=== PATIENT | female | born 1995 | race Caucasian/White ===

== ENCOUNTER 2023-01-05 09:20 | Inpatient (IN) | payer OTHER, SELFPAY ==
--- NOTE | 2023-01-01 12:44 | HP.PCM_ITS ---
History and Physical Date of Admission: 01/05/23 HPI: The patient is a 27 year old female presenting for pre-operative visit. She is scheduled for , for breech on 01/05/23. Procedure discussed along with risks, benefits and complications. Other alternatives discussed for management. Consent form signed? Yes. ? ? PAST MEDICAL HISTORY PAST MEDICAL HISTORY Diagnosis Date ? Allergic rhinitis, cause unspecified ? ? History of hypertension ? ? PMH - PAST MEDICAL HISTORY OF ? ? normal color vision ? Unspecified asthma(493.90) ? ? ? PAST SURGICAL HISTORY PAST SURGICAL HISTORY Procedure Laterality Date ? PAST SURGICAL HISTORY OF ? ? ? wisdom teeth ? TYMPANOSTOMY LOCAL/TOPICAL ANESTHESIA ? CURRENT MEDICATIONS Current Outpatient Medications Medication Sig Dispense Refill ? acyclovir (ZOVIRAX) 400 mg tablet Take 1 tablet by mouth three times daily. 90 tablet 4 ? prental multivitamin 27 mg iron- 800 mcg tablet Take 1 tablet by mouth once daily. ? ? ? diphenhydramine HCl (BENADRYL ORAL) Take by mouth. ? ? ? ascorbic acid (CARLOS MANUEL-C ORAL) Take by mouth. ? ? ? cholecalciferol, vitamin D3, (VITAMIN D3 ORAL) Take by mouth. ? ? ? zinc sulfate (ZINC-15 ORAL) Take by mouth. ? ? ? budesonide-formoterol (SYMBICORT) 160-4.5 mcg/actuation inhaler Inhale 2 Puffs as instructed twice daily. 1 Inhaler 1 ? acyclovir (ZOVIRAX) 400 mg tablet Take 1 tablet by mouth once daily. 90 tablet 4 ? cetirizine HCl (ZYRTEC ORAL) Take by mouth. ? ? ? EPINEPHrine (EPIPEN) 0.3 mg/0.3 mL (1:1,000) PnIj Inject 0.3 mL intramuscularly as needed (for allergic reaction.Seek emergent medical care immediately after use.Disp:one 2-packw/psychologist chief). Dispense generic if available. 1 Each 1 ? mometasone (NASONEX) 50 mcg/actuation nasal spray Use 2 Sprays in each nostril once daily. 1 Bottle 11 ? albuterol HFA (PROVENTIL HFA) 90 mcg/actuation inhaler Inhale 2 Puffs as instructed every 4 hours as needed (May also use 15 minutes pre-exercise. Use with spacer. Proventil JOEL). 1 Inhaler 2 ? albuterol 2.5 mg /3 mL (0.083 %) INHALATION nebulizer solution Use via nebulizer. one nebulized every 4 hours as needed for cough, wheezing, chest tigh tness or shortness of breath. 50 mL 5 ? No current facility-administered medications for this visit. ? ? ALLERGIES: Environment Allergy [Other] ? PERSONAL HISTORY: SOCIAL HISTORY Social History ? Tobacco Use ? Smoking status: Never ? Smokeless tobacco: Never Vaping Use ? Vaping Use: Never used Substance Use Topics ? Alcohol use: Not Currently ? ? Comment: socially ? Drug use: Never ? FAMILY HISTORY: FAMILY HISTORY FAMILY HISTORY Problem Relation Age of Onset ? Hypertension Mother ? ? Hypertension Father ? ? No Known Problems Brother ? ? No Known Problems Brother ? ? No Known Problems Brother ? ? Asthma Brother ? ? Diabetes Maternal Grandmother ? ? Hypertension Maternal Grandmother ? ? Uterine Cancer Maternal Grandmother ? ? Heart Maternal Grandfather ? ? of massive heart attack at age 43 ? Hypertension Paternal Grandmother ? ? Diabetes Paternal Grandmother ? ? Hypertension Paternal Grandfather ? ? ? REVIEW OF SYMPTOMS: GENERAL: denies fevers or chills ENDOCRINOLOGY: has not been on steroids Cardiology : denies palpitations or chest pain Respiratory: denies SOB or cough Hematology: denies history of prolonged bleeding or easy bruising or VTE Allergy: Denies history of personal or family history of allergy to anesthesia ? PHYSICAL EXAMINATION: ? VITALS: Blood pressure 124/87, pulse 84, height 5' 5 (1.651 m), weight 215 lb 9.6 oz (97.8 kg), last menstrual period 04/05/2022, SpO2 98 %. ? GENERAL: The patient is well nourished, well hydrated in no acute distress. , The patient is oriented to time, place, and person. NECK: Supple. No lynphadenopathy, normal thyroid, no thyromegaly. LUNGS: Clear to auscultation bilaterally. no wheezes, rhonchi or rales HEART: Regular rate and rhythm, Normal heart sounds, and No murmurs or gallops Abd- soft, nontender, gravid ? IMPRESSION: Estimated Date of Delivery: 01/10/23 Breech ? PLAN: The risks/benefits/alternatives and personal involved for the planned c- section were reviewed with the patient. Her questions were answered to her satisfaction and she desires to proceed. Consent was signed. I reviewed with her postop instructions and expectations. ? ? I have reviewed and updated past medical and surgical history, medications and allergies
[2023-01-05] VITALS (33 sets, daily range): BP systolic 104–143; BP diastolic 53–89; PULSE 68–104; RESP 15–146; TEMP 36.2–36.8; O2SAT 96–100; BMI 36.1
[2023-01-05] MEDS: Lactated Ringers 1,000 ML 999 ML IV (10:00)
[2023-01-05 10:33] LABS: Absolute Lymphocyte Count 2.31 X10^3/uL (0.83-4.51); Absolute Neutrophil Count 8.5 X10^3/uL (2.0-7.7); Basophil# 0.05 X10^3/uL; Basophil% 0.4 % (0-1); Eosinophil# 0.12 X10^3/uL; Hematocrit 40.7 % (37-47); Hemoglobin 13.5 g/dL (12.0-15.0); Lymphocyte # 2.31 X10^3/ul (0.83-4.51); Lymphocyte % 19.9 % (19-41); Mean Corp Hgb Conc 33.2 g/dL (32-36); Mean Corpuscular Hgb 29.2 pg (27.0-32.0); Mean Corpuscular Volume 88.1 fL (81-99); Mean Platelet Vol. 9.7 fl (6.2-12.0); Monocyte# 0.56 X10^3/uL; Monocyte% 4.8 % (0-10); NRBC Flagged by Analyzer 0 % (0-5); Neutrophil # 8.46 X10^3/uL (2.7-7.7); Platelet Count 192 K/mm3 (150-450); RBC Distribution Width SD 41.8 fl (35.1-43.9); Red Blood Count 4.62 M/mm3 (4.2-5.4); White Blood Count 11.6 K/mm3 (4.4-11.0)
[2023-01-05 11:20] LABS: Syphilis Antibodies Non-reactive
[2023-01-05] MEDS: Acetaminophen 500 MG Tablet 1000 MG PO ×3 (11:20→23:41)
[2023-01-05] MEDS: Lactated Ringers 1,000 ML 150 ML IV (11:20)
[2023-01-05] MEDS: Sodium Citrate/Citric Acid 30 ML UDC PO (11:49)
[2023-01-05] MEDS: Cefazolin 2 GM in 0.9% Normal Saline 100 ML IV (11:56)
--- NOTE | 2023-01-05 12:48 | EX.PCM.OBRPT ---
Assessment & Plan (1) delivery delivered: (2) Single live : (3) Reinier breech: (4) 39 weeks gestation of : Maternal Data Information Final DALY: 12/10/22 Gestational age: 39 5/7 Details Operative Information Date of Procedure: 01/05/23 Pre-Operative Diagnosis: breech Post-Operative Diagnosis: same Classification: Scheduled Procedure Type: low transverse presales senior specialist #1: Emili Curry Type of Anesthesia: Spinal Anesthesiologist: Jac Carpenter Special Medications: duramorph Antibiotic Given: Ancef 2 grams IV x1 Drain: Jay to straight drain Estimated Blood Loss: 600 Fluids Replaced: 550 Procedure Start Time: 12:22 Procedure Stop Time: 12:44 Time of Delivery: 12:24 Findings Description of Procedure: The patient was taken to the operating room. She was prepped and draped in the dorsal supine position with a leftward tilt. A Pfannenstiel skin incision was made approximately 2 cm above the symphysis pubis and carried through to underlying layer fascia with the scalpel. The fascia was incised incised in the midline and extended laterally with the Guerrero scissors. The rectus muscles were in the midline and the peritoneum was entered bluntly. The peritoneal incision was stretched and the bladder blade was placed. The uterine incision was made in a low transverse fashion with the scalpel and extended superiorly and inferiorly with blunt dissection. The amniotic membranes were ruptured bluntly and clear amniotic fluid returned. The 's buttocks were brought out through the incision. The legs were swept out individually and then the arms. The head delivered flexed with minimal traction and gentle downward traction on the maxilla. The mouth and nares were bulb suctioned. The cord was clamped and cut as the was stimulated. Cord clamping was delayed. The infant was handed off to the waiting nursing staff. The placenta was delivered with fundal massage and gentle traction in the standard fashion. The uterus was exteriorized and cleared of all clots and debris. The cervix was dilated with a ring forcep. The uterine incision was closed with #1 Vicryl in a running locked fashion. Single [id number] suture was needed in the left corner of the incision to control bleeding. The incision was examined and was found to be hemostatic. The uterus was placed back into the peritoneal cavity and hemostasis was again confirmed. The rectus muscles were examined and any bleeding was Bovie cauterized. The parietal peritoneum and rectus muscles were closed en bloc with an 0 Vicryl running suture. The rectus fascia was examined and any bleeding was Bovie cauterized and the rectus fascia was closed with 0 PDS suture in a running standard fashion. The subcutaneous tissue was examining and any bleeding was Bovie cauterized. The subcutaneous tissue was reapproximated with 3-0 Vicryl suture. The skin was closed in a subcuticular fashion with 3-0 Monocryl suture. I performed the entire procedure with assistance. All sponge, lap, and needle counts were correct. The patient was taken to her room for recovery in a stable condition. Presentation: Positive for Vertex Amniotic Membrane Rupture Type: Artificial Amniotic Fluid Description: Clear Placental Delivery Description: Expressed Placenta Disposition: [facility] Cord Vessel Description: 3 Vessels Cord Entanglement: None Infant A Gender: Female (Angeline) (1 minute): 8 (5 minute): 9 Delayed Cord Clamping: Yes Complications Complications: none
[2023-01-05] MEDS: Oxytocin 15 Units/NS 250ml 15 UNITS/250 ML IV.SOLN 83 UNITS IV (13:00)
[2023-01-05] MEDS: Ketorolac 30 MG/ML Syringe IV ×2 (13:30→20:11)
[2023-01-05] MEDS: Ondansetron 4 MG/2 ML Vial IV (15:24)
[2023-01-05] MEDS: Lactated Ringers 1,000 ML 100 ML IV (15:24)
--- NOTE | 2023-01-05 20:05 | NURSING ---
pt stood at side of bed and walked to bathroom. tolerated well.
[2023-01-06] MEDS: Ketorolac 30 MG/ML Syringe IV ×2 (01:30→08:02)
[2023-01-06] MEDS: 0.9% Saline Lock 10 ML Syringe IV ×2 (01:31→08:02)
[2023-01-06] MEDS: Enoxaparin 40 MG/0.4 ML Syringe SC (01:31)
[2023-01-06 03:54] VITALS: BP 121/49; PULSE 74; RESP 15; TEMP 36.3; O2SAT 97
[2023-01-06] MEDS: Acetaminophen 500 MG Tablet 1000 MG PO ×4 (05:37→23:43)
[2023-01-06 05:47] LABS: Hematocrit 37.9 % (37-47); Hemoglobin 12.7 g/dL (12.0-15.0); Mean Corp Hgb Conc 33.5 g/dL (32-36); Mean Corpuscular Hgb 30.2 pg (27.0-32.0); Mean Corpuscular Volume 90.2 fL (81-99); Mean Platelet Vol. 9.4 fl (6.2-12.0); Platelet Count 138 K/mm3 (150-450); RBC Distribution Width SD 42.5 fl (35.1-43.9); White Blood Count 12.3 K/mm3 (4.4-11.0)
[2023-01-06 08:00] VITALS: BP 122/70; PULSE 64; RESP 17; TEMP 36.6
--- NOTE | 2023-01-06 08:50 | PCM.PN.OB ---
Subjective Subjective Pain well controlled. Average lochia. Ambulating and urinating without difficulty. Tolerating regular diet. Objective Data Objective Data Vital Signs: Vital Signs Temp Pulse Resp BP Pulse Ox O2 Del Method 97.8 F 64 17 122/70 H 97 Room Air 01/06/23 08:00 01/06/23 08:00 01/06/23 08:00 01/06/23 08:00 01/06/23 03:54 01/06/23 08:00 Oxygen Delivery Method Room Air Weight: 98.656 kg Body Mass Index (BMI) 36.1 Intake & Output: Intake and Output for Last 24 Hours 01/04/23 01/05/23 01/06/23 23:59 23:59 23:59 Intake Total 4015 / 4015 Output Total 3300 / 3300 1400 / 1400 Balance 715 / 715 -1400 / -1400 Lab / Micro Data Result Diagrams: 01/06/23 05:37 Labs: Laboratory Results - last 24 hr 01/05/23 10:10: WBC 11.6 H, RBC 4.62, Hgb 13.5, Hct 40.7, MCV 88.1, MCH 29.2, MCHC 33.2, RDW Std Deviation 41.8, RDW Coeff of Nadir 13.0, Plt Count 192, MPV 9.7, Immature Gran % (Auto) 0.900, Neut % (Auto) 73.0 H, Lymph % (Auto) 19.9, [place] % (Auto) 4.8, Eos % (Auto) 1.0, Baso % (Auto) 0.4, Absolute Neuts (auto) 8.5 H, Absolute Lymphs (auto) 2.31, Nucleated RBC % 0 01/05/23 10:10: Blood Type O POSITIVE, Antibody Screen NEGATIVE 01/05/23 10:10: Syphilis Total Ab Non-reactive 01/06/23 05:37: WBC 12.3 H, RBC 4.20, Hgb 12.7, Hct 37.9, MCV 90.2, MCH 30.2, MCHC 33.5, RDW Std Deviation 42.5, RDW Coeff of Nadir 13.0, Plt Count 138 L, MPV 9.4 Physical Exam Const alert General Appearance: cooperative GI GI Narrative: soft, moderate distention, fundus firm, appropriately tender. Abdominal bandage clean dry and intact Assessment & Plan (1) delivery delivered: PLAN: Postoperative day #1 status post primary section for breech. Patient and are doing well. CBC is stable. Vitals are stable. is breast-feeding and doing well. Routine care. Likely discharge tomorrow.
[2023-01-06] MEDS: Senna/Docusate Sodium 1 Tablet PO (08:54)
[2023-01-06] MEDS: DiphenhydrAMINE 25 MG Capsule PO (08:54)
[2023-01-06 11:31] VITALS: BP 110/60; PULSE 66; RESP 18; TEMP 36.4
[2023-01-06] MEDS: Ibuprofen 600 MG Tablet PO ×2 (14:38→20:43)
[2023-01-06 17:29] VITALS: BP 118/58; PULSE 68; RESP 18; TEMP 36.5
[2023-01-06 19:32] VITALS: BP 120/70; PULSE 78; RESP 15; TEMP 36.8; O2SAT 97
[2023-01-07] MEDS: Ibuprofen 600 MG Tablet PO ×2 (02:15→08:16)
[2023-01-07 02:17] VITALS: BP 120/65; RESP 18; TEMP 36.6
[2023-01-07] MEDS: Acetaminophen 500 MG Tablet 1000 MG PO ×2 (05:28→11:32)
[2023-01-07 08:09] VITALS: BP 123/70; PULSE 77; RESP 18; TEMP 36.7; O2SAT 98
--- NOTE | 2023-01-07 08:17 | PCM.PN.OB ---
Subjective Subjective Patient is doing well. Pain is well controlled. she is ambulating and voiding without difficulty. Tolerating regular diet without nausea or vomiting. Lochia is normal. She denies lightheadedness or dizziness. She denies leg pain. She desires to go home today. Objective Data Objective Data Vital Signs: Vital Signs Temp Pulse Resp BP Pulse Ox O2 Del Method 98.1 F 77 18 123/70 H 98 Room Air 01/07/23 08:09 01/07/23 08:09 01/07/23 08:09 01/07/23 08:09 01/07/23 08:09 01/07/23 08:09 Oxygen Delivery Method Room Air Weight: 217 lb 8 oz Body Mass Index (BMI) 36.1 Intake & Output: Intake and Output for Last 24 Hours 01/05/23 01/06/23 01/07/23 23:59 23:59 23:59 Intake Total 4015 / 4015 Output Total 3300 / 3300 1400 / 1400 Balance 715 / 715 -1400 / -1400 Lab / Micro Data Result Diagrams: 01/06/23 05:37 Physical Exam Const alert and no apparent distress General Appearance: comfortable HEENT normocephalic GI soft to palpation and non-distended GI Narrative: ATTP, dressing intact Extremity Extremity Narrative: Trace LE edema bilaterally Assessment & Plan (1) delivery delivered: PLAN: Patient is s/p section delivery. She is doing well and meeting milestones for discharge. She requests to go home today. Discharge instructions reviewed and follow-up.
--- NOTE | 2023-01-07 08:21 | DCINST_ITS ---
Discharge Instructions Diet Discharge Diet: No restrictions Activity Discharge Activity: May Not Drive and May Shower May resume sexual activity in: 6 weeks Weight Bearing Status: Weight bearing as tolerated Lifting Restrictions: Nothing heavier than baby Dressing / Incision Call your doctor if your incision/area has: Continuous Slow Oozing, Sudden Incre ased Bleeding, Increased Pain/ Swelling, Increased Redness, Foul Smelling Discharge and Swelling at the incision site Call your doctor if you observe: Fever of 101 or Higher, Coldness, Increased Pain, Numbness or Tingling, Change in Color, Inability to urinate, Inability to have a bowel movement, Using more than 1 pad per hour, Shortness of breath, Dizziness, Fainting spells, Swelling in the ankles, Chest pain, Increased palpitations (irregular heartbeat), Calf discomfort and Uncontrolled pain Suture Line Care: Avoid Pulling/Pushing and Avoid Pinching/Bending Remove Dressing in: 3 days Cleanse incision/area with: Soap & Water Follow Up Care When: 1-2 weeks incision check Test Results: Test results from this visit will be discussed in further detail at your follow- up appointment, if applicable. Discharge Plan Admission Admit Date/Time: 01/05/23 09:20 Primary Reason for Your Visit: delivery Attending Provider: Nargis Aguirre Primary Care Provider: Kriss Celestin Instructions Patient Instructions: Section Dc Discharge Orders/Prescriptions Prescriptions: New oxycodone-acetaminophen [Percocet] 5-325 mg tablet 1 tab PO Q6H PRN (Reason: pain) 7 Days Qty: 10 0RF ibuprofen 600 mg tablet 600 mg PO Q6H PRN (Reason: pain) Qty: 30 0RF docusate sodium [Colace] 100 mg capsule 100 mg PO BID Qty: 30 0RF Continued [id number] 1 mg Tablet 1 tab PO DAILY Referrals / Follow Up: Kriss Celestin DO [Primary Care Provider] - Disposition Disposition (needs filled in before D/C Order can be placed): Home, Self Care
[2023-01-07] MEDS: Senna/Docusate Sodium 1 Tablet PO (10:16)
== END 2023-01-07 11:45 | disposition home or self-care (01) | DRG 788 ==
PROVIDERS: Admitting Provider Obstetrics & Gynecology; PCP Family Medicine; Referring Provider Obstetrics & Gynecology; Visit Provider Obstetrics & Gynecology
PROC: 10D00Z1 Extraction of Products of Conception, Low, Open Approach (ICD-10-PCS; CPT 59514; principal; 2023-01-05 11:45)
DX: O32.1XX0 Maternal care for breech presentation, not applicable or unspecified (principal); Z37.0 Single live birth; Z3A.39 39 weeks gestation of pregnancy
CPT/HCPCS: 59025; 59050; 85025; 85027; 86780; 86850; 86900; 86901; 99221; J7120; A4216; G0378; J2405

== ENCOUNTER 2024-08-01 21:56 | Emergency (ER) | payer OTHER, SELFPAY ==
[2024-08-01 21:58] VITALS: BP 146/72; PULSE 119; RESP 15; TEMP 35.6; O2SAT 100; BMI 35.1
--- NOTE | 2024-08-01 22:15 | US_ITS ---
EXAM: US , LIMITED CLINICAL INDICATION: abd pain w/ -- no bleeding TECHNIQUE: Real-time limited ultrasound of the maternal uterus with image documentation. COMPARISON: No relevant prior studies available. FINDINGS: FETUS: Single live intrauterine . GESTATIONAL AGE: No measurements were performed, the size of the fetus roughly correlates with the gestational age by LMP of 15 weeks 0 days. POSITION: Breech position. HEART RATE: heart rate: 162 bpm. PLACENTA: Placenta is posterior with no abnormality identified. AMNIOTIC FLUID: The amount of amniotic fluid is within normal limits for the gestational age. CERVIX: Cervix is closed and measures 2.9 cm in length. ADNEXA: Right ovary: 3 x 1.6 x 2.4 cm. Left ovary: 3.4 x 2.3 x 3.1 cm. US/OB Limited (No Biometrics) IMPRESSION: 1. Single live intrauterine with no acute abnormalities identified. 2. No measurements were performed, the size of the fetus roughly correlates with the gestational age by LMP 15 weeks 0 days. Electronically Signed: Curtis Hong MD at 0:09 EST ,
--- NOTE | 2024-08-01 22:30 | EX.ED.DYSGE1 ---
HPI History of Present Illness Chief Complaint: Back Informant: patient and spouse/S.O. Narrative Narrative: Patient is a 29-year-old female who is a G2, P1 approximately 15 weeks . She states that she had an ultrasound by her PODIATRY DOCTOR at 7 weeks and 12 weeks showing a single IUP. She states ultrasound roughly 3 weeks ago showed ovarian cyst as well. She states that she went to bed normally Wednesday night but awoke in the middle of the night with lower abdominal pain and cramping. She states that the symptoms have been persistent and now she feels it radiates towards her low back. She denies any vaginal bleeding or discharge or dysuria. She states she contacted her OB who recommended rest and hydration but she is concerned as she did not have the symptoms with her previous and therefore comes in for evaluation [facility] Medical History delivery delivered Gestational HTN Home Medications ?Medication ?Instructions ?Recorded ?Last Taken ?Type ibuprofen 600 mg tablet 600 mg PO Q6H PRN pain #30 tabs 01/07/23 Unknown Rx aspirin 81 mg tablet,delayed 162 mg PO DAILY 08/01/24 Unknown History release cetirizine 10 mg tablet 10 mg PO DAILY 08/01/24 Unknown History fluticasone 113 mcg-salmeterol 14 1 inh inhalation BID 08/01/24 Unknown History mcg/actuation breath activated powdr valacyclovir 1 gram tablet 1,000 mg PO DAILY 08/01/24 Unknown History Allergy/AdvReac Type Severity Reaction Status Date / Time No Known Allergies Allergy Verified 08/01/24 21:58 Social History Smoking Status: Never smoker [facility] ED Constitutional Constitutional ED: Denies chills or fever(s) ENT ENT ED: Denies sore throat Cardiovascular Cardiovascular: Denies chest pain Respiratory/Chest Respiratory/Chest: Denies cough or dyspnea Gastrointestinal Gastrointestinal: Reports abdominal pain and nausea; Denies diarrhea, melena or vomiting Genitourinary Genitourinary ED: Denies dysuria or hematuria Musculoskeletal Musculoskeletal: Reports back pain Integumentary Denies rash Neurologic Neurologic: Denies headache(s) Hematologic/Lymphatic Hematologic/Lymphatic: Denies easy bleeding or easy bruising EXAM Physical Exam Const Vital Signs: 08/01/24 21:58 08/01/24 23:57 Temperature 96.1 F L Temperature Source Temporal Pulse Rate 119 H 104 H Respiratory Rate 15 16 Blood Pressure 146/72 H 117/65 Blood Pressure Mean 96 82 Pulse Ox 100 100 Oxygen Delivery Method Room Air Room Air Positive well nourished and well developed General Appearance ED: well developed; Negative for pallor HEENT Reports moist mucous membranes HEENT Narrative: No tongue or lip swelling no oral lesions no airway edema or compromise No secondary findings in the posterior pharynx to suggest infection Eyes PERRL and EOMs intact bilaterally General Eye ED: Negative for scleral icterus Neck supple Resp normal respiratory effort and clear to auscultation bilaterally Resp Narrative: No nasal flaring retractions tachypnea or accessory muscle use Cardio regular rate and regular rhythm Rate: other Other Details: Heart is regular rate and rhythm without murmurs rubs or gallops Radial and carotid pulses are equal and symmetric GI non-distended GI Narrative: Patient's abdomen is gravid with fundus consistent with reported gestational age. There is pain on palpation in the right and left lower quadrant but greatest in the left without voluntary guarding or rigidity No pulsatile mass or fluid wave Negative Hodges sign Auscultation: normoactive bowel sounds Palpation: soft Back/Spine no CVA tenderness Extremity Extremity Narrative: Trace pitting edema consistent with but negative Homans' sign bilaterally Neuro oriented x3, CN's II-XII intact bilaterally and no sensory deficits noted Sensorium / Orientation: alert Psych mental status grossly normal Skin no rashes or lesions noted and no wounds General Skin Exam: Negative for jaundice or pallor MDM MDM MDM Narrative Medical decision making narrative: Patient arrived to the ER with stable vitals and a soft nonsurgical abdomen. She reported lower cramping but there was no associated bleeding or discharge. Demential diagnosis is for abdominal pain in versus ovarian cyst versus threatened miscarriage versus appendicitis versus UTI versus pyelonephritis versus diverticulitis. Basic labs were obtained and show no elevation to the white count going against acute infectious process. Lab work showed normal lipase and liver enzymes going against a biliary cause or pancreatitis. Urine sample showed no overt signs of infection going as UTI/pyelonephritis. An ultrasound was obtained which showed a single IUP with normal heartbeat which correlates with a normal going against spontaneous miscarriage and without bleeding I do not feel there is concern for threatened miscarriage. Ultrasound also showed no signs of ovarian pathology either. Therefore at this time with negative workup and stable vitals I do not feel there is need for further testing and patient is otherwise safe for discharge with outpatient PODIATRY DOCTOR follow-up History & Record Review Discussion w/independent historian: Patient Lab Data Attestation: I reviewed the patient's lab results. Labs: Laboratory Results - last 24 hr 08/01/24 22:28 WBC 7.4 RBC 4.21 Hgb 12.5 Hct 37.1 MCV 88.1 MCH 29.7 MCHC 33.7 RDW Std Deviation 42.2 RDW Coeff of Nadir 13.2 Plt Count 148 L MPV 9.4 Immature Gran % (Auto) 0.800 Neut % (Auto) 80.3 H Lymph % (Auto) 12.9 L [place] % (Auto) 5.2 Eos % (Auto) 0.4 Baso % (Auto) 0.4 Absolute Neuts (auto) 5.9 Absolute Lymphs (auto) 0.95 Nucleated RBC % 0 Sodium 136 Potassium 3.4 L Chloride 108 H Carbon Dioxide 24.0 Anion Gap 5 BUN 11 Creatinine 0.58 Estim Creat Clear Calc 162.29 Est GFR (MDRD) Af Amer 157 Est GFR (MDRD) Non-Af 130 BUN/Creatinine Ratio 19.0 Glucose 115 H Calcium 8.7 Total Bilirubin 0.20 Direct Bilirubin < 0.05 AST 16 ALT 27 Alkaline Phosphatase 73 Total Protein 6.6 Albumin 3.0 L Globulin 3.6 Lipase 37 HCG, Quant H Urine Color Yellow Urine Clarity Clear Urine pH 6.0 Ur Specific [place] 1.025 Urine Protein Negative Urine Glucose (UA) 250 H Urine Ketones Negative Urine Occult Blood Negative Urine Nitrite Negative Urine Bilirubin Negative Urine Urobilinogen Normal Ur Leukocyte Esterase Negative Urine RBC 0-5 SEEN Urine WBC 0-5 SEEN Ur Squamous Epith Cells 0-5 SEEN Urine Bacteria 1+ Urine Mucus 1+ Radiography Diagnostic Testing: Clinical Impression(s) from Imaging Studies Obstetrics Ultrasound 08/01/24 22:15 IMPRESSION: 1. Single live intrauterine with no acute abnormalities identified. 2. No measurements were performed, the size of the fetus roughly correlates with the gestational age by LMP 15 weeks 0 days. Electronically Signed: Curtis Hong MD at 0:09 EST , Discharge Plan Triage Chief Complaint: Back ED Provider: Kieran Brennan Dx/Rx/DC Orders Clinical Impression: Abdominal pain during Instructions: Abdominal Pain, Back Pain During Prescriptions: No Action ibuprofen 600 mg tablet 600 mg PO Q6H PRN (Reason: pain) Qty: 30 0RF cetirizine 10 mg tablet 10 mg PO DAILY valacyclovir 1 gram tablet 1,000 mg PO DAILY aspirin 81 mg tablet,delayed release (DR/EC) 162 mg PO DAILY fluticasone propion-salmeterol 113-14 mcg/actuation aerosol powdr breath activated 1 inh INHALATION BID Primary Care Provider: Ct Bartlett Referrals: Linsey Shah CNM [Med Staff - Adv Practice Prof] - Ct Bartlett PA-C [Primary Care Provider] - Activity Restrictions/Additional Instructions: Please follow-up with your PODIATRY DOCTOR for repeat evaluation and return to the ER should you have any further concerns Print Language: Ukrainian Disposition Disposition: Home, Self Care
[2024-08-01] MEDS: 0.9% Normal Saline (1000mL) 1,000 ML 999 ML IV (22:31)
[2024-08-01 22:40] LABS: Color, Urine Yellow (Yellow); Glucose, Dipstick 250 mg/dl (Normal); Ketone-Dipstick Negative (Negative); Leukocyte Esterase-Dipstick Negative /ul (Negative); Nitrite-Dipstick Negative (Negative); Occult Blood-Urine Negative /ul (Negative); Protein-Dipstick Negative (Negative); Specific Gravity, Urine 1.025 (1.002-1.030); Urine Bilirubin Dipstick Negative (Negative); Urine Clarity Clear (Clear); Urine Urobilinogen Normal (Normal)
[2024-08-01 22:44] LABS: Absolute Lymphocyte Count 0.95 X10^3/uL (0.83-4.51); Absolute Neutrophil Count 5.9 X10^3/uL (2.0-7.7); Basophil# 0.03 X10^3/uL; Basophil% 0.4 % (0-1); Eosinophil# 0.03 X10^3/uL; Eosinophils% 0.4 % (0-5); Hematocrit 37.1 % (37-47); Hemoglobin 12.5 g/dL (12.0-15.0); Lymphocyte # 0.95 X10^3/ul (0.83-4.51); Lymphocyte % 12.9 % (19-41); Mean Corp Hgb Conc 33.7 g/dL (32-36); Mean Corpuscular Hgb 29.7 pg (27.0-32.0); Mean Corpuscular Volume 88.1 fL (81-99); Mean Platelet Vol. 9.4 fl (6.2-12.0); Monocyte# 0.38 X10^3/uL; Monocyte% 5.2 % (0-10); NRBC Flagged by Analyzer 0 % (0-5); Neutrophil # 5.92 X10^3/uL (2.7-7.7); Neutrophil % 80.3 % (47-70); Platelet Count 148 K/mm3 (150-450); RBC Distribution Width CV 13.2 % (11.6-14.6); RBC Distribution Width SD 42.2 fl (35.1-43.9); Red Blood Count 4.21 M/mm3 (4.2-5.4); White Blood Count 7.4 K/mm3 (4.4-11.0)
[2024-08-01 22:52] LABS: Bacteria 1+ /hpf (None Seen); Mucous, Urine 1+ /hpf (<or=2+); Red Blood Cells-Urine 0-5 SEEN /hpf (0-5); Squamous Epithelial Cells - UA 0-5 SEEN /hpf (5-10); White Blood Cells 0-5 SEEN /hpf (0-5)
[2024-08-01 22:55] LABS: AST(SGOT) 16 U/L (15-37); Alanine Aminotransfer ALT/SGPT 27 U/L (13-56); Alkaline Phosphatase 73 U/L (45-117); Anion Gap 5 (5-15); BUN 11 mg/dL (7-18); Bilirubin, Direct < 0.05 mg/dL (0.00-0.30); Calcium,Total 8.7 mg/dL (8.5-10.1); Chloride 108 mmol/L (98-107); Creatinine, Serum 0.58 mg/dL (0.55-1.02); EST Glomerular Filtration Rate 130 mL/min (>60); Est Glom Filt Rate - Afr Amer 157 mL/min (>60); Estimated Creatinine Clearance 162.29 ml/min; Globulin 3.6 g/dL (2.2-4.2); Glucose 115 mg/dL (74-106); Lipase 37 U/L (13-75); Potassium 3.4 mmol/L (3.5-5.1); Protein, Total 6.6 g/dL (6.4-8.2); Sodium Level 136 mmol/L (136-145)
[2024-08-01 23:10] LABS: hCG Titer Quant., Serum 20553 mIU/mL (1-3)
[2024-08-01 23:57] VITALS: BP 117/65; PULSE 104; RESP 16; O2SAT 100
[2024-08-02 00:29] VITALS: BP 117/85; PULSE 85; RESP 18; TEMP 37.5; O2SAT 100
== END 2024-08-02 00:34 | disposition home or self-care (01) ==
PROVIDERS: Emergency Provider Emergency Medicine; PCP Family Medicine; Referring Provider Emergency Medicine; Visit Provider Emergency Medicine
DX: O26.892 Other specified pregnancy related conditions, second trimester (principal); R10.31 Right lower quadrant pain; R10.32 Left lower quadrant pain; O34.219 Maternal care for unspecified type scar from previous cesarean delivery; Z3A.15 15 weeks gestation of pregnancy
CPT/HCPCS: 76815; 80048; 80076; 81001; 83690; 84702; 85025; 96360; 99283; A4216

== ENCOUNTER 2025-01-16 12:39 | Inpatient (IN) | payer OTHER, SELFPAY ==
[2025-01-16] VITALS (17 sets, daily range): BP systolic 98–126; BP diastolic 50–87; PULSE 69–104; RESP 15–18; TEMP 35.5–36.8; O2SAT 96–100; BMI 38.2
[2025-01-16] MEDS: Lactated Ringers 1,000 ML 999 ML IV (13:05)
[2025-01-16 13:22] LABS: Absolute Lymphocyte Count 1.99 X10^3/uL (0.83-4.51); Absolute Neutrophil Count 7.8 X10^3/uL (2.0-7.7); Basophil# 0.04 X10^3/uL; Basophil% 0.4 % (0-1); Eosinophil# 0.06 X10^3/uL; Eosinophils% 0.6 % (0-5); Hematocrit 39.4 % (37-47); Hemoglobin 13.3 g/dL (12.0-15.0); Lymphocyte # 1.99 X10^3/ul (0.83-4.51); Mean Corp Hgb Conc 33.8 g/dL (32-36); Mean Corpuscular Hgb 29.6 pg (27.0-32.0); Mean Corpuscular Volume 87.8 fL (81-99); Mean Platelet Vol. 9.5 fl (6.2-12.0); Monocyte# 0.54 X10^3/uL; Monocyte% 5.1 % (0-10); NRBC Flagged by Analyzer 0 % (0-5); Neutrophil # 7.78 X10^3/uL (2.7-7.7); Neutrophil % 74.1 % (47-70); Platelet Count 177 K/mm3 (150-450); RBC Distribution Width CV 13.8 % (11.6-14.6); RBC Distribution Width SD 43.9 fl (35.1-43.9); Red Blood Count 4.49 M/mm3 (4.2-5.4); White Blood Count 10.5 K/mm3 (4.4-11.0)
[2025-01-16] MEDS: Acetaminophen 500 MG Tablet 1000 MG PO ×2 (13:39→20:06)
[2025-01-16 13:54] LABS: Syphilis Antibodies Nonreactive (Nonreactive)
--- NOTE | 2025-01-16 13:56 | PCM.HP.OB ---
HPI - General General Date of Admission: 01/16/25 HPI Narrative IGNACIA SWANN, is a 29 F who presents for repeat . NST in office showed a late deceleration. Maternal Data Information DALY Calculator Estimated Delivery Date Method Current WG Current Estimate 01/23/25 Manual 39w 0d PFSH [facility] Medical History (Updated 01/16/25 @ 13:[address] Jarocho Hughes MD) HPV (human papilloma virus) infection Asthma depression Chronic hypertension delivery delivered Gestational HTN Home Medications ?Medication ?Instructions ?Recorded ?Last Taken ?Type ibuprofen 600 mg tablet 600 mg PO Q6H PRN pain #30 tabs 01/07/23 Unknown Rx aspirin 81 mg tablet,delayed 162 mg PO DAILY chtn 08/01/24 01/16/25 09:30 History release cetirizine 10 mg tablet 10 mg PO DAILY allergies 08/01/24 01/16/25 09:30 History fluticasone 113 mcg-salmeterol 14 2 inh inhalation DAILY asthma 08/01/24 01/15/25 21:30 History mcg/actuation breath activated powdr valacyclovir 1 gram tablet 1,000 mg PO TID hsv 08/01/24 01/16/25 09:30 History 1,000 mg Allergy/AdvReac Type Severity Reaction Status Date / Time No Known Allergies Allergy Verified 01/16/25 12:44 Social History Smoking Status: Never smoker History Elective abortions Hx Para 1 Spontaneous abortions Hx # Term Pregnancies Ectopic pregnancies Hx # Pregnancies Multiple births # of living children Vital Signs Vital Signs Vital Signs: Weight Weight: 223 lb Body Mass Index (BMI) 38.2 Labs Labs Labs: Blood Type O POSITIVE Antibody Screen NEGATIVE Hct 39.4 % (37-47) Hgb 13.3 g/dL (12.0-15.0) Obstetrics Ultrasound Syphilis Total Ab Nonreactive (Nonreactive) Assessment & Plan (1) Previous delivery affecting : COMMENT: @ 39 weeks (2) 39 weeks gestation of : PLAN: Plan Admit to L&D Proceed with repeat . Informed consent signed after R/B/A discussed.
[2025-01-16] MEDS: Lactated Ringers 1,000 ML 150 ML IV (14:03)
[2025-01-16] MEDS: Sodium Citrate/Citric Acid 30 ML UDC PO (15:13)
--- NOTE | 2025-01-16 15:17 | EX.PCM.OBRPT ---
Maternal Data Information DALY Calculator Estimated Delivery Date Method Current WG Current Estimate 01/23/25 Manual 39w 0d Operative Report (OB) Details Procedure Type: low transverse Date of Procedure: 01/16/25 Procedure Start Time: 16:03 Procedure Stop Time: 16:41 Pre-Operative Diagnosis: Repeat Elective and Nonreassuring Status (Late deceleration on NST in office) Post-Operative Diagnosis: Same as Pre-operative diagnosis Classification: MERON Type of Anesthesia: Spinal Antibiotic Given: Ancef 2 grams IV x1 Drain: Jay to straight drain Estimated Blood Loss: 800ml Fluids Replaced: 900ml Findings Description of surgery: The patient was taken to the operating room where spinal anesthesia was placed & found to be adequate. She was prepped and draped in the dorsal supine position with a leftward tilt. A Pfannenstiel skin incision was made approximately 2 cm above the symphysis pubis and carried through to the underlying fascia with the scalpel. The fascia was incised incised in the midline and extended laterally with the Guerrero scissors. The rectus muscles were in the midline and the peritoneum was entered carefully and bluntly. The peritoneal incision was stretched and the bladder blade was inserted. Vesicouterine peritoneum was tented up, incised & then bladder flap created gently. The uterine incision was made in a low transverse fashion with the scalpel and extended superiorly and inferiorly with blunt dissection. The infant's head was brought to the incision in the flexed position and delivered without difficulty. The head was gently guided to allow delivery of the anterior and posterior shoulders. The body then delivered with fundal pressure in the standard fashion. The 3VC cord was clamped and cut in delayed fashion. The was handed off to the waiting pediatric genetic counselor. The placenta was delivered with fundal massage and gentle traction in the standard fashion. The uterus was exteriorized and cleared of clots and debris. The uterine incision was closed with #1 Vicryl suture in a running locked fashion. Monocryl suture was used in an imbricating fashion. The incision was examined and was found to be hemostatic. The uterus was returned to the abdominal cavity. After irrigating Aditi was placed over the uterine incision as some areas were denuded (but hemostatic). The rectus muscle was examined and any bleeding was Bovie cauterized. The fascia was closed with PDS suture in a running standard fashion. The subcutaneous tissue was examining and any bleeding was Bovie cauterized. The subcutaneous tissue was reapproximated with interrupted sutures. The skin was closed in a subcuticular fashion by the C S S REPRESENTATIVE while I was present in the OR. The remainder of the procedure was performed by me with assistance. Surgical findings: normal maternal uterus and adnexa Presentation: Vertex Amniotic Membrane Rupture Type: Artificial Amniotic Fluid Description: Clear Placental Delivery Description: Expressed Placenta Disposition: [facility] Specimen collected: No Cord Vessel Description: 3 Vessels Cord Entanglement: None A gender: Male (1 minute): 8 (5 minute): 9 Delayed Cord Clamping: Yes Safety Sitter family sociologist: Yes Cylinder Tester: Zach Escobar Tasks completed by security assistant: Opening & closing and Retracting Additional occupational therapy assistant?: No Complications Complications: No
[2025-01-16] MEDS: Cefazolin 2 GM in 0.9% Normal Saline (100mL Bag) 100 ML IV (15:53)
[2025-01-16] MEDS: Oxytocin 15 Units/NS 250ml 15 UNITS/250 ML IV.SOLN 83 UNITS IV (17:00)
[2025-01-16] MEDS: Ketorolac 30 MG/ML Syringe IV ×2 (17:32→23:34)
[2025-01-16] MEDS: Acyclovir 200 MG Capsule 400 MG PO (22:22)
--- OUTSIDE RECORDS SUMMARY | 2025-01-16 23:23 | XMS RPT_ITS | CCD ---
Author Organization [facility] Care Team Providers Care Folding Machine Operator Name Role Phone Unavailable Primary Care Provider Unavailabl e KRISS YADAV DO Admitting Unavailable KRISS YADAV DO Attending Unavailable KRISS YADAV DO Primary Care Unavailable KRISS YADAV DO Consulting Unavailable PROVIDER, UNKNOWN Consulting Unavailable PROVIDER, UNKNOWN Consulting Unavailable KRISS YADAV DO Admitting Unavailable KRISS YADAV DO Attending Unavailable KRISS YADAV DO Primary Care Unavailable KRISS YADAV DO Admitting Unavailable KRISS YADAV DO Attending Unavailable KRISS YADAV DO Primary Care Unavailable KRISS YADAV DO Admitting Unavailable KRISS YADAV DO Attending Unavailable KRISS YADAV DO Primary Care Unavailable KRISS YADAV DO Admitting Unavailable KRISS YADAV DO Attending Unavailable KRISS YADAV DO Consulting Unavailable KRISS YADAV DO Primary Care Unavailable PROVIDER, UNKNOWN Consulting Unavailable PROVIDER, UNKNOWN Consulting Unavailable KRISS YADAV DO Primary Care Unavailable KRISS YADAV DO Attending Unavailable KRISS YADAV DO Admitting Unavailable KRISS YADAV DO Consulting Unavailable PROVIDER, UNKNOWN Consulting Unavailable PROVIDER, UNKNOWN Consulting Unavailable KRISS YADAV DO Primary Care Unavailable KRISS YADAV DO Attending Unavailable KRISS YADAV DO Admitting Unavailable KRISS YADAV DO Consulting Unavailable PROVIDER, UNKNOWN Consulting Unavailable PROVIDER, UNKNOWN Consulting Unavailable KRISS YADAV DO Primary Care Unavailable KRISS YADAV DO Admitting Unavailable KRISS YADAV DO Attending Unavailable KRISS YADAV DO Consulting Unavailable PROVIDER, UNKNOWN Consulting Unavailable PROVIDER, UNKNOWN Consulting Unavailable Unavailable Primary Care Provider Unavailabl e Kieran Brennan Referring Unavailable Kieran Brennan Attending Unavailable Ct Dixon Primary Care Unavailable CHEYENNE BULLOCK Attending Unavailable SHAH, LINSEY Referring Unavailable SHAH, LINSEY Referring Unavailable SHAH, LINSEY Attending Unavailable SHAH, LINSEY Referring Unavailable SHAH, LINSEY Attending Unavailable SHAH, LINSEY Attending Unavailable SHAH, LINSEY Referring Unavailable SHAH, LINSEY Attending Unavailable SHAH, LINSEY Referring Unavailable SHAH, LINSEY Attending Unavailable SHAH, LINSEY Referring Unavailable SHAH, LINSEY Referring Unavailable SHAH, LINSEY Referring Unavailable SHAH, LINSEY Attending Unavailable SHAH, LINSEY Referring Unavailable SHAH, LINSEY Referring Unavailable SHAH, LINSEY Attending Unavailable SHAH, LINSEY Referring Unavailable SHAH, LINSEY Referring Unavailable SHAH, LINSEY Attending Unavailable SELF Referring Unavailable EMMA MCCARTNEY Attending Unavail able SHAH, LINSEY Referring Unavailable SHAH, LINSEY Referring Unavailable SHAH, LINSEY Referring Unavailable SHAH, LINSEY Attending Unavailable SHAH, LINSEY Attending Unavailable SHAH, LINSEY Referring Unavailable SHAH, LINSEY Referring Unavailable SHAH, LINSEY Attending Unavailable SHAH, LINSEY Referring Unavailable SHAH, LINSEY Referring Unavailable SHAH, LINSEY Referring Unavailable SHAH, LINSEY Referring Unavailable Allergies Allergy Classification Reported Allergen(s) Allergy Type Date of Onset Reaction(s) Facility (11 sources) environment allergy [Other] Propensity to adverse reactions 7 [facility] (1 source) OTHER; Translations: [OTHER] Propensity to adverse reactions (disorder) 7 [facility] Rep[facility] Medications Current Medications Medication Drug Class(es) Dates Sig (Normalized) Sig (Original) acetaminophen 325 mg / oxyCODONE hydrochloride 5 mg oral tablet (1 source) Opioid Agonist Start: 01-07-2023 take 1 tablet by mouth every six hours Oxycodone-Acetami nophen (Percocet) 5-325 mg tablet Active 1 TABLET PO EVERY 6 HOURS 05 15January 07, 2023 Start: 01-07-2023 take 1 tablet by elzbieta th every six hours Oxycodone-Acetaminophen (Percocet) 5-325 mg tablet Active 1 TABLET PO EVERY 6 HOURS 05 15January 07, 2023 [id number] 200 actuat albuterol 0.09 mg/actuat metered dose inhaler (20 sources) beta2-Adrenergic Agonist Start: 12-21-2012 take 2 puff(s) by inhalation every four hours as needed albuterol HFA (PROVENTIL HFA) 90 mcg/actuation inhaler Inhale 2 Puffs as instructed every 4 hours as needed (May also use 15 minutes pre-exercise. Use with spacer. Farshad MALDONADO). 1 Inhaler 2 12/21/2012 Active Start: 12-16-2010 End: 06-21-2024 albuterol 2.5 mg /3 mL (0.08 3 %) INHALATION nebulizer solution Indications: Extrinsic asthma, unspecified Use via nebulizer. one nebulized every 4 hours as needed for cough, wheezing, chest tightness or shortness of breath. 50 mL 5 12/16/2010 06/21/2024 Discontinued (Course of therapy completed) Comment on above: Use via nebulizer. o ne nebulized every 4 hours as needed for cough, wheezing, chest tightness or shortness of breath. Inhale 2 Puffs as in structed every 4 hours as needed (May also use 15 minutes pre-exercise. Use with spacer. Farshad MALDONADO). amoxicillin 875 mg / clavulanate 125 mg oral tablet (2 sources) Penicillin-class Antibacterial Start: 5 End: 5 take 1 tablet by mouth twice daily amoxicillin-clavul anate potassium (AUGMENTIN) 875-125 mg per tablet Take 1 tablet by mouth two times a day for 7 days. 14 tablet 11/04/2024 11/11/2024 Active Ascorbic Acid (20 sources) Vitamin C ascorbic acid (CARLOS MANUEL-C ORAL) Take by mouth. Active ascorbic acid (V SANJANA-C ORAL) Take by mouth. 0 Active Comment on above: Take by mouth. aspirin 81 mg delayed release oral tablet (20 sources) Platelet Aggregation Inhibitor, Nonsteroidal Anti-inflammatory Drug Start: 4 take 2 tablets by mouth once daily aspirin, enteric coated (ECOTRIN LOW STRENGTH) 81 mg EC tablet Indications: with uncertain dates in first trimester (HCC) Take 2 tablets by mouth once daily. 90 tablet 3 06/21/2024 Active Budesonide / formoterol (20 sources) Corticosteroid, beta2-Adrenergic Agonist Start: 2 take 2 puff(s) by inhalation twice daily budesonide-formote rol (SYMBICORT) 160-4.5 mcg/actuation inhaler Inhale 2 Puffs as instructed twice daily. 1 Inhaler 1 12/09/2021 Active Comment on above: Inhale 2 Puffs as in structed twice daily. Cetirizine (20 sources) Histamine-1 Receptor Antagonist cetirizine HCl (ZYRTEC ORAL) Take by mouth. Active cetirizine HCl ( ZYRTEC ORAL) Take by mouth. 0 Active Comment on above: Take by mouth. cholecalciferol, vitamin D3, (VITAMIN D3 ORAL) (20 sources) cholecalciferol, vitamin D3, (VITAMIN D3 ORAL) Take by mouth. Active cholecalciferol, vitamin D3, (VITAMIN D3 ORAL) Take by mouth. 0 Active Comment on above: Take by mouth. diphenhydrAMINE (20 sources) Histamine-1 Receptor Antagonist diphenhydramine HCl (BENADRYL ORAL) Take by mouth. Active diphenhydramine HCl (BENADRYL ORAL) Take by mouth. 0 Active Comment on above: Take by mouth. docusate sodium 100 mg oral capsule (1 source) Start: 023 take 1 capsule by mouth twice daily Docusate Sodium (Colace) 100 mg capsule Active 100 MG PO TWICE A DAY January 07, 2023 12:00am [id number] 0.3 ml EPINEPHrine 1 mg/ml auto-injector (20 sources) alpha-Adrenergic Agonist, beta-Adrenergic Agonist, Catecholamine Start: 013 EPINEPHrine (EPIPEN) 0.3 mg/0.3 mL (1:1,000) PnIj Inject 0.3 mL intramuscularly as needed (for allergic reaction.Seek emergent medical care immediately after use.Disp:one 2-packw/sports athletic trainer). Dispense generic if available. 1 Each 1 02/16/2013 Active Comment on above: Inject 0.3 mL intram uscularly as needed (for allergic reaction.Seek emergent medical care immediately after use.Disp:one 2-packw/sports athletic trainer). Dispense generic if available. ibuprofen 600 mg oral tablet (2 sources) Nonsteroidal Anti-inflammatory Drug Start: 023 take 600 mg by mouth every six hours Ibuprofen Active 600 MG PO EVERY 6 HOURS January 07, 2023 12:00am Start: 09-19-2021 take 1 tablet by elzbieta th every six hours as needed ibuprofen (MOTRIN) 600 mg tablet Take 1 tablet by mouth every 6 hours as needed for pain. 30 tablet 0 09/19/2021 Active Comment on above: Take 1 tablet by elzbieta th every 6 hours as needed for pain. mometasone furoate 0.05 mg/actuat metered dose nasal spray (20 sources) Corticosteroid Start: 12-22-19 13 take 2 spray(s) nasal route once daily mometasone (NASONEX) 50 mcg/actuation nasal spray Use 2 Sprays in each nostril once daily. 1 Bottle 11 12/21/2012 Active Comment on above: Use 2 Sprays in each nostril once daily. Xdeamrua-Lfg-Sr-Fa (1 source) Start: 01-06-20 23 take 1 tablet by mouth once daily Ohsgnxba-Tjt-So-Fa Active 1 TABLET PO DAILY January 05, 2023 12:00am prental multivitamin 27 mg iron- 800 mcg tablet (20 sources) take 1 tablet by mouth once daily prental multivitamin 27 mg iron- 800 mcg tablet Take 1 tablet by mouth once daily. Active take 1 tablet by mouth once claudine y prental multivitamin 27 mg iron- 800 mcg tablet Take 1 tablet by mouth once daily. 0 Active Comment on above: Take 1 tablet by elzbieta th once daily. valACYclovir 1000 mg oral tablet (20 sources) Herpesvirus Nucleoside Analog DNA Polymerase Inhibitor, Herpes Simplex Virus Nucleoside Analog DNA Polymerase Inhibitor, Herpes Zoster Virus Nucleoside Analog DNA Polymerase Inhibitor Start: 3 End: 5 take 1 tablet by mouth once daily valACYclovir (VALTREX) 1 gram tablet Take 1 tablet by mouth once daily. 90 tablet 3 05/22/2024 05/22/2025 Active Comment on above: Take 1 tablet by elzbieta th once daily. Zinc Sulfate (20 sources) zinc sulfate (ZINC-15 ORAL) Take by mouth. Active zinc sulfate (ZI NC-15 ORAL) Take by mouth. 0 Active Comment on above: Take by mouth. Completed/Discontinued Medications Medication Drug Class(es) Dates Sig (Normalized) Sig (Original) acyclovir 400 mg oral tablet (20 sources) Herpesvirus Nucleoside Analog DNA Polymerase Inhibitor, Herpes Simplex Virus Nucleoside Analog DNA Polymerase Inhibitor, Herpes Zoster Virus Nucleoside Analog DNA Polymerase Inhibitor Start: 12-03-2022 End: 05-30-2023 take 1 tablet by mouth three times daily acyclovir (ZOVIRAX) 400 mg tablet Take 1 tablet by mouth three times daily. 90 tablet 4 12/03/2022 05/30/2023 Discontinued Start: 06-13-2021 End: 05-30-2023 take 1 tablet by mouth once daily acyclovir (ZOVIRAX) 400 mg tablet Take 1 tablet by mouth once daily. 90 tablet 4 06/13/2021 05/30/2023 Discontinued Comment on above: Take 1 tablet by elzbieta th once daily. Take 1 tablet by elzbieta th three times daily. amoxicillin 875 mg oral tablet (2 sources) Penicillin-class Antibacterial Start: End: take 1 tablet by mouth every twelve hours amoxicillin (AMOXIL) 875 mg tablet Take 1 tablet by mouth every 12 hours. 11/01/2024 11/04/2024 Discontinued (Course of therapy completed) cyclobenzaprine hydrochloride 10 mg oral tablet (1 source) Muscle Relaxant Start: take 1 tablet by mouth every eight hours as needed cyclobenzaprine (FLEXERIL) 10 mg tablet Take 1 tablet by mouth three times daily as needed for muscle spasm. 21 tablet 0 09/19/2021 Active Comment on above: Take 1 tablet by elzbieta th three times daily as needed for muscle spasm. drospirenone / Ethinyl Estradiol (1 source) Progestin, Estrogen Start: 021 take 1 tablet by mouth once daily Drospirenone-Ethinyl Estradiol (PHILIPPE, 28,) 3-0.02 mg per tablet Take 1 tablet by mouth once daily. 84 tablet 4 06/13/2021 Active Comment on above: Take 1 tablet by elzbieta th once daily. NIFEdipine 30 mg osmotic 24 hr extended release oral tablet (5 sources) Dihydropyridine Calcium Channel Jin Start: 023 take 1 tablet by mouth once daily NIFEdipine ER (PROCARDIA XL) 30 mg 24 hr tablet Take 1 tablet by mouth once daily. 30 tablet 1 02/01/2023 Active Start: 01-11-2023 End: 02-01-2023 take 1 tablet by mouth once daily NIFEdipine ER (PROCARDIA XL) 60 mg 24 hr tablet Indications: Elevated blood pressure reading without diagnosis of hypertension , state Take 1 tablet by mouth once daily. 30 tablet 0 01/11/2023 02/01/2023 Discontinued Start: 01-10-2023 take 1 tablet by elzbieta th once daily NIFEdipine ER (PROCARDIA XL) 30 mg 24 hr tablet Take 1 tablet by mouth once daily. 30 tablet 2 01/10/2023 Active Comment on above: Take 1 tablet by elzbieta th once daily. Problems Active Problems Problem Classification Problem Date Documented Date Episodic/Chronic Asthma (20 sources) Severe persistent asthma; Translations: [Severe persistent asthma, uncomplicated] Onset: 07-13-2007 Resolved: 09-29-2007 05-09-2012 Chronic Diabetes or abnormal glucose tolerance complicating ; childbirth; or the puerperium (15 sources) Impaired glucose tolerance in ; Translations: [Abnormal glucose complicating ] Onset: 11-03-2024 11-03-2024 Episodic E Codes: Natural/environment (1 source) Injury caused by animal; Translations: [Exposure to other animate mechanical forces, initial encounter] 09-20-2021 Episodic Esophageal disorders (20 sources) Gastroesophageal reflux disease; Translations: [Gastro-esophageal reflux disease without esophagitis] Onset: 10-22-2009 10-22-2009 Chronic Essential hypertension (1 source) Hypertensive disorder; Translations: [Essential (primary) hypertension] Chronic Hemorrhage during ; abruptio placenta; placenta previa (4 sources) Threatened ; Translations: [Antepartum hemorrhage] Onset: 04-16-2022 Episodic Other aftercare (1 source) Surgical follow-up; Translations: [Encounter for follow-up examination after completed treatment for conditions other than malignant neoplasm] Episodic Other complications of ; puerperium affecting management of mother (1 source) Deliveries by ; Translations: [Encounter for delivery without indication] 01-05-2023 Episodic Other complications of ; puerperium affecting management of mother (1 source) Encounter for delivery without indication; Translations: [ delivery, without mention of indication, delivered, with or without mention of antepartum condition] 01-07-2023 Episodic Other complications of (20 sources) Obesity; Translations: [Obesity complicating , unspecified trimester] Onset: 06-21-2024 06-21-2024 Chronic Other complications of (7 sources) Maternal obesity complicating , childbirth and the puerperium, antepartum; Translations: [Obesity complicating , second trimester] 09-06-2024 Chronic Other complications of (1 source) Obesity complicating , third trimester; Translations: [Obesity affecting in third trimester, unspecified obesity type (HCC)] Onset: 01-09-2025 Chronic Other complications of (1 source) Obesity complicating , unspecified trimester; Translations: [Obesity in (HCC)] Onset: 11-29-2024 Chronic Other complications of (1 source) Obesity complicating , second trimester; Translations: [Obesity affecting in second trimester, unspecified obesity type] Onset: 09-06-2024 Chronic Other complications of (1 source) Gestational proteinuria; Translations: [Gestational proteinuria, unspecified trimester] Episodic Other complications of (20 sources) High risk ; Translations: [Supervision of other high risk pregnancies, first trimester] Onset: 06-21-2024 06-21-2024 Episodic Other complications of (1 source) Other specified related conditions, second trimester; Translations: [Other specified related conditions, second trimester] Onset: 08-29-2024 Episodic Other complications of (1 source) Supervision of high risk , unspecified, third trimester; Translations: [Supervision of high risk in third trimester (HCC)] Onset: 12-13-2024 Episodic Other complications of (2 sources) Supervision of high risk , unspecified, second trimester; Translations: [Supervision of high risk in second trimester (HCC)] Onset: 07-14-2024 Episodic Other complications of (1 source) heart deceleration; Translations: [Maternal care for abnormalities of the heart rate or rhythm, unspecified trimester, not applicable or unspecified] 01-16-2025 Episodic Other connective tissue disease (1 source) Pain of left upper arm; Translations: [Pain in left upper arm] 09-20-2021 Episodic Other female genital disorders (3 sources) Other specified noninflammatory disorders of vagina; Translations: [Other specified noninflammatory disorders of vagina] Onset: 08-05-2022 Episodic Other lower respiratory disease (1 source) Rib pain; Translations: [Pleurodynia] 09-20-2021 Episodic Other nervous system disorders (1 source) Postoperative pain ; Translations: [Other acute postprocedural pain] 01-07-2023 Episodic Other screening for suspected conditions (not mental disorders or infectious disease) (7 sources) Patient encounter status; Translations: [Encounter for other specified screening] Onset: 09-06-2024 Episodic Other upper respiratory infections (1 source) Bacterial sinusitis; Translations: [Chronic sinusitis, unspecified] 11-04-2024 Chronic Residual codes; unclassified (1 source) Gestation period, 35 weeks; Translations: [35 weeks gestation of ] Episodic Residual codes; unclassified (2 sources) Gestation period, 36 weeks; Translations: [36 weeks gestation of ] Episodic Residual codes; unclassified (2 sources) Gestation period, 39 weeks; Translations: [39 weeks gestation of ] 01-06-2023 Episodic Residual codes; unclassified (1 source) 39 weeks gestation of ; Translations: [ state, incidental] 01-07-2023 Episodic Residual codes; unclassified (2 sources) H/O: miscarriage; Translations: [Personal history of other complications of , childbirth and the puerperium] 05-26-2024 Episodic Residual codes; unclassified (2 sources) Gestation period, 12 weeks; Translations: [12 weeks gestation of ] 07-14-2024 Episodic Residual codes; unclassified (1 source) Gestation period, 20 weeks; Translations: [20 weeks gestation of ] 09-06-2024 Episodic Residual codes; unclassified (1 source) Gestation period, 24 weeks; Translations: [24 weeks gestation of ] 10-05-2024 Episodic Residual codes; unclassified (1 source) Gestation period, 28 weeks; Translations: [28 weeks gestation of ] 11-03-2024 Episodic Residual codes; unclassified (1 source) Gestation period, 30 weeks; Translations: [30 weeks gestation of ] 11-14-2024 Episodic Residual codes; unclassified (1 source) Gestation period, 32 weeks; Translations: [32 weeks gestation of ] 11-29-2024 Episodic Residual codes; unclassified (1 source) Gestation period, 34 weeks; Translations: [34 weeks gestation of ] 12-13-2024 Episodic Residual codes; unclassified (1 source) Gestation period, 37 weeks; Translations: [37 weeks gestation of ] 01-03-2025 Episodic Residual codes; unclassified (1 source) 38 weeks gestation of ; Translations: [38 weeks gestation of (HCC)] Onset: 01-09-2025 Episodic Residual codes; unclassified (1 source) 37 weeks gestation of ; Translations: [37 weeks gestation of (HCC)] Onset: 01-03-2025 Episodic Residual codes; unclassified (1 source) 36 weeks gestation of ; Translations: [36 weeks gestation of (HCC)] Onset: 12-27-2024 Episodic Residual codes; unclassified (1 source) 34 weeks gestation of ; Translations: [34 weeks gestation of (HCC)] Onset: 12-13-2024 Episodic Residual codes; unclassified (1 source) 24 weeks gestation of ; Translations: [24 weeks gestation of (HCC)] Onset: 11-03-2024 Episodic Unclassified (20 sources) [facility] Education - COMMON Onset: 06-21-2024 06-21-2024 Unclassified (20 sources) Education - [place] Onset: 06-21-2024 06-21-2024 Past or Other Problems Problem Classification Problem Date Documented Da te Episodic/Chronic Bacterial infection; unspecified site (20 sources) Bacteria present; Translations: [Streptococcus, group B, as the cause of diseases classified elsewhere] Onset: 12-21-2022 Resolved: 02-17-2023 12-21-2022 Episodic Malposition; malpresentation (20 sources) Breech presentation with problem; Translations: [Maternal care for breech presentation, not applicable or unspecified] Onset: 12-25-2022 Resolved: 02-17-2023 Episodic Other circulatory disease (20 sources) H/O: hypertension; Translations: [Personal history of other diseases of the circulatory system] Onset: 11-30-2022 Episodic Other circulatory disease (1 source) Personal history of other diseases of the circulatory system; Translations: [History of hypertension] Onset: 06-21-2024 Episodic Other complications of (3 sources) Uterine size-date discrepancy, first trimester; Translations: [Uterine size-date discrepancy, first trimester] Onset: 05-26-2022 Episodic Other infections; including parasitic (20 sources) History of sexually transmitted disease; Translations: [Personal history of other infectious and parasitic diseases] Onset: 11-30-2022 Resolved: 02-17-2023 11-30-2022 Episodic Other and delivery including normal (20 sources) Encounter for supervision of other normal , second trimester; Translations: [Encounter for supervision of other normal , first trimester] Onset: 04-12-2022 Resolved: 02-17-2023 Episodic Other upper respiratory disease (20 sources) Allergic rhinitis; Translations: [Allergic rhinitis, unspecified] Onset: 09-29-2007 Resolved: 02-17-2023 09-29-2007 Chronic Previous (20 sources) Maternal request for obstetric intervention; Translations: [Maternal care for unspecified type scar from previous delivery] Onset: 06-21-2024 06-21-2024 Episodic Residual codes; unclassified (1 source) Less than 8 weeks gestation of ; Translations: [Less than 8 weeks gestation of ] Onset: 05-26-2022 Episodic Residual codes; unclassified (1 source) History of uterine scar from previous surgery; Translations: [History of section] Onset: 06-21-2024 Episodic Residual codes; unclassified (1 source) 20 weeks gestation of ; Translations: [20 weeks gestation of ] Onset: 09-06-2024 Episodic Residual codes; unclassified (1 source) Personal history of other complications of , childbirth and the puerperium; Translations: [History of spontaneous ] Onset: 05-31-2024 Episodic Results Test Name Value Interpretation Reference Range Facil ity URINE OB DIP B/Oon 5 Glucose Ql (U) Negative Neg mg/dL [facility] Interpretation and review of laboratory results Normal [facility] Protein.monoclonal (U) [Mass/Vol] Negative Neg mg/dL [facility] URINE OB DIP B/Oon 5 Glucose Ql (U) Negative Neg mg/dL [facility] Interpretation and review of laboratory results Normal [facility] Protein.monoclonal (U) [Mass/Vol] Negative Neg mg/dL [facility] ROUTINE, GROUP B ST REPTOCOCCUS BY PCRon 12-27-2024 ROUTINE, GROUP B STREPTOCOCCUS BY PCR Detected Abnormal [facility] Comment on above: Performed By: #### G BPCR ####[facility] LABCLIA [id number] [address] [address] [place] [facility] Denisse 12-22-2024 [place] Telephone (OBGYWM) VAISHALI SORTO ([id number]) 1995 F Date Time Provider Department 12/22/24 MEGHANA AWAD During your visit today, we recorded the following information about you: Meghana Wan RN 12/22/2024 3:55 PM Signed 35w3d Patient called to report that she found a tick on her. Was able to remove the head using a piece of hot metal. Spoke with JULIETA. Advised patient to contact office or DOC over the weekend if she develops flu like symptoms or [place] rash. Advised that the prophylactic antibiotic used is harmful in . Meghana Wan RN Allergies As of Date: 12/22/2024 (No Known Allergies) Date Reviewed: 12/13/2024 Reviewed by: Cheyenne Bullock MD - Fully Assessed Prescriptions as of 12/22/2024 - aspirin, enteric coated (ECOTRIN LOW STRENGTH) 81 mg EC tablet Take 2 tablets by mouth once daily. - valACYclovir (VALTREX) 1 gram tablet Take 1 tablet by mouth once daily. - prental multivitamin 27 mg iron- 800 mcg tablet Take 1 tablet by mouth once daily. - diphenhydramine HCl (BENADRYL ORAL) Take by mouth. - ascorbic acid (CARLOS MANUEL-C ORAL) Take by mouth. - cholecalciferol, vitamin D3, (VITAMIN D3 ORAL) Take by mouth. - zinc sulfate (ZINC-15 ORAL) Take by mouth. - budesonide-formotero l (SYMBICORT) 160-4.5 mcg/actuation inhaler Inhale 2 Puffs as instructed twice daily. - cetirizine HCl (ZYRTEC ORAL) Take by mouth. - EPINEPHrine (EPIPEN) 0.3 mg/0.3 mL (1:1,000) PnIj Inject 0.3 mL intramuscularly as needed (for allergic reaction.Seek emergent medical care immediately after use.Disp:one 2-packw/sports athletic trainer). Dispense generic if available. - mometasone (NASONEX) 50 mcg/actuation nasal spray Use 2 Sprays in each nostril once daily. - albuterol HFA (PROVENTIL HFA) 90 mcg/actuation inhaler Inhale 2 Puffs as instructed every 4 hours as needed (May also use 15 minutes pre-exercise. Use with spacer. Proventil JOEL). Problem List As Of Date 12/22/2024 Noted Resolved ASTHMA UNSPECIFIED [J45.909] 07/13/2007 09/29/2007 Severe persistent asthma [J45.50] 09/29/2007 Allergic rhinitis, cause unspecified [J30.9] 09/29/2007 02/17/2023 GERD (Gastroesophageal Reflux Disease) [K21.9] 10/22/2009 with care elsewhere in [facility]*11/30/2022 02/17/2023 History of herpes genitalis [Z86.19] 11/30/2022 History of hypertension [Z86.79] 11/30/2022 Positive GBS test [B95.1] 12/21/2022 02/17/2023 Breech presentation with problem [O32*12/25/2022 02/17/2023 History of section [Z98.891] 06/21/2024 Supervision of other high risk pregnancies, sec*06/21/2024 Obesity in (HCC) [O99.210] 06/21/2024 Desires (vaginal after ) tri*06/21/2024 Abnormal glucose in , antepartum (HCC)*11/03/2024 Encounter Status:Closed by MEGHANA WAN on 12/22/24 Normal [facility] Examination level ultrasound on 11-29-2024 [facility] Radiology Study observation (narrative) [facility] GLUCOSE GESTATIONAL, 1 HOURo n 11-13-2024 Glucose 1 Hr post Unsp challenge [Mass/Vol] 148 mg/dL Normal 74-179 [facility] Comment on above: Order Comment: Speci men Type: BLOOD SPECIMEN Ordering Facility: [facility] Address: [address] [place] [address] Result Comment: [facility] Congress of Obstetricians and Gynecologists (Gypsy/Molly) guidelines state gestational diabetes mellitus is present when 2 or more of the plasma glucose concentrations meet or exceed the following levels: fastin mg/dl, 1 hr: 180 mg/dl, 2 hr: 155 mg/dl, and 3 hr: 140 mg/dl. Performed By: #### G TGST1 #### [facility] CLIA [id number] [place] [address] [place] GLUCOSE GESTATIONAL, 2 HOURo n 11-13-2024 Glucose 2 Hr post Unsp challenge [Mass/Vol] 116 mg/dL Normal 74-154 [facility] Comment on above: Order Comment: Jalil alcnatar Type: BLOOD SPECIMENOrdering Facility: [facility] Address: [address] [place] [address] Result Comment: [facility] Congress of Obstetricians and Gynecologists (Gypsy/Molly) guidelines state gestational diabetes mellitus is present when 2 or more of the plasma glucose concentrations meet or exceed the following levels: fastin mg/dl, 1 hr: 180 mg/dl, 2 hr: 155 mg/dl, and 3 hr: 140 mg/dl. Performed By: #### G TGST2 ####[facility] [id number] [place] [address] [place] GLUCOSE GESTATIONAL, 3 HOURo n 11-13-2024 Glucose 3 Hr post Unsp challenge [Mass/Vol] 119 mg/dL Normal 74-139 [facility] Comment on above: Order Comment: Jalil [facility] Type: BLOOD SPECIMEN Ordering Facility: [facility] Address: [address] [place] [address] Result Comment: [facility] Congress of Obstetricians and Gynecologists (Gypsy/Molly) guidelines state gestational diabetes mellitus is present when 2 or more of the plasma glucose concentrations meet or exceed the following levels: fastin mg/dl, 1 hr: 180 mg/dl, 2 hr: 155 mg/dl, and 3 hr: 140 mg/dl. Performed By: #### G TGST3 #### [facility] CLIA [id number] [address] [place] GLUCOSE GESTATIONAL, FASTING on 11-13-2024 Glucose post fast [Mass/Vol] 88 mg/dL Normal 74-94 [facility] Comment on above: Order Comment: Speci men Type: BLOOD SPECIMENOrdering Facility: [facility] Address: [address] [place] [address] Result Comment: [facility] Congress of Obstetricians and Gynecologists (Gypsy/Molly) guidelines state gestational diabetes mellitus is present when 2 or more of the plasma glucose concentrations meet or exceed the following levels: fastin mg/dl, 1 hr: 180 mg/dl, 2 hr: 155 mg/dl, and 3 hr: 140 mg/dl. Performed By: #### G TGSTF ####[facility] [id number] [address] OF [facility] CNPNon 11-06-2024 [facility] Telephone (OBGYWM) VAISHALI SORTO ([id number]) 1995 F Date Time Provider Department 11/06/24 CHEYENNE BULLOCK OBGYWM During your visit today, we recorded the following information about you: Lorie Michelle, RN 11/06/2024 2:26 PM Signed Cheyenne Bullock MD to [facility] Ob-Bandsaw Operator Pool 11/06/24 1:14 PM Result Note I see 3 hr is ordered. Needs next appt. w/ a physician to review TOLAC consent. Cheyenne Bullock MD GESTATIONAL GLUCOSE SCREEN, 1-HOUR, 50 GRAM, NON-FASTING; COMPLETE BLOOD COUNT AND DIFFERENTIAL; EXTRA TUBE RONN; SYPHILIS TREPONEMAL W/REFLEX Lorie Michelle RN 11/06/2024 2:26 PM Signed Attempted to call patient. Unable to leave message. Jooobz!t message sent. She is already aware of her glucose result. VINOD Malave Jennifer, RN 11/06/2024 2:39 PM Signed Patient notified. Scheduled her next visit with DM. Meghana Wan RN Allergies As of Date: 11/06/2024 (No Known Allergies) Date Reviewed: 11/04/2024 Reviewed by: Jonathon Hummel, SANDY.POLITICAL RESEARCHER - Fully Assessed Reason for Visit: Appointment [186] Prescriptions as of 11/06/2024 - amoxicillin-clavulan ate potassium (AUGMENTIN) 875-125 mg per tablet Take 1 tablet by mouth two times a day for 7 days. - aspirin, enteric coated (ECOTRIN LOW STRENGTH) 81 mg EC tablet Take 2 tablets by mouth once daily. - valACYclovir (VALTREX) 1 gram tablet Take 1 tablet by mouth once daily. - prental multivitamin 27 mg iron- 800 mcg tablet Take 1 tablet by mouth once daily. - diphenhydramine HCl (BENADRYL ORAL) Take by mouth. - ascorbic acid (CARLOS MANUEL-C ORAL) Take by mouth. - cholecalciferol, vitamin D3, (VITAMIN D3 ORAL) Take by mouth. - zinc sulfate (ZINC-15 ORAL) Take by mouth. - budesonide-formotero l (SYMBICORT) 160-4.5 mcg/actuation inhaler Inhale 2 Puffs as instructed twice daily. - cetirizine HCl (ZYRTEC ORAL) Take by mouth. - EPINEPHrine (EPIPEN) 0.3 mg/0.3 mL (1:1,000) PnIj Inject 0.3 mL intramuscularly as needed (for allergic reaction.Seek emergent medical care immediately after use.Disp:one 2-packw/sports athletic trainer). Dispense generic if available. - mometasone (NASONEX) 50 mcg/actuation nasal spray Use 2 Sprays in each nostril once daily. - albuterol HFA (PROVENTIL HFA) 90 mcg/actuation inhaler Inhale 2 Puffs as instructed every 4 hours as needed (May also use 15 minutes pre-exercise. Use with spacer. Proventil JOEL). Problem List As Of Date 11/06/2024 Noted Resolved ASTHMA UNSPECIFIED [J45.909] 07/13/2007 09/29/2007 Severe persistent asthma [J45.50] 09/29/2007 Allergic rhinitis, cause unspecified [J30.9] 09/29/2007 02/17/2023 GERD (Gastroesophageal Reflux Disease) [K21.9] 10/22/2009 with care elsewhere in [facility]*11/30/2022 02/17/2023 History of herpes genitalis [Z86.19] 11/30/2022 History of hypertension [Z86.79] 11/30/2022 Positive GBS test [B95.1] 12/21/2022 02/17/2023 Breech presentation with problem [O32*12/25/2022 02/17/2023 History of section [Z98.891] 06/21/2024 Supervision of other high risk pregnancies, sec*06/21/2024 Obesity in [O99.210] 06/21/2024 Desires (vaginal after ) tri*06/21/2024 Abnormal glucose in , antepartum [O99.*11/03/2024 Encounter Status:Closed by MEGHANA WAN on 11/06/24 [facility] 11-04-2024 CNOV Office Visit (UCWSTR) VAISHALI SORTO ([id number]) 1995 F Date Time Provider Department 11/04/24 11:45 AM JONATHON HUMMEL GAL During your visit today, we recorded the following information about you: Temperature Pulse Respiration Blood pressure 98.2 degrees 98/minute 16/minute 122/70 Weight 97.4 kg Jonathon Hummel APRN.POLITICAL RESEARCHER 11/04/2024 12:09 PM Signed Subjective HPI Nontoxic-appearing 28-week 29-year-old female presents urgent care chief complaint sinus pressure. Duration of symptoms 2-1/2 weeks. Associated symptoms worsening sinus pressure. Describes it as unilateral. was seen by a PCP on Wednesday. Placed on amoxicillin. Has been on amoxicillin for approximately 72 hours. Symptoms are worsening. OTC medications nasal irrigation. Denies any fevers nausea vomiting or abdominal pain. No chest pain or shortness of breath. Past medical history prescription medications allergies reviewed. .Patient presents with: Sinus Problem: sinus pressure, drainage on amoxicillin x 2 days PAST MEDICAL HISTORY Diagnosis Date Allergic rhinitis, cause unspecified History of herpes genitalis 11/30/2022 11/30/2022 Patient has a history of genital herpes. She is currently on acyclovir.TKRN History of hypertension PMH - PAST MEDICAL HISTORY OF normal color vision Unspecified asthma(493.90) PAST SURGICAL HISTORY Procedure Laterality Date PAST SURGICAL HISTORY OF wisdom teeth TYMPANOSTOMY LOCAL/TOPICAL ANESTHESIA ALLERGIES Patient has no known allergies. MEDICATIONS amoxicillin (AMOXIL) 875 mg tablet Take 1 tablet by mouth every 12 hours. aspirin, enteric coated (ECOTRIN LOW STRENGTH) 81 mg EC tablet Take 2 tablets by mouth once daily. valACYclovir (VALTREX) 1 gram tablet Take 1 tablet by mouth once daily. prental multivitamin 27 mg iron- 800 mcg tablet Take 1 tablet by mouth once daily. diphenhydramine HCl (BENADRYL ORAL) Take by mouth. ascorbic acid (CARLOS MANUEL-C ORAL) Take by mouth. cholecalciferol, vitamin D3, (VITAMIN D3 ORAL) Take by mouth. zinc sulfate (ZINC-15 ORAL) Take by mouth. budesonide-formotero l (SYMBICORT) 160-4.5 mcg/actuation inhaler Inhale 2 Puffs as instructed twice daily. cetirizine HCl (ZYRTEC ORAL) Take by mouth. 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 Dispense generic if available. mometasone (NASONEX) 50 mcg/actuation nasal spray Use 2 Sprays in each nostril once daily. albuterol HFA (PROVENTIL HFA) 90 mcg/actuation inhaler Inhale 2 Puffs as instructed every 4 hours as needed (May also use 15 minutes pre-exercise. Use with spacer. Proventil JOEL). FAMILY HISTORY Problem Relation Age of Onset Hypertension Mother Hypertension Father No Known Problems Brother No Known Problems Brother No Known Problems Brother Asthma Brother Diabetes Maternal Grandmother Hypertension Maternal Grandmother Uterine Cancer Maternal Grandmother Heart Maternal Grandfather of massive heart attack at age 43 Hypertension Paternal Grandmother Diabetes Paternal Grandmother Hypertension Paternal Grandfather Social History Tobacco Use Smoking status: Never Smokeless tobacco: Never Vaping Use Vaping status: Never Used Substance Use Topics Alcohol use: Not Currently Comment: socially Drug use: Never BP 122/70 Pulse 98 Temp 36.8 ?C (98.2 ?F) Resp 16 Wt 97.4 kg (214 lb 11.7 oz) LMP 04/18/2024 (Exact Date) SpO2 98% BMI 36.86 kg/m? Review of Systems Constitutional: Negative for chills, fever and malaise/fatigue. HENT: Positive for congestion and sinus pain. Negative for ear discharge, ear pain and sore throat. Eyes: Negative for blurred vision, pain, discharge and redness. Respiratory: Negative for cough, hemoptysis, sputum production, shortness of breath, wheezing and stridor. Cardiovascular: Negative for chest pain. Gastrointestinal: Negative for abdominal pain, diarrhea, nausea and vomiting. Musculoskeletal: Negative for myalgias. Skin: Negative for itching and rash. Neurological: Positive for headaches. Negative for dizziness. Objective Physical Exam Constitutional: General: She is not in acute distress. Appearance: She is not diaphoretic. HENT: Head: Normocephalic. Jaw: No trismus, tenderness, swelling or pain on movement. Right Ear: Tympanic membrane, ear canal and external ear normal. Left Ear: Tympanic membrane, ear canal and external ear normal. Nose: Congestion present. Right Sinus: Maxillary sinus tenderness and frontal sinus tenderness present. Mouth/Throat: Mouth: Mucous membranes are moist. Pharynx: Oropharynx is clear. Uvula midline. No pharyngeal swelling, oropharyngeal exudate, posterior oropharyngeal erythema or uvula swelling. Eyes: (more content not included)... Normal [facility] CBC W Auto Differential pane l (Bld)on 11-03-2024 Basophils (Bld) [#/Vol] 10*3/uL Normal <0.11 [facility] Comment on above: Order Comment: Speci men Type: BLOOD SPECIMENOrdering Facility: [facility] Address: [address] [place] [address] Performed By: #### 5 7021-8 ####[facility]PITALWMILIA [id number] [place] [address] [place] Basophils/100 WBC (Bld) 0.2 % Normal [facility] Comment on above: Order Comment: Speci men Type: BLOOD SPECIMENOrdering Facility: [facility] Address: [address] [place] [address] Performed By: #### 5 7021-8 ####[facility] [id number] [place] [address] [place] Differential cell count method Nom (Bld) Auto Normal [facility] Comment on above: Order Comment: Speci men Type: BLOOD SPECIMENOrdering Facility: [facility] Address: [address] [place] [address] Performed By: #### 5 7021-8 ####[facility] [id number] [place] [address] [place] Eosinophils (Bld) [#/Vol] 0.11 10*3/uL Normal <0.46 [facility] Comment on above: Order Comment: Speci men Type: BLOOD SPECIMENOrdering Facility: [facility] Address: [address] [place] [address] Performed By: #### 5 7021-8 ####[facility] [id number] [place] [address] [place] Eosinophils/100 WBC (Bld) 1.0 % Normal [facility] Comment on above: Order Comment: Speci men Type: BLOOD SPECIMENOrdering Facility: [facility] Address: [address] [place] [address] Performed By: #### 5 7021-8 ####[facility] PABLO [id number] [place] [address] [place] Erythrocyte distribution width (RBC) [Ratio] 12.6 % Normal 11.5-15.0 [facility] Comment on above: Order Comment: Speci men Type: BLOOD SPECIMENOrdering Facility: [facility] Address: [address] [place] [address] Performed By: #### 5 7021-8 ####[facility]ITAL[facility]ERASTO [id number] [place] [address] [place] Hematocrit (Bld) [Volume fraction] 35.9 % Low 36.0-46.0 [facility] Comment on above: Order Comment: Speci men Type: BLOOD SPECIMENOrdering Facility: [facility] Address: [address] [place] [address] Performed By: #### 5 7021-8 ####[facility]ITALINÉSA [id number] [place] [address] [place] Hemoglobin (Bld) [Mass/Vol] 12.2 g/dL Normal 11.5-15.5 [facility] Comment on above: Order Comment: Speci men Type: BLOOD SPECIMENOrdering Facility: [facility] Address: [address] [place] [address] Performed By: #### 5 7021-8 ####[facility]ITALNCLIA [id number] [place] [address] [place] Immature granulocytes (Bld) [#/Vol] 0.06 10*3/uL Normal <0.10 [facility] Comment on above: Order Comment: Speci men Type: BLOOD SPECIMENOrdering Facility: [facility] Address: [address] [place] [address] Performed By: #### 5 7021-8 ####[facility] [id number] [place] [address] [place] Immature granulocytes/100 WBC (Bld) 0.5 % Normal [facility] Comment on above: Order Comment: Speci men Type: BLOOD SPECIMENOrdering Facility: [facility] Address: [address] [place] [address] Performed By: #### 5 7021-8 ####[facility] [id number] [place] [address] [place] Lymphocytes (Bld) [#/Vol] 1.94 10*3/uL Normal 1.00-4.00 [facility] Comment on above: Order Comment: Speci men Type: BLOOD SPECIMENOrdering Facility: [facility] Address: [address] [place] [address] Performed By: #### 5 7021-8 ####[facility] [id number] [place] [address] [place] Lymphocytes/100 WBC (Bld) 17.4 % Normal [facility] Comment on above: Order Comment: Speci men Type: BLOOD SPECIMENOrdering Facility: [facility] Address: [address] [place] [address] Performed By: #### 5 7021-8 ####[facility] [id number] [place] [address] [place] MCH (RBC) [Entitic mass] 30.0 pg Normal 26.0-34.0 [facility] Comment on above: Order Comment: Speci men Type: BLOOD SPECIMENOrdering Facility: [facility] Address: [address] [place] [address] Performed By: #### 5 7021-8 ####[facility]ITALNCLI [id number] [place] [address] [place] MCHC (RBC) [Mass/Vol] 34.0 g/dL Normal 30.5-36.0 [facility] Comment on above: Order Comment: Speci men Type: BLOOD SPECIMENOrdering Facility: [facility] Address: [address] [place] [address] Performed By: #### 5 7021-8 ####[facility] [id number] [place] [address] [place] MCV (RBC) [Entitic vol] 88.2 fL Normal 80.0-100.0 [facility] Comment on above: Order Comment: Speci men Type: BLOOD SPECIMENOrdering Facility: [facility] Address: [address] [place] [address] Performed By: #### 5 7021-8 ####[facility] [id number] [place] [address] [place] Monocytes (Bld) [#/Vol] 0.42 10*3/uL Normal <0.87 [facility] Comment on above: Order Comment: Speci men Type: BLOOD SPECIMENOrdering Facility: [facility] Address: [address] [place] [address] Performed By: #### 5 7021-8 ####[facility] [id number] [place] [address] [place] Monocytes/100 WBC (Bld) 3.8 % Normal [facility] Comment on above: Order Comment: Speci men Type: BLOOD SPECIMENOrdering Facility: [facility] Address: [address] [place] [address] Performed By: #### 5 7021-8 ####[facility] [id number] [place] [address] [place] Neutrophils (Bld) [#/Vol] 8.58 10*3/uL High 1.45-7.50 [facility] Comment on above: Order Comment: Speci men Type: BLOOD SPECIMENOrdering Facility: [facility] Address: [address] [place] [address] Performed By: #### 5 7021-8 ####[facility] MICHEALALICIA [id number] [place] [address] [place] Neutrophils/100 WBC (Bld) 77.1 % Normal [facility] Comment on above: Order Comment: Speci men Type: BLOOD SPECIMENOrdering Facility: [facility] Address: [address] [place] [address] Performed By: #### 5 7021-8 ####[facility]ITALSCOTT [id number] [place] [address] [place] Nucleated RBC (Bld) [#/Vol] 10*3/uL Normal <0.01 [facility] Comment on above: Order Comment: Speci men Type: BLOOD SPECIMENOrdering Facility: [facility] Address: [address] [place] [address] Performed By: #### 5 7021-8 ####[facility]SA [id number] [place] [address] [place] Nucleated RBC/100 WBC (Bld) [Ratio] 0.0 /100 WBC Normal [facility] Comment on above: Order Comment: Speci men Type: BLOOD SPECIMENOrdering Facility: [facility] Address: [address] [place] [address] Performed By: #### 5 7021-8 ####[facility] MICHEALPISGAHKGLIA [id number] [place] [address] [place] Platelet mean volume (Bld) [Entitic vol] 9.5 fL Normal 9.0-12.7 [facility] Comment on above: Order Comment: Speci men Type: BLOOD SPECIMENOrdering Facility: [facility] Address: [address] [place] [address] Performed By: #### 5 7021-8 ####[facility]OSPITALNCA [id number] [place] [address] [place] Platelets (Bld) [#/Vol] 185 10*3/uL Normal 150-400 [facility] Comment on above: Order Comment: Speci men Type: BLOOD SPECIMENOrdering Facility: [facility] Address: [address] [place] [address] Performed By: #### 5 7021-8 ####[facility]OSPITALNCSHRINERS H[facility]ITALS FOR CHILDREN [id number] [place] [address] [place] RBC (Bld) [#/Vol] 4.07 10*6/uL Normal 3.90-5.20 [facility] Comment on above: Order Comment: Speci men Type: BLOOD SPECIMENOrdering Facility: [facility] Address: [address] [place] [address] Performed By: #### 5 7021-8 ####[facility] [id number] [place] [address] [place] WBC (Bld) [#/Vol] 11.13 10*3/uL High 3.70-11.00 [facility] Comment on above: Order Comment: Speci men Type: BLOOD SPECIMENOrdering Facility: [facility] Address: [address] [place] [address] Performed By: #### 5 7021-8 ####[facility] [id number] [place] [address] [place] GESTATIONAL GLUCOSE SCREEN, 1-HOUR, 50 GRAM, NON-FASTINGon 11-03-2024 Glucose [Mass/Vol] 164 mg/dL High 74-134 [facility] Comment on above: Order Comment: Speci men Type: BLOOD SPECIMENOrdering Facility: [facility] Address: [address] [place] [address] Result Comment: [facility] Congress of Obstetricians and Gynecologists (Gypsy/Molly) guidelines state a gestational diabetes mellitus positive screen is made, in women not previously diagnosed with overt diabetes, when the 1 hr plasma glucose level is equal to or above 140 mg/dL. [facility] Secretary Administrative Assistant and [facility] [place] recommends a 135 mg/dL cutoff. Performed By: #### G LTGST ####[facility]ITALNCLIA [id number] [place] [address] [place] Reagin and Treponema pallidu m IgG and IgM [Interp]on 11-03-2024 T. pallidum IgG+IgM IA Ql (S) Non-Reactive Normal Nonreactive [facility] Comment on above: Order Comment: Speci men Type: BLOOD SPECIMEN Ordering Facility: [facility] Address: [address] [place] [address] Performed By: #### G TGST1 #### [facility] CLIA [id number] [address] [place] [address] [place] Reagin+T pallidum IgG+IgM Se rPl-Impon 11-03-2024 Reagin and Treponema pallidum IgG and IgM [Interp] Cannot exclude recent Treponemal infection if specimen collected within 7-10 days after appearance of suspect lesions or 2-3 weeks after an exposure. Clinical correlation is required. Normal [facility] Comment on above: Order Comment: Speci men Type: BLOOD SPECIMEN [facility]: [facility] Address: [address] [place] [address] Performed By: #### G TGST1 #### [facility] CLIA [id number] [address] [place] [address] [place] Examination level ultrasound on 09-06-2024 Indication Detailed anatomic survey Maternal obesity, BMI >35 Impression REMOTE READ The patient is referred for a detailed anatomic survey. - Single, live, intrauterine . - biometry is consistent with the established gestational age. - No malformations were visualized on a complete detailed anatomic survey. - The amniotic fluid volume is normal amount. - The placenta is posterior, fundal. - The Transabdominal cervical length measures 39.2 mm with no evidence of funneling or other dynamic changes. - Not all structural malformations can be detected by ultrasound examination. Recommendations Additional follow-up as clinically indicated. Maternal Assessment Height 163 cm Height (ft) 5 ft Height (in) 4 in Physical Exam Initial weight (lb) 208 lb Initial BMI 35.70 kg/m Maternal assessment other: 3 Para 1 Method Transabdominal ultrasound examination. View: Adequate visualization [place] . Number of fetuses: 1 Dating LMP on: 04/18/2024 GA by LMP 20 w + 1 d DALY by LMP: 01/23/2025 GA by prior assessment 20 w + 1 d DALY by prior assessment: 01/23/2025 Ultrasound examination on: 09/06/2024 GA by U/S based upon: AC, BPD, Femur, HC GA by U/S 19 w + 4 d DALY by U/S: 01/27/2025 Assigned: based on stated DALY, selected on 09/06/2024 Assigned GA 20 w + 1 d Assigned DALY: 01/23/2025 General Evaluation Cardiac activity present. FHR 149 bpm. movements: present. Presentation: breech Placenta: Placental site: posterior, fundal Umbilical cord: Cord vessels: 3 vessel cord Amniotic fluid: Amount of AF: normal amount. MVP 4.2 cm Growth Overview Exam date GA BPD (mm) HC (mm) AC (mm) FL (mm) HL (mm) EFW (g) 09/06/2024 20w 1d 43.1 11% 170.6 34% 149.1 45% 30.6 39% 30.1 45% 314 28% Biometry Standard BPD 43.1 mm 19w 0d 11% Hadlock OFD 62.9 mm 20w 1d 74% Nicolaides HC 170.6 mm 19w 4d 34% Gayle Cerebellum tr 19.1 mm 18w 4d 21% Hill Nuchal fold 4.0 mm AC 149.1 mm 20w 1d 45% Hadlock Femur 30.6 mm 19w 4d 39% Gayle Humerus 30.1 mm 19w 6d 45% Gayle EFW 314 g 19w 5d 28% Hadlock EFW (lb) 0 lb EFW (oz) 11 oz EFW by: Hadlock (HC-AC-FL) Extended [employer] Lead 5.6 mm CM 5.3 mm 60% Nicolaides Extremities / Bony Struc FL / HC 0.18 24% Hadlock Other Structures FHR 149 bpm Anatomy Cranium: normal Lateral ventricles: normal Choroid plexus: normal Midline falx: normal Cavum septi pellucidi: normal Cerebellum: normal Cisterna magna: normal Head / Neck Vermis: normal Neck: normal Nuchal fold: normal Lips: normal Profile: normal Nose: normal Face Maxilla: normal Mandible: normal Orbits: normal Lens: normal 4-chamber view: normal RVOT view: normal LVOT view: normal 3-vessel view: normal 0-nciwil-osyvatw view: normal Heart / Thorax Situs: situs solitus (normal) Aortic arch view: normal SVC: normal IVC: normal Cardiac axis: normal Rt lung: normal Lt lung: normal Diaphragm: normal Cord insertion: normal Stomach: normal Kidneys: normal Bladder: normal Genitals: normal Abdomen Abdom. wall: normal Cervical spine: normal Thoracic spine: normal Lumbar spine: normal Sacral spine: normal Arms: normal Legs: normal Rt upper arm: normal Rt forearm: normal Rt hand: normal Rt fingers: normal Lt upper arm: normal Lt forearm: normal Lt hand: normal Lt fingers: normal Rt upper leg: normal Rt lower leg: normal Rt foot: normal Lt upper leg: normal Lt lower leg: normal Lt foot: normal sex: female Wants to know sex: yes Maternal Structures Uterus / Cervix Uterus: Visualized Cervix: Visualized Approach: Transabdominal Cervical length 39.2 mm Other: Patient declined transvaginal ultrasound for cervical length. Ovaries / Tubes / Adnexa Rt ovary: Visualized Lt ovary: Visualized Performed By: Namita Downing RDMS, RVT Read By: Nasra Cody M.D. MATERNAL MEDICINE [facility] Radiology Study observation (narrative) [facility] Basic Metabolic Profile (BMP )on 08-01-2024 BUN/CRE 19.0 RATIO Normal 10-20 [facility] Comment on above: Performed By: #### L 100.0100, L500.2500, L500.3400, L501.2450 #### [facility] [address] [place], [address] CA,Total 8.7 mg/dL Normal 8.5-10.1 [facility] Comment on above: Performed By: #### L 100.0100, L500.2500, L500.3400, L501.2450 #### [facility] [address] [place], [address] Chloride [Moles/Vol] 108 mmol/L High 98-107 [facility] Comment on above: Performed By: #### L 100.0100, L500.2500, L500.3400, L501.2450 #### [facility] [address] [place], [address] CO2 [Moles/Vol] 24.0 mmol/L Normal 21.0-32.0 [facility] Comment on above: Performed By: #### L 100.0100, L500.2500, L500.3400, L501.2450 #### [facility] [address] [place], [address] Creatinine [Mass/Vol] 0.58 mg/dL Normal 0.55-1.02 [facility] Comment on above: Result Comment: The validity of the calculated GFR GFRAA in patients over 70 years has not been determined. Clinical correlation is essential. Performed By: #### L 100.0100, L500.2500, L500.3400, L501.2450 #### [facility] [address] [place], [address] ECRCL 162.29 ml/min Normal [facility] Comment on above: Performed By: #### L 100.0100, L500.2500, L500.3400, L501.2450 #### [facility] [address] [place], [address] EST GFR - AA 157 mL/min Normal >60 [facility] Comment on above: Result Comment: Afri can Martiniquais GFR Calc Performed By: #### L 100.0100, L500.2500, L500.3400, L501.2450 #### [facility] [address] [place], [address] GAP 5 Normal 5-15 [facility] Comment on above: Performed By: #### L 100.0100, L500.2500, L500.3400, L501.2450 #### [facility] [address] [place], [address] GFR/1.73 sq M.predicted among non-blacks MDRD (S/P/Bld) [Vol rate/Area] 130 mL/min/{1.73_m2} Normal >60 [facility] Comment on above: Result Comment: Non- GFR Calc Performed By: #### L 100.0100, L500.2500, L500.3400, L501.2450 #### [facility] [address] [place], [address] Glucose [Mass/Vol] 115 mg/dL High 74-106 [facility] Comment on above: Result Comment: Fast ing Glucose result from 100 to 125 mg/dL suggests IMPAIRED HOMEOSTASIS per A.D.A. criteria. Performed By: #### L 100.0100, L500.2500, L500.3400, L501.2450 #### [facility] [address] [place], [address] Potassium [Moles/Vol] 3.4 mmol/L Low 3.5-5.1 [facility] Comment on above: Performed By: #### L 100.0100, L500.2500, L500.3400, L501.2450 #### [facility] [address] [place], [address] Sodium [Moles/Vol] 136 mmol/L Normal 136-145 [facility] Comment on above: Performed By: #### L 100.0100, L500.2500, L500.3400, L501.2450 #### [facility] [address] [place], [address] Urea nitrogen [Mass/Vol] 11 mg/dL Normal 7-18 [facility] Comment on above: Performed By: #### L 100.0100, L500.2500, L500.3400, L501.2450 #### [facility] [address] [place], [address] CBC W/Diff, Automatedon 12-2 Absolute Lymph 0.95 X10 3/uL Normal 0.83-4.51 [facility] Comment on above: Performed By: #### L 100.0100, L500.2500, L500.3400, L501.2450 #### [facility] [address] [place], [address] Absolute Neut 5.9 X10 3/uL Normal 2.0-7.7 [facility] Comment on above: Performed By: #### L 100.0100, L500.2500, L500.3400, L501.2450 #### [facility] [address] [place], [address] Basophils/100 WBC (Bld) 0.4 % Normal 0-1 [facility] Comment on above: Performed By: #### L 100.0100, L500.2500, L500.3400, L501.2450 #### [facility] [address] [place], [address] Eosinophils/100 WBC (Bld) 0.4 % Normal 0-5 [facility] Comment on above: Performed By: #### L 100.0100, L500.2500, L500.3400, L501.2450 #### [facility] [address] [place], [address] Erythrocyte distribution width (RBC) [Ratio] 13.2 % Normal 11.6-14.6 [facility] Comment on above: Performed By: #### L 100.0100, L500.2500, L500.3400, L501.2450 #### [facility] [address] [place], [address] Hematocrit (Bld) [Volume fraction] 37.1 % Normal 37-47 [facility] Comment on above: Performed By: #### L 100.0100, L500.2500, L500.3400, L501.2450 #### [facility] [address] [place], [address] Hemoglobin (Bld) [Mass/Vol] 12.5 g/dL Normal 12.0-15.0 [facility] Comment on above: Performed By: #### L 100.0100, L500.2500, L500.3400, L501.2450 #### [facility] [address] [place], [address] IG% 0.800 Normal 0.0-0.9 [facility] Comment on above: Result Comment: IG% - Immature Granulocytes (promyelocytes, myelocytes and metamyelocytes) > 1% indicates that a LEFT SHIFT is Present. Performed By: #### L 100.0100, L500.2500, L500.3400, L501.2450 #### [facility] [address] [place], [address] Lymphocytes/100 WBC (Bld) 12.9 % Low 19-41 [facility] Comment on above: Performed By: #### L 100.0100, L500.2500, L500.3400, L501.2450 #### [facility] [address] [place], [address] MCH (RBC) [Entitic mass] 29.7 pg Normal 27.0-32.0 [facility] Comment on above: Performed By: #### L 100.0100, L500.2500, L500.3400, L501.2450 #### [facility] [address] [place], [address] MCHC (RBC) [Mass/Vol] 33.7 g/dL Normal 32-36 [facility] Comment on above: Performed By: #### L 100.0100, L500.2500, L500.3400, L501.2450 #### [facility] [address] [place], [address] MCV (RBC) [Entitic vol] 88.1 fL Normal 81-99 [facility] Comment on above: Performed By: #### L 100.0100, L500.2500, L500.3400, L501.2450 #### [facility] [address] [place], [address] Monocytes/100 WBC (Bld) 5.2 % Normal 0-10 [facility] Comment on above: Performed By: #### L 100.0100, L500.2500, L500.3400, L501.2450 #### [facility] [address] [place], [address] Neutrophils/100 WBC (Bld) 80.3 % High 47-70 [facility] Comment on above: Performed By: #### L 100.0100, L500.2500, L500.3400, L501.2450 #### [facility] [address] [place], [address] Nucleated RBC (Bld) [#/Vol] 0 10*3/uL Normal 0-5 [facility] Comment on above: Performed By: #### L 100.0100, L500.2500, L500.3400, L501.2450 #### [facility] [address] [place], [address] Platelet mean volume (Bld) [Entitic vol] 9.4 fL Normal 6.2-12.0 [facility] Comment on above: Performed By: #### L 100.0100, L500.2500, L500.3400, L501.2450 #### [facility] [address] [place], [address] Platelets (Bld) [#/Vol] 148 10*3/uL Low 150-450 [facility] Comment on above: Performed By: #### L 100.0100, L500.2500, L500.3400, L501.2450 #### [facility] [address] [place], [address] RBC (Bld) [#/Vol] 4.21 10*6/uL Normal 4.2-5.4 [facility] Comment on above: Performed By: #### L 100.0100, L500.2500, L500.3400, L501.2450 #### [facility] [address] [place], [address] RDW SD 42.2 fl Normal 35.1-43.9 [facility] Comment on above: Performed By: #### L 100.0100, L500.2500, L500.3400, L501.2450 #### [facility] [address] [place], [address] WBC (Bld) [#/Vol] 7.4 10*3/uL Normal 4.4-11.0 [facility] Comment on above: Performed By: #### L 100.0100, L500.2500, L500.3400, L501.2450 #### [facility] [address] [place], [address] Emergency Department Summary on 08-01-2024 Emergency Department Summary [facility] Medical Records Department [address] [place] [address] Emergency Department Summary 08/01/24 MR#: [id number] Acct: [id number] Name: VAISHALI SORTO Scotty Rep #: [id number] : 1995 29 From: Kieran Brennan DO PCP: Ct Bartlett PA-C Status:REG ER Location: ED HPI History of Present Illness Chief Complaint: Back Informant: patient and spouse/S.O. Narrative Narrative: Patient is a 29-year-old female who is a G2, P1 approximately 15 weeks . She states that she had an ultrasound by her WAREHOUSE ADMINISTRATOR at 7 weeks and 12 weeks showing a single IUP. She states ultrasound roughly 3 weeks ago showed ovarian cyst as well. She states that she went to bed normally Wednesday night but awoke in the middle of the night with lower abdominal pain and cramping. She states that the symptoms have been persistent and now she feels it radiates towards her low back. She denies any vaginal bleeding or discharge or dysuria. She states she contacted her OB who recommended rest and hydration but she is concerned as she did not have the symptoms with her previous and therefore comes in for evaluation [facility] Medical History delivery delivered Gestational HTN Home Medications ???Medication ???Instructions ???Recorded ???Last Taken ???Type ibuprofen 600 mg tablet 600 mg PO Q6H PRN pain #30 tabs 01/07/23 Unknown Rx aspirin 81 mg tablet,delayed 162 mg PO DAILY 08/01/24 Unknown History release cetirizine 10 mg tablet 10 mg PO DAILY 08/01/24 Unknown History fluticasone 113 mcg-salmeterol 14 1 inh inhalation BID 08/01/24 Unknown History mcg/actuation breath activated powdr valacyclovir 1 gram tablet 1,000 mg PO DAILY 08/01/24 Unknown History Allergy/AdvReac Type Severity Reaction Status Date / Time No Known Allergies Allergy Verified 08/01/24 21:58 Social History Smoking Status: Never smoker [facility] ED Constitutional Constitutional ED: Denies chills or fever(s) ENT ENT ED: Denies sore throat Cardiovascular Cardiovascular: Denies chest pain Respiratory/Chest Respiratory/Chest: Denies cough or dyspnea Gastrointestinal Gastrointestinal: Reports abdominal pain and nausea; Denies diarrhea, melena or vomiting Genitourinary Genitourinary ED: Denies dysuria or hematuria Musculoskeletal Musculoskeletal: Reports back pain Integumentary Denies rash Neurologic Neurologic: Denies headache(s) Hematologic/Lymphati c Hematologic/Lymphati c: Denies easy bleeding or easy bruising EXAM Physical Exam Const Vital Signs: 08/01/24 21:58 08/01/24 23:57 Temperature 96.1 F L Temperature Source Temporal Pulse Rate 119 H 104 H Respiratory Rate 15 16 Blood Pressure 146/72 H 117/65 Blood Pressure Mean 96 82 Pulse Ox 100 100 Oxygen Delivery Method Room Air Room Air Positive well nourished and well developed General Appearance ED: well developed; Negative for pallor HEENT Reports moist mucous membranes HEENT Narrative: No tongue or lip swelling no oral lesions no airway edema or compromise No secondary findings in the posterior pharynx to suggest infection Eyes PERRL and EOMs intact bilaterally General Eye ED: Negative for scleral icterus Neck supple Resp normal respiratory effort and clear to auscultation bilaterally Resp Narrative: No nasal flaring retractions tachypnea or accessory muscle use Cardio regular rate and regular rhythm Rate: other Other Details: Heart is regular rate and rhythm without murmurs rubs or gallops Radial and carotid pulses are equal and symmetric GI non-distended GI Narrative: Patient's abdomen is gravid with fundus consistent with reported gestational age. There is pain on palpation in the right and left lower quadrant but greatest in the left without voluntary guarding or rigidity No pulsatile mass or fluid wave Negative Hodges sign Auscultation: normoactive bowel sounds Palpation: soft Back/Spine no CVA tenderness Extremity Extremity Narrative: Trace pitting edema consistent with but negative Homans' sign bilaterally Neuro oriented x3, CN's II-XII intact bilaterally and no sensory deficits noted Sensorium / Orientation: alert Psych mental status grossly normal Skin no rashes or lesions noted and no wounds General Skin Exam: Negative for jaundice or pallor MDM MDM MDM Narrative Medical decision making narrative: Patient arrived to the ER with stable vitals and a soft nonsurgical abdomen. She reported lower cramping but there was no associated bleeding or discharge. Demential diagnosis is for abdominal p ain in versus ovarian cyst versus threatened miscarriage versus appendicitis versus UTI versus pyelonephritis versus diverticulitis. (more content not included)... Normal [facility] Lipaseon 08-01-2024 Lipase [Catalytic activity/Vol] 37 U/L Normal 13-75 [facility] Comment on above: Result Comment: Ezequiel haro note: LIPASE revised reference range effective 22. New Lipase methodology. Expected to produce lower values than the previous assay method. NEW Reference Range: 13 - 75 U/L Performed By: #### L 100.0100, L500.2500, L500.3400, L501.2450 #### [facility] [address] [place], [address] Liver Profileon 08-01-2024 Albumin [Mass/Vol] 3.0 g/dL Low 3.2-5.0 [facility] Comment on above: Performed By: #### L 100.0100, L500.2500, L500.3400, L501.2450 #### [facility] [address] [place], [address] ALK P 73 U/L Normal 45-117 [facility] Comment on above: Performed By: #### L 100.0100, L500.2500, L500.3400, L501.2450 #### [facility] [address] [place], [address] ALT [Catalytic activity/Vol] 27 U/L Normal 13-56 [facility] Comment on above: Performed By: #### L 100.0100, L500.2500, L500.3400, L501.2450 #### [facility] [address] [place], [address] AST [Catalytic activity/Vol] 16 U/L Normal 15-37 [facility] Comment on above: Performed By: #### L 100.0100, L500.2500, L500.3400, L501.2450 #### [facility] [address] [place], [address] Bilirubin [Mass/Vol] 0.20 mg/dL Normal 0.20-1.00 [facility] Comment on above: Result Comment: For patients on eltrombopag therapy, use of Dimension [place] TBIL is not recommended. Performed By: #### L 100.0100, L500.2500, L500.3400, L501.2450 #### [facility] [address] [place], [address] D BILI < 0.05 Normal 0.00-0.30 [facility] Comment on above: Performed By: #### L 100.0100, L500.2500, L500.3400, L501.2450 #### [facility] [address] [place], [address] Globulin (S) [Mass/Vol] 3.6 g/dL Normal 2.2-4.2 [facility] Comment on above: Performed By: #### L 100.0100, L500.2500, L500.3400, L501.2450 #### [facility] [address] [place], [address] T PROT 6.6 g/dL Normal 6.4-8.2 [facility] Comment on above: Performed By: #### L 100.0100, L500.2500, L500.3400, L501.2450 #### [facility] [address] [place], [address] OB Limited (No Biometrics)on 08-01-2024 OB Limited (No Biometrics) [facility] Imaging Services [address] [place] [address] OB Limited (No Biometrics) MR#: [id number] Acct: [id number] Name: VAISHALI SORTO Rep #: [id number] : 1995 F 29 From: Curtis Hong MD PCP: Ct Bartlett PA-C Status: REG ER Study: OB Limited (No Biometrics) Date of Exam: 08/01 Exam# [id number] Ordering Dr: Kieran Brennan DO [id number] EXAM: US , LIMITED CLINICAL INDICATION: abd pain w/ -- no bleeding TECHNIQUE: Real-time limited ultrasound of the maternal uterus with image documentation. COMPARISON: No relevant prior studies available. FINDINGS: FETUS: Single live intrauterine . GESTATIONAL AGE: No measurements were performed, the size of the fetus roughly correlates with the gestational age by LMP of 15 weeks 0 days. POSITION: Breech position. HEART RATE: heart rate: 162 bpm. PLACENTA: Placenta is posterior with no abnormality identified. AMNIOTIC FLUID: The amount of amniotic fluid is within normal limits for the gestational age. CERVIX: Cervix is closed and measures 2.9 cm in length. ADNEXA: Right ovary: 3 x 1.6 x 2.4 cm. Left ovary: 3.4 x 2.3 x 3.1 cm. US/OB Limited (No Biometrics) IMPRESSION: 1. Single live intrauterine with no acute abnormalities identified. 2. No measurements were performed, the size of the fetus roughly correlates with the gestational age by LMP 15 weeks 0 days. Electronically Signed: Curtis Hong MD at 0:09 EST , CC: JIGAR Bartlett; Kieran Brennan DO Turbine Technician: Signed Normal [facility] Urinalysis, Completeon 08-01 BACTERIA 1+ /hpf Normal None Seen [facility] Comment on above: Order Comment: CLEAN CATCH Performed By: #### L 400.0001 #### [facility] [address] [place], [place], [id number] EPI,SQUAMOUS 0-5 SEEN Normal 5-10 [facility] Comment on above: Order Comment: CLEAN CATCH Performed By: #### L 400.0001 #### [facility] [address] [place], [place], [id number] Mucus Ql (Urine sed) 1+ /hpf Normal [facility] Comment on above: Order Comment: CLEAN CATCH Performed By: #### L 400.0001 #### [facility] [address] [place], [place], [id number] RBC 0-5 SEEN Normal 0-5 [facility] Comment on above: Order Comment: CLEAN CATCH Performed By: #### L 400.0001 #### [facility] [address] [place], [place], [address] WBC 0-5 SEEN Normal 0-5 [facility] Comment on above: Order Comment: CLEAN CATCH Performed By: #### L 400.0001 #### [facility] [address] [place], [place], [address] hCG Titer Quant., Serumon HCG QUANT. 07995 mIU/mL High 1-3 [facility] Comment on above: Result Comment: hCG levels with Gestational Age Gestational Age hCG mIU/mL (IU/L) 0.2 - 1 week 5 - 50 1-2 weeks 50 - 500 2-3 weeks 100 - 5000 3-4 weeks 500 - 07171 4-5 weeks 1000 - 77063 5-6 weeks 21784 - 100,000 6-8 weeks 10689 - 200,000 2-3 months 30895 - 100,000 Performed By: #### L 700.8000 #### [facility] [address] [place], [place], [id number] CBC W Auto Differential pane l (Bld)on 07-14-2024 Basophils (Bld) [#/Vol] 0.04 10*3/uL Normal <0.11 [facility] Comment on above: Order Comment: Speci men Type: BLOOD SPECIMENOrdering Facility: [facility] Address: [address] [place], [place] [id number] Performed By: #### 5 7021-8 ####[facility] [id number] [place] [address] [place] Basophils/100 WBC (Bld) 0.5 % Normal [facility] Comment on above: Order Comment: Speci men Type: BLOOD SPECIMENOrdering Facility: [facility] Address: [address] [place] [address] Performed By: #### 5 7021-8 ####[facility] [id number] [place] [address] [place] Differential cell count method Nom (Bld) Auto Normal [facility] Comment on above: Order Comment: Speci men Type: BLOOD SPECIMENOrdering Facility: [facility] Address: [address] [place] [address] Performed By: #### 5 7021-8 ####[facility] MICHEALALICIA [id number] [place] [address] [place] Eosinophils (Bld) [#/Vol] 0.15 10*3/uL Normal <0.46 [facility] Comment on above: Order Comment: Speci men Type: BLOOD SPECIMENOrdering Facility: [facility] Address: [address] [place] [address] Performed By: #### 5 7021-8 ####[facility] [id number] [place] [address] [place] Eosinophils/100 WBC (Bld) 1.7 % Normal [facility] Comment on above: Order Comment: Speci men Type: BLOOD SPECIMENOrdering Facility: [facility] Address: [address] [place] [address] Performed By: #### 5 7021-8 ####[facility]ASTO [id number] [place] [address] [place] Erythrocyte distribution width (RBC) [Ratio] 13.2 % Normal 11.5-15.0 [facility] Comment on above: Order Comment: Speci men Type: BLOOD SPECIMENOrdering Facility: [facility] [facility] Address: [address] [place] [address] Performed By: #### 5 7021-8 ####[facility]ITALNCLIA [id number] [place] [address] [place] Hematocrit (Bld) [Volume fraction] 38.3 % Normal 36.0-46.0 [facility] Comment on above: Order Comment: Speci men Type: BLOOD SPECIMENOrdering Facility: [facility] Address: [address] [place] [address] Performed By: #### 5 7021-8 ####[facility] MICHEALPISGAHNCLIA [id number] [place] [address] [place] Hemoglobin (Bld) [Mass/Vol] 13.1 g/dL Normal 11.5-15.5 [facility] Comment on above: Order Comment: Speci men Type: BLOOD SPECIMENOrdering Facility: [facility] Address: [address] [place] [address] Performed By: #### 5 7021-8 ####[facility] HOSPITALLIA [id number] [place] [address] [place] Immature granulocytes (Bld) [#/Vol] 0.03 10*3/uL Normal <0.10 [facility] Comment on above: Order Comment: Speci men Type: BLOOD SPECIMENOrdering Facility: [facility] Address: [address] [place] [address] Performed By: #### 5 7021-8 ####[facility]OSPITALA [id number] [place] [address] [place] Immature granulocytes/100 WBC (Bld) 0.3 % Normal [facility] Comment on above: Order Comment: Speci men Type: BLOOD SPECIMENOrdering Facility: [facility] Address: [address] [place] [address] Performed By: #### 5 7021-8 ####[facility] HOSPITALLIA [id number] [place] [address] [place] Lymphocytes (Bld) [#/Vol] 2.54 10*3/uL Normal 1.00-4.00 [facility] Comment on above: Order Comment: Speci men Type: BLOOD SPECIMENOrdering Facility: [facility] Address: [address] [place] [address] Performed By: #### 5 7021-8 ####[facility]OSPITALNCSHRINERS HOSPITALS FOR CHILDREN [id number] [place] [address] [place] Lymphocytes/100 WBC (Bld) 28.8 % Normal [facility] Comment on above: Order Comment: Speci men Type: BLOOD SPECIMENOrdering Facility: [facility] Address: [address] [place] [address] Performed By: #### 5 7021-8 ####[facility]OSPITALNCSHRINERS HOSPITALS FOR CHILDREN [id number] [place] [address] [place] MCH (RBC) [Entitic mass] 29.8 pg Normal 26.0-34.0 [facility] Comment on above: Order Comment: Speci men Type: BLOOD SPECIMENOrdering Facility: [facility] Address: [address] [place] [address] Performed By: #### 5 7021-8 ####[facility]OSPITALNCSHRINERS HOSPITALS FOR CHILDREN [id number] [place] [address] [place] MCHC (RBC) [Mass/Vol] 34.2 g/dL Normal 30.5-36.0 [facility] Comment on above: Order Comment: Speci men Type: BLOOD SPECIMENOrdering Facility: [facility] Address: [address] [place] [address] Performed By: #### 5 7021-8 ####[facility]ITALNCLIA [id number] [place] [address] [place] MCV (RBC) [Entitic vol] 87.2 fL Normal 80.0-100.0 [facility] Comment on above: Order Comment: Speci men Type: BLOOD SPECIMENOrdering Facility: [facility] Address: [address] [place] [address] Performed By: #### 5 7021-8 ####[facility] HOSPITALNCLI [id number] [place] [address] [place] Monocytes (Bld) [#/Vol] 0.44 10*3/uL Normal <0.87 [facility] Comment on above: Order Comment: Speci men Type: BLOOD SPECIMENOrdering Facility: [facility] Address: [address] [place] [address] Performed By: #### 5 7021-8 ####[facility] MICHEALTONYAA [id number] [place] [address] [place] Monocytes/100 WBC (Bld) 5.0 % Normal [facility] Comment on above: Order Comment: Speci men Type: BLOOD SPECIMENOrdering Facility: [facility] Address: [address] [place] [address] Performed By: #### 5 7021-8 ####[facility]ITALNCSHRINERS HOSPITALS FOR CHILDREN [id number] [place] [address] [place] Neutrophils (Bld) [#/Vol] 5.61 10*3/uL Normal 1.45-7.50 [facility] Comment on above: Order Comment: Speci men Type: BLOOD SPECIMENOrdering Facility: [facility] Address: [address] [place] [address] Performed By: #### 5 7021-8 ####[facility]ITALA [id number] [place] [address] [place] Neutrophils/100 WBC (Bld) 63.7 % Normal [facility] Comment on above: Order Comment: Speci men Type: BLOOD SPECIMENOrdering Facility: [facility] Address: [address] [place] [address] Performed By: #### 5 7021-8 ####[facility]ITALNCLIA [id number] [place] [address] [place] Nucleated RBC (Bld) [#/Vol] 10*3/uL Normal <0.01 [facility] Comment on above: Order Comment: Speci men Type: BLOOD SPECIMENOrdering Facility: [facility] Address: [address] [place] [address] Performed By: #### 5 7021-8 ####[facility] MICHEALYULIETLIA [id number] [place] [address] [place] Nucleated RBC/100 WBC (Bld) [Ratio] 0.0 /100 WBC Normal [facility] Comment on above: Order Comment: Speci men Type: BLOOD SPECIMENOrdering Facility: [facility] Address: [address] [place] [address] Performed By: #### 5 7021-8 ####[facility] HOSPITALLAYOA [id number] [place] [address] [place] Platelet mean volume (Bld) [Entitic vol] 9.3 fL Normal 9.0-12.7 [facility] Comment on above: Order Comment: Speci men Type: BLOOD SPECIMENOrdering Facility: [facility] Address: [address] [place] [address] Performed By: #### 5 7021-8 ####[facility]PITALA [id number] [place] [address] [place] Platelets (Bld) [#/Vol] 196 10*3/uL Normal 150-400 [facility] Comment on above: Order Comment: Speci men Type: BLOOD SPECIMENOrdering Facility: [facility] Address: [address] [place] [address] Performed By: #### 5 7021-8 ####[facility] HOSPITALINÉSA [id number] [place] [address] [place] RBC (Bld) [#/Vol] 4.39 10*6/uL Normal 3.90-5.20 [facility] Comment on above: Order Comment: Speci men Type: BLOOD SPECIMENOrdering Facility: [facility] Address: [address] [place] [address] Performed By: #### 5 7021-8 ####[facility] [id number] [place] [address] [place] WBC (Bld) [#/Vol] 8.81 10*3/uL Normal 3.70-11.00 [facility] Comment on above: Order Comment: Speci men Type: BLOOD SPECIMENOrdering Facility: [facility] Address: [address] [place] [address] Performed By: #### 5 7021-8 ####[facility]ITALA [id number] [place] [address] [place] Comprehensive metabolic 2000 panelon 07-14-2024 Albumin [Mass/Vol] 4.2 g/dL Normal 3.9-4.9 [facility] Comment on above: Order Comment: Speci men Type: BLOOD SPECIMEN [facility] Address: [address] [place] [address] Performed By: #### G TGST1 #### [facility] CLIA [id number] [address] [place] [address] [place] ALP [Catalytic activity/Vol] 76 U/L Normal 34-123 [facility] Comment on above: Order Comment: Speci men Type: BLOOD SPECIMEN [facility] Address: [address] [place] [address] Performed By: #### G TGST1 #### [facility] CLIA [id number] [address] [place] [address] [place] ALT [Catalytic activity/Vol] 12 U/L Normal 7-38 [facility] Comment on above: Order Comment: Speci men Type: BLOOD SPECIMEN [facility] Address: [address] [place] [address] Performed By: #### G TGST1 #### [facility] CLIA [id number] [address] [place] [address] [place] Anion gap [Moles/Vol] 12 mmol/L Normal 8-15 [facility] Comment on above: Order Comment: Speci men Type: BLOOD SPECIMEN [facility] Address: [address] [place] [address] Performed By: #### G TGST1 #### [facility] CLIA [id number] [address] [place] [address] [place] AST [Catalytic activity/Vol] 14 U/L Normal 13-35 [facility] Comment on above: Order Comment: Speci men Type: BLOOD SPECIMEN [facility] Address: [address] [place] [address] Performed By: #### G TGST1 #### [facility] CLIA [id number] [address] [place] [address] [place] Bilirubin [Mass/Vol] 0.2 mg/dL Normal 0.2-1.3 [facility] Comment on above: Order Comment: Speci men Type: BLOOD SPECIMEN [facility] Address: [address] [place] [address] Performed By: #### G TGST1 #### [facility] CLIA [id number] [address] [place] [address] [place] Calcium [Mass/Vol] 9.8 mg/dL Normal 8.5-10.2 [facility] Comment on above: Order Comment: Speci men Type: BLOOD SPECIMEN [facility] Address: [address] [place] [address] Performed By: #### G TGST1 #### [facility] CLIA [id number] [address] [place] [address] [place] Chloride [Moles/Vol] 103 mmol/L Normal 98-107 [facility] Comment on above: Order Comment: Speci men Type: BLOOD SPECIMEN [facility] Address: [address] [place] [address] Performed By: #### G TGST1 #### [facility] CLIA [id number] [address] [place] [address] [place] CO2 [Moles/Vol] 22 mmol/L Normal 22-30 [facility] Comment on above: Order Comment: Speci men Type: BLOOD SPECIMEN [facility] Address: [address] [place] [address] Performed By: #### G TGST1 #### [facility]ITALIA [id number] [address] [place] [address] [place] Creatinine [Mass/Vol] 0.60 mg/dL Normal 0.58-0.96 [facility] Comment on above: Order Comment: Speci men Type: BLOOD SPECIMEN [facility] Address: [address] [place] [address] Performed By: #### G TGST1 #### [facility] [id number] [address] [place] [address] [place] Creatinine and Glomerular filtration rate.predicted panel (S/P/Bld) 124 mL/min/1.73m??? Normal >=60 [facility] Comment on above: Order Comment: Speci men Type: BLOOD SPECIMEN [facility] Address: [address] [place] [address] Result Comment: Leticia mated Glomerular Filtration Rate (eGFR) is calculated using the 2020 CKD-EPI creatinine equation. This equation utilizes serum creatinine, sex, and age as parameters. The creatinine assay has traceable calibration to isotope dilution-mass spectrometry. Refer to KDIGO guidelines for clinical interpretation. In patients with unstable renal function, e.g. those with acute kidney injury, the eGFR may not accurately reflect actual GFR. Performed By: #### G TGST1 #### [facility]ITALIA [id number] [address] [place] [address] [place] Glucose [Mass/Vol] 86 mg/dL Normal 74-99 [facility] Comment on above: Order Comment: Speci men Type: BLOOD SPECIMEN [facility] Address: [address] [place] [address] Result Comment: The [place] Diabetes Association (ADA) provides guidance for cutoff values for fasting glucose and random glucose. The ADA defines fasting as no caloric intake for at least 8 hours. Fasting plasma glucose results between 100 to 125 mg/dL indicate increased risk for diabetes (prediabetes). Fasting plasma glucose results greater than or equal to 126 mg/dL meet the criteria for diagnosis of diabetes. In the absence of unequivocal hyperglycemia, results should be confirmed by repeat testing. In a patient with classic symptoms of hyperglycemia or hyperglycemic crisis, random plasma glucose results greater than or equal to 200 mg/dL meet the criteria for diagnosis of diabetes. Reference: Standards of Medical Care in Diabetes 2016, [place] Diabetes Association. Diabetes Care. 2016.39(Suppl 1). Performed By: #### G TGST1 #### [facility]IA [id number] [address] [place] [address] [place] Potassium [Moles/Vol] 3.7 mmol/L Normal 3.7-5.1 [facility] Comment on above: Order Comment: Speci men Type: BLOOD SPECIMEN [facility] Address: [address] [place] [address] Performed By: #### G TGST1 #### [facility] [id number] [address] [place] [address] [place] Protein [Mass/Vol] 6.8 g/dL Normal 6.3-8.0 [facility] Comment on above: Order Comment: Speci men Type: BLOOD SPECIMEN [facility] Address: [address] [place] [address] Performed By: #### G TGST1 #### [facility] [id number] [address] [place] [address] [place] Sodium [Moles/Vol] 137 mmol/L Normal 136-144 [facility] Comment on above: Order Comment: Speci men Type: BLOOD SPECIMEN [facility] Address: [address] [place] [address] Performed By: #### G TGST1 #### [facility] CLIA [id number] [address] [place] [address] [place] Urea nitrogen [Mass/Vol] 12 mg/dL Normal 7-21 [facility] Comment on above: Order Comment: Speci men Type: BLOOD SPECIMEN [facility] Address: [address] [place], [place] [address] [address] Performed By: #### G TGST1 #### [facility] CLIA [id number] [address] [place] [address] [place] nuchal translucency me asured by USon 07-14-2024 Indication First trimester anatomic survey Maternal obesity, BMI >35 Impression REMOTE READ The patient is referred for a first trimester anatomy scan including nuchal translucency measurement as clinically indicated. - Single, live, intrauterine . - Orinda rump length measurement is consistent with the established gestational age. - A qualitative screen of the nuchal translucency and other anatomic structures was unremarkable on a complete first trimester anatomic assessment. - Not all structural malformations can be detected by ultrasound examination. Maternal Structures: Right Ovary: Size 28 mm x 20 mm x 16 mm Left Ovary: Size 28 mm x 26 mm x 21 mm Recommendations - A standard anatomic survey at 16 weeks can be offered and a detailed exam at 20 weeks is recommended for increased risk. Maternal Assessment Height 163 cm Height (ft) 5 ft Height (in) 4 in Physical Exam Initial weight (lb) 208 lb Initial BMI 35.70 kg/m Maternal assessment other: 3 Para 1 Method Transabdominal ultrasound examination [place] . Number of fetuses: 1 Dating LMP on: 04/18/2024 GA by LMP 12 w + 3 d DALY by LMP: 01/23/2025 GA by prior assessment 12 w + 3 d DALY by prior assessment: 01/23/2025 Ultrasound examination on: 07/14/2024 GA by U/S based upon: CRL GA by U/S 11 w + 6 d DALY by U/S: 01/27/2025 Assigned: based on stated DALY, selected on 07/14/2024 Assigned GA 12 w + 3 d Assigned DALY: 01/23/2025 General Evaluation Cardiac activity present Placenta: posterior Cord vessels: 3 vessel cord Amniotic fluid: normal amount Biometry Standard FHR 163 bpm CRL 52.2 mm 11w 6d 7% [facility] First Trimester Anatomy Calvarium: normal Falx cerebri: normal Choroid plexus: normal Profile: normal Nasal bone: normal Retronasal triangle: normal Maxilla: normal Mandible: normal Nuchal translucency: Unremarkable Situs: normal Cardiac position: normal Cardiac axis: normal 4-chamber view: visualized 4-chamber view with color: visualized 4-kemawr-eepfivm view: normal Abdominal cord insertion: normal Stomach: normal Kidneys: normal Bladder: normal Color doppler of perivesical umbilical arteries: normal Vertebral alignment: normal Arms: normal Hands: normal Legs: normal Feet: normal Maternal Structures Uterus / Cervix Uterus: Visualized Uterus length 179 mm Uterus width 99 mm Uterus height 65 mm Uterus Vol 596.9 cm Ovaries / Tubes / Adnexa Rt ovary: Visualized Rt ovary D1 28 mm Rt ovary D2 20 mm Rt ovary D3 16 mm Rt ovary Vol 4.6 cm Lt ovary: Visualized Lt ovary D1 28 mm Lt ovary D2 26 mm Lt ovary D3 21 mm Lt ovary Vol 7.9 cm Performed By: Namita Downing RDMS, RVT Read By: Nasra Cody M.D. MATERNAL MEDICINE [facility] Radiology Study observation (narrative) [facility] HBV surface Ag Ser Qlon HBV surface Ag Ql (S) Negative Normal Negative [facility] Comment on above: Order Comment: Speci men Type: BLOOD SPECIMEN [facility] Address: [address] [place] [address] Performed By: #### G TGST1 #### [facility] CLIA [id number] [address] [place] [address] [place] HCV Ab Ser Qlon 07-14-2024 HCV Ab Ql (S) Negative Normal Negative [facility] Comment on above: Order Comment: Speci men Type: BLOOD SPECIMENOrdering Facility: [facility] Address: [address] [place] [address] Result Comment: The result suggests no evidence of active infection with Hepatitis C virus. Should recent infection be suspected, repeat testing may be considered 4-6 weeks after this draw. Performed By: #### 1 6128-1 ####[facility] LABCLIA [id number] [facility] [id number] [place] [address] [place] HIV 1+2 Ab IA Qlon 4 HIV 1 and 2 Ab IA.rapid Nom (S/P/Bld) Normal [facility] Comment on above: Order Comment: Speci men Type: BLOOD SPECIMEN [facility] Address: [address] [place] [address] Result Comment: Test not indicated. Performed By: #### G TGST1 #### [facility] [id number] [address] [place] [address] [place] HIV 1+2 Ab+HIV1 p24 Ag IA Ql Non-Reactive Normal Nonreactive [facility] Comment on above: Order Comment: Speci men Type: BLOOD SPECIMEN [facility] Address: [address] [place] [address] Performed By: #### G TGST1 #### [facility] [id number] [address] [place] [address] [place] HIV immunoassay testing algorithm interpretation (S/P/Bld) [Interp] Normal [facility] Comment on above: Order Comment: Speci men Type: BLOOD SPECIMEN [facility] Address: [address] [place] [address] Result Comment: No e vidence of HIV-1 or HIV-2 infection. Should recent infection be suspected, repeat testing may be considered 2-3 weeks after this draw. Rich Rev. Code 3701.243(E): This information has been disclosed to you from confidential records protected from disclosure by state law. ???You shall make no further disclosure of this information without the specific, written, and informed release of the individual to whom it pertains or as otherwise permitted by state law. A general authorization for the release of medical or other information is not sufficient for the purpose of the release of HIV test results or diagnoses. Performed By: #### G TGST1 #### [facility] [id number] [address] [place] [address] [place] HbA1c (Bld)on 07-14-2024 Average glucose Estimated from glycated hemoglobin (Bld) [Mass/Vol] 97 mg/dL Normal [facility] Comment on above: Order Comment: Jalil alcantar Type: BLOOD SPECIMEN [facility] Address: [address] [place] [address] Result Comment: eAG: (Estimated average glucose) is a calculated value from HgbA1c and is customer engagement representative of the average blood glucose level in the last 2-3 month period. Performed By: #### G TGST1 #### [facility] CLIA [id number] [address] [place] [address] [place] HbA1c (Bld) [Mass fraction] 5.0 % Normal 4.3-5.6 [facility] Comment on above: Order Comment: Jalil alcantar Type: BLOOD SPECIMEN [facility]ing Facility: [facility] Address: [address] [place] [address] Result Comment: [place] Diabetes Association guidelines indicate that patients with HgbA1c in the range 5.7-6.4% are at increased risk for development of diabetes, and intervention by lifestyle modification may be beneficial. HgbA1c greater or equal to 6.5% is considered diagnostic of diabetes. Performed By: #### G TGST1 #### [facility] [id number] [address] [place] [address] [place] [id number] PLUSon 07-14-2024 Cell-free DNA./Cell-free DNA.total Dosage of chromosome-specific cfDNA (cfDNA) [Molar fraction] 15% Normal [facility] Comment on above: Order Comment: Miladyi men Type: BLOOD SPECIMEN [facility] Address: [address] [place] [address] Performed By: #### G TGST1 #### [facility] [id number] [address] [place] [address] [place] Chr 13+18+21+X+Y aneuploidy Dosage of chromosome-specific cfDNA Ql (cfDNA) Negative Normal [facility] Comment on above: Order Comment: Speci men Type: BLOOD SPECIMEN [facility] Address: [address] [place] [address] Performed By: #### G TGST1 #### [facility] CLIA [id number] [address] [place] [address] Chr 21 trisomy Dosage of chromosome-specific cfDNA Ql (cfDNA) Negative Normal [facility] Comment on above: Order Comment: Speci men Type: BLOOD SPECIMEN [facility]ing Facility: [facility] Address: [address] [place] [address] Performed By: #### G TGST1 #### [facility] CLIA [id number] [address] [place] [address] [place] Chr X and Y aneuploidy risk Sequencing Ql (cfDNA) [Interp] Not detected Normal [facility] Comment on above: Order Comment: Speci men Type: BLOOD SPECIMEN [facility]ing [facility] Address: [address] [place] [address] Result Comment: Not Detected Not Detected Performed By: #### G TGST1 #### [facility] [id number] [address] [place] [address] OF [place] Citation Dhaval (Reference lab test) Comment Normal [facility] Comment on above: Order Comment: Speci men Type: BLOOD SPECIMEN Ordering Facility: [facility] Address: [address] [place] [address] Result Comment: 1. P germain RODAS, et al. Esla Med. 2012;14(3):296-305. 2. Rob COHN, et al. Prenat Diag. 2013;33(6):591-597. 3. Sergio Xiong, et al. Clin Chem. 2015 Apr;61(4):608-616. 4. Lacy RODAS et al. Elsa Med. 2011;13(11):913-920. 5. ACOG/SMFM Practice Bulletin No. 226, May 2020. Performed By: #### G TGST1 #### [facility] CLIA [id number] [address] [place] [address] [place] Gestational age Estimated from conception date [place] Normal [facility] Comment on above: Order Comment: Speci men Type: BLOOD SPECIMEN Ordering Facility: [facility] Address: [address] [place] [address] Performed By: #### G TGST1 #### [facility] CLIA [id number] [address] [place] [address] [place] GESTATIONALAGE AGE > OR = 9W Yes Normal [facility] Comment on above: Order Comment: Speci men Type: BLOOD SPECIMEN Ordering Facility: [facility] Address: [address] [place] [address] Performed By: #### G TGST1 #### [facility] CLIA [id number] [address] [place] [address] [place] Laboratory comment Dhaval (Report) Comment Normal [facility] Comment on above: Order Comment: Speci men Type: BLOOD SPECIMEN Ordering Facility: [facility] Address: [address] [place] [address] Result Comment: The MaterniT(R) 21 PLUS laboratory-developed test (LDT) analyzes circulating cell-free DNA from a maternal blood sample. This test is used for screening purposes and not diagnostic. Clinical correlation is recommended. Validation data on twin pregnancies is limited and the ability of this test to detect aneuploidy in higher multiple gestations has not yet been validated. Performed By: #### G TGST1 #### [facility] CLIA [id number] [address] [place] [address] executive director sheltered workshop name Nom (Provider) Comment Normal [facility] Comment on above: Order Comment: Speci men Type: BLOOD SPECIMEN Ordering Facility: [facility] Address: [address] [place] [address] Result Comment: This specimen showed an expected representation of chromosome 21, 18 and 13 material. Clinical correlation is suggested. Comment Santino Bragg MD, PhD, Director, [place] Performed By: #### G TGST1 #### [facility] CLIA [id number] [address] [place] [address] [place] LIMITATIONS OF THE TEST Comment Normal [facility] Comment on above: Order Comment: Speci men Type: BLOOD SPECIMEN Ordering Facility: [facility] Address: [facility] [place] [address] Result Comment: Meg camarillo the results of these tests are highly reliable, discordant results, including inaccurate sex prediction, may occur due to placental, maternal, or mosaicism or neoplasm; vanishing twin; prior maternal organ transplant; or other causes. These tests are screening tests and not diagnostic; they do not replace the accuracy and precision of diagnosis with CVS or amniocentesis. A patient with a positive test result should be referred for genetic counseling and offered invasive diagnosis for confirmation of test results.[5] The results of this testing, including the benefits and limitations, should be discussed with a qualified healthcare provider. management decisions, including termination of the , should not be based on the results of these tests alone. The healthcare provider is responsible for the use of this information in the management of their patient. Sex chromosomal aneuploidies are not reportable for known multiple gestations. A negative result does not ensure an unaffected nor does it exclude the possibility of other chromosomal abnormalities or defects which are not a part of these tests. An uninformative result may be reported, the causes of which may include, but are not limited to, insufficient sequencing coverage, noise or artifacts in the region, amplification or sequencing bias, or insufficient fraction. These tests are not intended to identify pregnancies at risk for neural tube defects or ventral wall defects. Testing for whole chromosome abnormalities (including sex chromosomes) and for subchromosomal abnormalities could lead to the potential discovery of both and maternal genomic abnormalities that could have major, minor, or no, clinical significance. Evaluating the significance of a positive or a non-reportable result may involve both invasive testing and additional studies on the mother. Such investigations may lead to a diagnosis of maternal chromosomal or subchromosomal abnormalities, which on occasion may be associated with benign or malignant maternal neoplasms. These tests may not accurately identify triploidy, balanced rearrangements, or the precise location of subchromosomal duplications or deletions; these may be detected by diagnosis with CVS or amniocentesis. The ability to report results may be impacted by maternal BMI, maternal weight, maternal systemic lupus erythematosus (SLE) and/or by certain pharmaceutical agents such as low molecular weight heparin (for example: Lovenox(R), Xaparin(R), Clexane(R) and Fragmin(R)). Performed By: #### G TGST1 #### [facility] CLIA [id number] [address] [place] [address] Monosomy X risk Dosage of chromosome-specific cfDNA Ql (Plasma cell-free+WBC DNA) [Interp] Not detected Normal [facility] Comment on above: Order Comment: Jalil alcantar Type: BLOOD SPECIMEN Ordering Facility: [facility] Address: [address] [place] [address] Performed By: #### G TGST1 #### [facility] [id number] [address] [place] [address] NEGATIVE PREDICTIVE VALUE Note Normal [facility] Comment on above: Order Comment: Jalil alcantar Type: BLOOD SPECIMEN Ordering Facility: [facility] Address: [address] [place] [address] Result Comment: The Negative Predictive Value (NPV) for trisomy 21, 18, and 13 is greater than 99%. The NPV for SCA and ESS cannot be calculated as SCA and ESS are only reported when an abnormality is detected. Performed By: #### G TGST1 #### [id number] [address] [place] [address] NOTE Comment Normal [facility] Comment on above: Order Comment: Jalil alcantar Type: BLOOD SPECIMEN Ordering Facility: [facility] Address: [address] [place] [address] Result Comment: See Notes [employer]. is a subsidiary of [employer], using the brand [employer]. This test was developed and its performance characteristics determined by [employer]. It has not been cleared or approved by the Food and Drug Administration. This laboratory is certified under the Clinical Laboratory Improvement Amendments (CLIA) as qualified to perform high complexity clinical laboratory testing and accredited by the [employer] (CAP). If there is future clinical need for adding MaterniT GENOME testing, this specimen will be available until term. [facility] samples will not be retained beyond 60 days. [facility] patients will have to send a new sample for re-sequencing ([facility] Test Code: [id number]). Performed By: #### G TGST1 #### [facility] CLIA [id number] OF [place] PERFORMANCE CHARACTERISTICS Note Normal [facility] Comment on above: Order Comment: Jalil alcantar Type: BLOOD SPECIMEN Ordering Facility: [facility] Address: [address] [place] [address] Result Comment: ! Sex ! Accuracy: 99.4% ! ! ! ! Region (associated syndrome) ! Est. Sens# ! Est. Spec ! ! ! ! Trisomy 21 (Down Syndrome) ! 99.1% ! 99.9% ! ! ! ! Trisomy 18 (Cat Syndrome) ! >99.9% ! 99.6% ! ! ! ! Trisomy 13 (Patau Syndrome) ! 91.7% ! 99.7% ! ! ! ! Sex Chromosome Aneuploidies## ! 96.2% ! 99.7% ! ! ! * As reported in [facility] database nstd37 [https://www.ncbi.nlm.nih.gov/dbvar/studies/nstd37/ ] # Estimated Sensitivity. Sensitivity estimated across the observed size distribution of each syndrome [per [facility] database nstd37] and across the range of fractions observed in routine clinical NIPT. Actual sensitivity can also be influenced by other factors such as the size of the event, total sequence counts, amplification bias, or sequence bias. ## [place] gestation only. Performed By: #### G TGST1 #### [facility] [id number] [address] [place] [address] [place] POSITIVE PREDICTIVE VALUE N/A Normal [facility] Comment on above: Order Comment: Speci men Type: BLOOD SPECIMEN Ordering Facility: [facility] Address: [address] [place] [address] Performed By: #### G TGST1 #### [facility] [id number] [address] [place] [address] [place] Reference Lab Test Method Comment Normal [facility] Comment on above: Order Comment: Speci men Type: BLOOD SPECIMEN Ordering Facility: [facility] Address: [address] [place] [address] Result Comment: See Notes Circulating cell-free DNA was purified from the plasma component of maternal blood. The extracted DNA was then converted into a genomic DNA library for aneuploidy analysis of chromosomes 21, 18, and 13 via next generation sequencing.[1] Optional findings based on the test order include sex chromosome aneuploidy (SCA)[2], and enhanced sequencing series (ESS)[3], which will only be reported on as an additional finding when an abnormality is detected. SCA testing includes information on X and Y representation, while ESS testing includes deletions in selected regions (22q, 15q, 11q, 8q, 5p, 4p, 1p) and trisomy of chromosomes 16 and 22. Performed By: #### G TGST1 #### [facility] [id number] [address] [place] [address] [place] Sex Dosage of chromosome-specific cfDNA Nom (cfDNA) Comment Normal [facility] Comment on above: Order Comment: Speci men Type: BLOOD SPECIMEN Ordering Facility: [facility] Address: [address] [place] [address] Result Comment: Cons istent with Female Performed By: #### G TGST1 #### [facility] [id number] [address] [place] [address] [place] Test performance information Dhaval (Unsp spec) Comment Normal [facility] Comment on above: Order Comment: Speci men Type: BLOOD SPECIMEN Ordering Facility: [facility] Address: [address] [place] [address] Result Comment: The performance characteristics of the MaterniT(R) 21 PLUS laboratory-developed test (LDT) have been determined in a clinical validation study with women at increased risk for chromosomal aneuploidy.[1-4] Performed By: #### G TGST1 #### [facility] [id number] [address] [place] [address] [place] Trisomy 13 risk Dosage of chromosome-specific cfDNA Ql (cfDNA) [Interp] Negative Normal [facility] Comment on above: Order Comment: Speci men Type: BLOOD SPECIMEN Ordering Facility: [facility] Address: [address] [place] [address] Performed By: #### G TGST1 #### [facility] [id number] [address] [place] [address] Trisomy 18 risk Dosage of chromosome-specific cfDNA Ql (Plasma cell-free+WBC DNA) [Interp] Negative Normal [facility] Comment on above: Order Comment: Speci men Type: BLOOD SPECIMEN Ordering Facility: [facility] Address: [address] [place] [address] Performed By: #### G TGST1 #### [facility] [id number] [address] [place] [address] [place] Prot/Creat Uron 07-14-2024 Protein/Creatinine (U) [Mass ratio] mg/g Normal <0.15 [facility] Comment on above: Order Comment: Speci men Type: URINE SPECIMENOrdering Facility: [facility] Address: [address] [place] [address] Result Comment: Adul t Proteinuria Categories: <0.15 mg/mg is considered normal to mildly increased 0.15 - 0.50 mg/mg is considered moderately increased >0.50 mg/mg is considered severely increased KDIGO. (2013). KDIGO 2012 Clinical Practice Guideline for the Evaluation and Management of Chronic Kidney Disease. Official Journal of the International Society of Nephrology, 3(1), 1-150. Performed By: #### 2 890-2 ####[facility] LABCLIA [id number] [place] [id number] [place] Protein/Creatinine (U) [Mass ratio]on 07-14-2024 Creatinine (U) [Mass/Vol] 64.9 mg/dL Normal 20.0-300.0 [facility] Comment on above: Order Comment: Speci men Type: URINE SPECIMENOrdering Facility: [facility] Address: [address] [place] [address] Performed By: #### 2 890-2 ####[facility] LABCLIA [id number] [place] [address] [place] Protein (U) [Mass/Vol] mg/dL Normal 0-20 [facility] Comment on above: Order Comment: Speci men Type: URINE SPECIMENOrdering Facility: [facility] Address: [address] [place] [address] Performed By: #### 2 890-2 ####[facility] [id number] [place] [address] [place] RUBELLA IGG ANTIBODYon 07-14 RUBELLA IGG AB, QUAL Positive Normal Positive [facility] Comment on above: Order Comment: Speci men Type: BLOOD SPECIMENOrdering Facility: [facility] Address: [address] [place] [address] Result Comment: The result suggests recent or past exposure to Rubella virus or history of Rubella vaccination. Positive result may also be seen due to presence of passively-transferred antibodies. Please correlate with patient's history. Performed By: #### R UBIGG ####[facility] [id number] [place] [address] [place] Reagin and Treponema pallidu m IgG and IgM [Interp]on 07-14-2024 T. pallidum IgG+IgM IA Ql (S) Non-Reactive Normal Nonreactive [facility] Comment on above: Order Comment: Speci men Type: BLOOD SPECIMEN Ordering Facility: [facility] Address: [address] [place] [address] Performed By: #### G TGST1 #### [facility] CLIA [id number] [address] [place] [address] [place] Reagin+T pallidum IgG+IgM Se rPl-Impon 07-14-2024 Reagin and Treponema pallidum IgG and IgM [Interp] Cannot exclude recent Treponemal infection if specimen collected within 7-10 days after appearance of suspect lesions or 2-3 weeks after an exposure. Clinical correlation is required. Normal [facility] Comment on above: Order Comment: Speci men Type: BLOOD SPECIMEN Ordering Facility: [facility] Address: [address] [place], [place] [address] Performed By: #### G TGST1 #### [facility] CLIA [id number] [address] [place] [address] [place] TYPE + SCREEN PRENATALon ABO O Normal [facility] Comment on above: Order Comment: Speci men Type: BLOOD SPECIMENOrdering Facility: [facility] Address: [address] [place] [address] Performed By: #### T SPN ####[facility] [id number] [place] [address] [place] Rh Nom (Bld) Positive Normal [facility] Comment on above: Order Comment: Speci men Type: BLOOD SPECIMENOrdering Facility: [facility] Address: [address] [place] [address] Performed By: #### T SPN ####[facility] [id number] [place] [address] [place] TYPE AND SCREEN EXPIRATION 07/17/2024 23:59 Normal [facility] Comment on above: Order Comment: Speci men Type: BLOOD SPECIMENOrdering Facility: [facility] Address: [address] [place] [address] Performed By: #### T SPN ####[facility] [id number] [place] [id number] [place] Urate SerPl-mCncon 4 Urate [Mass/Vol] 2.8 mg/dL Normal 2.5-6.6 [facility] Comment on above: Order Comment: Speci men Type: BLOOD SPECIMEN Ordering Facility: [facility] Address: [address] [place] [address] Performed By: #### G TGST1 #### [facility] CLIA [id number] [address] [place] [id number] [place] Bacteria Ur Culton Bacteria identified Cx Nom (U) CULTURE, URINE: No growth (<1,000 CFU/ml) Normal [facility] Comment on above: Performed By: #### 6 30-4 ####[facility] LABCLIA [id number] [place] [address] [place] C. trachomatis+N. gonorrhoea e DNA KENAN+probe Ql (Unsp spec)on 06-21-2024 C. trachomatis rRNA KENAN+probe Ql (Unsp spec) Negative Normal Negative for Chlamydia trachomatis by amplificaton [facility] Comment on above: Order Comment: Speci men Type: SWABOrdering Facility: [facility] Address: [address] [place] [address] Performed By: #### 3 6902-5 ####[facility] LABCLIA [id number] [address] [place] N. gonorrhoeae rRNA KENAN+probe Ql (Unsp spec) Negative Normal Negative for Neisseria gonorrhoeae by amplification [facility] Comment on above: Order Comment: Speci men Type: SWABOrdering Facility: [facility] Address: [address] [place] [address] Performed By: #### 3 6902-5 ####[facility] LABCLIA [id number] [place] [address] [place] POC CARPENTER SHIP ULTRASOUNDon 06-21-20 Indication Viability. Confirmation of intrauterine Impression Single intrauterine gestational sac, CRL is appropriate for clinical dates, corresponding to DALY 01/23/2025. cardiac activity is visualized, FHR 179 bpm Recommendations Follow up for NT scan if desired Method Transabdominal and transvaginal ultrasound examination [place] . Number of embryos: 1 Dating LMP on: 04/18/2024 GA by LMP 9 w + 1 d DALY by LMP: 01/23/2025 Ultrasound examination on: 06/21/2024 GA by U/S based upon: CRL GA by U/S 8 w + 3 d DALY by U/S: 01/28/2025 Assigned: based on the LMP, selected on 06/21/2024 Assigned GA 9 w + 1 d Assigned DALY: 01/23/2025 Biometry Standard FHR 179 bpm CRL 19.3 mm 8w 3d 3% Hadlock Assessment Gestational sac: visualized Location: intrauterine Yolk sac: visualized Embryo: visualized CRL 19.3 mm 8w 3d 3% Hadlock Cardiac activity: present FHR 179 bpm General Evaluation Cardiac activity present. FHR 179 bpm Performed By: Linsey Shah CNM Read By: Linsey Shah CNM MATERNAL MEDICINE [facility] Radiology Study observation (narrative) [facility] CNPKlarissa 06-02-2024 CNPN Telephone (OBGYWM) VAISHALI SORTO ([id number]) 1995 F Date Time Provider Department 06/02/24 ZAHRA MURILLO During your visit today, we recorded the following information about you: Namita Hui RN 06/02/2024 4:39 PM Addendum Early OB patient calling with concerns of spotting that started today along with some mild abdominal cramping. Patient is approximately 6w3d, LMP 04/18/24. She has upcoming New OB appointment on 06/21/24. Patient had recent quants done on 05/29 and 05/31. Do you want another level drawn? Bleeding precautions reviewed with patient. hCG Quantitative, Blood (mIU/mL) Date Value 05/31/2024 7,018.0 05/29/2024 4,122.0 VINOD Munoz Courtney, APRN.CNM 06/02/2024 4:59 PM Signed Levels are increasing appropriately. Does not need any further levels at this time. PATO Casey Lindsey, RN 06/02/2024 5:01 PM Signed Patient notified and voiced understanding. Namita Hui RN Allergies As of Date: 06/02/2024 (No Active Allergies) Date Reviewed: 02/17/2023 Reviewed by: Cheyenne Bullock MD - Fully Assessed Reason for Visit: Early OB-spotting [Other] Primary Visit Diagnosis:History of spontaneous [Z87.59] Other Visit Diagnosis:Bleeding in early [O20.9] Prescriptions as of 06/02/2024 - valACYclovir (VALTREX) 1 gram tablet Take 1 tablet by mouth once daily. - prental multivitamin 27 mg iron- 800 mcg tablet Take 1 tablet by mouth once daily. - diphenhydramine HCl (BENADRYL ORAL) Take by mouth. - ascorbic acid (CARLOS MANUEL-C ORAL) Take by mouth. - cholecalciferol, vitamin D3, (VITAMIN D3 ORAL) Take by mouth. - zinc sulfate (ZINC-15 ORAL) Take by mouth. - budesonide-formotero l (SYMBICORT) 160-4.5 mcg/actuation inhaler Inhale 2 Puffs as instructed twice daily. - cetirizine HCl (ZYRTEC ORAL) Take by mouth. - EPINEPHrine (EPIPEN) 0.3 mg/0.3 mL (1:1,000) PnIj Inject 0.3 mL intramuscularly as needed (for allergic reaction.Seek emergent medical care immediately after use.Disp:one 2-packw/sports athletic trainer). Dispense generic if available. - mometasone (NASONEX) 50 mcg/actuation nasal spray Use 2 Sprays in each nostril once daily. - albuterol HFA (PROVENTIL HFA) 90 mcg/actuation inhaler Inhale 2 Puffs as instructed every 4 hours as needed (May also use 15 minutes pre-exercise. Use with spacer. Proventil JOEL). - albuterol 2.5 mg /3 mL (0.083 %) INHALATION nebulizer solution Use via nebulizer. one nebulized every 4 hours as needed for cough, wheezing, chest tightness or shortness of breath. Problem List As Of Date 06/02/2024 Noted Resolved ASTHMA UNSPECIFIED [J45.909] 07/13/2007 09/29/2007 Severe persistent asthma [J45.50] 09/29/2007 Allergic rhinitis, cause unspecified [J30.9] 09/29/2007 02/17/2023 GERD (Gastroesophageal Reflux Disease) [K21.9] 10/22/2009 with care elsewhere in third*11/30/2022 02/17/2023 History of herpes genitalis [Z86.19] 11/30/2022 02/17/2023 History of hypertension [Z86.79] 11/30/2022 Positive GBS test [B95.1] 12/21/2022 02/17/2023 Breech presentation with problem [O32*12/25/2022 02/17/2023 Encounter Status:Closed by ZAHRA MURILLO on 06/02/24 Normal [facility] B-HCG SerPl-aCncon 4 HCG.beta subunit Qn 7018.0 m[IU]/mL High <5.0 [facility] Comment on above: Order Comment: Speci men Type: BLOOD SPECIMENOrdering Facility: [facility] Address: [address] [place] [address] Result Comment: MELIZA TITATIVE HCG NORMAL RANGES Weeks of Gestation (Weeks Since LMP) 3 Weeks (5.8-71.2 mIU/mL) 4 Weeks (9.5-750 mIU/mL) 5 Weeks (217-7138 mIU/mL) 6 Weeks (158-00324 mIU/mL) 7 Weeks (3697-979480 mIU/mL) 8 Weeks (44347-419645 mIU/mL) 9 Weeks (57916-247046 mIU/mL) 10 Weeks (33373-946549 mIU/mL) 12 Weeks (63865-939950 mIU/mL) Referenced to 4th IS of [facility] Performed By: #### 2 1198-7 ####[facility] LABCLIA [id number] [place] [address] [place] HCG QUANTITATIVEon 4 HCG.beta subunit Qn 7018.0 m[IU]/mL High [facility] Comment on above: QUANTITATIVE HCG NOR MAL RANGES Weeks of Gestation (Weeks Since LMP) 3 Weeks (5.8-71.2 mIU/mL) 4 Weeks (9.5-750 mIU/mL) 5 Weeks (217-7138 mIU/mL) 6 Weeks (158-91508 mIU/mL) 7 Weeks (3697-161887 mIU/mL) 8 Weeks (26270-562718 mIU/mL) 9 Weeks (06262-288239 mIU/mL) 10 Weeks (37084-683406 mIU/mL) 12 Weeks (79701-641712 mIU/mL) Referenced to 4th IS of [facility] HCG.beta subunit Qnon 2023 Interpretation and review of laboratory results Abnormal [facility] HCG QUANTITATIVEon 4 HCG.beta subunit Qn 4122.0 m[IU]/mL High [facility] Comment on above: QUANTITATIVE HCG NOR MAL RANGES Weeks of Gestation (Weeks Since LMP) 3 Weeks (5.8-71.2 mIU/mL) 4 Weeks (9.5-750 mIU/mL) 5 Weeks (217-7138 mIU/mL) 6 Weeks (158-28164 mIU/mL) 7 Weeks (3697-422865 mIU/mL) 8 Weeks (57088-839218 mIU/mL) 9 Weeks (73893-347045 mIU/mL) 10 Weeks (72981-676968 mIU/mL) 12 Weeks (50443-726309 mIU/mL) Referenced to 4th [facility] HCG.beta subunit Qnon 2023 Interpretation and review of laboratory results Abnormal [facility] B-HCG SerPl-aCncon 4 HCG.beta subunit Qn 4122.0 m[IU]/mL High <5.0 [facility] Comment on above: Order Comment: Speci men Type: BLOOD SPECIMENOrdering Facility: [facility] Address: [address] [place], [place] [address] Result Comment: MELIZA TITATIVE HCG NORMAL RANGES Weeks of Gestation (Weeks Since LMP) 3 Weeks (5.8-71.2 mIU/mL) 4 Weeks (9.5-750 mIU/mL) 5 Weeks (217-7138 mIU/mL) 6 Weeks (158-68205 mIU/mL) 7 Weeks (3697-595830 mIU/mL) 8 Weeks (98896-888991 mIU/mL) 9 Weeks (56062-656660 mIU/mL) 10 Weeks (80078-059556 mIU/mL) 12 Weeks (49034-299075 mIU/mL) Referenced to 4th [facility] Performed By: #### 2 [id number] ####[facility] LABCLIA [id number] [place] [id number] [facility] CNPKlarissa 05-25-2024 CNPN Telephone (OBGYWM) VAISHALI SORTO ([id number]) 1995 F Date Time Provider Department 05/25/24 LINSEY SHAH During your visit today, we recorded the following information about you: HornYanelis 05/25/2024 1:28 PM Signed Patient called to scheduled first OB visits with linsey Shah CNP. Positive test: 05/24/24 LMP: 04/18/24 1st OB DOS: 06/21/24 (unable to schedule sooner due to work) Patient states that during previous visit with Pablo, that she was to have lab work performed between 7-8 weeks. Please contact patient to advise. Linsey Shah APRN.CNM 05/26/2024 1:27 PM Signed Order signed for serial quant x2. PATO Morrison Trisha, RN 05/30/2024 1:56 PM Signed Patient had first hcg quant done yesterday. Leave open for 05/31/24 hcg quant result. VINOD Malave Trisha, RN 06/01/2024 10:10 AM Signed Please review hcg quant results. hCG Quantitative, Blood (mIU/mL) Date Value 05/31/2024 7,018.0 05/29/2024 4,122.0 Zahra Murillo APRN.CNM 06/01/2024 1:06 PM Signed HCG level increasing appropriately.. Keep scheduled appointment. PATO Casey Trisha, RN 06/01/2024 1:53 PM Signed Patient notified. Lorie Michelle RN Allergies As of Date: 05/25/2024 (No Active Allergies) Date Reviewed: 02/17/2023 Reviewed by: Cheyenne Bullock MD - Fully Assessed Reason for Visit: Patient Update [1234] Cmt: New Patient Question [0907] Cmt: Lab Work 7-8 weeks Primary Visit Diagnosis:History of spontaneous [Z87.59] Order(s):HCG QUANTITATIVE [SQHCGQT] Order #: [id number] STANDING Prescriptions as of 06/01/2024 - valACYclovir (VALTREX) 1 gram tablet Take 1 tablet by mouth once daily. - prental multivitamin 27 mg iron- 800 mcg tablet Take 1 tablet by mouth once daily. - diphenhydramine HCl (BENADRYL ORAL) Take by mouth. - ascorbic acid (CARLOS MANUEL-C ORAL) Take by mouth. - cholecalciferol, vitamin D3, (VITAMIN D3 ORAL) Take by mouth. - zinc sulfate (ZINC-15 ORAL) Take by mouth. - budesonide-formotero l (SYMBICORT) 160-4.5 mcg/actuation inhaler Inhale 2 Puffs as instructed twice daily. - cetirizine HCl (ZYRTEC ORAL) Take by mouth. - EPINEPHrine (EPIPEN) 0.3 mg/0.3 mL (1:1,000) PnIj Inject 0.3 mL intramuscularly as needed (for allergic reaction.Seek emergent medical care immediately after use.Disp:one 2-packw/sports athletic trainer). Dispense generic if available. - mometasone (NASONEX) 50 mcg/actuation nasal spray Use 2 Sprays in each nostril once daily. - albuterol HFA (PROVENTIL HFA) 90 mcg/actuation inhaler Inhale 2 Puffs as instructed every 4 hours as needed (May also use 15 minutes pre-exercise. Use with spacer. Proventil JOEL). - albuterol 2.5 mg /3 mL (0.083 %) INHALATION nebulizer solution Use via nebulizer. one nebulized every 4 hours as needed for cough, wheezing, chest tightness or shortness of breath. Problem List As Of Date 05/25/2024 Noted Resolved ASTHMA UNSPECIFIED [J45.909] 07/13/2007 09/29/2007 Severe persistent asthma [J45.50] 09/29/2007 Allergic rhinitis, cause unspecified [J30.9] 09/29/2007 02/17/2023 GERD (Gastroesophageal Reflux Disease) [K21.9] 10/22/2009 with care elsewhere in third*11/30/2022 02/17/2023 History of herpes genitalis [Z86.19] 11/30/2022 02/17/2023 History of hypertension [Z86.79] 11/30/2022 Positive GBS test [B95.1] 12/21/2022 02/17/2023 Breech presentation with problem [O32*12/25/2022 02/17/2023 Encounter Status:Closed by ZAHRA MURILLO on 06/01/24 [facility] CNOVon 02-04-2024 CNOV Office Visit (OBGYWM) SORTO,VAISHALI Scotty ([id number]) 1995 F Date Time Provider Department 02/04/24 11:30 AM LINSEY SHAH OBGYWM During your visit today, we recorded the following information about you: Blood pressure Weight Height Last Period 120/74 90.6 kg 1.62 m 01/14/24 Linsey Shah APRN.CNM 02/07/2024 7:52 AM Signed Noc Analyst offered: Patient declines. Tom is a 28 year old who presents for an annual gynecologic exam without complaints. Menses: cycles every 30 days Contraception: none, would like to conceive. Daughter is 13 months. Taking Ritual PNV. 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 She is currently on acyclovir.TKRN History of hypertension PMH - PAST MEDICAL HISTORY OF normal color vision Unspecified asthma(493.90) PAST SURGICAL HISTORY Procedure Laterality Date PAST SURGICAL HISTORY OF wisdom teeth TYMPANOSTOMY LOCAL/TOPICAL ANESTHESIA FAMILY HISTORY Problem Relation Age of Onset Hypertension Mother Hypertension Father No Known Problems Brother No Known Problems Brother No Known Problems Brother Asthma Brother Diabetes Maternal Grandmother Hypertension Maternal Grandmother Uterine Cancer Maternal Grandmother Heart Maternal Grandfather of massive heart attack at age 43 Hypertension Paternal Grandmother Diabetes Paternal Grandmother Hypertension Paternal Grandfather SOCIAL HISTORY Social History Tobacco Use Smoking status: Never Smokeless tobacco: Never Vaping Use Vaping Use: Never used Substance Use Topics Alcohol use: Not Currently Comment: socially Drug use: Never REVIEW OF SYSTEMS Abdomen: No abdominal pain, nausea, vomiting, diarrhea, or constipation. No bloating, early satiety, indigestion, or increased flatulence. Bladder: No dysuria, gross hematuria, urinary frequency, urinary urgency, or incontinence. Breast: No breast lumps, nipple d/c, overlying skin changes, redness or skin retraction. Allergies and current medication updated:Yes EXAM: BP 120/74 Ht 5' 3.78 (1.62m) Wt 199 lb 12.8 oz (90.6kg) LMP 01/14/2024 BMI 34.53 kg/(m2). GENERAL: pleasant, female in no apparent distress HEENT: Normocephalic, atraumatic, mucus membranes moist, and no lesions NECK: Supple, full range of motion, no adenopathy, and thyroid normal DERMATOLOGY: Normal, without lesions, non-icteric, and non-hirsute BREAST: soft, non-tender, symmetric, no dominant mass, normal nipple-areolar complex, no lymphadenopathy, and no nipple discharge CHEST: Clear to auscultation, Normal inspiratory effort, Regular rate and rhythm, and No murmurs, clicks, rubs or gallops ABDOMEN: soft, non-tender, and no masses, C/S scar present PELVIC: external genitalia normal, normal Bartholin's glands, urethra, [place]'s glands, no vulvar lesions, no cervical lesions, good vaginal support, physiologic discharge present, normal appearing perineal body and perianal region BIMANUAL: uterus normal size, shape and consistency, no adnexal masses, and non-tender RECTOVAGINAL: deferred. NEURO: alert and oriented x3,exam grossly non-focal EXTREMITIES: normal ASSESSMENT/PLAN: 1. Encounter for gynecological examination (general) (routine) without abnormal findings - ICD9: V72.31, ICD10: Z01.419 (primary diagnosis) - Completed pelvic and breast exam - Encouraged monthly BSE - Follow up for annual exam in one year. - PAP TEST 2. Screening for cervical cancer - ICD9: V76.2, ICD10: Z12.4 - Completed pelvic and breast exam - Encouraged monthly BSE - Follow up for annual exam in one year. - PAP TEST 3. Encounter for screening for human papillomavirus (HPV) - ICD9: V73.81, ICD10: Z11.51 - PAP TEST 4. Class 1 obesity without serious comorbidity with body mass index (BMI) of 34.0 to 34.9 in adult, unspecified obesity type - ICD9: 278.00, V85.34, ICD10: E66.9, Z68.34 -Recommend 10% weight loss 5. Encounter for preconception consultation - ICD9: V26.49, ICD10: Z31.69 -Reviewed previous C/S, she would like to TOLAC, C/S due to breech. Recommend 18-24 month child spacing. -Continue to monitor BP, if increasing to make sure proper management, stable and not elevated at this time. - vitamin daily 1) Health maintenance: Pap done (more content not included)... Normal [facility] PAP TESTon 02-04-2024 ADEQUACY Satisfactory for interpretation. Normal [facility] Comment on above: Order Comment: Speci men Type: FLUID SPECIMENOrdering Facility: [facility] Address: [address] [place] [address] Performed By: #### L [id number] ####[facility] LABCLIA [id number] [place] [address] [place] CASE REPORT Normal [facility] Comment on above: Order Comment: Speci men Type: FLUID SPECIMENOrdering Facility: [facility] Address: [address] [place] [address] Result Comment: Gyne cologic Cytology Report Case: [id number] Authorizing Provider: Linsey Shah APRN.CNM Collected: 02/04/2024 11:58 AM Ordering Location: OB/Gynecology Received: 02/04/2024 04:01 PM First Screen: Zhorova, Ariane, CT, ASCP Specimen: Pap Test, ThinPrep, Cervix Performed By: #### L [id number] ####[facility] LABCLIA [id number] [place] [address] [place] CLINICAL HISTORY, CYTOLOGY, MACHINING SUPERVISOR Routine Exam Normal [facility] Comment on above: Order Comment: Speci men Type: FLUID SPECIMENOrdering Facility: [facility] Address: [address] [place] [address] Performed By: #### L [id number] ####[facility] LABCLIA [id number] [place] [id number] [place] FINAL PERFORMING LAB Normal [facility] Comment on above: Order Comment: Speci men Type: FLUID SPECIMENOrdering Facility: [facility] Address: [address] [place] [address] Result Comment: Tech nical component, comb fixer screening performed at [facility], [address] [place] [address] CLIA# [id number] Diagnostic interpretation performed at [facility], [address] [place] [address] CLIA# [id number] Police Patrol Officer: Loi Blake M.D. Performed By: #### L [id number] ####[facility] LABCLIA [id number] [place] [address] [place] HPV REFLEX HPV if Atypical Normal [facility] Comment on above: Order Comment: Speci men Type: FLUID SPECIMENOrdering Facility: [facility] Address: [address] [place] [address] Performed By: #### L [id number] ####[facility] LABCLIA [id number] [place] [address] [place] INTERPRETATION, CYTOLOGY, MACHINING SUPERVISOR Normal [facility] Comment on above: Order Comment: Speci men Type: FLUID SPECIMENOrdering Facility: [facility] Address: [address] [place] [address] Result Comment: Nega tive for intraepithelial lesion or malignancy. Performed By: #### L [id number] ####[facility] LABCLIA [id number] [place] [address] [place] LMP 01/14/2024 Normal [facility] Comment on above: Order Comment: Speci men Type: FLUID SPECIMENOrdering Facility: [facility] Address: [address] [place] [address] Performed By: #### L [id number] ####[facility] LABCLIA [id number] [address] [address] [place] PAP DISCLAIMER COMMENT The Pap Smear is a screening test for cervical cancer. False negative results occur with all screening tests, emphasizing the need for rescreening at recommended intervals, and clinical correlation. Normal [facility] Comment on above: Order Comment: Speci men Type: FLUID SPECIMENOrdering Facility: [facility] Address: [address] [place] [address] Performed By: #### L [id number] ####[facility] LABCLIA [id number] [place] [address] [place] PAP COLLECTOR OF AQUARIUM SPECIMENS COMMENT This specimen has been analyzed by the ThinPrep Imaging System, an automated imaging and review system, which assists the laboratory in evaluating cells on ThinPrep Pap tests. Following automated imaging, selected tello from every slide are reviewed by a comb fixer. Normal [facility] Comment on above: Order Comment: Speci men Type: FLUID SPECIMENOrdering Facility: [facility] Address: [address] [place] [address] Performed By: #### L [id number] ####[facility] LABCLIA [id number] [place] [address] [place] Basophil percentageOrdered B y: Dr. Bullock on 01-06-2023 WBC (Bld) [#/Vol] 12.3 10*3/uL 4.4-11.0 [facility] Blood erythrocytes count (nu mber/volume)Ordered By: Dr. Bullock on 01-06-2023 RBC (Bld) [#/Vol] 4.20 10*6/uL 4.2-5.4 [facility] Blood hemoglobin measurement (mass/volume)Ordered By: Dr. Bullock on 01-06-2023 Hemoglobin (Bld) [Mass/Vol] 12.7 g/dL 12.0-15.0 [facility] Blood platelet mean volumeOr dered By: Dr. Bullock on 01-06-2023 Platelet mean volume (Bld) [Entitic vol] 9.4 fL 6.2-12.0 [facility] Determination of erythrocyte mean corpuscular volume (MCV)Ordered By: Dr. Bullock on 01-06-2023 MCV (RBC) [Entitic vol] 90.2 fL 81-99 [facility] Hematocrit Auto (Bld) [Volum e fraction]Ordered By: Dr. Bullock on 01-06-2023 Hematocrit (Bld) [Volume fraction] 37.9 % 37-47 [facility] Laboratory - Hematology and Cell countsOrdered By: Dr. Bullock on 01-06-2023 Erythrocyte distribution width (RBC) [Entitic vol] 42.5 fL 35.1-43.9 [facility] Erythrocyte distribution width (RBC) [Ratio] 13.0 % 11.6-14.6 [facility] MCH (RBC) [Entitic mass] 30.2 pg 27.0-32.0 [facility] MCHC Auto (RBC) [Mass/Vol]Or dered By: Dr. Bullock on 01-06-2023 MCHC (RBC) [Mass/Vol] 33.5 g/dL 32-36 [facility] Platelets bldOrdered By: Dr. Bullock on 01-06-2023 Platelets (Bld) [#/Vol] 138 10*3/uL 150-450 [facility] Absolute lymphocyte countOrd ered By: Dr. Bullock on 01-05-2023 Lymphocytes Auto (Unsp spec) [#/Vol] 2.31 10*3/uL 0.83-4.51 [facility] Basophil percentageOrdered B y: Dr. Bullock on 01-05-2023 Basophils/100 WBC (Bld) 0.4 % 0-1 [facility] Eosinophils/100 WBC (Bld) 1.0 % 0-5 [facility] Neutrophils (Bld) [#/Vol] 8.5 10*3/uL 2.0-7.7 [facility] Neutrophils/100 WBC (Bld) 73.0 % 47-70 [facility] Blood lymphocytes/100 leukoc ytesOrdered By: Dr. Bullock on 01-05-2023 Lymphocytes/100 WBC (Bld) 19.9 % 19-41 [facility] Blood monocytes/100 leukocyt esOrdered By: Dr. Bullock on 01-05-2023 Monocytes/100 WBC (Bld) 4.8 % 0-10 [facility] Laboratory - Hematology and Cell countsOrdered By: Dr. Bullock on 01-05-2023 Immature granulocytes/100 WBC (Bld) 0.900 % 0.0-0.9 [facility] Comment on above: IG% - Immature Granu locytes (promyelocytes, myelocytes and metamyelocytes) > 1% indicates that a LEFT SHIFT is Present. Nucleated RBC/100 WBC (Bld) [Ratio] 0 % 0-5 [facility] Serum Treponema species anti body detectionOrdered By: Dr. Bullock on 01-05-2023 Treponema sp Ab Ql (S) Non-Reactive [facility] OBSTETRIC ULTRASOUND WHIon 0 12-17-2022 [facility] URINE OB DIP B/Oon 3 Glucose Ql (U) Negative Neg mg/dL [facility] Protein.monoclonal (U) [Mass/Vol] 30 mg/dL Neg mg/dL [facility] URINE OB DIP B/Oon 3 Glucose Ql (U) Negative Neg mg/dL [facility] Protein.monoclonal (U) [Mass/Vol] Negative Neg mg/dL [facility] CBC + DIFFon 10-23-2022 Baso # 0.10 x10EE3/UL Normal 0.00 - 0.[address] [facility] Comment on above: Performed By: #### 2 [id number] #### [facility],[address] [place], [place] [id number] Basophils/100 WBC (Bld) 0.5 % Normal 0.0 - 2.[address] [facility] Comment on above: Performed By: #### 2 [id number] #### [facility],[address] [place] [address] CBC + DIFF Normal [facility] Comment on above: Result Comment: CBC- COMPLETE BLOOD COUNT Performed By: #### 2 [id number] #### [facility],[address] [place] [address] EO # 0.20 x10EE3/UL Normal 0.00 - 0.[address] [facility] Comment on above: Performed By: #### 2 22451 #### [facility],[address] [place] [address] Eosinophils/100 WBC (Bld) 2.2 % Normal 0.0 - 7.[address] [facility] Comment on above: Performed By: #### 2 74238 #### [facility],[address] [place], [place] [address] Erythrocyte distribution width (RBC) [Ratio] 13.1 % Normal 12.0 - 15.[address] [facility] Comment on above: Performed By: #### 2 26672 #### [facility],[address] [place] [address] Hematocrit (Bld) [Volume fraction] 37.7 % Normal 34.0 - 46.[address] [facility] Comment on above: Performed By: #### 2 32768 #### [facility],[address] [place], [place] [address] Hemoglobin (Bld) [Mass/Vol] 12.5 g/dL Normal 12.0 - 16.[address] [facility] Comment on above: Performed By: #### 2 94224 #### [facility],[address] [place] [address] Lymph # 2.10 x10EE3/UL Normal 0.80 - 2.[address] [facility] Comment on above: Performed By: #### 2 33761 #### [facility],[address] [place], [place] [address] Lymphocytes/100 WBC (Bld) 19.7 % Low 20.0 - 45.[address] [facility] Comment on above: Performed By: #### 2 54292 #### [facility],[address] [place], [place] [address] MANUAL DIFF N/A Normal [facility] Comment on above: Performed By: #### 2 99102 #### [facility],[address] [place], [place] [address] MCH (RBC) [Entitic mass] 30 pg Normal 27 - [address] [facility] Comment on above: Performed By: #### 2 46585 #### [facility],[address] [place] [address] MCHC 33 X10 3 Normal 32 - [address] [facility] Comment on above: Performed By: #### 2 29919 #### [facility],[address] [place] [address]25 MCV (RBC) [Entitic vol] 91 fL Normal 80 - [address] [facility] Comment on above: Performed By: #### 2 43448 #### [facility],[address] [place] [address] Louisa # 0.60 x10EE3/UL Normal 0.20 - 1.[address] [facility] Comment on above: Performed By: #### 2 80667 #### [facility],[address] [place] [address]182 MONOS % 5.9 % Normal 0.0 - 10.[address] [facility] Comment on above: Performed By: #### 2 01358 #### [facility],[address] [place] [address] Morphology Dhaval (Bld) [Interp] N/A Normal [facility] Comment on above: Performed By: #### 2 57723 #### [facility],[address] [place] [address]36 Neut # 7.70 x10EE3/UL High 1.50 - 7.[address] [facility] Comment on above: Performed By: #### 2 57597 #### [facility],[address] [place] [address] 15335 Neutrophils/100 WBC (Bld) 71.7 % Normal 46.0 - 76.[address] [facility] Comment on above: Performed By: #### 2 69346 #### [facility],[address] [place] [address] 52995 PLATELET 205 x10EE3/UL Normal 150 - [address] [facility] Comment on above: Performed By: #### 2 93772 #### [facility],[address] [place] [address]57 Platelet mean volume (Bld) [Entitic vol] 7.4 fL Normal 6.6 - 10.[address] [facility] Comment on above: Result Comment: AUTO MATED DIFFERENTIAL Performed By: #### 2 61062 #### [facility],[address] [place] [address] 38311 RBC 4.17 x 10EE6/UL Normal 4.10 - 5.[address] [facility] Comment on above: Performed By: #### 2 87840 #### [facility],[address] [place] [address] 14849 WBC 10.8 x 10EE3/UL Normal 4.5 - 10.[address] [facility] Comment on above: Performed By: #### 2 31759 #### [facility],[address] [place] [address]2529 GLUCOSE CHALLENGE 50GM 1 JENNIFER Fuad 10-23-2022 Glucose [Mass/Vol] 104 mg/dL Normal 70 - [address] [facility] Comment on above: Performed By: #### 2 41903 #### [facility],[address] [place] [address] 71130 GLUCOSE CHALLENGE 50GM 1 HOUR Normal [facility] Comment on above: Result Comment: GLUC OSE CHALLENGE 50 GMS 1 HOUR Performed By: #### 2 68187 #### [facility],[address] [place] [address]011 US OB REPEATon 08-21-2022 OB REPEAT [place] [address] Patient: VAISHALI SORTO Phone#: : [phone] Age: 27 Gender: F Pt. Type: Out Account: [id number] Location: 2 Ordering: DR. KRISS YADAV Exam Date: 08/21/2022/13:06 Family Phys: Charge Code: [id number] Physician: [place] Order #: [id number] Dose#: PROCEDURE: OB REPEAT ULTRASOUND, TRANSABDOMINAL COMPARISON: None. INDICATIONS: Anatomy TECHNIQUE: Complete sonographic examination for obstetrical and evaluation were completed by transabdominal ultrasound. FINDINGS: NUMBER: Single. POSITION: Vertex. AMNIOTIC FLUID VOLUME: Normal for age with RYLEE of 12.9 cm. PLACENTA LOCATION: Anterior. BIPARIETAL DIAMETER: 19 weeks 2 days HEAD CIRCUMFERENCE: 19 weeks 1 day ABD CIRCUMFERENCE: 19 weeks 0 days FEMUR LENGTH: 19 weeks 3 days ESTIMATED WEIGHT: 276 grams/10 ounces CERVICAL LENGTH: 5.2 cm HEART RATE: 153 bpm ANATOMY: The following structures are normal for age unless specified below: Nose/lips, ventricles, posterior fossa, C/T/L spine, four extremities, four chamber heart, thorax, abdomen, 3-vessel cord, cord insertion, stomach, kidneys, and bladder. ABNORMALITIES/OTHER: None. CLINICAL GA: 19 weeks 0 days CLINICAL DALY: January 15, 2023 ULTRASOUND GA: 19 weeks 2 days ULTRASOUND DALY: January 13, 2023 CONCLUSION: 1. SL IUP 19 weeks 2 days, DALY January 13, 2023 Dictated by: Jamee Flores MD on 08/21/2022 at 15:33 Approved by: Jamee Flores MD on 08/21/2022 at 15:[address] [facility] [facility] HSV 1&2/VZV AMPLIFICATION [C CL]on 08-06-2022 HRPSV1 Negative for Herpes Simplex virus Type 1 by Nucleic Acid Amplification. Normal Negative [facility] Comment on above: Performed By: #### 2 [id number] #### [address] [address] HSV Type 1, HDA Negative for Varicella Zoster virus by Nucleic Acid Amplification. Normal Negative [facility] Comment on above: Result Comment: SOUR CE: [facility] [address] [place] [address] Loi Blake III, M.D. [id number] Performed By: #### 2 [id number] #### [facility],[address] [place] [address] HSV Type 2, HDA Negative for Herpes Simplex virus Type 2 by Nucleic Acid Amplification. Normal Negative [facility] Comment on above: Performed By: #### 2 21552 #### [facility],[address] [place] [address]51 CMV, IGM [CCL]on 05-27-2022 CMV, IGM [CCL] Normal [facility] Comment on above: Result Comment: _CMV , IGM [CCL]_ SEE SEPARATE REPORT Performed By: #### 2 [id number] #### [facility],[address] [place] [address] GC/CHLAM AMPLIFICATION URINE [CCL]on 05-27-2022 GC/CHLAM AMPLIFICATION URINE [CCL] Normal [facility] Comment on above: Result Comment: _GC/ CHLAM AMP, URINE [CCL]_ SEE SEPARATE REPORT Performed By: #### 2 90119 #### [facility],[address] [place] [address]258 HEP B SURFACE AG [CCL]on HEP B SURFACE AG [CCL] Normal [facility] Comment on above: Result Comment: _HEP B SURFACE AG [CCL]_ SEE SEPARATE REPORT Performed By: #### 2 93468 #### [facility],[address] [place] [address] REFLEX HBSAGC? NO Normal [facility] Comment on above: Performed By: #### 2 82163 #### [facility],[address] [place], [place] [id number] HEPATITIS C AB IA W/CONFIRM [CCL]on 05-27-2022 HEPATITIS C AB IA W/CONFIRM [CCL] Normal [facility] Comment on above: Result Comment: _HEP ATITIS C AB IA W/CONFIRM [CCL]_ SEE SEPARATE REPORT Performed By: #### 2 35995 #### [facility],[address] [place] [address] REFLEX HCQPCR? NO Normal [facility] Comment on above: Performed By: #### 2 62591 #### [facility],[address] [place] [address] RPR [CCL]on 05-27-2022 Reagin Ab RPR Ql (S) Normal [facility] Comment on above: Result Comment: _RPR [CCL]_ SEE SEPARATE REPORT { REFLEX RPRQNT? 0 Performed By: #### 2 89606 #### [facility],[address] [place] [address] RUBELLA IgG ANTIBODY [CCL]on 05-27-2022 RUBELLA IgG ANTIBODY [CCL] Normal [facility] Comment on above: Result Comment: _RUB MARTÍN IGG ANTIBODY [CCL]_ SEE SEPARATE REPORT Performed By: #### 2 17328 #### [facility],[address] [place] [address] TOXOPLASMOSIS IGM AND IGG AB [CCL]on 05-27-2022 TOXOPLASMOSIS IGM AND IGG AB [CCL] Normal [facility] Comment on above: Result Comment: _TOX OPLASMOSIS IGM/IGG AB [CCL]_ SEE SEPARATE REPORT Performed By: #### 2 06097 #### [facility],[address] [place] [address] BB TYPE & SCREENon 2 ABO O Normal [facility] Comment on above: Performed By: #### 2 66478 #### [facility],[address] [place] [address] ANTIBODY SCR Negative Normal [facility] Comment on above: Performed By: #### 2 59787 #### [facility],[address] [place] [address] BB TYPE & SCREEN Normal [facility] Comment on above: Result Comment: TYPE , Rh, AND SCREEN Performed By: #### 2 79770 #### [facility],[address] [place] [address] Rh Nom (Bld) Positive Normal [facility] Comment on above: Performed By: #### 2 80352 #### [facility],[address] [place] [address] CBC + DIFFon 05-26-2022 Baso # 0.00 x10EE3/UL Normal 0.00 - 0.[address] [facility] Comment on above: Performed By: #### 2 52575 #### [facility],[address] [place] [address] Basophils/100 WBC (Bld) 0.5 % Normal 0.0 - 2.[address] [facility] Comment on above: Performed By: #### 2 25980 #### [place] [address] CBC + DIFF Normal [facility] Comment on above: Result Comment: CBC- COMPLETE BLOOD COUNT Performed By: #### 2 34804 #### [facility],[address] [place] [address] EO # 0.10 x10EE3/UL Normal 0.00 - 0.[address] [facility] Comment on above: Performed By: #### 2 58152 #### [place] [address] Eosinophils/100 WBC (Bld) 1.5 % Normal 0.0 - 7.[address] [facility] Comment on above: Performed By: #### 2 52297 #### [place] [address] Erythrocyte distribution width (RBC) [Ratio] 13.4 % Normal 12.0 - 15.[address] [facility] Comment on above: Performed By: #### 2 72185 #### [place] [address] Hematocrit (Bld) [Volume fraction] 40.4 % Normal 34.0 - 46.[address] [facility] Comment on above: Performed By: #### 2 12532 #### [place] [address] Hemoglobin (Bld) [Mass/Vol] 13.5 g/dL Normal 12.0 - 16.[address] [facility] Comment on above: Performed By: #### 2 99638 #### [place] [address] Lymph # 2.40 x10EE3/UL Normal 0.80 - 2.[address] [facility] Comment on above: Performed By: #### 2 45384 #### [facility],[address] [place] [address] Lymphocytes/100 WBC (Bld) 35.0 % Normal 20.0 - 45.[address] [facility] Comment on above: Performed By: #### 2 05257 #### [facility],[address] [place] [address] MANUAL DIFF N/A Normal [facility] Comment on above: Performed By: #### 2 88364 #### [facility],[address] [place] [address] MCH (RBC) [Entitic mass] 30 pg Normal 27 - [address] [facility] Comment on above: Performed By: #### 2 44818 #### [facility],[address] [place] [address] MCHC 33 X10 3 Normal 32 - [address] [facility] Comment on above: Performed By: #### 2 33200 #### [facility],[address] [place] [address] MCV (RBC) [Entitic vol] 89 fL Normal 80 - [address] [facility] Comment on above: Performed By: #### 2 95889 #### [facility],[address] [place] [address] Louisa # 0.40 x10EE3/UL Normal 0.20 - 1.[address] [facility] Comment on above: Performed By: #### 2 84505 #### [facility],[address] [place] [address] MONOS % 5.8 % Normal 0.0 - 10.[address] [facility] Comment on above: Performed By: #### 2 87912 #### [place] [address] Morphology Dhaval (Bld) [Interp] N/A Normal [facility] Comment on above: Result Comment: {CD] Performed By: #### 2 96092 #### [place] [address] Neut # 3.90 x10EE3/UL Normal 1.50 - 7.[address] [facility] Comment on above: Performed By: #### 2 54370 #### [facility],[address] [place], [place] [id number] Neutrophils/100 WBC (Bld) 57.2 % Normal 46.0 - 76.[address] [facility] Comment on above: Performed By: #### 2 81302 #### [facility],[address] [place] [address] PLATELET 248 x10EE3/UL Normal 150 - [address] [facility] Comment on above: Performed By: #### 2 16702 #### [facility],[address] [place] [address] Platelet mean volume (Bld) [Entitic vol] 7.6 fL Normal 6.6 - 10.[address] [facility] Comment on above: Result Comment: AUTO MATED DIFFERENTIAL Performed By: #### 2 01021 #### [facility],[address] [place] [address] RBC 4.56 x 10EE6/UL Normal 4.10 - 5.[address] [facility] Comment on above: Performed By: #### 2 26146 #### [facility],[address] [place], [place] [id number] WBC 6.9 x 10EE3/UL Normal 4.5 - 10.[address] [facility] Comment on above: Performed By: #### 2 54011 #### [facility],[address] [place], [place] [id number] GLUCOSEon 05-26-2022 Glucose [Mass/Vol] 79 mg/dL Normal 74 - [address] [facility] Comment on above: Performed By: #### 2 14563 #### [facility],[address] [place], [place] [id number] T4-FREE (FREE THYROXINE)on Free T4 [Mass/Vol] 0.87 ng/dL Normal 0.76 - 1.[address] [facility] Comment on above: Result Comment: P otential of falsely elevated results when biotin concentrations are > 10 ng/mL. Performed By: #### 2 93908 #### [facility],[address] [place] [address] TSHon 05-26-2022 TSH Qn 2.50 m[IU]/L Normal 0.35 - 3.[address] [facility] Comment on above: Performed By: #### 2 38498 #### [facility],[address] [place] [address] US OB INITIAL< 14 WEEKS; 1st GESTATIONon 05-26-2022 US OB INITIAL< 14 WEEKS; 1st GESTATION [address] [address] Patient: VAISHALI SORTO Phone#: : [phone] Age: 26 Gender: F Pt. Type: Out Account: [id number] Location: [facility] Ordering: DR. KRISS YADAV Exam Date: 05/26/2022/10:24 Family Phys: Charge Code: [id number] Physician: [place] Order #: [id number] Dose#: PROCEDURE: OB INITIAL <14 WEEKS ULTRASOUND, TRANSABDOMINAL COMPARISON: None. INDICATIONS: Dating. TECHNIQUE: Transabdominal pelvic ultrasound examinations were performed. FINDINGS: GESTATIONAL SAC: Present and normal appearing. POLE: Present and normal appearing. YOLK SAC: Not visualized CARDIAC ACTIVITY: Present. 143 BPM UTERUS: Normal. ADNEXAE/OVARIES: Normal. CUL-DE-SAC: Normal. CERVICAL LENGTH: N/A. CLINICAL AGE: 7 weeks 2 days. SONOGRAPHIC AGE: 6 weeks 4 days. PLACENTA: Unable to visualize due to age. AMNIOTIC FLUID VOLUME: Normal for age. OTHER: Negative. CONCLUSION: 1. SL IUP 6 weeks 4 days, DALY 01/15/2023. Dictated by: Jamee Flores MD on 05/26/2022 at 12:02 Approved by: Jamee Flores MD on 05/26/2022 at 12:[address] [facility] PREG SERUM QUANTon 2 HCG QUANTITATIVE 3 mIU/mL Normal 0 - [address] [facility] Comment on above: Result Comment: Emma oquendo Range: Male: <5 Female: Non: <5 1 - 7 days : 5 - 50 1 - 2 weeks: 50 - 500 2 - 3 weeks: 100 - 5000 3 - 4 weeks: 500 - 10,000 4 - 5 weeks: 1000 - 50,000 5 - 6 weeks: 10,000 - 100,000 6 - 8 weeks: 15,000 - 200,000 2 - 3 months: 10,000 - 100,000 2ND TRIMESTER 3000-50,000 3RD TRIMESTER 1000-50,000 Performed By: #### 2 60473 #### [facility],[address] [place], [place] [id number] PREG SERUM QUANTon 2 HCG QUANTITATIVE 13 mIU/mL High 0 - [address] [facility] Comment on above: Result Comment: Emma oquendo Range: Male: <5 Female: Non: <5 1 - 7 days : 5 - 50 1 - 2 weeks: 50 - 500 2 - 3 weeks: 100 - 5000 3 - 4 weeks: 500 - 10,000 4 - 5 weeks: 1000 - 50,000 5 - 6 weeks: 10,000 - 100,000 6 - 8 weeks: 15,000 - 200,000 2 - 3 months: 10,000 - 100,000 2ND TRIMESTER 3000-50,000 3RD TRIMESTER 1000-50,000 Performed By: #### 2 82808 #### [facility],[address] [place], [place] [id number] PREG SERUM QUANTon 2 HCG QUANTITATIVE 17 mIU/mL High 0 - [address] [facility] Comment on above: Result Comment: Emma oquendo Range: Male: <5 Female: Non: <5 1 - 7 days : 5 - 50 1 - 2 weeks: 50 - 500 2 - 3 weeks: 100 - 5000 3 - 4 weeks: 500 - 10,000 4 - 5 weeks: 1000 - 50,000 5 - 6 weeks: 10,000 - 100,000 6 - 8 weeks: 15,000 - 200,000 2 - 3 months: 10,000 - 100,000 2ND TRIMESTER 3000-50,000 3RD TRIMESTER 1000-50,000 Performed By: #### 2 23828 #### [facility],[address] [place] [address] No Panel InformationOrdered By: [facility] Provider on 09-20-2021 [facility] No Panel Informationon 09-20 Radiology Study observation (narrative) [facility] XR Humerus - left AP and Lat eralon 09-20-2021 IMPRESSION: No radiographic evidence of acute fracture. Turbine Technician: [facility] Transcribe Date/Time: Sep 20 2021 8:36A Dictated by : CHEYENNE DANGELO MD This examination was interpreted and the report reviewed and electronically signed by: CHEYENNE DANGELO MD on Sep 20 2021 8:36AM [facility] DIVISION OF RADIOLOGY * * *Final Report* * * DATE OF EXAM: Sep 20 2021 8:22AM WOX 5354 - XR HUMERUS 2V AP/LAT LT / PROCEDURE REASON: multiple diagnoses * * * * Physician Interpretation * * * * HISTORY: Rib pain on left side Left upper arm pain Injury caused by animal, initial encounter TECHNIQUE: XR HUMERUS 2V AP/LAT LT COMPARISON: None RESULT: No acute fracture or dislocation. Joint spaces are maintained. DIVISION OF RADIOLOGY Provider, [facility] [place] - 09/20/2021 * * *Final Report* * * DATE OF EXAM: Sep 20 2021 8:22AM WOX 5354 - XR HUMERUS 2V AP/LAT LT / PROCEDURE REASON: multiple diagnoses * * * * Physician Interpretation * * * * HISTORY: Rib pain on left side Left upper arm pain Injury caused by animal, initial encounter TECHNIQUE: XR HUMERUS 2V AP/LAT LT COMPARISON: None RESULT: No acute fracture or dislocation. Joint spaces are maintained. IMPRESSION IMPRESSION: No radiographic evidence of acute fracture. Turbine [facility]: [facility] Transcribe Date/Time: Sep 20 2021 8:36A Dictated by : CHEYENNE DANGELO MD This examination was interpreted and the report reviewed and electronically signed by: CHEYENNE DANGELO MD on Sep 20 2021 8:36AM EST [facility] XR Ribs - left Views and [facility] [place] 09-20-2021 IMPRESSION: No acute process or acute rib fracture identified. Turbine Technician: [facility] Transcribe Date/Time: Sep 20 2021 8:34A Dictated by : CHEYENNE DANGELO MD This examination was interpreted and the report reviewed and electronically signed by: CHEYENNE DANGELO MD on Sep 20 2021 8:36AM [facility] DIVISION OF RADIOLOGY * * *Final Report* * * DATE OF EXAM: Sep 20 2021 8:22AM WOX 5243 - XR RIB/CHST 3V AP RIB/OBL/CHST L / PROCEDURE REASON: multiple diagnoses * * * * Physician Interpretation * * * * EXAMINATION: FRONTAL CHEST X-RAY, AP AND OBLIQUE X-RAYS OF THE LEFT RIBS History: Rib pain on left side Left upper arm pain Injury caused by animal, initial encounter M: XC2 Comparison: None. RESULT: 1. Lines, Tubes, and Devices: N/A 2. Lungs and Pleura: The lungs are clear. No pleural effusion or pneumothorax. 3. Cardiomediastinal silhouette: Within normal limits. 4. Bones: No acute osseous abnormality. DIVISION OF RADIOLOGY Provider, [facility] [place] - 09/20/2021 * * *Final Report* * * DATE OF EXAM: Sep 20 2021 8:22AM WOX 5243 - XR RIB/CHST 3V AP RIB/OBL/CHST L / PROCEDURE REASON: multiple diagnoses * * * * Physician Interpretation * * * * EXAMINATION: FRONTAL CHEST X-RAY, AP AND OBLIQUE X-RAYS OF THE LEFT RIBS History: Rib pain on left side Left upper arm pain Injury caused by animal, initial encounter M: XC2 Comparison: None. RESULT: 1. Lines, Tubes, and Devices: N/A 2. Lungs and Pleura: The lungs are clear. No pleural effusion or pneumothorax. 3. Cardiomediastinal silhouette: Within normal limits. 4. Bones: No acute osseous abnormality. IMPRESSION IMPRESSION: No acute process or acute rib fracture identified. Turbine Technician: [facility] Transcribe Date/Time: Sep 20 2021 8:34A Dictated by : CHEYENNE DANGELO MD This examination was interpreted and the report reviewed and electronically signed by: CHEYENNE DANGELO MD on Sep 20 2021 8:36AM EST [facility] Vital Signs Date Time Vital Sign Value Performing Clinician Teetee garciaamauri 01-16-2025 10:57-0400 Body mass index (BMI) [Ratio] 38.24 kg/m2 Emma Hendricks MD Work Phone: [facility] 01-16-2025 10:57-0400 Body weight 101.06 kg Emma Hendricks MD Work Phone: [facility] 01-16-2025 10:57-0400 Diastolic blood pressure 82 mm[Hg] Emma Hendricks MD Work Phone: [facility] 01-16-2025 10:57-0400 Systolic blood pressure 142 mm[Hg] Emma Hendricks MD Work Phone: [facility] 01-03-2025 10:46-0400 Body mass index (BMI) [Ratio] 37.59 kg/m2 Linsey Shah DIRECTOR FINANCIAL SERVICES.CNM Work Phone: [facility] 01-03-2025 10:46-0400 Body weight 99.34 kg Linsey Shah DIRECTOR FINANCIAL SERVICES.CNM Work Phone: [facility] 01-03-2025 10:46-0400 Diastolic blood pressure 81 mm[Hg] Linsey Shah DIRECTOR FINANCIAL SERVICES.CNM Work Phone: [facility] 01-03-2025 10:46-0400 Systolic blood pressure 119 mm[Hg] Linsey Shah DIRECTOR FINANCIAL SERVICES.CNM Work Phone: [facility] 12-13-2024 10:45-0400 Body mass index (BMI) [Ratio] 36.73 kg/m2 Cheyenne Bullock MD Work Phone: [facility] 12-13-2024 10:45-0400 Body weight 97.07 kg Cheyenne Bullock MD Work Phone: [facility] 12-13-2024 10:45-0400 Diastolic blood pressure 70 mm[Hg] Cheyenne Bullock MD Work Phone: [facility] 12-13-2024 10:45-0400 Systolic blood pressure 122 mm[Hg] Cheyenne Bullock MD Work Phone: [facility] 11-29-2024 09:40-0400 Body mass index (BMI) [Ratio] 37.25 kg/m2 Linsey Shah DIRECTOR FINANCIAL SERVICES.CNM Work Phone: [facility] 11-29-2024 09:40-0400 Body weight 98.43 kg Linsey Shah DIRECTOR FINANCIAL SERVICES.CNM Work Phone: [facility] 11-29-2024 09:40-0400 Diastolic blood pressure 70 mm[Hg] Linsey Shah DIRECTOR FINANCIAL SERVICES.CNM Work Phone: [facility] 11-29-2024 09:40-0400 Systolic blood pressure 116 mm[Hg] Linsey Shah DIRECTOR FINANCIAL SERVICES.CNM Work Phone: [facility] 11-14-2024 14:34-0400 Body mass index (BMI) [Ratio] 37.08 kg/m2 Emma Hendricks MD Work Phone: [facility] 11-14-2024 14:34-0400 Body weight 97.98 kg Emma Hendricks MD Work Phone: [facility] 11-14-2024 14:34-0400 Diastolic blood pressure 72 mm[Hg] Emma Hendricks MD Work Phone: [facility] 11-14-2024 14:34-0400 Systolic blood pressure 130 mm[Hg] Emma Hendricks MD Work Phone: [facility] 11-04-2024 11:48-0400 Body mass index (BMI) [Ratio] 36.86 kg/m2 Jonathon Hummel APRN.POLITICAL RESEARCHER Work Phone: [facility] 11-04-2024 11:48-0400 Body temperature 98.2 [degF] Jonathon Hummel APRN.POLITICAL RESEARCHER Work Phone: [facility] 11-04-2024 11:48-0400 Body weight 97.4 kg Jonathon Shieldsmindy DIRECTOR FINANCIAL SERVICES.POLITICAL RESEARCHER Work Phone: [facility] 11-04-2024 11:48-0400 Diastolic blood pressure 70 mm[Hg] Jonathon Lizzettereecemindy DIRECTOR FINANCIAL SERVICES.POLITICAL RESEARCHER Work Phone: [facility] 11-04-2024 11:48-0400 Heart rate 98 /min Jonathon Hummel DIRECTOR FINANCIAL SERVICES.POLITICAL RESEARCHER Work Phone: [facility] 11-04-2024 11:48-0400 Respiratory rate 16 /min Jonathon Lizzettelemindy DIRECTOR FINANCIAL SERVICES.POLITICAL RESEARCHER Work Phone: [facility] 11-04-2024 11:48-0400 SaO2% (BldA) [Mass fraction] 98 % Jonathon Shaheed DIRECTOR FINANCIAL SERVICES.POLITICAL RESEARCHER Work Phone: [facility] 11-04-2024 11:48-0400 Systolic blood pressure 122 mm[Hg] Jonathon Shaheed DIRECTOR FINANCIAL SERVICES.POLITICAL RESEARCHER Work Phone: [facility] 11-03-2024 14:37-0400 Body mass index (BMI) [Ratio] 37.42 kg/m2 Linsey Shah DIRECTOR FINANCIAL SERVICES.CNM Work Phone: [facility] 11-03-2024 14:37-0400 Body weight 98.88 kg Linsey Shah DIRECTOR FINANCIAL SERVICES.CNM Work Phone: [facility] 11-03-2024 14:37-0400 Diastolic blood pressure 74 mm[Hg] Linsey Shah DIRECTOR FINANCIAL SERVICES.CNM Work Phone: [facility] 11-03-2024 14:37-0400 Systolic blood pressure 118 mm[Hg] Linsey Shah DIRECTOR FINANCIAL SERVICES.CNM Work Phone: [facility] 10-05-2024 09:44-0500 Body mass index (BMI) [Ratio] 37.42 kg/m2 Linsey Shah APRN.CNM Work Phone: [facility] 10-05-2024 09:44-0500 Body weight 98.88 kg Linsey Shah DIRECTOR FINANCIAL SERVICES.CNM Work Phone: [facility] 10-05-2024 09:44-0500 Diastolic blood pressure 66 mm[Hg] Linsey Shah DIRECTOR FINANCIAL SERVICES.CNM Work Phone: [facility] 10-05-2024 09:44-0500 Systolic blood pressure 114 mm[Hg] Linsey Shah DIRECTOR FINANCIAL SERVICES.CNM Work Phone: [facility] 09-06-2024 11:08-0500 Body mass index (BMI) [Ratio] 36.73 kg/m2 Linsey Shah DIRECTOR FINANCIAL SERVICES.CNM Work Phone: [facility] 09-06-2024 11:08-0500 Body weight 97.07 kg Linsey Pablo DIRECTOR FINANCIAL SERVICES.CNM Work Phone: [facility] 09-06-2024 11:08-0500 Diastolic blood pressure 68 mm[Hg] Linsey Shah DIRECTOR FINANCIAL SERVICES.CNM Work Phone: [facility] 09-06-2024 11:08-0500 Systolic blood pressure 118 mm[Hg] Linsey Shah DIRECTOR FINANCIAL SERVICES.CNM Work Phone: [facility] 08-16-2024 13:40-0500 Body mass index (BMI) [Ratio] 36.05 kg/m2 Linsey Shah DIRECTOR FINANCIAL SERVICES.CNM Work Phone: [facility] 08-16-2024 13:40-0500 Body weight 95.25 kg Linsey Shah DIRECTOR FINANCIAL SERVICES.CNM Work Phone: [facility] 08-16-2024 13:40-0500 Diastolic blood pressure 64 mm[Hg] Linsey Shah DIRECTOR FINANCIAL SERVICES.CNM Work Phone: [facility] 08-16-2024 13:40-0500 Systolic blood pressure 116 mm[Hg] Linsey Shah DIRECTOR FINANCIAL SERVICES.CNM Work Phone: [facility] 07-14-2024 11:12-0500 Body mass index (BMI) [Ratio] 35.7 kg/m2 Linsey Pablo DIRECTOR FINANCIAL SERVICES.CNM Work Phone: [facility] 07-14-2024 11:12-0500 Body weight 94.35 kg Linsey Shah DIRECTOR FINANCIAL SERVICES.CNM Work Phone: [facility] 07-14-2024 11:12-0500 Diastolic blood pressure 70 mm[Hg] Linsey Shah DIRECTOR FINANCIAL SERVICES.CNM Work Phone: [facility] 07-14-2024 11:12-0500 Systolic blood pressure 114 mm[Hg] Linsey Shah DIRECTOR FINANCIAL SERVICES.CNM Work Phone: [facility] 06-21-2024 13:09-0500 Body height 162.6 cm Linsey Pablo DIRECTOR FINANCIAL SERVICES.CNM Work Phone: [facility] 06-21-2024 13:09-0500 Body mass index (BMI) [Ratio] 35.36 kg/m2 Linsey Shah DIRECTOR FINANCIAL SERVICES.CNM Work Phone: [facility] 06-21-2024 13:09-0500 Body weight 93.44 kg Linsey Shah DIRECTOR FINANCIAL SERVICES.CNM Work Phone: [facility] 06-21-2024 13:09-0500 Diastolic blood pressure 78 mm[Hg] Linsey Shah DIRECTOR FINANCIAL SERVICES.CNM Work Phone: [facility] 06-21-2024 13:09-0500 Systolic blood pressure 110 mm[Hg] Linsey Shah DIRECTOR FINANCIAL SERVICES.CNM Work Phone: [facility] 01-18-2023 15:26-0400 Body weight 90.81 kg Linsey Shah DIRECTOR FINANCIAL SERVICES.CNM Work Phone: [facility] 01-18-2023 15:26-0400 Diastolic blood pressure 72 mm[Hg] Linsey Shah DIRECTOR FINANCIAL SERVICES.CNM Work Phone: [facility] 01-18-2023 15:26-0400 Systolic blood pressure 138 mm[Hg] Linsey Shah DIRECTOR FINANCIAL SERVICES.CNM Work Phone: [facility] 01-12-2023 11:19-0400 Body weight 92.53 kg Cheyenne Bullock MD Work Phone: [facility] 01-12-2023 11:19-0400 Diastolic blood pressure 64 mm[Hg] Cheyenne Bullock MD Work Phone: [facility] 01-12-2023 11:19-0400 Systolic blood pressure 128 mm[Hg] Cheyenne Bullock MD Work Phone: [facility] 01-07-2023 08:09-0400 Body temperature 98.1 [degF] [facility] 01-07-2023 08:09-0400 Diastolic blood pressure 70 mm[Hg] [facility] 01-07-2023 08:09-0400 Heart rate 77 /min [facility] 01-07-2023 08:09-0400 Respiratory rate 18 /min [facility] 01-07-2023 08:09-0400 SaO2% (BldA) [Mass fraction] 98 % [facility] 01-07-2023 08:09-0400 Systolic blood pressure 123 mm[Hg] [facility] 01-05-2023 09:51-0400 Body height 165.1 cm [facility] 01-05-2023 09:51-0400 Body mass index (BMI) [Ratio] 36.1 kg/m2 [facility] 01-05-2023 09:51-0400 Body weight 98.65 kg [facility] 12-17-2022 10:48-0400 Body weight 96.62 kg Jarocho Hughes MD Work Phone: [facility] 12-17-2022 10:48-0400 Diastolic blood pressure 74 mm[Hg] Jarocho Hughes MD Work Phone: [facility] 12-17-2022 10:48-0400 Systolic blood pressure 120 mm[Hg] Jarocho Hughes MD Work Phone: [facility] 12-08-2022 14:37-0400 Diastolic blood pressure 66 mm[Hg] Linsey Shah APRN.CNM Work Phone: [facility] 12-08-2022 14:37-0400 Systolic blood pressure 110 mm[Hg] Linseydarrel Shah APRN.CNM Work Phone: [facility] Encounters Encounter Date Encounter Type Care Provider Facility Start: 01-16-2025 End: 01-16-2025 Patient encounter procedure Emma Hendricks MD Work Phone: OB/Gynecology Comment on above: Supervision of high risk in third trimester (HCC) (Primary Dx); Maternal care for decelerations during (HCC); History of section; Obesity in (HCC); 39 weeks gestation of ([facility]) Start: 01-09-2025 End: 01-09-2025 [facility] Facility:[facility] Start: 01-03-2025 End: 01-03-2025 Patient encounter procedure Linsey Shah APRN.CNM Work Phone: OB/Gynecology Comment on above: Obesity in (HCC) (Primary Dx); Supervision of high risk in third trimester ([facility]); History of section; Desires (vaginal after ) trial ([facility]); History of hypertension; Positive GBS test; 37 weeks gestation of ([facility]) Start: 01-03-2025 End: 01-03-2025 [facility] Facility:[facility] Start: 12-27-2024 End: 12-27-2024 [facility] Facility:[facility] Start: 12-22-2024 End: 12-22-2024 Telephone encounter Meghana Awad MD Work Phone: OB/Gynecology Start: 12-13-2024 End: 12-13-2024 Patient encounter procedure Cheyenne Bullock MD Work Phone: OB/Gynecology Comment on above: Supervision of high risk in third trimester (HCC) (Primary Dx); Obesity in (HCC); History of section; 34 weeks gestation of (HCC) Start: 12-13-2024 End: 12-13-2024 ambulatory CHEYENNE BULLOCK Facility:[facility] Start: 11-29-2024 End: 11-29-2024 Patient encounter procedure Linseysulma Shah APRN.CNM Work Phone: OB/Gynecology Comment on above: Obesity in (HCC) (Primary Dx) Encounter for ultras ound to check growth (HCC) (Primary Dx); Obesity affecting in third trimester, unspecified obesity type (HCC); 32 weeks gestation of (HCC) Start: 11-29-2024 End: 11-29-2024 ambulatory LINSEY SHAH Facility:[facility] Start: 11-14-2024 End: 11-14-2024 ambulatory EMMA HENDRICKS Facility:[facility] Start: 11-14-2024 End: 11-14-2024 Patient encounter procedure Emma Hendricks MD Work Phone: OB/Gynecology Comment on above: Supervision of high risk in third trimester (HCC) (Primary Dx); Desires (vaginal after ) trial (HCC); History of hypertension; History of section; Obesity affecting in third trimester, unspecified obesity type (HCC); 30 weeks gestation of (HCC) Start: 11-13-2024 End: 01-13-2025 Follow-up encounter Ciarra Khoury APRN.POLITICAL RESEARCHER Work Phone: OB/Gynecology Start: 11-13-2024 End: 11-13-2024 [facility] Start: 11-06-2024 End: 11-06-2024 Telephone encounter Cheyenne Bullock MD Work Phone: OB/Gynecology Comment on above: Appointment Start: 11-04-2024 End: 11-04-2024 ambulatory CHEYENNE BULLOCK Facility:[facility] Start: 11-04-2024 End: 11-04-2024 Office outpatient visit 25 minutes Jonathon Hummel APRN.POLITICAL RESEARCHER Work Phone: [facility] Comment on above: Bacterial sinusitis (Primary Dx) Start: 11-03-2024 End: 11-03-2024 Patient encounter procedure Linsey Shah APRN.CNM Work Phone: OB/Gynecology Comment on above: Supervision of high risk in third trimester (Primary Dx); History of hypertension; History of section; Obesity affecting in third trimester, unspecified obesity type; Desires (vaginal after ) trial; Severe persistent asthma without complication; 28 weeks gestation of Start: 11-03-2024 End: 11-03-2024 ambulatory LINSEY SHAH Facility:[facility] Start: 11-03-2024 End: 01-03-2025 Follow-up encounter Linsey Shah APRN.CNM Work Phone: OB/Gynecology Start: 10-06-2024 End: 10-06-2024 ambulatory Linsey Shah APRN.CNM Work Phone: OB/Gynecology Comment on above: Antibiotics Start: 10-05-2024 End: 10-05-2024 ambulatory LINSEY SHAH Facility:[facility] Start: 10-05-2024 End: 10-05-2024 Patient encounter procedure Linsey Shah APRN.CNM Work Phone: OB/Gynecology Comment on above: Supervision of high risk in second trimester (Primary Dx); 24 weeks gestation of ; Screening for diabetes mellitus; Obesity affecting in third trimester, unspecified obesity type; History of section; History of hypertension; Desires (vaginal after ) trial; Severe persistent asthma without complication Start: 09-06-2024 End: 09-06-2024 ambulatory LINSEY SHAH Facility:[facility] Start: 09-06-2024 End: 09-06-2024 Patient encounter procedure Linsey Shah APRN.CNM Work Phone: OB/Gynecology Comment on above: History of section (Primary Dx); Obesity in ; Desires (vaginal after ) trial; History of hypertension; History of herpes genitalis Encounter for anatomic survey (Primary Dx); 20 weeks gestation of ; Obesity affecting in second trimester, unspecified obesity type Start: 09-06-2024 End: 09-06-2024 ambulatory LINSEY SHAH Facility:[facility] Start: 08-19-2024 End: 08-21-2024 ambulatory Linsey Shah APRN.CNM Work Phone: OB/Gynecology Comment on above: Rash Start: 08-16-2024 End: 08-16-2024 ambulatory LINSEYDARREL SHAH Facility:[facility] Start: 08-16-2024 End: 08-16-2024 Patient encounter procedure Linsey Shah APRN.CNM Work Phone: OB/Gynecology Comment on above: History of section (Primary Dx); History of hypertension; Desires (vaginal after ) trial; Obesity in ; History of herpes genitalis Start: 08-01-2024 End: 08-02-2024 Emergency department patient visit Kieran And Facility:[facility] Start: 07-14-2024 End: 07-14-2024 [facility] Facility:[facility] Start: 07-14-2024 End: 07-14-2024 [facility] Facility:[facility] Start: 07-14-2024 End: 07-14-2024 Patient encounter procedure [employer] Maternal Medicine Comment on above: Encounter for antena nithya screening for malformation using ultrasound (Primary Dx); 12 weeks gestation of Supervision of other high risk pregnancies, first trimester (Primary Dx); 12 weeks gestation of ; History of section; Severe persistent asthma without complication; History of hypertension; History of herpes genitalis; Obesity in ; Desires (vaginal after ) trial; Supervision of high risk in second trimester Start: 06-21-2024 End: 06-21-2024 [facility] LINSEYD[facility]REL HSAH Facility:[facility] Start: 06-21-2024 End: 06-21-2024 Patient encounter procedure Linsey Shah APRN.CNM Work Phone: OB/Gynecology Comment on above: with uncer tain dates in first trimester (Primary Dx); History of section; Severe persistent asthma without complication; History of hypertension; History of herpes genitalis; Supervision of other high risk pregnancies, first trimester; Obesity in ; Desires (vaginal after ) trial Start: 06-02-2024 End: 06-02-2024 Telephone encounter Zahra Murillo APRN.CNM Work Phone: OB/Gynecology Comment on above: Early OB-spotting Start: 05-31-2024 End: 05-31-2024 ambulatory LINSEY SHAH Facility:[facility] Start: 05-29-2024 End: 05-29-2024 ambulatory LINSEY SHAH Facility:[facility] Start: 05-25-2024 End: 06-01-2024 Telephone encounter Linsey Pablo DELGADO.CNM Work Phone: OB/Gynecology Comment on above: Patient Update (New ); Patient Question (Lab Work 7-8 weeks) Start: 05-22-2024 End: 05-22-2024 Refill Dina Rivera APRN.POLITICAL RESEARCHER Work Phone: OB/Gynecology Comment on above: Refill Request Start: 02-04-2024 End: 02-04-2024 ambulatory LINSEY SHAH Facility:[facility] Start: 05-28-2023 Refill Linseydarrel Shah APRN.CNM Work Phone: OB/Gynecology Comment on above: Refill Request Start: 02-01-2023 ambulatory Cheyenne lopez MD Work Phone: OB/Gynecology Comment on above: Blood pressure Start: 01-18-2023 End: 01-18-2023 Patient encounter procedure Linsey Shah APRN.CNM Work Phone: OB/Gynecology Comment on above: Chronic hypertension (Primary Dx) Start: 01-12-2023 End: 01-12-2023 Patient encounter procedure Cheyenne Bullock MD Work Phone: OB/Gynecology Comment on above: Postop check (Primar y Dx) Start: 01-10-2023 Telephone encounter Linsey padilla DIRECTOR FINANCIAL SERVICES.CNM Work Phone: OB/Gynecology Comment on above: Patient Update Start: 01-05-2023 ambulatory Cheyenne lopez MD Work Phone: OB/Gynecology Comment on above: Ob Delivery Note Start: 01-05-2023 End: 01-07-2023 [facility] Start: 12-17-2022 End: 12-17-2022 Patient encounter procedure Jarocho Hughes MD Work Phone: OB/Gynecology Comment on above: with prena nithya care elsewhere in third trimester (Primary Dx); 36 weeks gestation of with prena nithya care elsewhere in third trimester (Primary Dx); 36 weeks gestation of ; Encounter for anatomic survey Start: 12-12-2022 ambulatory Linsey Shah APRN.CNM Work Phone: OB/Gynecology Comment on above: Blood Pressure Start: 12-08-2022 End: 12-08-2022 Patient encounter procedure Linsey Shah APRN.CNM Work Phone: OB/Gynecology Comment on above: 35 weeks gestation o f (Primary Dx); History of chronic hypertension; Proteinuria in , antepartum; Breech presentation with problem, single or unspecified fetus Start: 10-23-2022 End: 10-23-2022 ambulatory [facility] Start: 08-21-2022 End: 08-21-2022 ambulatory [facility] Start: 08-05-2022 End: 08-05-2022 ambulatory [facility] Start: 07-01-2022 Refill Mechelle Garcia APRN.CNP Work Phone: OB/Gynecology Comment on above: Refill Request Start: 05-26-2022 End: 05-26-2022 ambulatory [facility] Start: 05-04-2022 End: 05-04-2022 ambulatory [facility] Start: 04-16-2022 End: 04-16-2022 ambulatory [facility] Start: 04-12-2022 End: 04-12-2022 ambulatory [facility] Start: 04-09-2022 End: 04-09-2022 ambulatory [facility] Start: 09-20-2021 End: 09-20-2021 Subsequent hospital visit by physician [facility] Luz Work Phone: Radiology Comment on above: Rib pain on left raiza e [R07.81] Procedures Date Procedure Procedure Detail Performing Clinician Start: 01-16-2025 Urnls dip stick/tabl et rgnt non-auto w/o micrscp Jarocho Hughes MD Work Phone: Start: 01-03-2025 Urnls dip stick/tabl et rgnt non-auto w/o micrscp Linsey Shah APRN.CNM Work Phone: Start: 11-29-2024 Us preg uterus after 1st trimest 08/09 gestation Linsey Shah APRN.CNM Work Phone: Start: 09-06-2024 Us preg uterus after 1st trimest 08/09 gestation Linsey Shah APRN.CNM Work Phone: Start: 07-14-2024 Antibody screen CHEYENNE KOBE Comment on above: Order Comment: Speci men Type: BLOOD SPECIMENOrdering Facility: [facility] Address: [address] [place] [address] Performed By: #### T SPN ####CC MAIN BLOOD BANKCLIA [id number] [address] [place] Start: 07-14-2024 Us nuchal translucency 1st gestation Linsey Shah APRN.CNM Work Phone: Start: 06-21-2024 H/O: section History of section Linsey Shah APRN.CNM Work Phone: Start: 06-21-2024 Us uterus l imited 1/> fetuses Linsey Shah APRN.CNM Work Phone: Start: 12-17-2022 URINE OB DIP B/O Jarocho Hughes MD Work Phone: Start: 12-17-2022 Us preg uterus after 1st trimest 08/09 gestation Linsey Shah APRN.CNM Work Phone: Start: 12-08-2022 URINE OB DIP B/O Jessic a Shah DIRECTOR FINANCIAL SERVICES.CNM Work Phone: Start: 09-20-2021 Kevin bryantu m 2 views Linsey Castlegs DIRECTOR FINANCIAL SERVICES.POLITICAL RESEARCHER Work Phone: H/O: section History of section Ilnsey Pablo DIRECTOR FINANCIAL SERVICES.CNM Work Phone: H/O: section History of section Linseydarrel Shah DIRECTOR FINANCIAL SERVICES.CNM Work Phone: H/O: section History of section Linseydarrel Shah DIRECTOR FINANCIAL SERVICES.CNM Work Phone: H/O: section History of section Linseydarrel Shah DIRECTOR FINANCIAL SERVICES.CNM Work Phone: H/O: section History of section Linseydarrel Shah DIRECTOR FINANCIAL SERVICES.CNM Work Phone: H/O: section History of section Emma Hendricks MD Work Phone: H/O: section History of section Cheyenne Bullock MD Work Phone: H/O: section History of section Linseydarrel Shah DIRECTOR FINANCIAL SERVICES.CNM Work Phone: H/O: section History of section Emma Hendricks MD Work Phone: Plan of Treatment Date Care Activity Detail Author Start: 02-03-2027 Screening for malign ant neoplasm of cervix Cervical Cancer Screening [facility] Start: 04-09-2025 Influenza vaccination Influenz a Vaccine (Season Ended) [facility] Start: 02-05-2025 End: 02-05-2025 Patient encounter procedure 02/05/2025 11:30 AM EDT Office Visit OB/Gynecology [address] [place] [id number] Linsey Shah APRN.CN [address] [place] [address] Annual OB/Gynecology Comment on above: Annual Start: 01-17-2025 End: 01-17-2025 Patient encounter procedure OB/Gynecology Comment on above: NST OB Routine Start: 01-09-2025 End: 01-09-2025 Patient encounter procedure OB/Gynecology Comment on above: NST OB Routine Start: 01-03-2025 End: 01-03-2025 Patient encounter procedure OB/Gynecology Comment on above: NST OB Routine Start: 12-27-2024 End: 12-27-2024 Patient encounter procedure Maternal Medicine Comment on above: growth nst ob Start: 12-13-2024 End: 12-13-2024 Patient encounter procedure 12/13/2024 10:40 AM EDT Routine Office Visit OB/Gynecology [address] [place] [address] Cheyenne Bullock MD [address] [place] [address] ob OB/Gynecology Comment on above: ob Start: 11-29-2024 End: 11-29-2024 Patient encounter procedure Maternal Medicine Comment on above: growth ob Start: 11-14-2024 End: 11-14-2024 Patient encounter procedure OB/Gynecology Comment on above: OB OB - discuss TOLAC p er RR Start: 11-03-2024 End: 11-03-2024 Patient encounter procedure 11/03/2024 2:30 PM EDT Routine Office Visit OB/Gynecology [address] [place] [address] Linsey Shah APRN.CN [address] [place] [address] OB OB/Gynecology Comment on above: OB Start: 11-03-2024 End: 11-03-2024 ambulatory 11/03/2024 2:15 PM EDT Results Only [facility] [address] [place] [address] x: Screening for diabetes mellitus [Z13.1]; Severe persistent asthma without complication [J45.50]; History of section [Z98.891]; History of hypertension [Z86.79]; Desires (vaginal after ) trial [O34.219]; Supervision of high risk in second trimester [O09.92]; 24 weeks gestation of [Z3A.24] [facility] Comment on above: x: Screening for randi betes mellitus [Z13.1]; Severe persistent asthma without complication [J45.50]; History of section [Z98.891]; History of hypertension [Z86.79]; Desires (vaginal after ) trial [O34.219]; Supervision of high risk in second trimester [O09.92]; 24 weeks gestation of [Z3A.24] Start: 10-05-2024 End: 01-04-2025 ANEMIA REFLEX PANEL ANEMIA REFLEX PANEL Lab Routine Severe persistent asthma without complication History of section History of hypertension Desires (vaginal after ) trial Supervision of high risk in second trimester 24 weeks gestation of Expected: 10/05/2024, Expires: 01/04/2025 [facility] Comment on above: Expected: 10/05/2024 , Expires: 01/04/2025 Start: 10-05-2024 End: 10-05-2025 GESTATIONAL GLUCOSE SCREEN, 1-HOUR, 50 GRAM, NON-FASTING GESTATIONAL GLUCOSE SCREEN, 1-HOUR, 50 GRAM, NON-FASTING Lab Routine Screening for diabetes mellitus Severe persistent asthma without complication History of section History of hypertension Desires (vaginal after ) trial Supervision of high risk in second trimester 24 weeks gestation of Expected: 10/05/2024, Expires: 10/05/2025 [facility] Work Phone: Comment on above: Expected: 10/05/2024 , Expires: 10/05/2025 Start: 10-05-2024 End: 10-05-2025 SYPHILIS TREPONEMAL W/REFLEX SYPHILIS TREPONEMAL W/REFLEX Lab Routine Severe persistent asthma without complication History of section History of hypertension Desires (vaginal after ) trial Supervision of high risk in second trimester 24 weeks gestation of Expected: 10/05/2024, Expires: 10/05/2025 [facility] Comment on above: Expected: 10/05/2024 , Expires: 10/05/2025 Start: 10-05-2024 End: 10-05-2024 Patient encounter procedure 10/05/2024 9:45 AM EST Routine Office Visit OB/Gynecology [address] [place] [address] Linsey Shah APRN.CNM [address] [place] [address] OB OB/Gynecology Comment on above: OB Start: 09-06-2024 End: 09-06-2024 Patient encounter procedure Maternal Medicine Comment on above: Anatomy Scan OB Routine Start: 08-11-2024 End: 08-11-2024 Patient encounter procedure 08/11/2024 9:15 AM EST Routine Office Visit OB/Gynecology [address] [place] [address] Linsey Shah APRN.CNScotty [address] [place] [address] OB Routine OB/Gynecology Comment on above: OB Routine Start: 07-21-2024 End: 10-20-2024 Comprehensive metabolic 2000 panel - Serum or Plasma COMPREHENSIVE METABOLIC PANEL Lab Routine History of hypertension Expected: 07/21/2024 (Approximate), Expires: 10/20/2024 [facility] Comment on above: Expected: 07/21/2024 (Approximate), Expires: 10/20/2024 Start: 07-21-2024 End: 10-20-2024 Protein/Creatinine [Mass Ratio] in Urine PROTEIN / CREATININE RATIO Lab Routine History of hypertension Expected: 07/21/2024 (Approximate), Expires: 10/20/2024 [facility] Comment on above: Expected: 07/21/2024 (Approximate), Expires: 10/20/2024 Start: 07-21-2024 End: 10-20-2024 Urate [Mass/volume] in Serum or Plasma URIC ACID Lab Routine History of hypertension Expected: 07/21/2024 (Approximate), Expires: 10/20/2024 [facility] Comment on above: Expected: 07/21/2024 (Approximate), Expires: 10/20/2024 Start: 07-19-2024 End: 07-19-2024 Patient encounter procedure 07/19/2024 4:30 PM EST Routine Office Visit OB/Gynecology [address] [place] [address] Linsey Shah APRN.CNM [address] [place] [address] 2nd OB OB/Gynecology Comment on above: 2nd OB Start: 07-14-2024 End: 10-13-2024 Chromosome 21 trisomy [Presence] in Blood or Tissue by Cytogenetics [facility] Work Phone: Comment on above: Expected: 07/14/2024 , Expires: 10/13/2024 Start: 07-14-2024 End: 07-14-2024 Patient encounter procedure Maternal Medicine Comment on above: Nuchal Nuchal/OB Start: 06-21-2024 End: 09-20-2024 ANEMIA REFLEX PANEL ANEMIA REFLEX PANEL Lab Routine with uncertain dates in first trimester Expected: 06/21/2024, Expires: 09/20/2024 [facility] Work Phone: Comment on above: Expected: 06/21/2024 , Expires: 09/20/2024 Start: 06-21-2024 End: 09-20-2024 Hemoglobin A1c in Blood HEMOGLOBIN A1C Lab Routine with uncertain dates in first trimester Expected: 06/21/2024, Expires: 09/20/2024 [facility] Comment on above: Expected: 06/21/2024 , Expires: 09/20/2024 Start: 06-21-2024 End: 09-20-2024 Hepatitis B virus surface Ag [Presence] in Serum HEPATITIS B SURFACE ANTIGEN Lab Routine with uncertain dates in first trimester Expected: 06/21/2024, Expires: 09/20/2024 [facility] Comment on above: Expected: 06/21/2024 , Expires: 09/20/2024 Start: 06-21-2024 End: 09-20-2024 Hepatitis C virus Ab [Presence] in Serum HEPATITIS C ANTIBODY IA WITH CONFIRMATION Lab Routine with uncertain dates in first trimester Expected: 06/21/2024, Expires: 09/20/2024 [facility] Comment on above: Expected: 06/21/2024 , Expires: 09/20/2024 Start: 06-21-2024 End: 09-20-2024 HIV 1+2 Ab [Presence] in Serum or Plasma by Immunoassay HIV 1/2 COMBO WITH REFLEX TO DIFFERENTIATION Lab Routine with uncertain dates in first trimester Expected: 06/21/2024, Expires: 09/20/2024 [facility] Comment on above: Expected: 06/21/2024 , Expires: 09/20/2024 Start: 06-21-2024 End: 06-21-2025 NUCHAL TRANSLUCENCY WHI NUCHAL TRANSLUCENCY WHI Anc Imaging Routine with uncertain dates in first trimester Expected: 06/21/2024, Expires: 06/21/2025 [facility] Comment on above: Expected: 06/21/2024 , Expires: 06/21/2025 Start: 06-21-2024 End: 06-21-2025 OBSTETRIC ULTRASOUND WHI OBSTETRIC ULTRASOUND WHI Anc Imaging Routine with uncertain dates in first trimester Expected: 06/21/2024, Expires: 06/21/2025 [facility] Comment on above: Expected: 06/21/2024 , Expires: 06/21/2025 Start: 06-21-2024 End: 09-20-2024 RUBELLA IGG ANTIBODY RUBELLA IGG ANTIBODY Lab Routine with uncertain dates in first trimester Expected: 06/21/2024, Expires: 09/20/2024 [facility] Comment on above: Expected: 06/21/2024 , Expires: 09/20/2024 Start: 06-21-2024 End: 09-20-2024 SYPHILIS TREPONEMAL W/REFLEX SYPHILIS TREPONEMAL W/REFLEX Lab Routine with uncertain dates in first trimester Expected: 06/21/2024, Expires: 09/20/2024 [facility] Comment on above: Expected: 06/21/2024 , Expires: 09/20/2024 Start: 06-21-2024 End: 09-20-2024 TYPE + SCREEN TYPE + SCREEN Blood Bank Routine with uncertain dates in first trimester Expected: 06/21/2024, Expires: 09/20/2024 [facility] Comment on above: Expected: 06/21/2024 , Expires: 09/20/2024 Start: 06-21-2024 End: 06-21-2024 Patient encounter procedure 06/21/2024 1:00 PM EST Initial Office Visit OB/Gynecology [address] [place] [address] Linsey Shah APRN.CN [address] [place] [address] 1st OB OB/Gynecology Comment on above: 1st OB Start: 06-13-2024 PAP TESTING PAP TESTING [facility] Start: 04-09-2024 Covid-19 Vaccine ( season) Covid-19 Vaccine ( season) [facility] Start: 04-09-2024 Influenza vaccination Influenza Vacc ine (#1) [facility] Start: 04-09-2023 Influenza vaccination [facility] Start: 01-07-2023 Patient discharge [facility] Start: 01-06-2023 Application of abdom inal corset [facility] Start: 01-05-2023 Application of intermittent pneumatic compression device [facility] Start: 01-05-2023 Administration of medication [facility] Start: 01-05-2023 Ambulation therapy management [facility] Start: 01-05-2023 Application of device [facility] Start: 01-05-2023 Application of intermittent pneumatic compression device [facility] Start: 01-05-2023 Assessment of risk o f venous thromboembolism [facility] Start: 01-05-2023 Catheterization of vein [facility] Start: 01-05-2023 Deep breathing and coughing exercises [facility] Start: 01-05-2023 Exercises [facility] Start: 01-05-2023 Introduction of urin dania catheter [facility] Start: 01-05-2023 Measuring intake and output [facility] Start: 01-05-2023 End: 01-05-2023 Notification of physician [facility] Start: 01-05-2023 Procedure discontinued [facility] Start: 01-05-2023 Provision of activit y privileges [facility] Start: 01-05-2023 Vital signs measurements [facility] Start: 01-05-2023 Wound care [facility] Start: 01-05-2023 End: 01-05-2023 [facility] Start: 01-05-2023 Application of abdom inal corset [facility] Start: 01-05-2023 section Primary C Sec tion (Not Applicable) [facility] Start: 01-05-2023 End: 01-05-2023 Admission procedure [facility] Start: 08-09-2022 [facility]ION [facility]MENT [facility] Start: 04-09-2022 Influenza vaccination INFLUENZA (#1) [facility] Start: 08-09-2021 DEPRESSION ASSESSMENT DEPRESSION ASS 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 CHIEF GA DISEASE VISIT ANNUAL PCP TEAM CHRONIC DISEASE VISIT [facility] Start: 2012 Anxiety Screening Anxiety Screening [facility] Start: 2012 Depression Screening Depression Scre ening [facility] Start: 2012 HIV SCREENING HIV SCREENING [facility] Start: 2012 HIV screening HIV Screening [facility] Start: 2012 SPIROMETRY SPIROMETRY [facility] Start: 10-12-2002 Hepatitis B Vaccine (2 of 3 - 3-dose series) Hepatitis B Vaccine (2 of 3 - 3-dose series) [facility] Start: 2000 PNEUMOCOCCAL (1 - PCV) PNEUMOCOCCAL (1 - PCV) [facility] Start: 2000 Pneumococcal vaccination [facility] Start: 1994 COVID-19 VACCINE (#1) COVID-19 VACCI NE (#1) [facility] Start: 1994 HEPATITIS B (1 of 3 - 3-dose series) HEPATITIS B (1 of 3 - 3-dose series) [facility] Bacteria identified in Urine by Culture URINE CULTURE Microbiology Routine with uncertain dates in first trimester 06/21/2024 1:54 PM EST [facility] Chlamydia trachomatis+Neisseria gonorrhoeae DNA [Presence] in Unspecified specimen by KENAN with probe detection GONORRHEA/CHLAMYDIA NAAT Lab Routine with uncertain dates in first trimester 06/21/2024 1:54 PM EST [facility] End: 09-25-2025 nonstress test NON-STRESS TEST Procedures Routine Obesity affecting in third trimester, unspecified obesity type Once per week for 5 Occurrences starting 10/05/2024 until 09/25/2025 [facility] Comment on above: Once per week for 5 Occurrences starting 10/05/2024 until 09/25/2025 nonstress test NON-S TRESS TEST Procedures Routine Obesity in (HCC) Ordered: 11/29/2024 [facility] Work Phone: Comment on above: Ordered: 11/29/2024 End: 09-19-2025 OBSTETRIC ULTRASOUND WHI OBSTETRIC ULTRASOUND WHI Anc Imaging Routine Obesity affecting in third trimester, unspecified obesity type Once per month for 3 Occurrences starting 10/05/2024 until 09/19/2025 [facility] Comment on above: Once per month for 3 Occurrences starting 10/05/2024 until 09/19/2025 Patient Education Section Dc [facility] Work Phone: Patient referral [facility] Work Phone: ROUTINE, GR OUP B STREP PCR ROUTINE, GROUP B STREP PCR Microbiology Routine 36 weeks gestation of 12/17/2022 11:[address] [facility] Work Phone: URINE OB DIP B/O URINE OB DIP B/ O Lab Routine Obesity in (HCC) Supervision of high risk in third trimester (HCC) History of section 34 weeks gestation of (HCC) Ordered: 12/13/2024 [facility] Work Phone: Comment on above: Ordered: 12/13/2024 [facility] Immunizations Immunization Date Immunization Notes Care Provider Caitie merida 06-10-2018 influenza virus vacc ine, unspecified formulation Linsey Shah DIRECTOR FINANCIAL SERVICES.CNM Work Phone: [facility] 06-16-2011 influenza virus vacc ine, unspecified formulation Mechelle [place] DIRECTOR FINANCIAL SERVICES.POLITICAL RESEARCHER Work Phone: [facility] 03-10-2011 human papilloma viru s vaccine, quadrivalent Mechelle Radha DIRECTOR FINANCIAL SERVICES.POLITICAL RESEARCHER Work Phone: [facility] 06-10-2010 human papilloma viru s vaccine, quadrivalent Mechelle [place] DIRECTOR FINANCIAL SERVICES.POLITICAL RESEARCHER Work Phone: [facility] 05-20-2010 influenza virus vacc ine, unspecified formulation Mechelle Radha DIRECTOR FINANCIAL SERVICES.POLITICAL RESEARCHER Work Phone: [facility] 04-09-2010 human papilloma viru s vaccine, quadrivalent Mechelle Radha DIRECTOR FINANCIAL SERVICES.POLITICAL RESEARCHER Work Phone: [facility] 05-21-2009 influenza virus vacc ine, unspecified formulation Mechelle Radha DIRECTOR FINANCIAL SERVICES.POLITICAL RESEARCHER Work Phone: [facility] 08-30-2007 influenza virus vacc ine, unspecified formulation Mechelle Radha DIRECTOR FINANCIAL SERVICES.POLITICAL RESEARCHER Work Phone: [facility] Payers Date Payer Category Payer Self-pay 2020 Private Health Insurance [employer] [id number] 2020 Unknown [facility] [employer] PPO [id number] 2020-Present [phone] [address] [place] [address] PPO [id number] 2020 Unknown [id number] 1994 Unknown [id number] 1994 Unknown [id number] 1994 Unknown [id number] 1994 Unknown [id number] 1994 Unknown [id number] 1994 Unknown [id number] 1994 Unknown [id number] 1994 Unknown [id number] Unknown [facility] [id number] Unknown [id number] Social History Date Type Detail Facility Start: 05-10-2018 End: 12-03-2022 Tobacco smoking status [facility] Never smoked tobacco [facility] Start: 05-10-2018 End: 12-03-2022 Tobacco use and exposure Smokeless tobacco non-user [facility] Start: 09-19-2021 End: 03-26-2022 Alcohol intake Current drinker of alcohol (finding) [facility] Start: 06-13-2021 Alcohol Comment socially [facility] Start: 1995 Sex Assigned At Not on file [facility] Start: 12-08-2022 End: 01-16-2025 Alcohol intake Ex-drinker (finding) [facility] Start: 11-30-2022 Education 17 [facility] Start: 04-19-2022 [facility] Start: 01-05-2023 Tobacco smoking stat us ORIS Unknown if ever smoked [facility] Start: 1995 Sex Assigned At Female [facility] Start: 12-17-2022 End: 02-17-2023 History of Social function [facility] Start: 12-17-2022 End: 02-17-2023 Tobacco use panel [facility] National Score (1-10 0), lower number is lower risk 80 [facility] Start: 05-26-2024 Gender identity Identifies as female gender (finding) [facility] Start: 05-26-2024 Sexual orientation Heterosexual (fin carri) [facility] Goals Date Patient Goal Desired Activity /State Personal health goal Personal health goal Mental Status Date Assessment Result Facility 01-05-2023 Cognitive function Voice/Name [facility] Work Phone: Clinical Notes 07-13-2007 to 01-16-2025 Emma Mccartney MD - 01/16/2025 11:50 AM Emma Delcid MD - 01/16/2025 11:47 AM Emma Delcid MD - 01/16/2025 11:47 AM EDTPatient Instructions Note Date & Type Note Facility 01-16-2025 History of Presen t illness Narrative NST SUMMARY PROVIDER ASSESSMENT AND INTERPRETATION Vaishali Sorto is a 29 year old female, , who is at 39w0d with an DALY of 01/23/2025, by Last Menstrual Period dating method. Indications for NST: Decreased Movement Baseline: 150 Variability: Moderate Accelerations: Present 15 X 15 Decelerations: Late Contractions: TOCO: Irregular Interpretation: Category II and Reactive SIGNATURE: Emma Koo MD documented in this encounter [facility] 01-16-2025 History and physical note Pre-Op History and Physical HPI: The patient is a 29 year old female presenting for pre-operative visit. She is scheduled for , for late deceleration on NST today on 01/16/25. Procedure discussed along with risks, benefits and complications. Other alternatives discussed for management. Consent form signed? Yes. PAST MEDICAL HISTORY Diagnosis Date Allergic rhinitis, cause unspecified History of herpes genitalis 11/30/2022 11/30/2022 Patient has a history of genital herpes. She is currently on acyclovir.TKRN History of hypertension PMH - PAST MEDICAL HISTORY OF normal color vision Unspecified asthma(493.90) PAST SURGICAL HISTORY Procedure Laterality Date PAST SURGICAL HISTORY OF wisdom teeth TYMPANOSTOMY LOCAL/TOPICAL ANESTHESIA Current Outpatient Medications Medication Sig Dispense Refill aspirin, enteric coated (ECOTRIN LOW STRENGTH) 81 mg EC tablet Take 2 tablets by mouth once daily. 90 tablet 3 valACYclovir (VALTREX) 1 gram tablet Take 1 tablet by mouth once daily. 90 tablet 3 prental multivitamin 27 mg iron- 800 mcg tablet Take 1 tablet by mouth once daily. diphenhydramine HCl (BENADRYL ORAL) Take by mouth. ascorbic acid (CARLOS MANUEL-C ORAL) Take by mouth. cholecalciferol, vitamin D3, (VITAMIN D3 ORAL) Take by mouth. zinc sulfate (ZINC-15 ORAL) Take by mouth. budesonide-formoterol (SYMBICORT) 160-4.5 mcg/actuation inhaler Inhale 2 Puffs as instructed twice daily. 1 Inhaler 1 cetirizine HCl (ZYRTEC ORAL) Take by mouth. 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 Dispense generic if available. 1 Each 1 mometasone (NASONEX) 50 mcg/actuation nasal spray Use 2 Sprays in each nostril once daily. 1 Bottle 11 albuterol HFA (PROVENTIL HFA) 90 mcg/actuation inhaler Inhale 2 Puffs as instructed every 4 hours as needed (May also use 15 minutes pre-exercise. Use with spacer. Proventil JOEL). 1 Inhaler 2 No current facility-administered medications for this visit. ALLERGIES: Patient has no known allergies. PERSONAL HISTORY: Social History Tobacco Use Smoking status: Never Smokeless tobacco: Never Vaping Use Vaping status: Never Used Substance Use Topics Alcohol use: Not Currently Comment: socially Drug use: Never FAMILY HISTORY: FAMILY HISTORY Problem Relation Age of Onset Hypertension Mother Hypertension Father No Known Problems Brother No Known Problems Brother No Known Problems Brother Asthma Brother Diabetes Maternal Grandmother Hypertension Maternal Grandmother Uterine Cancer Maternal Grandmother Heart Maternal Grandfather of massive heart attack at age 43 Hypertension Paternal Grandmother Diabetes Paternal Grandmother Hypertension Paternal Grandfather REVIEW OF SYMPTOMS: negative except as noted above PHYSICAL EXAMINATION: VITALS: Blood pressure 142/82, weight 101.1 kg (222 lb 12.8 oz), last menstrual period 04/18/2024, currently . GENERAL: The patient is well nourished, well hydrated in no acute distress. , The patient is oriented to time, place, and person. NECK: full range of motion GENITALIA: Closed/thick/-5 Bedside ultrasound: Oblique IMPRESSION: @ 39 weeks PLAN: Repeat CS indicated Pt has been counseled on risks/benefits and alternatives of surgery including but not limited to anesthesia, bleeding, infection, injury to pelvic structures including bowel, bladder, ureters and vessels. Pt wishes to proceed with surgery at this time. I have reviewed and updated past medical and surgical history, medications and allergies Emma Hendricks MD [facility] 01-16-2025 History and physical note Pre-Op History and Physical HPI: The patient is a 29 year old female presenting for pre-operative visit. She is scheduled for , for late deceleration on NST today on 01/16/25. Procedure discussed along with risks, benefits and complications. Other alternatives discussed for management. Consent form signed? Yes. PAST MEDICAL HISTORY Diagnosis Date Allergic rhinitis, cause unspecified History of herpes genitalis 11/30/2022 11/30/2022 Patient has a history of genital herpes. She is currently on acyclovir.TKRN History of hypertension PMH - PAST MEDICAL HISTORY OF normal color vision Unspecified asthma(493.90) PAST SURGICAL HISTORY Procedure Laterality Date PAST SURGICAL HISTORY OF wisdom teeth TYMPANOSTOMY LOCAL/TOPICAL ANESTHESIA Current Outpatient Medications Medication Sig Dispense Refill aspirin, enteric coated (ECOTRIN LOW STRENGTH) 81 mg EC tablet Take 2 tablets by mouth once daily. 90 tablet 3 valACYclovir (VALTREX) 1 gram tablet Take 1 tablet by mouth once daily. 90 tablet 3 prental multivitamin 27 mg iron- 800 mcg tablet Take 1 tablet by mouth once daily. diphenhydramine HCl (BENADRYL ORAL) Take by mouth. ascorbic acid (CARLOS MANUEL-C ORAL) Take by mouth. cholecalciferol, vitamin D3, (VITAMIN D3 ORAL) Take by mouth. zinc sulfate (ZINC-15 ORAL) Take by mouth. budesonide-formoterol (SYMBICORT) 160-4.5 mcg/actuation inhaler Inhale 2 Puffs as instructed twice daily. 1 Inhaler 1 cetirizine HCl (ZYRTEC ORAL) Take by mouth. 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 Dispense generic if available. 1 Each 1 mometasone (NASONEX) 50 mcg/actuation nasal spray Use 2 Sprays in each nostril once daily. 1 Bottle 11 albuterol HFA (PROVENTIL HFA) 90 mcg/actuation inhaler Inhale 2 Puffs as instructed every 4 hours as needed (May also use 15 minutes pre-exercise. Use with spacer. Proventil JOEL). 1 Inhaler 2 No current facility-administered medications for this visit. ALLERGIES: Patient has no known allergies. PERSONAL HISTORY: Social History Tobacco Use Smoking status: Never Smokeless tobacco: Never Vaping Use Vaping status: Never Used Substance Use Topics Alcohol use: Not Currently Comment: socially Drug use: Never FAMILY HISTORY: FAMILY HISTORY Problem Relation Age of Onset Hypertension Mother Hypertension Father No Known Problems Brother No Known Problems Brother No Known Problems Brother Asthma Brother Diabetes Maternal Grandmother Hypertension Maternal Grandmother Uterine Cancer Maternal Grandmother Heart Maternal Grandfather of massive heart attack at age 43 Hypertension Paternal Grandmother Diabetes Paternal Grandmother Hypertension Paternal Grandfather REVIEW OF SYMPTOMS: negative except as noted above PHYSICAL EXAMINATION: VITALS: Blood pressure 142/82, weight 101.1 kg (222 lb 12.8 oz), last menstrual period 04/18/2024, currently . GENERAL: The patient is well nourished, well hydrated in no acute distress. , The patient is oriented to time, place, and person. NECK: full range of motion GENITALIA: Closed/thick/-5 Bedside ultrasound: Oblique IMPRESSION: @ 39 weeks PLAN: Repeat CS indicated Pt has been counseled on risks/benefits and alternatives of surgery including but not limited to anesthesia, bleeding, infection, injury to pelvic structures including bowel, bladder, ureters and vessels. Pt wishes to proceed with surgery at this time. I have reviewed and updated past medical and surgical history, medications and allergies Emma Hendricks MD documented in this encounter [facility] 01-16-2025 Progress note Formatting of t his note might be different from the original. DM-Pt doing well. Denies vaginal Bleeding, Leaking fluid, or regular Contractions. Pt reports good movement Physical Exam: Gen: female in no apparent distress Abd: soft, Gravid. Non tender to palpation. See flow sheet Participation of a fellow, resident, medical student, or advanced practice provider student in performing the sensitive examination was discussed with the patient or authorized customer engagement representative. The patient or authorized customer engagement representative has agreed to proceed with the sensitive examination. @ 39 weeks Assessment & Plan Supervision of high risk in third trimester (HCC) Orders: URINE OB DIP B/O Maternal care for decelerations during ([facility]) Discussed with patient late deceleration present on NST- at 39 weeks recommend delivery. History of section Reviewed do not recommend tolac- with lat decelerations would not recommend pitocin at this time. Cervical exam - closed/thick/posterior - head not engaged and is more oblique maternal left with large fluid bag below head. Obesity in (HCC) Orders: URINE OB DIP B/O 39 weeks gestation of ([facility]) Orders: URINE OB DIP B/O Emma Koo MD [facility] 01-16-2025 Miscellaneous Notes DM-Pt doing well. Denies vaginal Bleeding, Leaking fluid, or regular Contractions. Pt reports good movement Physical Exam: Gen: female in no apparent distress Abd: soft, Gravid. Non tender to palpation. See flow sheet Participation of a fellow, resident, medical student, or advanced practice provider student in performing the sensitive examination was discussed with the patient or authorized customer engagement representative. The patient or authorized customer engagement representative has agreed to proceed with the sensitive examination. @ 39 weeks Assessment & Plan Supervision of high risk in third trimester ([facility]) Orders: URINE OB DIP B/O Maternal care for decelerations during ([facility]) Discussed with patient late deceleration present on NST- at 39 weeks recommend delivery. History of section Reviewed do not recommend tolac- with lat decelerations would not recommend pitocin at this time. Cervical exam - closed/thick/posterior - head not engaged and is more oblique maternal left with large fluid bag below head. Obesity in ([facility]) Orders: URINE OB DIP B/O 39 weeks gestation of ([facility]) Orders: URINE OB DIP B/O Emma Koo MD documented in this encounter [facility] 01-16-2025 Instructions Devorah Orona MA - 01/16/2025 10:56 AM EDT SEQUENTIAL SCREENINGS The [facility] offers sequential screenings for women who are interested in screenings for chromosomal abnormalities and certain defects during a . The sequential screen combines ultrasound and blood tests to determine the risk of chromosomal abnormalities, including Down's Syndrome (Trisomy 21) and Trisomy 18, as well as open neural tube defects including spina bifida. Ultrasound examination is performed between 11 weeks and 13 weeks gestational age. Blood tests are drawn after the ultrasound and again later in the between 15 and 21 weeks gestational age. Please let your physician know if you are interested in this testing. It will require an appointment with our respiratory technician. This is not an ultrasound performed by a physician in our office during a routine visit. SIGNS AND SYMPTOMS OF LABOR 1. Contractions every 10 minutes or more often 2. Clear, pink, or brownish fluid (water) leaking from vagina 3. Feeling that baby is pushing down, pressure 4. Low, dull backache 5. Cramps that feel like a period 6. Cramps with or without diarrhea If you notice any of the above symptoms, contact our office at [phone] and ask to speak with a nurse. After hours, you can call doctors registry at [phone] OR call [facility] at [phone] and ask to have the doctor controls engineer paged. If you consider this an emergency, dial 9-1-0 or go to your nearest emergency department. NEED HELP? Are you dealing with a violent or abusive relationship? Are you a victim of rape or sexual assult? Call [facility] ([place]) 24 hour Crisis Hotline: 559.156.5972 or 853-595-6129. MANUAL Your Guide to a Healthy manual is now on-line. Visit [email or web address] to download your free copy documented in this encounter [facility] 01-09-2025 Note HNO ID: [id number] Author: DEVORAH BETANCOURT MA Service: ? Author Type: Associate Store Leader Type: Progress Notes Filed: 01/09/2025 15:07 Note Text: POPULATION HEALTH NAVIGATION OUTREACH Action/FYI Payroll Administrative Assistant updated per documentation. Reason for Outreach Medicaid OB/Peds Care Gaps due: N/A Patient Contacted: Unable or unnecessary to reach patient: [place] superintendent container terminal added Navigation Signature: Devorah Estrada MA January 09, 2025 2:12 PM [facility] 01-09-2025 Note HNO ID: [id number] Author: LINSEY SHAH APRN.CNM Service: ? Author Type: Tube Making Machine Operator Type: Progress Notes Filed: 01/09/2025 12:29 Note Text: NST SUMMARY PROVIDER ASSESSMENT AND INTERPRETATION Vaishali Sorto is a 29 year old female, , who is at 38w0d with an DALY of 01/23/2025, by Last Menstrual Period dating method. Indications for NST: Obesity Baseline: 145 Variability: Moderate Accelerations: Present 15 X 15 Decelerations: None Contractions: TOCO: None Interpretation: Reactive SIGNATURE: Linsey Shah APRN.[facility] 01-09-2025 Note Patient Outreach (ELIJAH TNAV) VAISHALI SORTO ([id number]) 1995 F Date Time Provider Department 01/09/25 DEVORAH BETANCOURT During your visit today, we recorded the following information about you: Devorah Betancourt MA 01/09/2025 3:07 PM Signed POPULATION HEALTH NAVIGATION OUTREACH Action/FYI Payroll Administrative Assistant updated per documentation. Reason for Outreach Medicaid OB/Peds Care Gaps due: N/A Patient Contacted: Unable or unnecessary to reach patient: [place] superintendent container terminal added Navigation Signature: Devorah Estrada MA January 09, 2025 2:12 PM Allergies As of Date: 01/09/2025 (No Known Allergies) Date Reviewed: 01/09/2025 Reviewed by: Chapin Kenny MA - Fully Assessed Reason for Visit: Population Health Navigation Outreach [3910] Cmt: Ob/peds Prescriptions as of 01/09/2025 - aspirin, enteric coated (ECOTRIN LOW STRENGTH) 81 mg EC tablet Take 2 tablets by mouth once daily. - valACYclovir (VALTREX) 1 gram tablet Take 1 tablet by mouth once daily. - prental multivitamin 27 mg iron- 800 mcg tablet Take 1 tablet by mouth once daily. - diphenhydramine HCl (BENADRYL ORAL) Take by mouth. - ascorbic acid (CARLOS MANUEL-C ORAL) Take by mouth. - cholecalciferol, vitamin D3, (VITAMIN D3 ORAL) Take by mouth. - zinc sulfate (ZINC-15 ORAL) Take by mouth. - budesonide-formoterol (SYMBICORT) 160-4.5 mcg/actuation inhaler Inhale 2 Puffs as instructed twice daily. - cetirizine HCl (ZYRTEC ORAL) Take by mouth. - EPINEPHrine (EPIPEN) 0.3 mg/0.3 mL (1:1,000) PnIj Inject 0.3 mL intramuscularly as needed (for allergic reaction.Seek emergent medical care immediately after use.Disp:one 2-packw/sports athletic trainer). Dispense generic if available. - mometasone (NASONEX) 50 mcg/actuation nasal spray Use 2 Sprays in each nostril once daily. - albuterol HFA (PROVENTIL HFA) 90 mcg/actuation inhaler Inhale 2 Puffs as instructed every 4 hours as needed (May also use 15 minutes pre-exercise. Use with spacer. Proventil JOEL). Problem List As Of Date 01/09/2025 Noted Resolved ASTHMA UNSPECIFIED [J45.909] 07/13/2007 09/29/2007 Severe persistent asthma [J45.50] 09/29/2007 Allergic rhinitis, cause unspecified [J30.9] 09/29/2007 02/17/2023 GERD (Gastroesophageal Reflux Disease) [K21.9] 10/22/2009 with care elsewhere in [facility]*11/30/2022 02/17/2023 History of herpes genitalis [Z86.19] 11/30/2022 History of hypertension [Z86.79] 11/30/2022 Positive GBS test [B95.1] 12/21/2022 Breech presentation with problem [O32*12/25/2022 02/17/2023 History of section [Z98.891] 06/21/2024 Supervision of other high risk pregnancies, sec*06/21/2024 Obesity in (HCC) [O99.210] 06/21/2024 Desires (vaginal after ) tri*06/21/2024 Abnormal glucose in , antepartum (HCC)*11/03/2024 Encounter Status:Closed by DEVORAH BETANCOURT on 01/09/25 [facility] 01-03-2025 Note HNO ID: [id number] Author: LINSEY SHAH APRN.CNM Service: ? Author Type: Tube Making Machine Operator Type: Progress Notes Filed: 01/03/2025 11:37 Note Text: DANA-S: Vaishali Sorto is a 29 year old female who presents at 37w1d with DALY:01/23/2025, by Last Menstrual Period for a routine visit. Denies headache, visual changes, chest pain, shortness of breath, vaginal bleeding, leakage of fluid, or dysuria. Feeling well, no complaints. BP at home have all been less than 120/80, normal range O: See flow sheet Gen: No apparent distress Abd: Gravid, nontender S=D, 13 lb TWG 12/27: EFW 14th percentile, RYLEE 25 NST reactive today ASSESSMENT/PLAN: 1. Supervision of other high risk pregnancies, first trimester -Continue PNV and start ASA 2. 37 weeks gestation of 3. History of section -History of LTCS due to breech presentation. TOLAC consent signed -Requesting repeat C/S on 01/23 at 0700 with if no spontaneous labor. 4. Desires (vaginal after ) trial -TOLAC consent signed. 5. History of hypertension -History of CHTN, took Nifedipine last and D/Cd . BP has been stable and no medications since that time. -Baseline preeclampsia labs normal -Checking BP at home and knows when to call. To continue to monitor -Growth US every 4 weeks, no testing per [facility] guidelines -Recommend IOL by 38-39 6/7 weeks due to history, stable, no medications per [facility] guidelines 6. History of herpes genitalis -Will start prophylaxis at this time 7. Obesity in -Pregravid BMI 35. -Growth US every 4wk starting at 32wk. NSTs weekly starting at 36 wk 8. Severe persistent asthma without complication -Stable and doing well -No Hemabate at delivery RTO in 1 weeks PTL precautions reviewed and when to call Linsey Shah APRN.[facility] 01-03-2025 History of Presen t illness Narrative DANA-S: Vaishali Sorto is a 29 year old female who presents at 37w1d with DALY:01/23/2025, by Last Menstrual Period for a routine visit. Denies headache, visual changes, chest pain, shortness of breath, vaginal bleeding, leakage of fluid, or dysuria. Feeling well, no complaints. BP at home have all been less than 120/80, normal range O: See flow sheet Gen: No apparent distress Abd: Gravid, nontender S=D, 13 lb TWG 12/27: EFW 14th percentile, RYLEE 25 NST reactive today ASSESSMENT/PLAN: 1. Supervision of other high risk pregnancies, first trimester -Continue PNV and start ASA 2. 37 weeks gestation of 3. History of section -History of LTCS due to breech presentation. TOLAC consent signed -Requesting repeat C/S on 01/23 at 0700 with if no spontaneous labor. 4. Desires (vaginal after ) trial -TOLAC consent signed. 5. History of hypertension -History of CHTN, took Nifedipine last and D/Cd . BP has been stable and no medications since that time. -Baseline preeclampsia labs normal -Checking BP at home and knows when to call. To continue to monitor -Growth US every 4 weeks, no testing per [facility] guidelines -Recommend IOL by 38-39 6/7 weeks due to history, stable, no medications per [facility] guidelines 6. History of herpes genitalis -Will start prophylaxis at this time 7. Obesity in -Pregravid BMI 35. -Growth US every 4wk starting at 32wk. NSTs weekly starting at 36 wk 8. Severe persistent asthma without complication -Stable and doing well -No Hemabate at delivery RTO in 1 weeks PTL precautions reviewed and when to call Linsey Shah APRN.CNM documented in this encounter [facility] 01-03-2025 Instructions Chapin Kenny MA - 01/03/2025 10:47 AM EDT SEQUENTIAL SCREENINGS The [facility] offers sequential screenings for women who are interested in screenings for chromosomal abnormalities and certain defects during a . The sequential screen combines ultrasound and blood tests to determine the risk of chromosomal abnormalities, including Down's Syndrome (Trisomy 21) and Trisomy 18, as well as open neural tube defects including spina bifida. Ultrasound examination is performed between 11 weeks and 13 weeks gestational age. Blood tests are drawn after the ultrasound and again later in the between 15 and 21 weeks gestational age. Please let your physician know if you are interested in this testing. It will require an appointment with our respiratory technician. This is not an ultrasound performed by a physician in our office during a routine visit. SIGNS AND SYMPTOMS OF LABOR 1. Contractions every 10 minutes or more often 2. Clear, pink, or brownish fluid (water) leaking from vagina 3. Feeling that baby is pushing down, pressure 4. Low, dull backache 5. Cramps that feel like a period 6. Cramps with or without diarrhea If you notice any of the above symptoms, contact our office at [phone] and ask to speak with a nurse. After hours, you can call doctors registry at [phone] OR call [facility] at [phone] and ask to have the doctor controls engineer paged. If you consider this an emergency, dial 2--9 or go to your nearest emergency department. NEED HELP? Are you dealing with a violent or abusive relationship? Are you a victim of rape or sexual assult? Call [facility] ([place]) 24 hour Crisis Hotline: 126.248.9488 or 758-800-5062. MANUAL Your Guide to a Healthy manual is now on-line. Visit [email or web address] to download your free copy documented in this encounter [facility] 12-27-2024 Note HNO ID: [id number] Author: LINSEY SHAH APRN.CNM Service: ? Author Type: Tube Making Machine Operator Type: Progress Notes Filed: 12/27/2024 10:04 Note Text: DANA-S: Vaishali Sorto is a 29 year old female who presents at 36w1d with DALY:01/23/2025, by Last Menstrual Period for a routine visit. Denies headache, visual changes, chest pain, shortness of breath, vaginal bleeding, leakage of fluid, or dysuria. Feeling well, no complaints. BP at home have all been less than 120/80, normal range O: See flow sheet Gen: No apparent distress Abd: Gravid, nontender S=D, 13 lb TWG BPP 8/8, EFW 14th percentile, RYLEE 25 ASSESSMENT/PLAN: 1. Supervision of other high risk pregnancies, first trimester -Continue PNV and start ASA 2. 36 weeks gestation of 3. History of section -History of LTCS due to breech presentation. TOLAC consent signed -Requesting repeat C/S on 01/23 at 0700 with if no spontaneous labor. 4. Desires (vaginal after ) trial -TOLAC consent signed. 5. History of hypertension -History of CHTN, took Nifedipine last and D/Cd . BP has been stable and no medications since that time. -Baseline preeclampsia labs normal -Checking BP at home and knows when to call. To continue to monitor -Growth US every 4 weeks, no testing per [facility] guidelines -Recommend IOL by 39-39 6/7 weeks due to history, stable, no medications per [facility] guidelines 6. History of herpes genitalis -Will start prophylaxis at this time 7. Obesity in -Pregravid BMI 35. -Growth US every 4wk starting at 32wk. NSTs weekly starting at 36 wk 8. Severe persistent asthma without complication -Stable and doing well -No Hemabate at delivery RTO in 2 weeks PTL precautions reviewed and when to call Linsey Shah APRN.CNM [facility] 12-22-2024 Telephone encounter Note 35w3d Patient called to report that she found a tick on her. Was able to remove the head using a piece of hot metal. Spoke with JG. Advised patient to contact office or DOC over the weekend if she develops flu like symptoms or Bullseye rash. Advised that the prophylactic antibiotic used is harmful in . Meghana Wan RN [facility] 12-22-2024 Miscellaneous Notes 35w3d Patient called to report that she found a tick on her. Was able to remove the head using a piece of hot metal. Spoke with JG. Advised patient to contact office or DOC over the weekend if she develops flu like symptoms or Bullseye rash. Advised that the prophylactic antibiotic used is harmful in . Meghana Wan RN documented in this encounter [facility] 12-13-2024 Miscellaneous Notes RR- VB No. LOF No. CTXS few BH . Movement: present. Other c/o: No. Medication list reviewed. SENSITIVE EXAM: Sensitive exam not performed. Physical Exam See Flow Sheet Abd: soft, nontender, gravid A/P 34w1d Estimated Date of Delivery: 01/23/25 Assessment & Plan Obesity in (HCC) growth scan ordered Orders: URINE OB DIP B/O Supervision of high risk in third trimester (HCC) Orders: URINE OB DIP B/O History of section plans tolac if spont labor Orders: URINE OB DIP B/O 34 weeks gestation of (HCC) Orders: URINE OB DIP B/O f/u in 2 weeks Cheyenne Bullock M.D. documented in this encounter [facility] 12-13-2024 Progress note Formatting of t his note might be different from the original. RR- VB No. LOF No. CTXS few BH . Movement: present. Other c/o: No. Medication list reviewed. SENSITIVE EXAM: Sensitive exam not performed. Physical Exam See Flow Sheet Abd: soft, nontender, gravid A/P 34w1d Estimated Date of Delivery: 01/23/25 Assessment & Plan Obesity in (HCC) growth scan ordered Orders: URINE OB DIP B/O Supervision of high risk in third trimester (HCC) Orders: URINE OB DIP B/O History of section plans tolac if spont labor Orders: URINE OB DIP B/O 34 weeks gestation of (HCC) Orders: URINE OB DIP B/O f/u in 2 weeks Cheyenne Bullock M.D. [facility] 12-13-2024 Instructions Sophie Morley MA - 12/13/2024 10:45 AM EDT SEQUENTIAL SCREENINGS The [facility] offers sequential screenings for women who are interested in screenings for chromosomal abnormalities and certain defects during a . The sequential screen combines ultrasound and blood tests to determine the risk of chromosomal abnormalities, including Down's Syndrome (Trisomy 21) and Trisomy 18, as well as open neural tube defects including spina bifida. Ultrasound examination is performed between 11 weeks and 13 weeks gestational age. Blood tests are drawn after the ultrasound and again later in the between 15 and 21 weeks gestational age. Please let your physician know if you are interested in this testing. It will require an appointment with our respiratory technician. This is not an ultrasound performed by a physician in our office during a routine visit. SIGNS AND SYMPTOMS OF LABOR 1. Contractions every 10 minutes or more often 2. Clear, pink, or brownish fluid (water) leaking from vagina 3. Feeling that baby is pushing down, pressure 4. Low, dull backache 5. Cramps that feel like a period 6. Cramps with or without diarrhea If you notice any of the above symptoms, contact our office at [phone] and ask to speak with a nurse. After hours, you can call doctors registry at [phone] OR call [facility] at [phone] and ask to have the doctor controls engineer paged. If you consider this an emergency, dial 1-0 or go to your nearest emergency department. NEED HELP? Are you dealing with a violent or abusive relationship? Are you a victim of rape or sexual assult? Call [facility] ([place]) 24 hour Crisis Hotline: 933.367.1573 or 659-391-5199. MANUAL Your Guide to a Healthy manual is now on-line. Visit [email or web address] to download your free copy documented in this encounter [facility] 11-29-2024 Progress note Formatting of t his note is different from the original. ERICAS: Vaishali Sorto is a 29 year old female who presents at 32w1d with DALY:01/23/2025, by Last Menstrual Period for a routine visit. Denies headache, visual changes, chest pain, shortness of breath, vaginal bleeding, leakage of fluid, or dysuria. Feeling well, no complaints. BP at home have all been less than 120/80, normal range O: See flow sheet Gen: No apparent distress Abd: Gravid, nontender S=D, 11 lb TWG Growth US, awaiting formal report ASSESSMENT/PLAN: 1. Supervision of other high risk pregnancies, first trimester -Continue PNV and start ASA 2. 32 weeks gestation of 3. History of section -History of LTCS due to breech presentation. TOLAC consent signed -Requesting repeat C/S on 01/23 at 0700 with if no spontaneous labor. 4. Desires (vaginal after ) trial 5. History of hypertension -History of CHTN, took Nifedipine last and D/Cd . BP has been stable and no medications since that time. -Baseline preeclampsia labs normal -Checking BP at home and knows when to call. To continue to monitor 6. History of herpes genitalis -Will start prophylaxis at 36 weeks 7. Obesity in -Pregravid BMI 35. -Growth US every 4wk starting at 32wk. NSTs weekly starting at 36 wk 8. Severe persistent asthma without complication -Stable and doing well -No Hemabate at delivery RTO in 2 weeks PTL precautions reviewed and when to call Linsey Shah APRN.CNM [facility] 11-29-2024 Miscellaneous Notes DANA-S: Vaishali Sorto is a 29 year old female who presents at 32w1d with DALY:01/23/2025, by Last Menstrual Period for a routine visit. Denies headache, visual changes, chest pain, shortness of breath, vaginal bleeding, leakage of fluid, or dysuria. Feeling well, no complaints. BP at home have all been less than 120/80, normal range O: See flow sheet Gen: No apparent distress Abd: Gravid, nontender S=D, 11 lb TWG Growth US, awaiting formal report ASSESSMENT/PLAN: 1. Supervision of other high risk pregnancies, first trimester -Continue PNV and start ASA 2. 32 weeks gestation of 3. History of section -History of LTCS due to breech presentation. TOLAC consent signed -Requesting repeat C/S on 01/23 at 0700 with if no spontaneous labor. 4. Desires (vaginal after ) trial 5. History of hypertension -History of CHTN, took Nifedipine last and D/Cd . BP has been stable and no medications since that time. -Baseline preeclampsia labs normal -Checking BP at home and knows when to call. To continue to monitor 6. History of herpes genitalis -Will start prophylaxis at 36 weeks 7. Obesity in -Pregravid BMI 35. -Growth US every 4wk starting at 32wk. NSTs weekly starting at 36 wk 8. Severe persistent asthma without complication -Stable and doing well -No Hemabate at delivery RTO in 2 weeks PTL precautions reviewed and when to call Linsey Shah APRN.CNM documented in this encounter [facility] 11-29-2024 Progress note Formatting of t his note might be different from the original. Anatomy ultrasound reviewed. No abnormalities identified. Follow up as clinically indicated. Please place copy in ob chart. Cheyenne Bullock MD [facility] 11-29-2024 Miscellaneous Notes Anatomy ultrasound reviewed. No abnormalities identified. Follow up as clinically indicated. Please place copy in ob chart. Cheyenne Bullock MD documented in this encounter [facility] 11-29-2024 Note Indication Evaluation of growth Maternal obesity, BMI >35 Impression - Single, live, intrauterine . - The biometry is consistent with the assigned gestational dating. - The EFW is 1787 g, at the 23%. AC is at the 35%. - The amniotic fluid volume is normal amount with an MVP of 5.8 cm and an RYLEE of 19.5 cm. - The placenta is posterior, fundal. - No malformations visualized on a limited survey as detailed below. Recommendations Additional follow-up as clinically indicated. Maternal Assessment Height 163 cm Height (ft) 5 ft Height (in) 4 in Physical Exam Initial weight (lb) 208 lb Initial BMI 35.70 kg/m Maternal assessment other: 3 Para 1 REMOTE READ Method Transabdominal ultrasound examination [place] . Number of fetuses: 1 Dating LMP on: 04/18/2024 GA by LMP 32 w + 1 d DALY by LMP: 01/23/2025 GA by prior assessment 32 w + 1 d DALY by prior assessment: 01/23/2025 Ultrasound examination on: 11/29/2024 GA by U/S based upon: AC, BPD, Femur, HC GA by U/S 31 w + 4 d DALY by U/S: 01/27/2025 Assigned: based on stated DALY, selected on 11/29/2024 Assigned GA 32 w + 1 d Assigned DALY: 01/23/2025 General Evaluation Cardiac activity present. FHR 151 bpm. movements: present. Presentation: cephalic Placenta: Placental site: posterior, fundal Umbilical cord: Cord vessels: 3 vessel cord Amniotic fluid: Amount of AF: normal amount. MVP 5.8 cm. RYLEE 19.5 cm. Q1 5.6 cm, Q2 5.8 cm, Q3 4.4 cm, Q4 3.7 cm Growth Overview Exam date GA BPD (mm) HC (mm) AC (mm) FL (mm) HL (mm) EFW (g) 09/06/2024 20w 1d 43.1 11% 170.6 34% 149.1 45% 30.6 39% 30.1 45% 314 28% 11/29/2024 32w 1d 79.9 39% 292.9 36% 276.2 35% 59.3 26% 1787 23% Biometry Standard BPD 79.9 mm 32w 1d 39% Hadlock OFD 103.7 mm 30w 4d 30% Nicolaides HC 292.9 mm 31w 3d 36% Gayle AC 276.2 mm 31w 5d 35% Hadlock Femur 59.3 mm 30w 6d 26% Gayle EFW 1,787 g 31w 1d 23% Hadlock EFW (lb) 3 lb EFW (oz) 15 oz EFW by: Hadlock (HC-AC-FL) Extended [employer] Lead 5.0 mm Extremities / Bony Struc FL / HC 0.20 Other Structures FHR 151 bpm Anatomy Lateral ventricles: normal Cavum septi pellucidi: normal Cerebellum: normal Cisterna magna: normal 4-chamber view: normal RVOT view: normal LVOT view: normal 3-vessel view: normal Heart / Thorax Situs: situs solitus (normal) Diaphragm: normal Stomach: normal Kidneys: normal Bladder: normal sex: female Wants to know sex: yes Performed By: Namita Downing, TRACY, RVT Read By: Nasra Cody M.D. [facility] 11-14-2024 Note HNO ID: [id number] Author: EMMA MCCARTNEY MD Service: ? Author Type: Physician Type: Progress Notes Filed: 11/14/2024 15:23 Note Text: DM-Pt doing well. Denies vaginal Bleeding, Leaking fluid, or regular Contractions. Pt reports good movement Physical Exam: Gen: female in no apparent distress Abd: soft, Gravid. Non tender to palpation. See flow sheet @ 30 weeks Assessment AND Plan Supervision of high risk in third trimester ([facility]) Desires (vaginal after ) trial ([facility]) Discussed with the patient due to risk factors with CHTN and obesity possibility of needing IOL at 39 weeks is high- therefore recommendation for IOL at tertiary care center. Pt was agreeable to this. We reviewed if spontaneous active labor then delivery in [place] is reasonable. We did review risks of vs scheduled CS and signed consent today for TOLAC. History of hypertension History of section Discussed scheduling repeat cs if no spontaneous labor vs IOL at tertiary care center- pt will consider. Obesity affecting in third trimester, unspecified obesity type (HCC) Continue ASA. 30 weeks gestation of ([facility]) Kick counts and labor reviewed RTO 2 weeks Emma Koo MD [facility] 11-14-2024 History of Presen t illness Narrative DM-Pt doing well. Denies vaginal Bleeding, Leaking fluid, or regular Contractions. Pt reports good movement Physical Exam: Gen: female in no apparent distress Abd: soft, Gravid. Non tender to palpation. See flow sheet @ 30 weeks Assessment & Plan Supervision of high risk in third trimester (HCC) Desires (vaginal after ) trial ([facility]) Discussed with the patient due to risk factors with CHTN and obesity possibility of needing IOL at 39 weeks is high- therefore recommendation for IOL at tertiary care center. Pt was agreeable to this. We reviewed if spontaneous active labor then delivery in [place] is reasonable. We did review risks of vs scheduled CS and signed consent today for TOLAC. History of hypertension History of section Discussed scheduling repeat cs if no spontaneous labor vs IOL at tertiary care center- pt will consider. Obesity affecting in third trimester, unspecified obesity type ([facility]) Continue ASA. 30 weeks gestation of ([facility]) Kick counts and labor reviewed RTO 2 weeks Emma Koo MD documented in this encounter [facility] 11-14-2024 Instructions Tanya Mata MA - 11/14/2024 2:30 PM EDT SEQUENTIAL SCREENINGS The [facility] offers sequential screenings for women who are interested in screenings for chromosomal abnormalities and certain defects during a . The sequential screen combines ultrasound and blood tests to determine the risk of chromosomal abnormalities, including Down's Syndrome (Trisomy 21) and Trisomy 18, as well as open neural tube defects including spina bifida. Ultrasound examination is performed between 11 weeks and 13 weeks gestational age. Blood tests are drawn after the ultrasound and again later in the between 15 and 21 weeks gestational age. Please let your physician know if you are interested in this testing. It will require an appointment with our respiratory technician. This is not an ultrasound performed by a physician in our office during a routine visit. SIGNS AND SYMPTOMS OF LABOR 1. Contractions every 10 minutes or more often 2. Clear, pink, or brownish fluid (water) leaking from vagina 3. Feeling that baby is pushing down, pressure 4. Low, dull backache 5. Cramps that feel like a period 6. Cramps with or without diarrhea If you notice any of the above symptoms, contact our office at [phone] and ask to speak with a nurse. After hours, you can call doctors registry at [phone] OR call [facility] at [phone] and ask to have the doctor controls engineer paged. If you consider this an emergency, dial 9-1-1 or go to your nearest emergency department. NEED HELP? Are you dealing with a violent or abusive relationship? Are you a victim of rape or sexual assult? Call [facility] ([place]) 24 hour Crisis Hotline: 240.528.1606 or 083-352-1312. MANUAL Your Guide to a Healthy manual is now on-line. Visit [email or web address] to download your free copy documented in this encounter [facility] 11-06-2024 Telephone encounter Note Patient notified. Scheduled her next visit with DM. Meghana Wan RN [facility] 11-06-2024 Miscellaneous Notes Patient notified. Scheduled her next visit with DM. Meghana Wan RN Attempted to call patient. Unable to leave message. Mychart message sent. She is already aware of her glucose result. Lorie Michelle RN Cheyenne Bullock MD to [facility] Ob-Bandsaw Operator Pool 11/06/24 1:14 PM Result Note I see 3 hr is ordered. Needs next appt. w/ a physician to review TOLAC consent. Cheyenne Bullock MD GESTATIONAL GLUCOSE SCREEN, 1-HOUR, 50 GRAM, NON-FASTING; COMPLETE BLOOD COUNT AND DIFFERENTIAL; EXTRA TUBE RONN; SYPHILIS TREPONEMAL W/REFLEX documented in this encounter [facility] 11-06-2024 Telephone encounter Note Attempted to call patient. Unable to leave message. Jooobz!t message sent. She is already aware of her glucose result. Lorie Michelle RN [facility] 11-06-2024 Telephone encounter Note Cheyenne Bullock MD to [facility] Ob-Bandsaw Operator Pool 11/06/24 1:14 PM Result Note I see 3 hr is ordered. Needs next appt. w/ a physician to review TOLAC consent. Cheyenne Bullock MD GESTATIONAL GLUCOSE SCREEN, 1-HOUR, 50 GRAM, NON-FASTING; COMPLETE BLOOD COUNT AND DIFFERENTIAL; EXTRA TUBE RONN; SYPHILIS TREPONEMAL W/REFLEX [facility] 11-04-2024 Note HNO ID: [id number] Author: JONATHON HUMMEL APRN.POLITICAL RESEARCHER Service: ? Author Type: Nurse Practitioner Type: Progress Notes Filed: 11/04/2024 12:09 Note Text: Subjective HPI Nontoxic-appearing 28-week 29-year-old female presents urgent care chief complaint sinus pressure. Duration of symptoms 2-1/2 weeks. Associated symptoms worsening sinus pressure. Describes it as unilateral. was seen by a PCP on Wednesday. Placed on amoxicillin. Has been on amoxicillin for approximately 72 hours. Symptoms are worsening. OTC medications nasal irrigation. Denies any fevers nausea vomiting or abdominal pain. No chest pain or shortness of breath. Past medical history prescription medications allergies reviewed. .Patient presents with: Sinus Problem: sinus pressure, drainage on amoxicillin x 2 days PAST MEDICAL HISTORY Diagnosis Date Allergic rhinitis, cause unspecified History of herpes genitalis 11/30/2022 11/30/2022 Patient has a history of genital herpes. She is currently on acyclovir.TKRN History of hypertension PMH - PAST MEDICAL HISTORY OF normal color vision Unspecified asthma(493.90) PAST SURGICAL HISTORY Procedure Laterality Date PAST SURGICAL HISTORY OF wisdom teeth TYMPANOSTOMY LOCAL/TOPICAL ANESTHESIA ALLERGIES Patient has no known allergies. MEDICATIONS amoxicillin (AMOXIL) 875 mg tablet Take 1 tablet by mouth every 12 hours. aspirin, enteric coated (ECOTRIN LOW STRENGTH) 81 mg EC tablet Take 2 tablets by mouth once daily. valACYclovir (VALTREX) 1 gram tablet Take 1 tablet by mouth once daily. prental multivitamin 27 mg iron- 800 mcg tablet Take 1 tablet by mouth once daily. diphenhydramine HCl (BENADRYL ORAL) Take by mouth. ascorbic acid (CARLOS MANUEL-C ORAL) Take by mouth. cholecalciferol, vitamin D3, (VITAMIN D3 ORAL) Take by mouth. zinc sulfate (ZINC-15 ORAL) Take by mouth. budesonide-formoterol (SYMBICORT) 160-4.5 mcg/actuation inhaler Inhale 2 Puffs as instructed twice daily. cetirizine HCl (ZYRTEC ORAL) Take by mouth. 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 Dispense generic if available. mometasone (NASONEX) 50 mcg/actuation nasal spray Use 2 Sprays in each nostril once daily. albuterol HFA (PROVENTIL HFA) 90 mcg/actuation inhaler Inhale 2 Puffs as instructed every 4 hours as needed (May also use 15 minutes pre-exercise. Use with spacer. Proventil JOEL). FAMILY HISTORY Problem Relation Age of Onset Hypertension Mother Hypertension Father No Known Problems Brother No Known Problems Brother No Known Problems Brother Asthma Brother Diabetes Maternal Grandmother Hypertension Maternal Grandmother Uterine Cancer Maternal Grandmother Heart Maternal Grandfather of massive heart attack at age 43 Hypertension Paternal Grandmother Diabetes Paternal Grandmother Hypertension Paternal Grandfather Social History Tobacco Use Smoking status: Never Smokeless tobacco: Never Vaping Use Vaping status: Never Used Substance Use Topics Alcohol use: Not Currently Comment: socially Drug use: Never BP 122/70 Pulse 98 Temp 36.8 ?C (98.2 ?F) Resp 16 Wt 97.4 kg (214 lb 11.7 oz) LMP 04/18/2024 (Exact Date) SpO2 98% BMI 36.86 kg/m? Review of Systems Constitutional: Negative for chills, fever and malaise/fatigue. HENT: Positive for congestion and sinus pain. Negative for ear discharge, ear pain and sore throat. Eyes: Negative for blurred vision, pain, discharge and redness. Respiratory: Negative for cough, hemoptysis, sputum production, shortness of breath, wheezing and stridor. Cardiovascular: Negative for chest pain. Gastrointestinal: Negative for abdominal pain, diarrhea, nausea and vomiting. Musculoskeletal: Negative for myalgias. Skin: Negative for itching and rash. Neurological: Positive for headaches. Negative for dizziness. Objective Physical Exam Constitutional: General: She is not in acute distress. Appearance: She is not diaphoretic. HENT: Head: Normocephalic. Jaw: No trismus, tenderness, swelling or pain on movement. Right Ear: Tympanic membrane, ear canal and external ear normal. Left Ear: Tympanic membrane, ear canal and external ear normal. Nose: Congestion present. Right Sinus: Maxillary sinus tenderness and frontal sinus tenderness present. Mouth/Throat: Mouth: Mucous membranes are moist. Pharynx: Oropharynx is clear. Uvula midline. No pharyngeal swelling, oropharyngeal exudate, posterior oropharyngeal erythema or uvula swelling. Eyes: Conjunctiva/sclera: Conjunctivae normal. Pupils: Pupils are equal, round, and reactive to light. Cardiovascular: Rate and Rhythm: Normal rate and regular rhythm. Heart sounds: Normal heart sounds. Pulmonary: Effort: Pulmonary effort is normal. No tachypnea, accessory muscle usage or respira (more content not included)... [facility] 11-04-2024 History of Presen t illness Narrative Subjective HPI Nontoxic-appearing 28-week 29-year-old female presents urgent care chief complaint sinus pressure. Duration of symptoms 2-1/2 weeks. Associated symptoms worsening sinus pressure. Describes it as unilateral. was seen by a PCP on Wednesday. Placed on amoxicillin. Has been on amoxicillin for approximately 72 hours. Symptoms are worsening. OTC medications nasal irrigation. Denies any fevers nausea vomiting or abdominal pain. No chest pain or shortness of breath. Past medical history prescription medications allergies reviewed. .Patient presents with: Sinus Problem: sinus pressure, drainage on amoxicillin x 2 days PAST MEDICAL HISTORY Diagnosis Date Allergic rhinitis, cause unspecified History of herpes genitalis 11/30/2022 11/30/2022 Patient has a history of genital herpes. She is currently on acyclovir.TKRN History of hypertension PMH - PAST MEDICAL HISTORY OF normal color vision Unspecified asthma(493.90) PAST SURGICAL HISTORY Procedure Laterality Date PAST SURGICAL HISTORY OF wisdom teeth TYMPANOSTOMY LOCAL/TOPICAL ANESTHESIA ALLERGIES Patient has no known allergies. MEDICATIONS amoxicillin (AMOXIL) 875 mg tablet Take 1 tablet by mouth every 12 hours. aspirin, enteric coated (ECOTRIN LOW STRENGTH) 81 mg EC tablet Take 2 tablets by mouth once daily. valACYclovir (VALTREX) 1 gram tablet Take 1 tablet by mouth once daily. prental multivitamin 27 mg iron- 800 mcg tablet Take 1 tablet by mouth once daily. diphenhydramine HCl (BENADRYL ORAL) Take by mouth. ascorbic acid (CARLOS MANUEL-C ORAL) Take by mouth. cholecalciferol, vitamin D3, (VITAMIN D3 ORAL) Take by mouth. zinc sulfate (ZINC-15 ORAL) Take by mouth. budesonide-formoterol (SYMBICORT) 160-4.5 mcg/actuation inhaler Inhale 2 Puffs as instructed twice daily. cetirizine HCl (ZYRTEC ORAL) Take by mouth. 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 Dispense generic if available. mometasone (NASONEX) 50 mcg/actuation nasal spray Use 2 Sprays in each nostril once daily. albuterol HFA (PROVENTIL HFA) 90 mcg/actuation inhaler Inhale 2 Puffs as instructed every 4 hours as needed (May also use 15 minutes pre-exercise. Use with spacer. Proventil JOEL). FAMILY HISTORY Problem Relation Age of Onset Hypertension Mother Hypertension Father No Known Problems Brother No Known Problems Brother No Known Problems Brother Asthma Brother Diabetes Maternal Grandmother Hypertension Maternal Grandmother Uterine Cancer Maternal Grandmother Heart Maternal Grandfather of massive heart attack at age 43 Hypertension Paternal Grandmother Diabetes Paternal Grandmother Hypertension Paternal Grandfather Social History Tobacco Use Smoking status: Never Smokeless tobacco: Never Vaping Use Vaping status: Never Used Substance Use Topics Alcohol use: Not Currently Comment: socially Drug use: Never BP 122/70 Pulse 98 Temp 36.8 C (98.2 F) Resp 16 Wt 97.4 kg (214 lb 11.7 oz) LMP 04/18/2024 (Exact Date) SpO2 98% BMI 36.86 kg/m Review of Systems Constitutional: Negative for chills, fever and malaise/fatigue. HENT: Positive for congestion and sinus pain. Negative for ear discharge, ear pain and sore throat. Eyes: Negative for blurred vision, pain, discharge and redness. Respiratory: Negative for cough, hemoptysis, sputum production, shortness of breath, wheezing and stridor. Cardiovascular: Negative for chest pain. Gastrointestinal: Negative for abdominal pain, diarrhea, nausea and vomiting. Musculoskeletal: Negative for myalgias. Skin: Negative for itching and rash. Neurological: Positive for headaches. Negative for dizziness. Objective Physical Exam Constitutional: General: She is not in acute distress. Appearance: She is not diaphoretic. HENT: Head: Normocephalic. Jaw: No trismus, tenderness, swelling or pain on movement. Right Ear: Tympanic membrane, ear canal and external ear normal. Left Ear: Tympanic membrane, ear canal and external ear normal. Nose: Congestion present. Right Sinus: Maxillary sinus tenderness and frontal sinus tenderness present. Mouth/Throat: Mouth: Mucous membranes are moist. Pharynx: Oropharynx is clear. Uvula midline. No pharyngeal swelling, oropharyngeal exudate, posterior oropharyngeal erythema or uvula swelling. Eyes: Conjunctiva/sclera: Conjunctivae normal. Pupils: Pupils are equal, round, and reactive to light. Cardiovascular: Rate and Rhythm: Normal rate and regular rhythm. Heart sounds: Normal heart sounds. Pulmonary: Effort: Pulmonary effort is normal. No tachypnea, accessory muscle usage or respiratory distress. Breath sounds: Normal breath sounds. No stridor. No wheezing, rhonchi or rales. Abdominal: General: There is no distension. Palpations: Abdomen is soft. Tenderness: There is no abdominal tenderness. There is no guarding or rebound. Musculoskeletal: Cervical back: Normal range of motion and neck supple. No edema, erythema, rigidity or tenderness. No pain with movement. Normal range of motion. Lymphadenopathy: Cervical: No cervical adenopathy. Skin: General: Skin is warm and dry. Neurological: Mental Status: She is alert and oriented to person, place, and time. ASSESSMENT/PLAN: 1. Bacterial sinusitis - ICD9: 473.9, 041.9, ICD10: J32.9, B96.89 Diagnosed with bacterial sinusitis. Discontinue amoxicillin. Will start Augmentin. Encourage follow-up with ENT. Patient was educated on supportive therapies. Patient will follow up with primary care provider as needed. Patient was instructed to immediately proceed to emergency room for any new, worsening, or symptoms lasting longer than anticipated. The patient's clinical presentation is otherwise unremarkable at this time. Based on exam and clinical finding, the patient is stable for discharge. Plan of care was discussed with patient. Patient verbalizes understanding and agrees to plan of care. This note was generated using [employer] software. It may contain errors in wording, punctuation, or spelling. Jonathon Hummel APRN.[place] documented in this encounter [facility] 11-03-2024 Note HNO ID: [id number] Author: LINSEY SHAH APRN.CNM Service: ? Author Type: Tube Making Machine Operator Type: Progress Notes Filed: 11/03/2024 17:14 Note Text: DANA-S: Vaishali Sorto is a 29 year old female who presents at 28w3d with DALY:01/23/2025, by Last Menstrual Period for a routine visit. Denies headache, visual changes, chest pain, shortness of breath, vaginal bleeding, leakage of fluid, or dysuria. Feeling well, no complaints. O: See flow sheet Gen: No apparent distress Abd: Gravid, nontender ASSESSMENT/PLAN: 1. Supervision of other high risk pregnancies, first trimester -Continue PNV and start ASA - 1 hour GCT, CBC, and RPR today - O positive - TDAP declined - LARC form reviewed and signed. Patient declines - Depression screen negative - Opioid screen negative - plan form discussed and given to patient. 2. 28 weeks gestation of 3. History of section -History of LTCS due to breech presentation. -TOLAC consent signed 4. Desires (vaginal after ) trial 11/03/24-History of LTCS on 01/05/23 for Breech presentation by . 56% predicted success rate. Reviewed would not recommend IOL but not a contraindication. If desires would like recommend AG if not favorable cervix. TOLAC consent signed. 5. History of hypertension -History of CHTN, took Nifedipine last and D/Cd . BP has been stable and no medications since that time. -Baseline preeclampsia labs normal -Checking BP at home and knows when to call. 6. History of herpes genitalis -Will start prophylaxis at 36 weeks 7. Obesity in -Pregravid BMI 35. -Growth US every 4wk starting at 32wk. NSTs weekly starting at 36 wk 8. Severe persistent asthma without complication -Stable and doing well -No Hemabate at delivery - PTL precautions and kick counts reviewed - RTO- 2 weeks or sooner if needed [facility] History of Presen t illness Narrative DANA-S: Vaishali Sorto is a 29 year old female who presents at 28w3d with DALY:01/23/2025, by Last Menstrual Period for a routine visit. Denies headache, visual changes, chest pain, shortness of breath, vaginal bleeding, leakage of fluid, or dysuria. Feeling well, no complaints. O: See flow sheet Gen: No apparent distress Abd: Gravid, nontender ASSESSMENT/PLAN: 1. Supervision of other high risk pregnancies, first trimester -Continue PNV and start ASA - 1 hour GCT, CBC, and RPR today - O positive - TDAP declined - LARC form reviewed and signed. Patient declines - Depression screen negative - Opioid screen negative - plan form discussed and given to patient. 2. 28 weeks gestation of 3. History of section -History of LTCS due to breech presentation. -TOLAC consent signed 4. Desires (vaginal after ) trial 11/03/24-History of LTCS on 01/05/23 for Breech presentation by . 56% predicted success rate. Reviewed would not recommend IOL but not a contraindication. If desires would like recommend AG if not favorable cervix. TOLAC consent signed. 5. History of hypertension -History of CHTN, took Nifedipine last and D/Cd . BP has been stable and no medications since that time. -Baseline preeclampsia labs normal -Checking BP at home and knows when to call. 6. History of herpes genitalis -Will start prophylaxis at 36 weeks 7. Obesity in -Pregravid BMI 35. -Growth US every 4wk starting at 32wk. NSTs weekly starting at 36 wk 8. Severe persistent asthma without complication -Stable and doing well -No Hemabate at delivery - PTL precautions and kick counts reviewed - RTO- 2 weeks or sooner if needed Linsey Shah APRN.CNM documented in this encounter [facility] 11-03-2024 Instructions Linsey Shah APRN.CNM - 11/03/2024 2:21 PM EDT Images from the original note were not included. Preparing for labor: Eat dates to promote spontaneous labor! Has an oxytocin-like effect on the body, leading to increased sensitivity of the uterus. Stimulates uterine contractions. Reduces hemorrhage the way oxytocin does. Date fruit contains saturated and unsaturated fatty acids such as oleic, linoleic, and linolenic acids, which are involved in saving and supplying energy and construction of prostaglandins. In addition, serotonin, tannin, and calcium in date fruit contribute to the contraction of smooth muscles of the uterus. Date fruit also has a laxative effect, which stimulates uterine contractions. Six dates per day is the magic number--provided that you re eating smaller deglet noor dates. Deglet noor dates are about 1 inch long. Medjool dates can be up to 2 inches long. If you re eating medjool dates, you only need about 3 dates to reach the 75 grams recommended in the studies. Not sure which type of date you have in your refrigerator? It s probably a deglet noor. How to Eat Dates During Dates are a healthy and delicious snack, so how can you add them to your diet? Add dates during in this awesome oatmeal recipe. Add dates to replace sugar in your favorite recipe or to navdeep your homemade almond milk. Use dates and nuts to make an easy pie crust in the seafood clerk. Add soaked dates to homemade nut butter for a sweet treat. Add dates to navdeep homemade salad dressing. Add dates during easily with these yummy (paleo friendly) bars made from dates. What Is Red Raspberry [place] Tea? Red raspberry leaf tea comes from the leaves of the red raspberry plant. This herbal tea has been used for centuries to support respiratory, digestive and uterine health, particularly during and childbearing years. While usually known as a female herb, red raspberry leaf tea can also help support the prostate and various stomach ailments in children. How It Can Help and Red raspberry leaf tea can help to make labor faster and reduce complications and interventions during . One study found that women who consumed RRL tea regularly are less likely to go overdue or give prematurely. These women may also be less likely to receive an artificial rupture of their membranes or require a section, forceps, or vacuum than the women in the control group. Red raspberry leaf has many other benefits to , , and too. How Much Red Raspberry [place] Tea to Drink? With your doctor or roll coating machine operator s approval, start with 1 cup of red raspberry leaf tea per day starting in the second trimester. Watch for any uterine cramping or other reactions. If you don t experience any, you can talk to your healthcare provider about increasing to 2 cups per day. Again, watch for any uterine cramping. If you notice any, cut back on your dosage for two weeks and try again. Keep in mind, some moms have irritable uteruses and can only drink red raspberry leaf tea once they reach their due date because of uterine cramping. Is Red Raspberry [place] Tea the Same as Raspberry [place] Tea? How About Plain Old Raspberry Tea? Sometimes. You really need to look at the ingredients to be sure. Note that there is no difference between red raspberry leaf and raspberry leaf. [employer] or [employer] Raspberry [place] Tea are two good brands. The red raspberry leaf teas that we recommend are 100% red raspberry leaf. Other teas labeled as raspberry are often a blend of rosehips, hibiscus, raspberry leaves, and raspberry flavor. So they may not be as effective. The teas to avoid are raspberry-flavored herbal teas, which may have ingredients like hibiscus, vee hips, apples, elderberries, natural and artificial raspberry flavors. Teas like this don t contain raspberry leaf at all and thus won t offer any of the potential benefits of RRLT outlined in this article. [employer] www.Where I've Been I named this 'circuit' after my friend Ana Ta, who shared and discussed it with me when I was working with a client whose labor seemed to be stalled out and no longer progressing... This circuit is useful to help get the baby lined up, ideally, in the Left Occiput Anterior (SARAH) Position, both before labor begins and when some corrections need to be done during labor. Prenatally, this position set can help to rotate a baby. As a natural method of induction, this can help get things going if baby just needed a gentle nudge of position to set things off. To the best of my knowledge, this group of positions will not hurt a baby that is already lined up correctly. - Shayna Medrano Before you Begin..... This circuit takes at least 90 minutes to complete so clear your schedule and make mental preparations so you can relax in your environment. The second step requires a lot of pillows so gather them up before beginning Before starting, you should empty your bladder! Have a nice drink nearby, and make sure it has a straw! If you are having contractions, this circuit should bedone through contractions, try not to change positions between steps Step One: Open-knee Chest Stay in this position for 30 minutes, start in cat/cow, then drop your chest as low as you can to the bed or the floor and your bottom as high as you can. Knees should be fairly wide apart, and the angle between the torso/thighs should be wider than 90 degrees. Wiggle around, prop with lots of pillows and use this time to get totally relaxed. This position allows the baby to scoot out of the pelvis a bit and gives them room to rotate, shift their head position, etc. If the person finds it helpful,careful positioning with a rebozo under the belly, with gentle tension from a support person behindcan help maintain this position for the full 30minutes. Step Two: Exaggerated Left Side Lying Roll to your left side, bringing your top leg as high as possible and keeping your bottom leg straight. Roll forward as much as possible,again using a lot of pillows. Sink into the bed and relax some more. If you fall asleep, that's totally okay and you can stay there! If not, stay here for at least another half an hour. Try and get your top right leg up towards your head and get as rolled over onto your belly as much as possible. If you repeat the circuit during labor, try alternating left and right sides. We know the photo the left is actually right side... just flip the image in your head. Step Three: Moving and Lunges Lunge, walk stairs facing sideways, 2 at a time, (have a house calls nurse practitioner downstairs of you!), take a walk outside with one foot on the curb and the other on the street, sit on a ball and hula- anything that's upright and putting your pelvis in open, asymmetrical positions. Spend at least 30 minutes doing this one as well to give your baby a chance to move down. If you are lunging or stair or curb walking, you should lunge/walk/go up stairs in the direction that feels better to you. The duggan with the lunge is that the toes of the higher leg and mom's belly button should be at right angles. Do not lunge over your knee, that closes the pelvis. Ana Ta: Circuit Creator - [email or web address] catina Medrano, CD, BDT (KARMEN), LCCE, FACCE: Supporting Content - [email or web address] Ciarra Conway: Photography - [email or web address] Nelida Valles CD/CDT (RICHIE): Print and Metal Annealer - www.P[employer] [email or web address] What is my perineum? Your perineum is the area between your vaginal opening and your rectum. This area stretches when you give , and sometimes the perineum or vagina will tear as your baby is being born. If your health care provider cuts an episiotomy during your , it is this area that is cut. You may need stitches after your baby is born if you have a tear or have an episiotomy. How often do perineal tears occur? About 4 to 8 out of every 10 women who give vaginally will have some tear in their perineum. About two?thirds of these women will need some stitches. Is an episiotomy necessary? An episiotomy is not necessary for most women. Although they were common before the , they are rarely done today. However, sometimes your health care provider may recommend an episiotomy just as your baby is being born. For example, an episiotomy can help if your baby needs to be born very quickly. You can ask your health care provider to talk with you about episiotomy during a visit. Can my health care provider do anything to help me avoid a tear? There are many ways that your health care provider can help to reduce your chance of tearing. For example, your provider may: Apply a warm compress to the perineum just before the baby comes out Recommend specific positions for you to be in as you push Provide gentle downward pressure on the baby's head as your baby is coming out Ask that you push your baby out between contractions Avoid the use of forceps or a vacuum to help your baby be born Can I do anything before the to help me avoid a tear? Preventing a perineal tear that occurs during has been the subject of many research studies. Several studies have found that perineal massage during the last weeks of can reduce tearing at for women giving for the first time. This massage--using 2 fingers to stretch your perineal tissues--is performed by you, in your home, once or twice a week, for the last 4 to 6 weeks of your . The next page of this handout tells how to do this massage. For every 15 women who do perineal massage, one woman will avoid an episiotomy and perineal tearing that needs stitches. While you massage, you can practice relaxing the muscles in your perineum. This can help you prepare for the stretching, burning feeling you may have when your baby's head is born. Relaxing this area during can help prevent tearing. Does perineal massage in help all women? Massage seems to work better for some women than others. Women having their first baby, women who are 30 years or older, and women who have had episiotomies before have fewer tears and less severe tears when perineal massage is done during the last weeks of . Can my partner help? Yes! Many women find that it is easier to have their partners do this massage. See the instructions for perineal massage on the next page for more information. Are there any risks to perineal massage during ? Not that we know of. It is free. It doesn't hurt. It is easy to do. And most women don't mind doing it. However, you should not stretch the perineum until it hurts or massage too often, which can hurt the skin in that area. Do not do perineal massage more than once or twice a week. Women who do it more often do not have a lower risk of perineal tearing. Check with your health care provider before beginning perineal massage. And, if you believe your amniotic fluid (bag of myers) is leaking, check with your health care provider before putting anything in your vagina. Instructions for Perineal Massage During Wash your hands well, and make sure your fingernails are short. Relax in a private place where you can rest with your legs open and your knees bent. Some women like to lean on pillows for back support. Lubricate your thumbs and the perineal tissues. Use a lubricant such as vitamin E oil, coconut oil, almond oil, or any vegetable oil used for cooking--like olive oil. You may also try a water?soluble jelly, such as K?Y jelly, or your body's natural vaginal lubricant. Do not use baby oil, mineral oil, or petroleum jelly (Vaseline). Place your thumbs about 1 to 1.5 inches inside your vagina (see Figure 1). Press down (toward the anus) and to the sides until you feel a slight burning, stretching sensation. Hold that stretched position for 1 or 2 minutes. With your thumbs, slowly massage the lower half of the vagina using a U?shaped movement for 2 to 3 minutes at most. Concentrate on relaxing your muscles. This is a good time to practice slow, deep breathing techniques. Partners: If your partner is doing the perineal massage, follow the same basic instructions above. However, your partner should use his or her index fingers to do the massage (instead of thumbs). The same side?to?side, U?shaped, downward pressure method should be used. Good communication is important--be sure to tell your partner if you have too much pain or burning! Figure 1 1 Perineal Massage Ousmaneid Grade Level: 7.2 Approved August 2015. This handout replaces Perineal Massage in published in Volume 50, Issue 1, Sep 2004 SIGNS AND SYMPTOMS OF LABOR 1. Contractions every 10 minutes or more often 2. Clear, pink, or brownish fluid (water) leaking from vagina 3. Feeling that baby is pushing down, pressure 4. Low, dull backache 5. Cramps that feel like a period 6. Cramps with or without diarrhea If you notice any of the above symptoms, contact our office at [phone] and ask to speak with a nurse. After hours, you can call doctors registry at [phone] OR call [facility] at [phone] and ask to have the doctor controls engineer paged. If you consider this an emergency, dial 9-1-8 or go to your nearest emergency department. NEED HELP? Are you dealing with a violent or abusive relationship? Are you a victim of rape or sexual assult? Call [facility] ([place]) 24 hour Crisis Hotline: 495.510.8606 or 754-439-7514. MANUAL Your Guide to a Healthy manual is now on-line. Visit [email or web address] to download your free copy documented in this encounter [facility] 10-06-2024 Telephone encounter Note Amoxicillin ok to take [facility] Work Phone: 10-06-2024 Miscellaneous Notes Amoxicillin ok to take Ob patient is 24w3d documented in this encounter [facility] 10-06-2024 Telephone encounter Note Ob patient is 24w3d [facility] 10-05-2024 Instructions Linsey Shah APRN.CNM - 10/05/2024 9:47 AM EST Directions for Fresh Test at [facility] Order 50 gm test via [email or web address].[employer] to be mailed to you Bring packet/drink with you to the lab the day of the test If ordered the powder option- you MUST bring 10 oz of water to mix with Go to lab and drink in front of lab personnel Have lab draw your blood after 1 hour Any questions? Please call office at [phone] SIGNS AND SYMPTOMS OF LABOR 1. Contractions every 10 minutes or more often 2. Clear, pink, or brownish fluid (water) leaking from vagina 3. Feeling that baby is pushing down, pressure 4. Low, dull backache 5. Cramps that feel like a period 6. Cramps with or without diarrhea If you notice any of the above symptoms, contact our office at [phone] and ask to speak with a nurse. After hours, you can call doctors registry at [phone] OR call [facility] at [phone] and ask to have the doctor controls engineer paged. If you consider this an emergency, dial 9-1-0 or go to your nearest emergency department. NEED HELP? Are you dealing with a violent or abusive relationship? Are you a victim of rape or sexual assult? Call [facility] ([place]) 24 hour Crisis Hotline: 205.125.5693 or 573-997-8060. MANUAL Your Guide to a Healthy manual is now on-line. Visit [email or web address] to download your free copy documented in this encounter [facility] 10-05-2024 Progress note Formatting of t his note might be different from the original. DANA-S: Vaishali Sorto is a 29 year old female who presents at 24w2d with DALY:01/23/2025, by Last Menstrual Period for a routine visit. Denies headache, visual changes, chest pain, shortness of breath, vaginal bleeding, leakage of fluid, or dysuria. Feeling well, no complaints. O: See flow sheet Gen: No apparent distress Abd: Gravid, nontender S=D, 12 lb TWG ASSESSMENT/PLAN: 1. Supervision of other high risk pregnancies, first trimester -Continue PNV and start ASA -1hr GCT next visit. Planning fresh test and information given 2. 24 weeks gestation of 3. History of section -History of LTCS due to breech presentation. Desires TOLAC, will review consent next visit. 4. Desires (vaginal after ) trial 5. History of hypertension -History of CHTN, took Nifedipine last and D/Cd . BP has been stable and no medications since that time. -Baseline preeclampsia labs normal -Checking BP at home and knows when to call. 6. History of herpes genitalis -Will start prophylaxis at 36 weeks 7. Obesity in -Pregravid BMI 35. -Growth US every 4wk starting at 32wk. NSTs weekly starting at 36 wk 8. Severe persistent asthma without complication -Stable and doing well -No Hemabate at delivery PTL precautions reviewed and when to call RTO in 4 weeks Linsey Shah APRN.CNM [facility] 10-05-2024 Miscellaneous Notes DANA-S: Vaishali Sorto is a 29 year old female who presents at 24w2d with DALY:01/23/2025, by Last Menstrual Period for a routine visit. Denies headache, visual changes, chest pain, shortness of breath, vaginal bleeding, leakage of fluid, or dysuria. Feeling well, no complaints. O: See flow sheet Gen: No apparent distress Abd: Gravid, nontender S=D, 12 lb TWG ASSESSMENT/PLAN: 1. Supervision of other high risk pregnancies, first trimester -Continue PNV and start ASA -1hr GCT next visit. Planning fresh test and information given 2. 24 weeks gestation of 3. History of section -History of LTCS due to breech presentation. Desires TOLAC, will review consent next visit. 4. Desires (vaginal after ) trial 5. History of hypertension -History of CHTN, took Nifedipine last and D/Cd . BP has been stable and no medications since that time. -Baseline preeclampsia labs normal -Checking BP at home and knows when to call. 6. History of herpes genitalis -Will start prophylaxis at 36 weeks 7. Obesity in -Pregravid BMI 35. -Growth US every 4wk starting at 32wk. NSTs weekly starting at 36 wk 8. Severe persistent asthma without complication -Stable and doing well -No Hemabate at delivery PTL precautions reviewed and when to call RTO in 4 weeks Linsey Shah APRN.CNM documented in this encounter [facility] 09-06-2024 Progress note Formatting of t his note might be different from the original. DANA-S: Vaishali Sorto is a 29 year old female who presents at 20w1d with DALY:01/23/2025, by Last Menstrual Period for a routine visit. Denies headache, visual changes, chest pain, shortness of breath, vaginal bleeding, leakage of fluid, or dysuria. Feeling well, no complaints. O: See flow sheet Gen: No apparent distress Abd: Gravid, nontender ASSESSMENT/PLAN: 1. Supervision of other high risk pregnancies, first trimester -PN labs today -Continue PNV and start ASA -Anatomy US today 2. 20 weeks gestation of 3. History of section -History of LTCS due to breech presentation. Desires TOLAC, will review consent next visit. 4. Desires (vaginal after ) trial 5. History of hypertension -History of CHTN, took Nifedipine last and D/Cd . BP has been stable and no medications since that time. -Baseline preeclampsia labs normal -Checking BP at home and knows when to call. 6. History of herpes genitalis -Will start prophylaxis at 36 weeks 7. Obesity in -Pregravid BMI 35. -Growth US every 4wk starting at 32wk. NSTs weekly starting at 36 wk 8. Severe persistent asthma without complication -Stable and doing well -No Hemabate at delivery PTL precautions reviewed and when to call RTO in 4 wks Linsey Shah APRN.CNM [facility] 09-06-2024 Miscellaneous Notes DANA-S: Vaishali Sorto is a 29 year old female who presents at 20w1d with DALY:01/23/2025, by Last Menstrual Period for a routine visit. Denies headache, visual changes, chest pain, shortness of breath, vaginal bleeding, leakage of fluid, or dysuria. Feeling well, no complaints. O: See flow sheet Gen: No apparent distress Abd: Gravid, nontender ASSESSMENT/PLAN: 1. Supervision of other high risk pregnancies, first trimester -PN labs today -Continue PNV and start ASA -Anatomy US today 2. 20 weeks gestation of 3. History of section -History of LTCS due to breech presentation. Desires TOLAC, will review consent next visit. 4. Desires (vaginal after ) trial 5. History of hypertension -History of CHTN, took Nifedipine last and D/Cd . BP has been stable and no medications since that time. -Baseline preeclampsia labs normal -Checking BP at home and knows when to call. 6. History of herpes genitalis -Will start prophylaxis at 36 weeks 7. Obesity in -Pregravid BMI 35. -Growth US every 4wk starting at 32wk. NSTs weekly starting at 36 wk 8. Severe persistent asthma without complication -Stable and doing well -No Hemabate at delivery PTL precautions reviewed and when to call RTO in 4 wks Linsey Shah APRN.CNM documented in this encounter [facility] 09-06-2024 Instructions Chapin Kenny MA - 09/06/2024 11:07 AM EST SEQUENTIAL SCREENINGS The [facility] offers sequential screenings for women who are interested in screenings for chromosomal abnormalities and certain defects during a . The sequential screen combines ultrasound and blood tests to determine the risk of chromosomal abnormalities, including Down's Syndrome (Trisomy 21) and Trisomy 18, as well as open neural tube defects including spina bifida. Ultrasound examination is performed between 11 weeks and 13 weeks gestational age. Blood tests are drawn after the ultrasound and again later in the between 15 and 21 weeks gestational age. Please let your physician know if you are interested in this testing. It will require an appointment with our respiratory technician. This is not an ultrasound performed by a physician in our office during a routine visit. SIGNS AND SYMPTOMS OF LABOR 1. Contractions every 10 minutes or more often 2. Clear, pink, or brownish fluid (water) leaking from vagina 3. Feeling that baby is pushing down, pressure 4. Low, dull backache 5. Cramps that feel like a period 6. Cramps with or without diarrhea If you notice any of the above symptoms, contact our office at [phone] and ask to speak with a nurse. After hours, you can call doctors registry at [phone] OR call [facility] at [phone] and ask to have the doctor controls engineer paged. If you consider this an emergency, dial 9-1-1 or go to your nearest emergency department. NEED HELP? Are you dealing with a violent or abusive relationship? Are you a victim of rape or sexual assult? Call [facility] ([place]) 24 hour Crisis Hotline: 764.655.1410 or 053-577-1316. MANUAL Your Guide to a Healthy manual is now on-line. Visit [email or web address] to download your free copy documented in this encounter [facility] 08-21-2024 Telephone encounter Note Would recommend evaluation with PCP for formal diagnosis. Linsey Shah APRN.CNM [facility] 08-21-2024 Miscellaneous Notes Would recommend evaluation with PCP for formal diagnosis. Linsey Shah APRN.CNM Patient 17w6d, her next appointment is on 09/06. documented in this encounter [facility] 08-21-2024 Telephone encounter Note Patient 17w6d, her next appointment is on 09/06. [facility] 08-16-2024 Progress note Formatting of t his note might be different from the original. DANA-S: Vaishali Sorto is a 29 year old female who presents at 17w1d with DALY:01/23/2025, by Last Menstrual Period for a routine visit. Denies headache, visual changes, chest pain, shortness of breath, vaginal bleeding, leakage of fluid, or dysuria. Seen in ED for RSV, pneumonia, and cramping. Cramping was pulling and sharp sensation bilateral pelvis. Frequent coughing due to infection. ASSESSMENT/PLAN: 1. Supervision of other high risk pregnancies, first trimester -PN labs today -Schedule 20wk US -Continue PNV and start ASA -Reviewed RLP and coughing likely cause of discomfort and pelvic pulling sensation. Reviewed precautions and when to call. 2. 12 weeks gestation of 3. History of section -History of LTCS due to breech presentation. Desires TOLAC, will review consent next visit. 4. Desires (vaginal after ) trial 5. History of hypertension -History of CHTN, took Nifedipine last and D/Cd . BP has been stable and no medications since that time. -Baseline preeclampsia labs normal -Checking BP at home and knows when to call. 6. History of herpes genitalis -Will start prophylaxis at 36 weeks 7. Obesity in -Pregravid BMI 35. -Growth US every 4wk starting at 32wk. NSTs weekly starting at 36 wk 8. Severe persistent asthma without complication -Stable and doing well -No Hemabate at delivery PTL precautions reviewed and when to call RTO in 4 weeks Linsey Shah APRN.CNM [facility] 08-16-2024 Miscellaneous Notes DANA-S: Vaishali Sorto is a 29 year old female who presents at 17w1d with DALY:01/23/2025, by Last Menstrual Period for a routine visit. Denies headache, visual changes, chest pain, shortness of breath, vaginal bleeding, leakage of fluid, or dysuria. Seen in ED for RSV, pneumonia, and cramping. Cramping was pulling and sharp sensation bilateral pelvis. Frequent coughing due to infection. ASSESSMENT/PLAN: 1. Supervision of other high risk pregnancies, first trimester -PN labs today -Schedule 20wk US -Continue PNV and start ASA -Reviewed RLP and coughing likely cause of discomfort and pelvic pulling sensation. Reviewed precautions and when to call. 2. 12 weeks gestation of 3. History of section -History of LTCS due to breech presentation. Desires TOLAC, will review consent next visit. 4. Desires (vaginal after ) trial 5. History of hypertension -History of CHTN, took Nifedipine last and D/Cd . BP has been stable and no medications since that time. -Baseline preeclampsia labs normal -Checking BP at home and knows when to call. 6. History of herpes genitalis -Will start prophylaxis at 36 weeks 7. Obesity in -Pregravid BMI 35. -Growth US every 4wk starting at 32wk. NSTs weekly starting at 36 wk 8. Severe persistent asthma without complication -Stable and doing well -No Hemabate at delivery PTL precautions reviewed and when to call RTO in 4 weeks Linsey Shah APRN.CNM documented in this encounter [facility] 08-16-2024 Instructions Chapin Kenny MA - 08/16/2024 1:35 PM EST SEQUENTIAL SCREENINGS The [facility] offers sequential screenings for women who are interested in screenings for chromosomal abnormalities and certain defects during a . The sequential screen combines ultrasound and blood tests to determine the risk of chromosomal abnormalities, including Down's Syndrome (Trisomy 21) and Trisomy 18, as well as open neural tube defects including spina bifida. Ultrasound examination is performed between 11 weeks and 13 weeks gestational age. Blood tests are drawn after the ultrasound and again later in the between 15 and 21 weeks gestational age. Please let your physician know if you are interested in this testing. It will require an appointment with our respiratory technician. This is not an ultrasound performed by a physician in our office during a routine visit. SIGNS AND SYMPTOMS OF LABOR 1. Contractions every 10 minutes or more often 2. Clear, pink, or brownish fluid (water) leaking from vagina 3. Feeling that baby is pushing down, pressure 4. Low, dull backache 5. Cramps that feel like a period 6. Cramps with or without diarrhea If you notice any of the above symptoms, contact our office at [phone] and ask to speak with a nurse. After hours, you can call doctors registry at [phone] OR call [facility] at [phone] and ask to have the doctor controls engineer paged. If you consider this an emergency, dial 9-1-7 or go to your nearest emergency department. NEED HELP? Are you dealing with a violent or abusive relationship? Are you a victim of rape or sexual assult? Call [facility] ([place]) 24 hour Crisis Hotline: 723.583.7171 or 472-711-7570. MANUAL Your Guide to a Healthy manual is now on-line. Visit [email or web address] to download your free copy documented in this encounter [facility] 07-17-2024 Progress note Formatting of t his note might be different from the original. DANA-S: Vaishali Sorto is a 29 year old female who presents at 12w3d with DALY:01/23/2025, by Last Menstrual Period for a routine visit. Denies headache, visual changes, chest pain, shortness of breath, vaginal bleeding, leakage of fluid, or dysuria. Feeling well, no complaints. O: See flow sheet Gen: No apparent distress Abd: nontender ASSESSMENT/PLAN: 1. Supervision of other high risk pregnancies, first trimester -PN labs today -Desires NIPT -NT US completed -Declines 16 week early anatomy US, will schedule 20wk US -Continue PNV and start ASA 2. 12 weeks gestation of 3. History of section -History of LTCS due to breech presentation. Desires TOLAC, will review consent next visit. 4. Desires (vaginal after ) trial 5. History of hypertension -History of CHTN, took Nifedipine last and D/Cd . BP has been stable and no medications since that time. -Baseline preeclampsia labs normal -Checking BP at home and knows when to call. 6. History of herpes genitalis -Will start prophylaxis at 36 weeks 7. Obesity in -Pregravid BMI 35. -Growth US every 4wk starting at 32wk. NSTs weekly starting at 36 wk 8. Severe persistent asthma without complication -Stable and doing well -No Hemabate at delivery PTL precautions reviewed and when to call RTO in 4 weeks Linsey Shah APRN.CNM [facility] 07-17-2024 Miscellaneous Notes DANA-S: Vaishali Sorto is a 29 year old female who presents at 12w3d with DALY:01/23/2025, by Last Menstrual Period for a routine visit. Denies headache, visual changes, chest pain, shortness of breath, vaginal bleeding, leakage of fluid, or dysuria. Feeling well, no complaints. O: See flow sheet Gen: No apparent distress Abd: nontender ASSESSMENT/PLAN: 1. Supervision of other high risk pregnancies, first trimester -PN labs today -Desires NIPT -NT US completed -Declines 16 week early anatomy US, will schedule 20wk US -Continue PNV and start ASA 2. 12 weeks gestation of 3. History of section -History of LTCS due to breech presentation. Desires TOLAC, will review consent next visit. 4. Desires (vaginal after ) trial 5. History of hypertension -History of CHTN, took Nifedipine last and D/Cd . BP has been stable and no medications since that time. -Baseline preeclampsia labs normal -Checking BP at home and knows when to call. 6. History of herpes genitalis -Will start prophylaxis at 36 weeks 7. Obesity in -Pregravid BMI 35. -Growth US every 4wk starting at 32wk. NSTs weekly starting at 36 wk 8. Severe persistent asthma without complication -Stable and doing well -No Hemabate at delivery PTL precautions reviewed and when to call RTO in 4 weeks Linsey Shah APRN.CNM documented in this encounter [facility] 07-14-2024 Instructions Chapin Kenny MA - 07/14/2024 11:05 AM EST SEQUENTIAL SCREENINGS The [facility] offers sequential screenings for women who are interested in screenings for chromosomal abnormalities and certain defects during a . The sequential screen combines ultrasound and blood tests to determine the risk of chromosomal abnormalities, including Down's Syndrome (Trisomy 21) and Trisomy 18, as well as open neural tube defects including spina bifida. Ultrasound examination is performed between 11 weeks and 13 weeks gestational age. Blood tests are drawn after the ultrasound and again later in the between 15 and 21 weeks gestational age. Please let your physician know if you are interested in this testing. It will require an appointment with our respiratory technician. This is not an ultrasound performed by a physician in our office during a routine visit. SIGNS AND SYMPTOMS OF LABOR 1. Contractions every 10 minutes or more often 2. Clear, pink, or brownish fluid (water) leaking from vagina 3. Feeling that baby is pushing down, pressure 4. Low, dull backache 5. Cramps that feel like a period 6. Cramps with or without diarrhea If you notice any of the above symptoms, contact our office at [phone] and ask to speak with a nurse. After hours, you can call doctors registry at [phone] OR call [facility] at [phone] and ask to have the doctor controls engineer paged. If you consider this an emergency, dial 9--0 or go to your nearest emergency department. NEED HELP? Are you dealing with a violent or abusive relationship? Are you a victim of rape or sexual assult? Call [facility] ([place]) 24 hour Crisis Hotline: 616.917.9352 or 277-774-4227. MANUAL Your Guide to a Healthy manual is now on-line. Visit [email or web address] to download your free copy documented in this encounter [facility] 06-21-2024 Progress note Formatting of t his note might be different from the original. NOB visit. See progress note. CHTN stable, no medication. Baseline preeclampsia labs ordered. PN labs and NIPT next visit, handout given to check pricing. Desires TOLAC, sign and review consent future visit. Linsey Shah APRN.CNM [facility] 06-21-2024 Miscellaneous Notes NOB visit. See progress note. CHTN stable, no medication. Baseline preeclampsia labs ordered. PN labs and NIPT next visit, handout given to check pricing. Desires TOLAC, sign and review consent future visit. Linsey Shah APRN.CNM documented in this encounter [facility] 06-21-2024 Instructions Linsey Shah APRN.CNM - 06/21/2024 10:47 AM EST Please select the following link to access the [facility] Your Guide to a Healthy . [email or web address] Nausea and Vomitin) Vitamin B6 50 mg by mouth twice daily. Take this daily until approximately 14 weeks for prevention. 2) Unisom 1/2 tablet by mouth at bedtime. May increase to full tablet if needed. If no improvement in nausea may up to a full tablet every 8 hours as needed. Kristin Capsules Start Aspirin 162mg (2 81mg tablets) by mouth once daily at 12 weeks. documented in this encounter [facility] 06-16-2024 Note HNO ID: [id number] Author: LINSEY SHAH APRN.CNM Service: ? 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 INITIAL OB ASSESSMENT HPI: Vaishali is a 28 year old White Female here to establish Obstetrical Care. Patient's last menstrual period was 04/18/2024 (exact date). from OB Dating Form. was planned Complaints: (!) Vaginal bleeding OB History T1 L1 SAB1 IAB0 Ectopic0 Multiple0 Live Births1 Previous history: Prior : Yes History of 4th degree laceration: Perineal Laceration, 3rd or 4th degree No History of shoulder dystocia: No History of Hypertensive disorders including pre-eclampsia or gestational hypertension: Some towards the end, was unsure if it was preeclampsia or hypertension History of gestational diabetes: Diabetes in No Patient's Risk Screening for delivery: Have you had a prior richmond between 20w and 36w6d? No How many pregnancies have you had before? 2 Did you have a previous baby with a GBS Infection? No Please select all that apply for any prior : N/A MEDICAL/PSYCHOSOCIAL HISTORY: Severe bleeding with delivery No Thyroid Disease No Gestational Hypertension Unanswered Preeclampsia Unanswered Unsure Diabetes in No BMI 35.36 kg/(m2) Last Pap: 02/17/2024 History of abnormal pap: No Prior treatment for cervical dysplasia: none. Last HPV: History of STDs: HSV Partner History of STDs: History of genital HSV, taking valacyclovir 1 gram PO once daily. No outbreak in over 2 years. Did you have a partner with Herpes? (!) Yes Tobacco use: No E-Cigarette/Vaping Use: No Caffeine use: No Drug use: No Alcohol use: No Multivitamin with Folic acid: Yes Would refuse blood transfusion if medically necessary: No Social Needs: How often does this describe you? I don't have enough money to pay my bills: Never Within the past 12 months, have you worried that your food would run out before you had money to buy more? Never In the past 12 months, has lack of reliable transportation kept you from going to medical appointments or work, or from getting things needed for daily living? Never In the past 12 months, have you had any concerns about having a place to live, or about the condition or quality of your housing? Never Would you like more information on any of the following (please check all that apply)? 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 No Do you have a history of abuse or trauma that may impact your experience? No Are you currently employed? Yes Depression/Anxiety Screening: denies symptoms of depression. OB Depression and Anxiety Screening- This Encounter (since 06/20/2024) None Genetic Screening: Partner present: No Patient verbalized knowledge of partner family health history: Yes Do you or your partner have any personal or family history of defects not previously discussed: No Do you have history of a complicated by anomaly, genetic condition, or demise: No Preeclampsia Risk Screening: Screening for prevention of preeclampsia: High risk factors: Chronic hypertension Moderate risk ractors: Obesity (body mass index greater than 30) OB Risk Screening: Completed, no positive findings documented. Marital Status: Partner: Name: Adalberto Age: 27 Occupation: [employer] Gender: Male PAST MEDICAL HISTORY Diagnosis Date Allergic rhinitis, cause unspecified History of herpes genitalis 11/30/2022 11/30/2022 Patient has a history of genital herpes. She is currently on acyclovir.TKRN History of hypertension PMH - PAST MEDICAL HISTORY OF normal color vision Unspecified asthma(493.90) PAST SURGICAL HISTORY Procedure Laterality Date PAST SURGICAL HISTORY OF wisdom teeth TYMPANOSTOMY LOCAL/TOPICAL ANESTHESIA Current Outpatient Medications Medication Sig Dispense Refill valACYclovir (VALTREX) 1 gram tablet Take 1 tablet by mouth once daily. 90 tablet 3 prental multivitamin 27 mg iron- 800 mcg tablet Take 1 tablet by mouth once daily. diphenhydramine HCl (BENADRYL ORAL) Take by mouth. ascorbic acid (CARLOS MANUEL-C ORAL) Take by mouth. cholecalciferol, vitamin D3, (VITAMIN D3 ORAL) Take by mouth. zinc sulfate (ZINC-15 ORAL) Take by mouth. budesonide-formoterol (SYMBICORT) 160-4.5 mcg/actuation inhaler Inhale 2 Puffs as instructed twice daily. 1 Inhaler 1 cetirizine HCl (ZYRTEC ORAL) Take by mouth. 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 Dispense generic if available. 1 Each 1 mometasone (NASONEX) 50 mcg/actuation nasal spray Use 2 Sprays in each nostril once da (more content not included)... [facility] 06-16-2024 History of Presen t illness Narrative Noc Analyst offered: Patient declines. INITIAL OB ASSESSMENT HPI: Vaishali is a 28 year old White Female here to establish Obstetrical Care. Patient's last menstrual period was 04/18/2024 (exact date). from OB Dating Form. was planned Complaints: (!) Vaginal bleeding OB History T1 L1 SAB1 IAB0 Ectopic0 Multiple0 Live Births1 Previous history: Prior : Yes History of 4th degree laceration: Perineal Laceration, 3rd or 4th degree No History of shoulder dystocia: No History of Hypertensive disorders including pre-eclampsia or gestational hypertension: Some towards the end, was unsure if it was preeclampsia or hypertension History of gestational diabetes: Diabetes in No Patient's Risk Screening for delivery: Have you had a prior richmond between 20w and 36w6d? No How many pregnancies have you had before? 2 Did you have a previous baby with a GBS Infection? No Please select all that apply for any prior : N/A MEDICAL/PSYCHOSOCIAL HISTORY: Severe bleeding with delivery No Thyroid Disease No Gestational Hypertension Unanswered Preeclampsia Unanswered Unsure Diabetes in No BMI 35.36 kg/(m^2) Last Pap: 02/17/2024 History of abnormal pap: No Prior treatment for cervical dysplasia: none. Last HPV: History of STDs: HSV Partner History of STDs: History of genital HSV, taking valacyclovir 1 gram PO once daily. No outbreak in over 2 years. Did you have a partner with Herpes? (!) Yes Tobacco use: No E-Cigarette/Vaping Use: No Caffeine use: No Drug use: No Alcohol use: No Multivitamin with Folic acid: Yes Would refuse blood transfusion if medically necessary: No Social Needs: How often does this describe you? I don't have enough money to pay my bills: Never Within the past 12 months, have you worried that your food would run out before you had money to buy more? Never In the past 12 months, has lack of reliable transportation kept you from going to medical appointments or work, or from getting things needed for daily living? Never In the past 12 months, have you had any concerns about having a place to live, or about the condition or quality of your housing? Never Would you like more information on any of the following (please check all that apply)? 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 No Do you have a history of abuse or trauma that may impact your experience? No Are you currently employed? Yes Depression/Anxiety Screening: denies symptoms of depression. OB Depression and Anxiety Screening- This Encounter (since 06/20/2024) None Genetic Screening: Partner present: No Patient verbalized knowledge of partner family health history: Yes Do you or your partner have any personal or family history of defects not previously discussed: No Do you have history of a complicated by anomaly, genetic condition, or demise: No Preeclampsia Risk Screening: Screening for prevention of preeclampsia: High risk factors: Chronic hypertension Moderate risk ractors: Obesity (body mass index greater than 30) OB Risk Screening: Completed, no positive findings documented. Marital Status: Partner: Name: Adalberto Age: 27 Occupation: [employer] Gender: Male PAST MEDICAL HISTORY Diagnosis Date Allergic rhinitis, cause unspecified History of herpes genitalis 11/30/2022 11/30/2022 Patient has a history of genital herpes. She is currently on acyclovir.TKRN History of hypertension PMH - PAST MEDICAL HISTORY OF normal color vision Unspecified asthma(493.90) PAST SURGICAL HISTORY Procedure Laterality Date PAST SURGICAL HISTORY OF wisdom teeth TYMPANOSTOMY LOCAL/TOPICAL ANESTHESIA Current Outpatient Medications Medication Sig Dispense Refill valACYclovir (VALTREX) 1 gram tablet Take 1 tablet by mouth once daily. 90 tablet 3 prental multivitamin 27 mg iron- 800 mcg tablet Take 1 tablet by mouth once daily. diphenhydramine HCl (BENADRYL ORAL) Take by mouth. ascorbic acid (CARLOS MANUEL-C ORAL) Take by mouth. cholecalciferol, vitamin D3, (VITAMIN D3 ORAL) Take by mouth. zinc sulfate (ZINC-15 ORAL) Take by mouth. budesonide-formoterol (SYMBICORT) 160-4.5 mcg/actuation inhaler Inhale 2 Puffs as instructed twice daily. 1 Inhaler 1 cetirizine HCl (ZYRTEC ORAL) Take by mouth. 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 Dispense generic if available. 1 Each 1 mometasone (NASONEX) 50 mcg/actuation nasal spray Use 2 Sprays in each nostril once daily. 1 Bottle 11 albuterol HFA (PROVENTIL HFA) 90 mcg/actuation inhaler Inhale 2 Puffs as instructed every 4 hours as needed (May also use 15 minutes pre-exercise. Use with spacer. Proventil JOEL). 1 Inhaler 2 albuterol 2.5 mg /3 mL (0.083 %) INHALATION nebulizer solution Use via nebulizer. one nebulized every 4 hours as needed for cough, wheezing, chest tightness or shortness of breath. (Patient not taking: Reported on 06/16/2024) 50 mL 5 No current facility-administered medications for this visit. Allergies As of Date: 06/21/2024 (No Known Allergies) Fully Assessed 06/21/2024 Does patient have penicillin allergy: No REVIEW OF SYSTEMS: GENERAL: Negative for: Fever or Chills HEENT: Negative for: Headache, Impaired Vision, Ringing in Ears, Nosebleeds NECK: Negative for: Swelling, Pain, Stiffness RESPIRATORY: Negative for: Cough, Shortness of breath, Wheezing GASTROINTESTINAL: Negative for: Heartburn, Constipation, Diarrhea, Blood in stool, Vomiting MUSCULOSKELETAL: Negative for: Muscle or joint pain, stiffness, Joint swelling NEUROLOGIC/PSYCHIATRIC: Negative for: Weakness, Paralysis, Numbness, Tingling, Tremor, Anxiety, Depression, Memory loss SKIN: Negative for: Rash, Itching GENITOURINARY: Negative for: vaginal itching, vaginal discharge, hematuria or dysuria SENSITIVE EXAM: The sensitive examination was discussed with the Patient or Patient's Authorized Critical Care Educator. As applicable, any other physician, advance practice provider, medical student, or other health professional student that will be observing or involved in the sensitive examination for educational or training purposes was discussed with the Patient or Authorized Critical Care Educator. The Patient or Authorized Critical Care Educator has agreed to proceed with the sensitive examination. (Sensitive examination includes inspection and/or palpation of the breasts, pelvis, prostate and anorectal regions). PHYSICAL EXAM: BP 110/78 Ht 5' 4 (1.63m) Wt 206 lb (93.4kg) LMP 04/18/2024 BMI 35.34 kg/(m^2). GENERAL: pleasant in no apparent distress DERMATOLOGY: Normal, without lesions, non-icteric, and non-hirsute NECK: Supple, full range of motion, no adenopathy, and thyroid normal CHEST: Normal inspiratory effort BREAST: soft, non-tender, symmetric, no dominant mass, normal nipple-areolar complex, no lymphadenopathy, and no nipple discharge ABDOMEN: soft, non-tender, and no masses NEURO: alert and oriented x3,exam grossly non-focal PELVIS: External genitalia normal without lesions. Perineal body intact. No vaginal or cervical lesions. Cervix closed. Uterus 10 week size. No adnexal masses or tenderness. Clinical Pelvimetry: Pelvimetry clinically assessed as adequate Limited OB ultrasound exam: single intrauterine , positive cardiac activity, crown-rump length 8w3d, and normal bilateral adnexa LMP 9w1d US 8w3d -5d, DALY by LMP 01/23/2025 ASSESSMENT: 28 year old at 9w1d wks gestational age PLAN: 1) Patient oriented to practice. Patient given new OB orientation folder. Discussed nutrition, folic acid supplementation, dietary guidelines, exercise, smoking, alcohol, caffeine, and drug use. Discussed gestational weight gain guidelines. Discussed routine OB labs including STD/HIV. Discussed hemoglobin electrophoresis. Patient: Accepts Reviewed midwifery and reporter services that are available. 2) Screening: Hemoglobin A1C: ordered Baby Aspirin: The patient has been counseled about the potential benefits of low dose aspirin in and our recommendation that this be offered to all patients, regardless of whether they meet the high risk criteria specified above. She Accepts Aneuploidy Screening: Discussed aneuploidy screening, nuchal translucency/first trimester early anatomy ultrasound and NIPT. The risks/benefits and limitations of NIPT/aneuploidy screening were reviewed including the potential for false negative and false positive results. The availability of genetic counseling was reviewed. Information on aneuploidy screening was provided. The patient is uncertain. She will call back if she wants to proceed with screening. Pt aware of timing. Myriad Carrier Screening: Discussed myriad carrier screening. We discussed the availability of professional-society guided carrier screening and reviewed the conditions screened and limitations of screening. The availability of genetic counseling was reviewed. Information on carrier screening was provided. The patient Declines 3) Patient offered option of Virtual Visits. Patient prefers in person visits. 4) History of section: Problem list updated, mode of delivery counseling with primary OB provider at the next visit. History of hypertension: Chronic Hypertension, stable at this time on no medications. Obesity (BMI >30), will order early glucose screen or Hemoglobin A1C. Follow up in 4 weeks or sooner prn. Linsey Shah APRN.CNM documented in this encounter [facility] 06-02-2024 Telephone encounter Note Patient notified and voiced understanding. Namita Hui RN [facility] 06-02-2024 Miscellaneous Notes Patient notified and voiced understanding. Namita Hui RN Levels are increasing appropriately. Does not need any further levels at this time. Zahra Murillo APRN.CNM Early OB patient calling with concerns of spotting that started today along with some mild abdominal cramping. Patient is approximately 6w3d, LMP 04/18/24. She has upcoming New OB appointment on 06/21/24. Patient had recent quants done on 05/29 and 05/31. Do you want another level drawn? Bleeding precautions reviewed with patient. hCG Quantitative, Blood (mIU/mL) Date Value 05/31/2024 7,018.0 05/29/2024 4,122.0 Namita Hui RN documented in this encounter [facility] 06-02-2024 Telephone encounter Note Levels are increasing appropriately. Does not need any further levels at this time. Zahra Murillo APRN.CNM [facility] Work Phone: 06-02-2024 Telephone encounter Note Early OB patient calling with concerns of spotting that started today along with some mild abdominal cramping. Patient is approximately 6w3d, LMP 04/18/24. She has upcoming New OB appointment on 06/21/24. Patient had recent quants done on 05/29 and 05/31. Do you want another level drawn? Bleeding precautions reviewed with patient. hCG Quantitative, Blood (mIU/mL) Date Value 05/31/2024 7,018.0 05/29/2024 4,122.0 Namita Hui RN [facility] 06-01-2024 Telephone encounter Note Patient notified. Lorie Michelle RN [facility] 06-01-2024 Miscellaneous Notes Patient notified. Lorie Michelle RN HCG level increasing appropriately.. Keep scheduled appointment. Zahra Murillo APRN.CNM Please review hcg quant results. hCG Quantitative, Blood (mIU/mL) Date Value 05/31/2024 7,018.0 05/29/2024 4,122.0 Patient had first hcg quant done yesterday. Leave open for 05/31/24 hcg quant result. Lorie Michelle RN Order signed for serial quant x2. Linsey Shah APRN.CNM Patient called to scheduled first OB visits with linsey Shah CNP. Positive test: 05/24/24 LMP: 04/18/24 1st OB DOS: 06/21/24 (unable to schedule sooner due to work) Patient states that during previous visit with [place], that she was to have lab work performed between 7-8 weeks. Please contact patient to advise. documented in this encounter [facility] 06-01-2024 Telephone encounter Note HCG level increasing appropriately.. Keep scheduled appointment. Zahra Murillo APRN.CNM [facility] Work Phone: 06-01-2024 Telephone encounter Note Please review hcg quant results. hCG Quantitative, Blood (mIU/mL) Date Value 05/31/2024 7,018.0 05/29/2024 4,122.0 [facility] 05-30-2024 Telephone encounter Note Patient had first hcg quant done yesterday. Leave open for 05/31/24 hcg quant result. Lorie Michelle RN [facility] 05-26-2024 Telephone encounter Note Order signed for serial quant x2. Linsey Shah APRN.CNM [facility] 05-25-2024 Telephone encounter Note Patient called to scheduled first OB visits with linsey Shah CNP. Positive test: 05/24/24 LMP: 04/18/24 1st OB DOS: 06/21/24 (unable to schedule sooner due to work) Patient states that during previous visit with [place], that she was to have lab work performed between 7-8 weeks. Please contact patient to advise. [facility] 05-22-2024 Telephone encounter Note Refill request received via [employer]. Patient last seen 02/04/24 for annual exam. Namita Hui RN [facility] 05-22-2024 Miscellaneous Notes Refill request received via [employer]. Patient last seen 02/04/24 for annual exam. Namita Hui RN documented in this encounter [facility] 02-04-2024 Note HNO ID: [id number] Author: LINSEY SHAH APRN.CNM Service: ? 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 Vaishali is a 28 year old who presents for an annual gynecologic exam without complaints. Menses: cycles every 30 days Contraception: none, would like to conceive. Daughter is 13 months. Taking Ritual PNV. 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 She is currently on acyclovir.TKRN History of hypertension PMH - PAST MEDICAL HISTORY OF normal color vision Unspecified asthma(493.90) PAST SURGICAL HISTORY Procedure Laterality Date PAST SURGICAL HISTORY OF wisdom teeth TYMPANOSTOMY LOCAL/TOPICAL ANESTHESIA FAMILY HISTORY Problem Relation Age of Onset Hypertension Mother Hypertension Father No Known Problems Brother No Known Problems Brother No Known Problems Brother Asthma Brother Diabetes Maternal Grandmother Hypertension Maternal Grandmother Uterine Cancer Maternal Grandmother Heart Maternal Grandfather of massive heart attack at age 43 Hypertension Paternal Grandmother Diabetes Paternal Grandmother Hypertension Paternal Grandfather SOCIAL HISTORY Social History Tobacco Use Smoking status: Never Smokeless tobacco: Never Vaping Use Vaping Use: Never used Substance Use Topics Alcohol use: Not Currently Comment: socially Drug use: Never REVIEW OF SYSTEMS Abdomen: No abdominal pain, nausea, vomiting, diarrhea, or constipation. No bloating, early satiety, indigestion, or increased flatulence. Bladder: No dysuria, gross hematuria, urinary frequency, urinary urgency, or incontinence. Breast: No breast lumps, nipple d/c, overlying skin changes, redness or skin retraction. Allergies and current medication updated:Yes EXAM: BP 120/74 Ht 5' 3.78 (1.62m) Wt 199 lb 12.8 oz (90.6kg) LMP 01/14/2024 BMI 34.53 kg/(m2). GENERAL: pleasant, female in no apparent distress HEENT: Normocephalic, atraumatic, mucus membranes moist, and no lesions NECK: Supple, full range of motion, no adenopathy, and thyroid normal DERMATOLOGY: Normal, without lesions, non-icteric, and non-hirsute BREAST: soft, non-tender, symmetric, no dominant mass, normal nipple-areolar complex, no lymphadenopathy, and no nipple discharge CHEST: Clear to auscultation, Normal inspiratory effort, Regular rate and rhythm, and No murmurs, clicks, rubs or gallops ABDOMEN: soft, non-tender, and no masses, C/S scar present PELVIC: external genitalia normal, normal Bartholin's glands, urethra, [place]'s glands, no vulvar lesions, no cervical lesions, good vaginal support, physiologic discharge present, normal appearing perineal body and perianal region BIMANUAL: uterus normal size, shape and consistency, no adnexal masses, and non-tender RECTOVAGINAL: deferred. NEURO: alert and oriented x3,exam grossly non-focal EXTREMITIES: normal ASSESSMENT/PLAN: 1. Encounter for gynecological examination (general) (routine) without abnormal findings - ICD9: V72.31, ICD10: Z01.419 (primary diagnosis) - Completed pelvic and breast exam - Encouraged monthly BSE - Follow up for annual exam in one year. - PAP TEST 2. Screening for cervical cancer - ICD9: V76.2, ICD10: Z12.4 - Completed pelvic and breast exam - Encouraged monthly BSE - Follow up for annual exam in one year. - PAP TEST 3. Encounter for screening for human papillomavirus (HPV) - ICD9: V73.81, ICD10: Z11.51 - PAP TEST 4. Class 1 obesity without serious comorbidity with body mass index (BMI) of 34.0 to 34.9 in adult, unspecified obesity type - ICD9: 278.00, V85.34, ICD10: E66.9, Z68.34 -Recommend 10% weight loss 5. Encounter for preconception consultation - ICD9: V26.49, ICD10: Z31.69 -Reviewed previous C/S, she would like to TOLAC, C/S due to breech. Recommend 18-24 month child spacing. -Continue to monitor BP, if increasing to make sure proper management, stable and not elevated at this time. - vitamin daily 1) Health maintenance: Pap done with reflex HPV. Nutrition, exercise and routine health maintenance exams reviewed. Calcium/Vitamin D supplementation information provided. Lipids/glucose: followed by PCP Vitamin D: followed by PCP 2) Contraception: none. 3) STD screening: Declined STD check. (more content not included)... [facility] 02-01-2023 Miscellaneous Notes Patient notified virtual f/u 2w/ physician in 1-2 weeks, any 10 min slot or virtual visit slot ok. Cheyenne Bullock MD Patient had a c/s 01/05/2023 documented in this encounter [facility] 01-18-2023 History of Presen t illness Narrative EARLY VISIT Vaishali Sorto is a 27 year old here for 2 week visit. Delivery Summary: Date: 01/05/2023 Time: 12:24pm Sex: F Name: Angeline Weight: 7# 8oz Outcome: PCS Details: Gestational HTN Anesthesia: Spinal Delivered by: RR Perineal repair: N/A ROS: General: Denies any fever or chills Hypertension Screening: Headache? Yes. Was it successfully treated with Tylenol? No Visual Changes? Some blurry vision Epigastric Pain? No Increased Swelling? Yes - in legs Taking any BP medications at home? Yes If applicable, monitoring BP at home? (If Yes, include results) Yes / 125/76 Mood: normal Depression: denies symptoms of depression. OB Depression and Anxiety Screening- This Encounter (since 01/17/2023) None Feeding: Breast feeding problems: None Bladder: No dysuria, gross hematuria, urinary frequency, urinary urgency, or incontinence Bowel symptoms: Negative for abdominal discomfort, blood in stools or black stools Abdomen: N/A Bleeding: None Bottom and Perineum: No issues Sleep: no sleep concerns, feels rested Arabi since delivery: Not resumed Emotional support: Yes Exercise: N/A Other issues: None PHYSICAL EXAMINATION: BP 138/72 Wt 200 lb 3.2 oz (90.8 kg) LMP 04/05/2022 (Exact Date) BMI 33.32 kg/m General: pleasant,female in no apparent distress, A&O x 3. Skin warm and intact. Breast: Deferred Abdomen: Deferred /Incision: N/A Pelvic: Deferred Bimanual: Deferred ASSESSMENT AND PLAN: 27 year old status post with normal course. Contraception plan: none. Reinforced 6-week pelvic rest. Encouraged condom usage should patient deviate. Education: resources provided - see MA/RN note BP stable at this time. Reviewed if increasing into 140s/90s to call incase we need to adjust dosage. Preeclampsia signs reviewed. Send blood pressure log in one week. Continue procardia XL 60mg PO once daily Follow up: Return to Clinic for 6 week visit and as needed Linsey Shah APRN.CNM documented in this encounter [facility] 01-12-2023 History of Presen t illness Narrative EARLY VISIT Vaishali Sorto is a 27 year old here for 1 week visit. Delivery Summary: C/S 01/05/2023 ROS: General: Denies any fever or chills Hypertension Screening: Headache? dull, intermittent Visual Changes? No Epigastric Pain? No Increased Swelling? No Taking any BP medications at home? Yes If applicable, monitoring BP at home? (If Yes, include results) Yes / running in the 120s/70s now on nifidipine Mood: normal Depression: denies symptoms of depression. OB Depression and Anxiety Screening- This Encounter (since 01/11/2023) Over the past 2 weeks have you felt down, depressed, or hopeless? Negative Over the past two weeks, have you felt little interest or pleasure in doing things? Negative Feeling nervous, anxious or on edge 0-Not at all Not being able to stop or control worrying 0-Not al all Anxiety Pre-Screening Total (If >/= 3 additional questions will be reviewed) 0 Feeding: Breast feeding problems: None Bladder: No dysuria, gross hematuria, urinary frequency, urinary urgency, or incontinence Bowel symptoms: Negative for abdominal discomfort, blood in stools or black stools and change in bowel habits Abdomen: some pain still but comfortable enough to sleep, no drainage Bleeding: light flow Bottom and Perineum: No issues Sleep: no sleep concerns, feels rested Arabi since delivery: Not resumed Emotional support: Yes Exercise: N/A Other issues: None PHYSICAL EXAMINATION: BP 128/64 Wt 204 lb (92.5 kg) LMP 04/05/2022 (Exact Date) Yes BMI 33.95 kg/m General: pleasant,female in no apparent distress, A&O x 3. Skin warm and intact. Breast: Deferred Abdomen: soft, non-tender, and no masses /Incision: No incisional redness, swelling, or drainage Pelvic: Deferred Bimanual: Deferred ASSESSMENT AND PLAN: 27 year old status post CS with normal course. Contraception plan: condoms . Reinforced 6-week pelvic rest. Encouraged condom usage should patient deviate. Education: resources provided - see MA/RN note Follow up: Return to Clinic for 6 week visit and as needed Cheyenne Bullock MD documented in this encounter [facility] 01-10-2023 Miscellaneous Notes Patient called with elevated blood pressures in the 140s-150s systolic. No preeclampsia symptoms. History of CHTN. Will start Procardia XR 30mg PO once daily. Patient notified of medication sent and dosage. Patient has appointment scheduled on 01/12/23 with . Linsey Shah APRN.CNM documented in this encounter [facility] 01-07-2023 Discharge summary Note Date/Time January 07, 2023 8:22a m [facility] Medical Records Department [address] [place] [address] Instructions for Home/Discharge Instructions 01/07/23 0821 MR#: [id number] Acct: [id number] Name: VAISHALI SORTO Rep #:[id number] : 1995 27 From: Bhakti León DO PCP: Dr. Kriss Yadav, DO Status:AD M IN Discharge Instructions Diet Discharge Diet: No restrictions Activity Discharge Activity: May Not Drive and May Shower May resume sexual activity in: 6 weeks Weight Bearing Status: Weight bearing as tolerated Lifting Restrictions: Nothing heavier than baby Dressing / Incision Call your doctor if your incision/area has: Continuous Slow Oozing, Sudden Increased Bleeding, Increased Pain/ Swelling, Increased Redness, Foul Smelling Discharge and Swelling at the incision site Call your doctor if you observe: Fever of 101 or Higher, Coldness, Increased Pain, Numbness or Tingling, Change in Color, Inability to urinate, Inability to have a bowel movement, Using more than 1 pad per hour, Shortness of breath, Dizziness, Fainting spells, Swelling in the ankles, Chest pain, Increased palpitations (irregular heartbeat), Calf discomfort and Uncontrolled pain Suture Line Care: Avoid Pulling/Pushing and Avoid Pinching/Bending Remove Dressing in: 3 days Cleanse incision/area with: Soap & Water Follow Up Care When: 1-2 weeks incision check Test Results: Test results from this visit will be discussed in further detail at your follow-up appointment, if applicable. Discharge Plan Admission Admit Date/Time: 01/05/23 09:20 Primary Reason for Your Visit: delivery Attending Provider: Cheyenne Bullock Primary Care Provider: Kriss Yadav Instructions Patient Instructions: Section Dc Discharge Orders/Prescriptions Prescriptions: New oxycodone-acetaminophen [Percocet] 5-325 mg tablet 1 tab PO Q6H PRN (Reason: pain) 7 Days Qty: 10 0RF ibuprofen 600 mg tablet 600 mg PO Q6H PRN (Reason: pain) Qty: 30 0RF docusate sodium [Colace] 100 mg capsule 100 mg PO BID Qty: 30 0RF Continued [id number] 1 mg Tablet 1 tab PO DAILY Referrals / Follow Up: Kriss Yadav DO [Primary Care Provider] - Disposition Disposition (needs filled in before D/C Order can be placed): Home, Self Care 01/07/23 08<Electronically signed by Bhakti León DO>Bhakti León DO CC: Dr. Kriss Yadav, DO ~ Signed [facility] Work Phone: 1(952) 102-584806-01-[address] León [facility] January 07, 2023 8:18am Note Date/Time January 07, 2023 8:18a m [facility] Medical Records Department [address] [place] [id number] Progress Note - OBGYN 01/07/23816 MR#: [id number] Acct: [id number] Name: VAISHALI SORTO Rep #:[id number] : 1995 27 From: Bhakti León DO PCP: Dr. Kriss Yadav, Status:AD M IN Location: FC811-2 Subjective Subjective Patient is doing well. Pain is well controlled. she is ambulating and voiding without difficulty. Tolerating regular diet without nausea or vomiting. Lochiais normal. She denies lightheadedness or dizziness. She denies leg pain. She desires to go home today. Objective Data Objective Data Vital Signs: Vital Signs Temp Pulse Resp BP Pulse Ox O2 Del Method 98.1 F 77 18 123/70 H 98 Room Air 01/07/23 08:09 01/07/23 08:09 01/07/23 08:09 01/07/23 08:09 01/07/23 08:09 01/07/23 08:09 Oxygen Delivery Method Room Air Weight: 217 lb 8 oz Body Mass Index (BMI) 36.1 Intake & Output: Intake and Output for Last 24 Hours 01/05/23 01/06/23 01/07/23 23:59 23:59 23:59 Intake Total 4015 / 4015 Output Total 3300 / 3300 1400 / 1400 Balance 715 / 715 -1400 / -1400 Lab / Micro Data Result Diagrams: 01/06/23 05:37 Physical Exam Const alert and no apparent distress General Appearance: comfortable HEENT normocephalic GI soft to palpation and non-distended GI Narrative: ATTP, dressing intact Extremity Extremity Narrative: Trace LE edema bilaterally Assessment & Plan (1) delivery delivered: PLAN: Patient is s/p section delivery. She is doing well and meeting milestones for discharge. She requests to go home today. Discharge instructions reviewed and follow-up. 01/07/23817 <Electronically signed by Bhakti León DO> Cosigner Signature (if applicable): CC: ~ Signed [facility] Work Phone: 1(931) 663-238905-31-[address] Bullock [facility] January 06, 2023 8:52am Note Date/Time January 06, 2023 8:52a m [facility] Medical Records Department [address] [place] [address] Progress Note - OBGYN 01/06/2350 MR#: [id number] Acct: [id number] Name: VAISHALI SORTO Rep #:[id number] : 1995 27 From: Cheyenne Bullock MD PCP: Dr. Kriss Yadav, Status:AD M IN Location: GR391-5 Subjective Subjective Pain well controlled. Average lochia. Ambulating and urinating without difficulty. Tolerating regular diet. Objective Data Objective Data Vital Signs: Vital Signs Temp Pulse Resp BP Pulse Ox O2 Del Method 97.8 F 64 17 122/70 H 97 Room Air 01/06/23 08:00 01/06/23 08:00 01/06/23 08:00 01/06/23 08:00 01/06/23 03:54 01/06/23 08:00 Oxygen Delivery Method Room Air Weight: 98.656 kg Body Mass Index (BMI) 36.1 Intake & Output: Intake and Output for Last 24 Hours 01/04/23 01/05/23 01/06/23 23:59 23:59 23:59 Intake Total 4015 / 4015 Output Total 3300 / 3300 1400 / 1400 Balance 715 / 715 -1400 / -1400 Lab / Micro Data Result Diagrams: 01/06/23 05:37 Labs: Laboratory Results - last 24 hr 01/05/23 10:10: WBC 11.6 H, RBC 4.62, Hgb 13.5, Hct 40.7, MCV 88.1, MCH 29.2, MCHC 33.2, RDW Std Deviation 41.8, RDW Coeff of Nadir 13.0, Plt Count 192, MPV 9.7, Immature Gran % (Auto) 0.900, Neut % (Auto) 73.0 H, Lymph % (Auto) 19.9, Louisa % (Auto) 4.8, Eos % (Auto) 1.0, Baso % (Auto) 0.4, Absolute Neuts (auto) 8.5 H, Absolute Lymphs (auto) 2.31, Nucleated RBC % 0 01/05/23 10:10: Blood Type O POSITIVE, Antibody Screen NEGATIVE 01/05/23 10:10: Syphilis Total Ab Non-reactive 01/06/23 05:37: WBC 12.3 H, RBC 4.20, Hgb 12.7, Hct 37.9, MCV 90.2, MCH 30.2, MCHC 33.5, RDW Std Deviation 42.5, RDW Coeff of Nadir 13.0, Plt Count 138 L, MPV 9.4 Physical Exam Const alert General Appearance: cooperative GI GI Narrative: soft, moderate distention, fundus firm, appropriately tender. Abdominal bandageclean dry and intact Assessment & Plan (1) delivery delivered: PLAN: Postoperative day #1 status post primary section for breech. Patient and are doing well. CBC is stable. Vitals are stable. Neonateis breast-feeding and doing well. Routine care. Likely discharge tomorrow. 01/06/23 0852 <Electronically signed by Cheyenne Bullock MD> Cosigner Signature (if applicable): CC: ~ Signed [facility] Work Phone: 1(548) 360-425405-30-2023 History of Present illness Narrative* Lorie Michelle RN - 01/05/2023 2:30 PM EDT Patient delivered via by Dr. Bullock on 01/05/23 at [facility]. See OB history. Lorie Michelle RN [facility] History and physical note Author Dr. Bullock [facility] January 05, 2023 11:55am Note Date/Time January 01, 2023 12:46 pm [facility] Medical Records Department [address] [place] [address] History & Physical Exam 01/01/23 1244 MR#: [id number] Acct: [id number] Name: VAISHALI SORTO Rep #:[id number] : 1995 27 From: Cheyenne Bullock MD PCP: Dr. Pankaj Scherer MD Status:ADM IN Location: SB074-1 History and Physical Date of Admission: 01/05/23 HPI: The patient is a 27 year old female presenting for pre-operative visit. She is scheduled for , for breech on 01/05/23. Procedure discussed along with risks, benefits and complications. Other alternatives discussed for management. Consent form signed? Yes. ? ? PAST MEDICAL HISTORY PAST MEDICAL HISTORY Diagnosis Date ? Allergic rhinitis, cause unspecified ? ? History of hypertension ? ? PMH - PAST MEDICAL HISTORY OF ? ? normal color vision ? Unspecified asthma(493.90) ? ? ? PAST SURGICAL HISTORY PAST SURGICAL HISTORY Procedure Laterality Date ? PAST SURGICAL HISTORY OF ? ? ? wisdom teeth ? TYMPANOSTOMY LOCAL/TOPICAL ANESTHESIA ? CURRENT MEDICATIONS Current Outpatient Medications Medication Sig Dispense Refill ? acyclovir (ZOVIRAX) 400 mg tablet Take 1 tablet by mouth three times daily. 90 tablet 4 ? prental multivitamin 27 mg iron- 800 mcg tablet Take 1 tablet by mouth once daily. ? ? ? diphenhydramine HCl (BENADRYL ORAL) Take by mouth. ? ? ? ascorbic acid (CARLOS MANUEL-C ORAL) Take by mouth. ? ? ? cholecalciferol, vitamin D3, (VITAMIN D3 ORAL) Take by mouth. ? ? ? zinc sulfate (ZINC-15 ORAL) Take by mouth. ? ? ? budesonide-formoterol (SYMBICORT) 160-4.5 mcg/actuation inhaler Inhale 2 Puffs as instructed twice daily. 1 Inhaler 1 ? acyclovir (ZOVIRAX) 400 mg tablet Take 1 tablet by mouth once daily. 90 tablet 4 ? cetirizine HCl (ZYRTEC ORAL) Take by mouth. ? ? ? 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 Dispense generic if available. 1 Each 1 ? mometasone (NASONEX) 50 mcg/actuation nasal spray Use 2 Sprays in each nostril once daily. 1 Bottle 11 ? albuterol HFA (PROVENTIL HFA) 90 mcg/actuation inhaler Inhale 2 Puffs as instructed every 4 hours as needed (May also use 15 minutes pre-exercise. Use with spacer. Proventil JOEL). 1 Inhaler 2 ? albuterol 2.5 mg /3 mL (0.083 %) INHALATION nebulizer solution Use via nebulizer. one nebulized every 4 hours as needed for cough, wheezing, chest tightness or shortness of breath. 50 mL 5 ? No current facility-administered medications for this visit. ? ? ALLERGIES: Environment Allergy [Other] ? PERSONAL HISTORY: SOCIAL HISTORY Social History ? Tobacco Use ? Smoking status: Never ? Smokeless tobacco: Never Vaping Use ? Vaping Use: Never used Substance Use Topics ? Alcohol use: Not Currently ? ? Comment: socially ? Drug use: Never ? FAMILY HISTORY: FAMILY HISTORY FAMILY HISTORY Problem Relation Age of Onset ? Hypertension Mother ? ? Hypertension Father ? ? No Known Problems Brother ? ? No Known Problems Brother ? ? No Known Problems Brother ? ? Asthma Brother ? ? Diabetes Maternal Grandmother ? ? Hypertension Maternal Grandmother ? ? Uterine Cancer Maternal Grandmother ? ? Heart Maternal Grandfather ? ? of massive heart attack at age 43 ? Hypertension Paternal Grandmother ? ? Diabetes Paternal Grandmother ? ? Hypertension Paternal Grandfather ? ? ? REVIEW OF SYMPTOMS: GENERAL: denies fevers or chills ENDOCRINOLOGY: has not been on steroids Cardiology : denies palpitations or chest pain Respiratory: denies SOB or cough Hematology: denies history of prolonged bleeding or easy bruising or VTE Allergy: Denies history of personal or family history of allergy to anesthesia ? PHYSICAL EXAMINATION: ? VITALS: Blood pressure 124/87, pulse 84, height 5' 5 (1.651 m), weight 215 lb 9.6 oz (97.8 kg), last menstrual period 04/05/2022, SpO2 98 %. ? GENERAL: The patient is well nourished, well hydrated in no acute distress. , The patient is oriented to time, place, and person. NECK: Supple. No lynphadenopathy, normal thyroid, no thyromegaly. LUNGS: Clear to auscultation bilaterally. no wheezes, rhonchi or rales HEART: Regular rate and rhythm, Normal heart sounds, and No murmurs or gallops Abd- soft, nontender, gravid ? IMPRESSION: Estimated Date of Delivery: 01/10/23 Breech ? PLAN: The risks/benefits/alternatives and personal involved for the planned c- section were reviewed with the patient. Her questions were answered to her satisfaction and she desires to proceed. Consent was signed. I reviewed with her postop instructions and expectations. ? ? I have reviewed and updated past medical and surgical history, medications and allergies 01/01/23 1248 <Electronically signed by Cheyenne Bullock MD> Cosigner Signature (if applicable): CC: Dr. Pankaj Scherer MD; Dr. Cheyenne Bullock MD~ Signed ADDENDUM by Dr. Cheyenne Bullock MD on 01/05/23 at 1155 Addendum UPDATE- I have seen the patient and performed any clinically relevant updates to the history and physical exam. 01/05/23 1155<Electronically signed by Cheyenne Bullock MD> Cosigner Signature (if applicable): cc: Dr. Pankaj Scherer MD; Dr. Cheyenne Bullock MD ~* Signed [facility] Work Phone: 1(824) 616-169605-30-[address] [facility] 12-25-2022 History of Past illness Narrative* Problem Noted Date Diagnosed Date Resolved Date Breech presentation with problem 12/25/2022 02/17/2023 Positive GBS test 12/21/2022 02/17/2023 with care elsewhere in third trimester 11/30/2022 02/17/2023 Overview: 11/30/2022atient is transferring care from [facility]. She states her doctor is leaving the practice. She plans on bringing her records with her to her new OB appointment with Linsey Shah. She is 34 weeks gestation. Last seen November 18 for her last OB visit. TKRN History of herpes genitalis 11/30/2022 02/17/2023 Overview: 11/30/2022 Patient has a history of genital herpes. She is currently on acyclovir.TKRN Allergic rhinitis, cause unspecified 09/29/2007 02/17/2023 Unspecified asthma(493.90) 07/13/2007 0 09/29/2007 documented as of this encounter (statuses as of 05/30/2023) [facility] Miscellaneous Notes* Quick Notes - Jarocho Hughes MD - 12/17/2022 10:54 AM EDT KJ - No VB/LOF. Reports irregular ctxs & good FM. A&P: Breech - discussed R/B/A of version & primary . At this time patient would like to tryto turn baby on her own. She will consider scheduling a version next week. H/o HSV - continue acyclovir Chtn - BP normal today. Continue home BP monitoring. Reviewed PTL & FM precautions Jarocho Hughes MD documented in this encounter[facility] Instructions* Patient Instructions* Jenny Mota Ma - 12/17/2022 10:42 AM EDT SEQUENTIAL SCREENINGS [facility] offers sequential screenings for women who are interested in screenings for chromosomal abnormalities and certain defects during a . The sequential screen combinesultrasound and blood tests to determine the risk of chromosomal abnormalities, including Down's Syndrome (Trisomy 21) and Trisomy 18, as well as open neural tube defects including spina bifida. Ultrasound examination is performed between 11 weeks and 13 weeks gestational age. Blood tests are drawn after the ultrasound and again later in the between 15 and 21 weeks gestational age. Please let your physician know if you are interested in this testing. It will require an appointment withour respiratory technician. This is not an ultrasound performed by a physician in our office during a routine visit. SIGNS AND SYMPTOMS OF LABOR 1. Contractions every 10 minutes or more often 2. Clear, pink, or brownish fluid (water) leaking from vagina 3. Feeling that baby is pushing down, pressure 4. Low, dull backache 5. Cramps that feel like a period 6. Cramps with or without diarrhea If you notice any of the above symptoms, contact our office at [phone] and ask to speak with anurse. After hours, you can call doctors registry at [phone] OR call [facility] at [phone] ask to have the doctor controls engineer paged. If you consider this an emergency, dial 9-1-0 or go to your nearest emergency department. NEED HELP? Are you dealing with a violent or abusive relationship? Are you a victim of rape or sexual assult? Call [facility] ([place]) 24 hour Crisis Hotline: 656.315.4335 or 200-484-3350. MANUAL Your Guide to a Healthy manual is now on-line. Visit [email or web address] to download your free copy documented in this encounterChildren[facility] Miscellaneous Notes* Telephone Encounter - Meghana Wan RN - 12/14/2022 10:59 AM EDT 36w1d documented in this encounterChildren[facility] Instructions* Patient Instructions* Chapin Kenny Cma - 12/08/2022 2:38 PM EDT SEQUENTIAL SCREENINGS [facility] offers sequential screenings for women who are interested in screenings for chromosomal abnormalities and certain defects during a . The sequential screen combinesultrasound and blood tests to determine the risk of chromosomal abnormalities, including Down's Syndrome (Trisomy 21) and Trisomy 18, as well as open neural tube defects including spina bifida. Ultrasound examination is performed between 11 weeks and 13 weeks gestational age. Blood tests are drawn after the ultrasound and again later in the between 15 and 21 weeks gestational age. Please let your physician know if you are interested in this testing. It will require an appointment withour respiratory technician. This is not an ultrasound performed by a physician in our office during a routine visit. SIGNS AND SYMPTOMS OF LABOR 1. Contractions every 10 minutes or more often 2. Clear, pink, or brownish fluid (water) leaking from vagina 3. Feeling that baby is pushing down, pressure 4. Low, dull backache 5. Cramps that feel like a period 6. Cramps with or without diarrhea If you notice any of the above symptoms, contact our office at [phone] and ask to speak with anurse. After hours, you can call doctors registry at [phone] OR call [facility] at [phone] ask to have the doctor controls engineer paged. If you consider this an emergency, dial 3-4-2 or go to your nearest emergency department. NEED HELP? Are you dealing with a violent or abusive relationship? Are you a victim of rape or sexual assult? Call [facility] ([place]) 24 hour Crisis Hotline: 819.343.7489 or 797-676-8340. MANUAL Your Guide to a Healthy manual is now on-line. Visit [email or web address] to download your free copy documented in this encounterChildren[facility] Miscellaneous Notes* Quick Notes - Linsey Shah APRN.CNM - 12/08/2022 2:14 PM EDT DANA-S: Vaishali Sorto is a 27 year old female who presents at 35w2d with DALY:01/10/2023, by Last Menstrual Period Gestational Age: 40w0d for a routine visit. Good FM. Denies headache, visual changes, chest pain, shortness of breath, vaginal bleeding, leakage of fluid, or dysuria. Feeling well, no complaints. O: See flow sheet Gen: No apparent distress Abd: Gravid, nontender NST reactive A: ASSESSMENT/PLAN: 1. 35 weeks gestation of 2. History of chronic hypertension 3. Proteinuria in , antepartum 4. Breech presentation with problem, single or unspecified fetus P: 1) PTL precautions reviewed and when to call 2) RTO as scheduled. 3) NST reactive today 4) Follow up in one week for Growth US/BPP and appointment with 5) Reviewed CHTN vs preeclampsia. Only one elevated level this and repeat BP normal todayin office. Will continue to check BP at home. Reviewed to call if 140/90 consistently and 160/110. Discussed possible preeclampsia vs proteinuria. Urine P/C ratio elevated. Preeclampsia symptoms resolved. consulted and agreed with plan. documented in this encounterChildren[facility]-2022 Miscellaneous Notes* Telephone Encounter - Mechelle Garcia APRN.CNP - 07/07/2022 8:47 AM EST She is and getting care in [place]. Her Ob needs to manage the acyclovir. Mechelle Garcia APRN.CNP * Telephone Encounter - Ct Moya LPN - 07/01/2022 7:48 AM EST Please see pharmacy refill request. Pt is also due for her yearly exam, [employer] Techn[employer] message to pt with this information. Ct Moya LPN documented in this encounterChildren[facility] History of Past illness Narrative* Problem Noted Date Resolved Date Unspecified asthma(493.90) 07/13/200709/29 documented as of this encounter (statuses as of 07/07/2022) [facility] History of Past illness Narrative* Problem Noted Date Resolved Date Unspecified asthma(493.90) 07/13/200709/29 documented as of this encounter (statuses as of 12/10/2022) [facility] History of Past illness Narrative* Problem Noted Date Resolved Date Unspecified asthma(493.90) 07/13/200709/29 documented as of this encounter (statuses as of 12/14/2022) [address]05-2007 History of Past illness Narrative* Problem Noted Date Resolved Date Unspecified asthma(493.90) 07/13/200709/29 documented as of this encounter (statuses as of 12/17/2022) [address]05-2007 History of Past illness Narrative* Problem Noted Date Resolved Date Unspecified asthma(493.90) 07/13/200709/29 documented as of this encounter (statuses as of 12/17/2022) [address]05-2007 History of Past illness Narrative* Problem Noted Date Resolved Date Unspecified asthma(493.90) 07/13/200709/29 documented as of this encounter (statuses as of 01/06/2023) [address] History of Past illness Narrative* Problem Noted Date Resolved Date Unspecified asthma(493.90) 07/13/200709/29 documented as of this encounter (statuses as of 01/10/2023) [address] History of Past illness Narrative* Problem Noted Date Resolved Date Unspecified asthma(493.90) 07/13/200709/29 documented as of this encounter (statuses as of 01/12/2023) [address] History of Past illness Narrative* Problem Noted Date Resolved Date Unspecified asthma(493.90) 07/13/200709/29 documented as of this encounter (statuses as of 01/21/2023) [address] History of Past illness Narrative* Problem Noted Date Resolved Date Unspecified asthma(493.90) 07/13/200709/29 documented as of this encounter (statuses as of 02/01/2023) [facility] Diagnosis 35 weeks gestation of - Primary state, incidental History of chronic hypertension Proteinuria in , antepartum Unspecified antepartum renal disease Breech presentation with problem, single or unspecified fetus [facility] Diagnosis with care elsewhere in third trimester- Primary 36 weeks gestation of state, incidental [facility] Diagnosis with care elsewhere in third trimester- Primary 36 weeks gestation of state, incidental Encounter for anatomic survey documented in this encounter [facility]* Diagnosis Onset Date Resolution Status delivery delivered acute Single live acute 39 weeks gestation of resolved Reinier breech resolved [facility] Work Phone: Evaluation note* Diagnosis Postop check- Primary Follow-up examination, following unspecified surgery documented in this encounter [facility] note* Diagnosis Chronic hypertension- Primary documented in this encounter [facility] note* Diagnosis Rib pain on left side Chest pain, unspecified Left upper arm pain Pain in limb Injury caused by animal, initial encounter documented in this encounter [facility] note* Diagnosis History of spontaneous - Primary Personal history of other genital system and obstetric disorders documented in this encounter [facility] note* Diagnosis History of spontaneous - Primary Personal history of other genital system and obstetric disorders Bleeding in early Unspecified hemorrhage in early , unspecified as to episode of care documented in this encounter [facility] note* Diagnosis with uncertain dates in first trimester- Primary History of section Other postprocedural status Severe persistent asthma without complication History of hypertension Personal history of other diseases of circulatory system History of herpes genitalis Personal history of other infectious and parasitic disease Supervision of other high risk pregnancies, first trimester Obesity in Obesity complicating , childbirth, or the puerperium, unspecified as to episode of care or not applicable Desires (vaginal after ) trial Previous delivery, unspecified as to episode of care or not applicable documented in this encounter [facility] note* Diagnosis Encounter for screening for malformation using ultrasound- Primary 12 weeks gestation of state, incidental documented in this encounter [facility] note* Diagnosis Supervision of other high risk pregnancies, first trimester- Primary 12 weeks gestation of state, incidental History of section Other postprocedural status Severe persistent asthma without complication History of hypertension Personal history of other diseases of circulatory system History of herpes genitalis Personal history of other infectious and parasitic disease Obesity in Obesity complicating , childbirth, or the puerperium, unspecified as to episode of care or not applicable Desires (vaginal after ) trial Previous delivery, unspecified as to episode of care or not applicable Supervision of high risk in second trimester Unspecified high-risk [facility] Diagnosis History of section- Primary Other postprocedural status History of hypertension Personal history of other diseases of circulatory system Desires (vaginal after ) trial Previous delivery, unspecified as to episode of care or not applicable Obesity in Obesity complicating , childbirth, or the puerperium, unspecified as to episode of care or not applicable History of herpes genitalis Personal history of other infectious and parasitic disease [facility] Diagnosis History of section- Primary Other postprocedural status Obesity in Obesity complicating , childbirth, or the puerperium, unspecified as to episode of care or not applicable Desires (vaginal after ) trial Previous delivery, unspecified as to episode of care or not applicable History of hypertension Personal history of other diseases of circulatory system History of herpes genitalis Personal history of other infectious and parasitic disease documented in this encounter [facility] note* Diagnosis Encounter for anatomic survey- Primary 20 weeks gestation of state, incidental Obesity affecting in second trimester, unspecified obesity type documented in this encounter [facility] note* Diagnosis Supervision of high risk in second trimester- Primary Unspecified high-risk 24 weeks gestation of state, incidental Screening for diabetes mellitus Obesity affecting in third trimester, unspecified obesity type History of section Other postprocedural status History of hypertension Personal history of other diseases of circulatory system Desires (vaginal after ) trial Previous delivery, unspecified as to episode of care or not applicable Severe persistent asthma without complication [facility] Diagnosis Supervision of high risk in third trimester (HCC)- Primary Unspecified high-risk History of hypertension Personal history of other diseases of circulatory system History of section Other postprocedural status Obesity affecting in third trimester, unspecified obesity type (HCC) Desires (vaginal after ) trial (HCC) Previous delivery, unspecified as to episode of care or not applicable Severe persistent asthma without complication (HCC) 28 weeks gestation of (HCC) state, incidental documented in this encounter [facility] note* Diagnosis Bacterial sinusitis- Primary Unspecified sinusitis (chronic) [facility] Diagnosis Supervision of high risk in third trimester (HCC)- Primary Unspecified high-risk Desires (vaginal after ) trial ([facility]) Previous delivery, unspecified as to episode of care or not applicable History of hypertension Personal history of other diseases of circulatory system History of section Other postprocedural status Obesity affecting in third trimester, unspecified obesity type (HCC) 30 weeks gestation of ([facility]) state, incidental * Assessment & Plan Note - Emma Mccartney MD - 11/14/2024 3:23 PM EDT Associated Problem(s): Desires (vaginal after ) trial ([facility]) Discussed with the patient due to risk factors with CHTN and obesity possibility of needing IOL at 39 weeks is high- therefore recommendation for IOL at tertiary care center. Pt was agreeable to this. We reviewed if spontaneous active labor then delivery in luz is reasonable. We did review risks of vs scheduled CS and signed consent today for TOLAC. * Assessment & Plan Note - Emma Mccartney MD - 11/14/2024 3:23 PM EDT Associated Problem(s): History of section Discussed scheduling repeat cs if no spontaneous labor vs IOL at tertiary care center- pt will consider. * Assessment & Plan Note - Emma Mccartney MD - 11/14/2024 2:33 PM EDT Associated Problem(s): History of hypertension documented in this encounter [facility] note* Diagnosis Supervision of high risk in third trimester (HCC)- Primary Unspecified high-risk Desires (vaginal after ) trial (HCC) Previous delivery, unspecified as to episode of care or not applicable History of hypertension Personal history of other diseases of circulatory system History of section Other postprocedural status Obesity affecting in third trimester, unspecified obesity type (HCC) 30 weeks gestation of ([facility]) state, incidental Obesity in ([facility])- Primary Obesity complicating , childbirth, or the puerperium, unspecified as to episode of care or not applicable documented in this encounter [facility] note* Diagnosis Supervision of high risk in third trimester (HCC)- Primary Unspecified high-risk Desires (vaginal after ) trial ([facility]) Previous delivery, unspecified as to episode of care or not applicable History of hypertension Personal history of other diseases of circulatory system History of section Other postprocedural status Obesity affecting in third trimester, unspecified obesity type (HCC) 30 weeks gestation of ([facility]) state, incidental Encounter for ultrasound to check growth ([facility])- Primary Encounter for routine screening for malformation using ultrasonics Obesity affecting in third trimester, unspecified obesity type (HCC) 32 weeks gestation of ([facility]) state, incidental documented in this encounter [facility] note* Diagnosis Supervision of high risk in third trimester (HCC)- Primary Unspecified high-risk Desires (vaginal after ) trial (HCC) Previous delivery, unspecified as to episode of care or not applicable History of hypertension Personal history of other diseases of circulatory system History of section Other postprocedural status Obesity affecting in third trimester, unspecified obesity type (HCC) 30 weeks gestation of (HCC) state, incidental Supervision of high risk in third trimester ([facility])- Primary Unspecified high-risk Obesity in (HCC) Obesity complicating , childbirth, or the puerperium, unspecified as to episode of care or not applicable History of section Other postprocedural status 34 weeks gestation of ([facility]) state, incidental * Assessment & Plan Note - Cheyenne Bullock MD - 12/13/2024 10:54 AM EDT Associated Problem(s): Obesity in ([facility]) growth scan ordered Orders: URINE OB DIP B/O * Assessment & Plan Note - Cheyenne Bullock MD - 12/13/2024 10:54 AM EDT Associated Problem(s): History of section plans tolac if spont labor Orders: URINE OB DIP B/O documented in this encounter [facility] note* Diagnosis Desires (vaginal after ) trial ([facility])- Primary Previous delivery, unspecified as to episode of care or not applicable Abnormal glucose in , antepartum ([facility]) Abnormal maternal glucose tolerance, antepartum Supervision of other high risk pregnancies, second trimester Supervision of high risk in third trimester ([facility])- Primary Unspecified high-risk Desires (vaginal after ) trial ([facility]) Previous delivery, unspecified as to episode of care or not applicable History of hypertension Personal history of other diseases of circulatory system History of section Other postprocedural status Obesity affecting in third trimester, unspecified obesity type ([facility]) 30 weeks gestation of ([facility]) state, incidental Supervision of high risk in third trimester ([facility])- Primary Unspecified high-risk Obesity in ([facility]) Obesity complicating , childbirth, or the puerperium, unspecified as to episode of care or not applicable History of section Other postprocedural status 34 weeks gestation of ([facility]) state, incidental documented in this encounter [facility] note* Diagnosis Supervision of high risk in third trimester ([facility])- Primary Unspecified high-risk Desires (vaginal after ) trial ([facility]) Previous delivery, unspecified as to episode of care or not applicable History of hypertension Personal history of other diseases of circulatory system History of section Other postprocedural status Obesity affecting in third trimester, unspecified obesity type ([facility]) 30 weeks gestation of ([facility]) state, incidental Supervision of high risk in third trimester ([facility])- Primary Unspecified high-risk Obesity in ([facility]) Obesity complicating , childbirth, or the puerperium, unspecified as to episode of care or not applicable History of section Other postprocedural status 34 weeks gestation of ([facility]) state, incidental Obesity in ([facility])- Primary Obesity complicating , childbirth, or the puerperium, unspecified as to episode of care or not applicable Supervision of high risk in third trimester ([facility]) Unspecified high-risk History of section Other postprocedural status Desires (vaginal after ) trial ([facility]) Previous delivery, unspecified as to episode of care or not applicable History of hypertension Personal history of other diseases of circulatory system Positive GBS test 37 weeks gestation of ([facility]) state, incidental [facility] Diagnosis Abnormal glucose in , antepartum ([facility])- Primary Abnormal maternal glucose tolerance, antepartum Supervision of high risk in third trimester ([facility])- Primary Unspecified high-risk Desires (vaginal after ) trial ([facility]) Previous delivery, unspecified as to episode of care or not applicable History of hypertension Personal history of other diseases of circulatory system History of section Other postprocedural status Obesity affecting in third trimester, unspecified obesity type ([facility]) 30 weeks gestation of ([facility]) state, incidental Supervision of high risk in third trimester ([facility])- Primary Unspecified high-risk Obesity in ([facility]) Obesity complicating , childbirth, or the puerperium, unspecified as to episode of care or not applicable History of section Other postprocedural status 34 weeks gestation of ([facility]) state, incidental [facility]* Diagnosis Supervision of high risk in third trimester ([facility])- Primary Unspecified high-risk Desires (vaginal after ) trial ([facility]) Previous delivery, unspecified as to episode of care or not applicable History of hypertension Personal history of other diseases of circulatory system History of section Other postprocedural status Obesity affecting in third trimester, unspecified obesity type (HCC) 30 weeks gestation of (HCC) state, incidental Supervision of high risk in third trimester (HCC)- Primary Unspecified high-risk Obesity in (HCC) Obesity complicating , childbirth, or the puerperium, unspecified as to episode of care or not applicable History of section Other postprocedural status 34 weeks gestation of (HCC) state, incidental Supervision of high risk in third trimester (HCC)- Primary Unspecified high-risk Maternal care for decelerations during (HCC) Abnormality in heart rate/rhythm, unspecified as to episode of care or not applicable History of section Other postprocedural status Obesity in (HCC) Obesity complicating , childbirth, or the puerperium, unspecified as to episode of care or not applicable 39 weeks gestation of (HCC) state, incidental * Assessment & Plan Note - Emma Mccartney MD - 01/16/2025 11:47 AM EDTAssociated Problem(s): Obesity in (HCC) Orders: URINE OB DIP B/O * Assessment & Plan Note - Emma Mccartney MD - 01/16/2025 11:47 AM EDTAssociated Problem(s): History of section Reviewed do not recommend tolac- with lat decelerations would not recommend pitocin at this time. Cervical exam - closed/thick/posterior - head not engaged and is more oblique maternal left with large fluid bag below head. documented in this encounter [facility] for referral (narrative)* Diagnostic Procedure Only (Urgent) - Closed Specialty Diagnoses / Procedures Referred By Contdavid t Referred To Contact XR IMAGING Diagnoses Rib pain on left side Left upper arm pain Injury caused by animal, initial encounter Procedures XR RIBS/CHEST 3V AP RIB/OBLS/CXR LEFT RADEX RIBS UNI W/POSTEROANT CH MINIMUM 3 VIEWS Linsey Herman APRN.POLITICAL RESEARCHER [address] [place] [address] [place] [address] Referral ID Status Reason Start Date Expiration Date V isits Requested Visits Authorized [id number] Closed Auto-Generate d Referral 09/19/2021 10/19/2022 1 1 * Diagnostic Procedure Only (Urgent) - Closed Specialty Diagnoses / Procedures Referred By Contac t Referred To Contact XR IMAGING Diagnoses Rib pain on left side Left upper arm pain Injury caused by animal, initial encounter Procedures XR HUMERUS 2V AP/LAT LEFT RADEX HUMERUS MINIMUM 2 VIEWS Linsey Herman APRN.POLITICAL RESEARCHER [address] [place] [address] [place] [address] Referral ID Status Reason Start Date Expiration Date V isits Requested Visits Authorized [id number] Closed Auto-Generate d Referral 09/19/2021 10/19/2022 1 1 [facility] Diagnostic Procedure Only (Routine) - Authorized Specialty Diagnoses / Procedures Referred By Contac t Referred To Contact [facility] Diagnoses with uncertain dates in first trimester Procedures NUCHAL TRANSLUCENCY WHI US NUCHAL TRANSLUCENCY 1ST GESTATION Linsey Shah APRN.CNM [address] [place] [address] [facility] [address] [place] [address] Referral ID Status Reason Start Date Expiration Date Visits Requested Visits Authorized [id number] Authorized Auto-Generat ed Referral 06/21/2025 1 1 * Diagnostic Procedure Only (Routine) - New Request Specialty Diagnoses / Procedures Referred By Contac t Referred To Contact [facility] Diagnoses with uncertain dates in first trimester Procedures OBSTETRIC ULTRASOUND WHI US PREG UTERUS AFTER 1ST TRIMEST GESTATION Linsey Shah APRN.CNM [address] [place] [address] [facility] [address] [place] [address] Referral ID Status Reason Start Date Expiration Date Visits Requested Visits Authorized [id number] New Request Auto-Generat ed Referral 4 06/21/2025 1 1 [facility] for visit Narrative* Diagnostic Procedure Only (Urgent) - Closed Specialty Diagnoses / Procedures Referred By Aaronac t Referred To Contact XR IMAGING Diagnoses Rib pain on left side Left upper arm pain Injury caused by animal, initial encounter Procedures XR RIBS/CHEST 3V AP RIB/OBLS/CXR LEFT RADEX RIBS UNI W/POSTEROANT CH MINIMUM 3 VIEWS Linsey Herman APRN.POLITICAL RESEARCHER [address] [place] [address] [place] [address] Referral ID Status Reason Start Date Expiration Date V isits Requested Visits Authorized [id number] Closed Auto-Generate d Referral 09/19/2021 10/19/2022 1 1 [facility] for visit Narrative* Consult, Test, Treat (Routine) - Authorized Specialty Diagnoses / Procedures Referred By Aaronac t Referred To Contact Secretary Administrative Assistant / WAREHOUSE ADMINISTRATOR Diagnoses Encounter for anatomic survey (HCC) History of section Follow-up examination OB Routine Procedures OFFICE/OUTPATIENT ESTABLISHED HIGH MDM 40 MIN OFFICE/OUTPATIENT EST PT MAY NOT REQ PHYS/QHP EST WHI OB Linsey Shah APRN.CNM [address] [place] [address] Phone: tel: fax: Linsey Shah APRN.CNM [address] [place] [address] Phone: tel: fax: Referral ID Status Reason Start Date Expiration Date V isits Requested Visits Authorized [id number] Authorized 09/06/2024 08/08/2025 99 99 [facility] Summary Purpose Family History No Family History Records FoundNo Family History Records FoundNo Family History Records Found Advance Directives Advance Directive Response Recorded Date/ Time Living Will No January 05, 2023 1 0:02am Power of Executive Director Contract Shop No January 05, 2023 10:02am Health Concerns Problem Noted Date OB Reminders 12/03/2022 Problem Noted Date OB Reminders 12/03/2022 Problem Noted Date OB Reminders 12/03/2022 Problem Noted Date OB Reminders 12/03/2022 Problem Noted Date OB Reminders 12/03/2022 Problem Noted Date OB Reminders 12/03/2022 Problem Noted Date OB Reminders 12/03/2022 Problem Noted Date Diagnosed Date OB Reminders 12/03/2022 Chief Complaint and Reason for Visit Chief Complaint PRIMARY C SECTION Reason for Visit delivery de livered Single live 39 weeks gestation of Reinier breech Additional Source Comments Source Comments (unrecognize d section and content) In the event this informatio n is protected by the Federal Confidentiality of Alcohol and Drug Abuse Patient Records regulations: The Federal rules restrict any use of the information to criminally investigate or prosecute any alcohol or drug abuse patient.[facility] the event this information is protected by the Federal Confidentiality of Alcohol and Drug Abuse Patient Records regulations: The Federal rules restrict any use of the information to criminally investigate or prosecute any alcohol or drug abuse patient.[facility] the event this information is protected by the Federal Confidentiality of Alcohol and Drug Abuse Patient Records regulations: The Federal rules restrict any use of the information to criminally investigate or prosecute any alcohol or drug abuse patient.[facility] the event this information is protected by the Federal Confidentiality of Alcohol and Drug Abuse Patient Records regulations: The Federal rules restrict any use of the information to criminally investigate or prosecute any alcohol or drug abuse patient.[facility] the event this information is protected by the Federal Confidentiality of Alcohol and Drug Abuse Patient Records regulations: The Federal rules restrict any use of the information to criminally investigate or prosecute any alcohol or drug abuse patient.[facility] the event this information is protected by the Federal Confidentiality of Alcohol and Drug Abuse Patient Records regulations: The Federal rules restrict any use of the information to criminally investigate or prosecute any alcohol or drug abuse patient.[facility] the event this information is protected by the Federal Confidentiality of Alcohol and Drug Abuse Patient Records regulations: The Federal rules restrict any use of the information to criminally investigate or prosecute any alcohol or drug abuse patient.[facility] the event this information is protected by the Federal Confidentiality of Alcohol and Drug Abuse Patient Records regulations: The Federal rules restrict any use of the information to criminally investigate or prosecute any alcohol or drug abuse patient.[facility]In the event this information is protected by the Federal Confidentiality of Alcohol and Drug Abuse Patient Records regulations: The Federal rules restrict any use of the information to criminally investigate or prosecute any alcohol or drug abuse patient.[facility] ColumbusIn the event this information is protected by the Federal Confidentiality of Alcohol and Drug Abuse Patient Records regulations: The Federal rules restrict any use of the information to criminally investigate or prosecute any alcohol or drug abuse patient.[facility] ColumbusIn the event this information is protected by the Federal Confidentiality of Alcohol and Drug Abuse Patient Records regulations: The Federal rules restrict any use of the information to criminally investigate or prosecute any alcohol or drug abuse patient.[facility] ColumbusIn the event this information is protected by the Federal Confidentiality of Alcohol and Drug Abuse Patient Records regulations: The Federal rules restrict any use of the information to criminally investigate or prosecute any alcohol or drug abuse patient.[facility] ColumbusIn the event this information is protected by the Federal Confidentiality of Alcohol and Drug Abuse Patient Records regulations: The Federal rules restrict any use of the information to criminally investigate or prosecute any alcohol or drug abuse patient.[facility] ColumbusIn the event this information is protected by the Federal Confidentiality of Alcohol and Drug Abuse Patient Records regulations: The Federal rules restrict any use of the information to criminally investigate or prosecute any alcohol or drug abuse patient.[facility] ColumbusIn the event this information is protected by the Federal Confidentiality of Alcohol and Drug Abuse Patient Records regulations: The Federal rules restrict any use of the information to criminally investigate or prosecute any alcohol or drug abuse patient.[facility] ColumbusIn the event this information is protected by the Federal Confidentiality of Alcohol and Drug Abuse Patient Records regulations: The Federal rules restrict any use of the information to criminally investigate or prosecute any alcohol or drug abuse patient.[facility] ColumbusIn the event this information is protected by the Federal Confidentiality of Alcohol and Drug Abuse Patient Records regulations: The Federal rules restrict any use of the information to criminally investigate or prosecute any alcohol or drug abuse patient.[facility] ColumbusIn the event this information is protected by the Federal Confidentiality of Alcohol and Drug Abuse Patient Records regulations: The Federal rules restrict any use of the information to criminally investigate or prosecute any alcohol or drug abuse patient.[facility] ColumbusIn the event this information is protected by the Federal Confidentiality of Alcohol and Drug Abuse Patient Records regulations: The Federal rules restrict any use of the information to criminally investigate or prosecute any alcohol or drug abuse patient.[facility] ColumbusIn the event this information is protected by the Federal Confidentiality of Alcohol and Drug Abuse Patient Records regulations: The Federal rules restrict any use of the information to criminally investigate or prosecute any alcohol or drug abuse patient.[facility] ColumbusIn the event this information is protected by the Federal Confidentiality of Alcohol and Drug Abuse Patient Records regulations: The Federal rules restrict any use of the information to criminally investigate or prosecute any alcohol or drug abuse patient.[facility] ColumbusIn the event this information is protected by the Federal Confidentiality of Alcohol and Drug Abuse Patient Records regulations: The Federal rules restrict any use of the information to criminally investigate or prosecute any alcohol or drug abuse patient.[facility] ColumbusIn the event this information is protected by the Federal Confidentiality of Alcohol and Drug Abuse Patient Records regulations: The Federal rules restrict any use of the information to criminally investigate or prosecute any alcohol or drug abuse patient.[facility] ColumbusIn the event this information is protected by the Federal Confidentiality of Alcohol and Drug Abuse Patient Records regulations: The Federal rules restrict any use of the information to criminally investigate or prosecute any alcohol or drug abuse patient.[facility] ColumbusIn the event this information is protected by the Federal Confidentiality of Alcohol and Drug Abuse Patient Records regulations: The Federal rules restrict any use of the information to criminally investigate or prosecute any alcohol or drug abuse patient.[facility] ColumbusIn the event this information is protected by the Federal Confidentiality of Alcohol and Drug Abuse Patient Records regulations: The Federal rules restrict any use of the information to criminally investigate or prosecute any alcohol or drug abuse patient.[facility] ColumbusIn the event this information is protected by the Federal Confidentiality of Alcohol and Drug Abuse Patient Records regulations: The Federal rules restrict any use of the information to criminally investigate or prosecute any alcohol or drug abuse patient.[facility] ColumbusIn the event this information is protected by the Federal Confidentiality of Alcohol and Drug Abuse Patient Records regulations: The Federal rules restrict any use of the information to criminally investigate or prosecute any alcohol or drug abuse patient.[facility] ColumbusIn the event this information is protected by the Federal Confidentiality of Alcohol and Drug Abuse Patient Records regulations: The Federal rules restrict any use of the information to criminally investigate or prosecute any alcohol or drug abuse patient.[facility] ColumbusIn the event this information is protected by the Federal Confidentiality of Alcohol and Drug Abuse Patient Records regulations: The Federal rules restrict any use of the information to criminally investigate or prosecute any alcohol or drug abuse patient.[facility] ColumbusIn the event this information is protected by the Federal Confidentiality of Alcohol and Drug Abuse Patient Records regulations: The Federal rules restrict any use of the information to criminally investigate or prosecute any alcohol or drug abuse patient.[facility] ColumbusIn the event this information is protected by the Federal Confidentiality of Alcohol and Drug Abuse Patient Records regulations: The Federal rules restrict any use of the information to criminally investigate or prosecute any alcohol or drug abuse patient.[facility] ColumbusIn the event this information is protected by the Federal Confidentiality of Alcohol and Drug Abuse Patient Records regulations: The Federal rules restrict any use of the information to criminally investigate or prosecute any alcohol or drug abuse patient.[facility] ColumbusIn the event this information is protected by the Federal Confidentiality of Alcohol and Drug Abuse Patient Records regulations: The Federal rules restrict any use of the information to criminally investigate or prosecute any alcohol or drug abuse patient.[facility] ColumbusIn the event this information is protected by the Federal Confidentiality of Alcohol and Drug Abuse Patient Records regulations: The Federal rules restrict any use of the information to criminally investigate or prosecute any alcohol or drug abuse patient.[facility] ColumbusIn the event this information is protected by the Federal Confidentiality of Alcohol and Drug Abuse Patient Records regulations: The Federal rules restrict any use of the information to criminally investigate or prosecute any alcohol or drug abuse patient.[facility] Reason for Visit (unrecogniz ed section and content) Reason Onset Date Comments Care 01/16/2025 Specialty Diagnoses / Procedures Referred By Aaronac t Referred To Contact Secretary Administrative Assistant / WAREHOUSE ADMINISTRATOR Diagnoses Encounter for anatomic survey (HCC) History of section Follow-up examination OB Routine Procedures OFFICE/OUTPATIENT ESTABLISHED HIGH MDM 40 MIN OFFICE/OUTPATIENT EST PT MAY NOT REQ PHYS/QHP EST I OB Linsey Shah APRN.CNM [address] [place] [address] Phone: tel: fax: Linsey Shah APRN.CNM [address] [place] [address] Phone: tel: fax: Referral ID Status Reason Start Date Expiration Date V isits Requested Visits Authorized [id number] Authorized 09/06/2024 08/08/2025 99 99 Reason Onset Date Comments Care 01/03/2025 Specialty Diagnoses / Procedures Referred By Teo garcia Referred To Contact Secretary Administrative Assistant / WAREHOUSE ADMINISTRATOR Diagnoses Encounter for anatomic survey (HCC) History of section Follow-up examination OB Routine Procedures OFFICE/OUTPATIENT ESTABLISHED HIGH MDM 40 MIN OFFICE/OUTPATIENT EST PT MAY NOT REQ PHYS/QHP EST I OB Linsey Shah APRN.CNM [address] [address] Phone: tel: fax: Linsey Shah APRN.CNM [address] [place] [address] Phone: tel: fax: Referral ID Status Reason Start Date Expiration Date V isits Requested Visits Authorized [id number] Authorized 09/06/2024 08/08/2025 99 99 Reason Onset Date Comments Care 12/13/2024 Reason Comments US Reason Onset Date Comments Care 11/14/2024 Reason Comments Refill Request Reason Onset Date Comments Care 12/08/2022 Specialty Diagnoses / Procedures Referred By Teo garcia Referred To Contact WAREHOUSE ADMINISTRATOR Diagnoses NST (non-stress test) nonreactive NST and office visit Procedures OFFICE/OUTPATIENT ESTABLISHED HIGH MDM 40-54 MIN EST I OB Linsey Shah APRN.CNM [address] [place] [address] Linsey Shah APRN.[facility] [address] [place] [address] Referral ID Status Reason Start Date Expiration Date Visits Re quested Visits Authorized [id number] Closed 12/08/2022 08/08/2023 1 1 Reason Onset Date Comments Care 12/17/2022 Specialty Diagnoses / Procedures Referred By Contac t Referred To Contact WAREHOUSE ADMINISTRATOR Diagnoses Encounter for gynecological examination OB Procedures OFFICE/OUTPATIENT ESTABLISHED HIGH MDM 40-54 MIN EST WHI OB Self Jarocho Hughes MD [address] [place] [address] Referral ID Status Reason Start Date Expiration Date Visits Re quested Visits Authorized [id number] Closed 12/17/2022 08/08/2023 1 1 Specialty Diagnoses / Procedures Referred By Contac t Referred To Contact [facility] Diagnoses 34 weeks gestation of Procedures OBSTETRIC ULTRASOUND [facility] US PREG UTERUS AFTER 1ST TRIMEST GESTATION Linsey Shah APRN.[facility] [address] [place] [address] [facility] [address] [place] [address] Referral ID Status Reason Start Date Expiration Date V isits Requested Visits Authorized [id number] Closed Auto-Generate d Referral 12/04/2022 08/08/2023 1 1 Reason Comments Ob Delivery Note Reason Comments Patient Update Reason Comments Care Specialty Diagnoses / Procedures Referred By Contac t Referred To Contact WAREHOUSE ADMINISTRATOR Diagnoses Follow-up exam incision check (c/s 01/05/23) Procedures OFFICE/OUTPATIENT ESTABLISHED MOD MDM 30-39 MIN POST Emma Mccartney MD [address] [place] [address] Emma Mccartney MD [address] [place] [address] Referral ID Status Reason Start Date Expiration Date Visits Re quested Visits Authorized [id number] Closed 01/12/2023 08/08/2023 1 1 Reason Comments Early Specialty Diagnoses / Procedures Referred By Contac t Referred To Contact WAREHOUSE ADMINISTRATOR Diagnoses Follow-up exam post b/p check Procedures OFFICE/OUTPATIENT ESTABLISHED HIGH MDM 40-54 MIN EST WHI PATIENT Linsey Shah APRN.CNM [address] [place] [place] [address] Linsey Shah APRN.CN [address] [place] [address] Referral ID Status Reason Start Date Expiration Date Visits Re quested Visits Authorized [id number] Closed 01/18/2023 08/08/2023 1 1 Reason Onset Date Comments Refill Request 05/28/2023 Reason Onset Date Comments Refill Request 05/22/2024 Reason Comments Patient Update New Patient Question Lab Work 7-8 weeks Reason Comments Early OB-spotting Reason Comments Initial OB Visit Specialty Diagnoses / Procedures Referred By Contac t Referred To Contact Secretary Administrative Assistant / WAREHOUSE ADMINISTRATOR Diagnoses Encounter for gynecological examination (general) (routine) without abnormal findings PRENTAL CARE Procedures OFFICE/OUTPATIENT NEW HIGH MDM 60 MINUTES CARE Self [employer] [address] [place] [address] Referral ID Status Reason Start Date Expiration Date V isits Requested Visits Authorized [id number] Authorized 05/30/2024 08/08/2024 99 99 Specialty Diagnoses / Procedures Referred By Contac t Referred To Contact [facility] Diagnoses with uncertain dates in first trimester Procedures NUCHAL TRANSLUCENCY [facility] US NUCHAL TRANSLUCENCY 1ST GESTATION Linsey Shah APRN.CN [address] [place] [place] [address] [facility] [address] [place] [address] Referral ID Status Reason Start Date Expiration Date V isits Requested Visits Authorized [id number] Closed Auto-Generate d Referral 06/21/2024 06/21/2025 1 1 Reason Onset Date Comments Care 07/14/2024 Specialty Diagnoses / Procedures Referred By Contac t Referred To Contact Secretary Administrative Assistant / WAREHOUSE ADMINISTRATOR Diagnoses Follow-up examination Nuchal/OB Procedures OFFICE/OUTPATIENT EST PT MAY NOT REQ PHYS/QHP OFFICE/OUTPATIENT ESTABLISHED HIGH MDM 40 MIN EST WHI OB Linsey Shah APRN.CNM [address] [place] [address] Linsey Shah APRN.CN [address] [place] [address] Referral ID Status Reason Start Date Expiration Date Visits Re quested Visits Authorized [id number] Closed 07/14/2024 08/08/2024 1 1 Reason Onset Date Comments Care 08/16/2024 Specialty Diagnoses / Procedures Referred By Contac t Referred To Contact Secretary Administrative Assistant / WAREHOUSE ADMINISTRATOR Diagnoses Follow-up examination OB Routine Procedures OFFICE/OUTPATIENT EST PT MAY NOT REQ PHYS/QHP OFFICE/OUTPATIENT ESTABLISHED HIGH MDM 40 MIN EST I OB Self Linsey Shah APRN.CNM [address] [place] [address] Referral ID Status Reason Start Date Expiration Date V isits Requested Visits Authorized [id number] Authorized 08/11/2024 08/08/2025 1 99 Reason Onset Date Comments Care 09/06/2024 Specialty Diagnoses / Procedures Referred By Contac t Referred To Contact Secretary Administrative Assistant / WAREHOUSE ADMINISTRATOR Diagnoses Follow-up examination OB Routine Procedures EST [facility] OB Linsey Shah APRN.CN [address] [place] [address] Linsey Shha APRN.CNScotty [address] [place] [address] Referral ID Status Reason Start Date Expiration Date V isits Requested Visits Authorized [id number] Authorized 09/06/2024 08/08/2025 1 98 Specialty Diagnoses / Procedures Referred By Contac t Referred To Contact [facility] Diagnoses with uncertain dates in first trimester Procedures OBSTETRIC ULTRASOUND [facility] US PREG UTERUS AFTER 1ST TRIMEST GESTATION Linsey Shah APRN.CNM [address] [place] [address] [facility] [address] [place] [address] Referral ID Status Reason Start Date Expiration Date Visits Requested Visits Authorized [id number] Authorized Auto-Generat ed Referral 09/06/2024 08/08/2025 1 20 Reason Onset Date Comments Care 10/05/2024 Specialty Diagnoses / Procedures Referred By Contac t Referred To Contact Secretary Administrative Assistant / WAREHOUSE ADMINISTRATOR Diagnoses Encounter for anatomic survey History of section Follow-up examination OB Routine Procedures OFFICE/OUTPATIENT ESTABLISHED HIGH MDM 40 MIN OFFICE/OUTPATIENT EST PT MAY NOT REQ PHYS/QHP EST WHI OB Linsey Shah APRN.CNM [address] [place] [address] Phone: tel: fax: Linsey Shah APRN.CNScotty [address] [place] [address] Phone: tel: fax:[phone] Reason Onset Date Comments Care 11/03/2024 Reason Comments Sinus Problem sinus pressure, michelle mroaes on amoxicillin x 2 days Reason Comments Appointment Reason Onset Date Comments Care 01/16/2025 INFORMATION SOURCE (unrecogn ized section and content) DATE CREATED AUTHOR 10/23/2022 [facility] DATE CREATED AUTHOR AUTHOR'S ORGANIZ ATION 08/30/2024 [facility] DATE CREATED AUTHOR AUTHOR'S ORGANIZ ATION 01/10/2025 [facility] Care Teams (unrecognized sec tion and content) Team Status: Active Member Role Status Dates Dr. Pankaj Scherer MD Family Provider Active Dr. Kriss Yadav , Primary Care Provider Active Team Status: Inactive Member Role Status Dates Dr. Cheyenne Bullock MD Admit Provider, Attending Provider, Referring Provider Active Dr. Kriss Frakowski , DO Primary Care Provider Active Goals (unrecognized section and content) Goals may be documented in a n alternate section FOR RECORDS PERTAINING TO PATIENTS WHO ARE OR HAVE BEEN ENROLLED IN A CHEMICAL DEPENDENCY/SUBSTANCEABUSE PROGRAM, SOME INFORMATION MAY BE OMITTED. This clinical summary was aggregated from multiple sources. Caution should be exercised in using it in the provision of clinical care. This summary normalizes information from multiple sources, and as a consequence, information in this document may materially change the coding, format and clinical context of patient data. In addition, data may be omitted in some cases. CLINICAL DECISIONS SHOULD BE BASED ON THE PRIMARY CLINICAL RECORDS. [employer] [facility]. provides no warranty or guarantee of the accuracy or completeness of information in this document.
[2025-01-17] VITALS (7 sets, daily range): BP systolic 115–129; BP diastolic 56–70; PULSE 72–83; RESP 16–18; TEMP 36.2–36.7; O2SAT 98–100
[2025-01-17] MEDS: Acetaminophen 500 MG Tablet 1000 MG PO ×4 (02:10→20:16)
[2025-01-17] MEDS: Enoxaparin 40 MG/0.4 ML Syringe SC (04:23)
[2025-01-17] MEDS: Ketorolac 30 MG/ML Syringe IV ×2 (05:25→12:10)
[2025-01-17 05:39] LABS: Hematocrit 32.9 % (37-47); Hemoglobin 11.2 g/dL (12.0-15.0); Mean Corpuscular Hgb 30.2 pg (27.0-32.0); Mean Corpuscular Volume 88.7 fL (81-99); Mean Platelet Vol. 9.2 fl (6.2-12.0); Platelet Count 134 K/mm3 (150-450); RBC Distribution Width CV 13.7 % (11.6-14.6); RBC Distribution Width SD 44.5 fl (35.1-43.9); Red Blood Count 3.71 M/mm3 (4.2-5.4); White Blood Count 11.5 K/mm3 (4.4-11.0)
--- NOTE | 2025-01-17 08:20 | PCM.PN.OB ---
Subjective Subjective Doing well. Ambulating and voiding without difficulty. Mild lochia. Breast feeding. Objective Data Objective Data Vital Signs: Vital Signs Temp Pulse Resp BP Pulse Ox O2 Del Method 97.1 F L 78 18 115/56 L 100 Room Air 01/17/25 04:15 01/17/25 04:15 01/17/25 04:15 01/17/25 04:15 01/17/25 04:15 01/17/25 04:15 Oxygen Delivery Method Room Air Weight: 101.151 kg Body Mass Index (BMI) 38.2 Intake & Output: Intake and Output for Last 24 Hours 01/15/25 01/16/25 01/17/25 23:59 23:59 23:59 Intake Total 1858.2 / 1858.2 Output Total 1125 / 1125 400 / 400 Balance 733.2 / 733.2 -400 / -400 Lab / Micro Data 01/17/25 05:25 Labs: Laboratory Results - last 24 hr 01/16/25 13:05: WBC 10.5, RBC 4.49, Hgb 13.3, Hct 39.4, MCV 87.8, MCH 29.6, MCHC 33.8, RDW Std Deviation 43.9, RDW Coeff of Nadir 13.8, Plt Count 177, MPV 9.5, Immature Gran % (Auto) 0.800, Neut % (Auto) 74.1 H, Lymph % (Auto) 19.0, [place] % (Auto) 5.1, Eos % (Auto) 0.6, Baso % (Auto) 0.4, Absolute Neuts (auto) 7.8 H, Absolute Lymphs (auto) 1.99, Nucleated RBC % 0, Syphilis Total Ab Nonreactive, Blood Type O POSITIVE, Antibody Screen NEGATIVE 01/17/25 05:25: WBC 11.5 H, RBC 3.71 L, Hgb 11.2 L, Hct 32.9 L, MCV 88.7, MCH 30.2, MCHC 34.0, RDW Std Deviation 44.5 H, RDW Coeff of Nadir 13.7, Plt Count 134 L, MPV 9.2 ROS Constitutional Constitutional: Denies headache(s) Cardiovascular Cardiovascular: Denies chest pain or dyspnea Gastrointestinal Gastrointestinal: Denies nausea or vomiting Genitourinary Genitourinary: Denies dysuria Physical Exam Const alert, oriented x3 and no apparent distress General Appearance: cooperative and comfortable Eyes PERRL and EOMs intact bilaterally Resp normal respiratory effort GI soft to palpation and non-tender GI Narrative: soft, moderate distention, fundus firm, appropriately tender. Abdominal bandage clean dry and intact Uterus Palpation: uterus fundus firm ( below umbilicus) Extremity normal to inspection and full ROM Neuro oriented x3 and CN's II-XII intact bilaterally Psych mental status grossly normal Assessment & Plan (1) Previous delivery affecting : COMMENT: @ 39 weeks (2) 39 weeks gestation of : (3) S/P : PLAN: Plan Routine PP care
[2025-01-17] MEDS: Senna/Docusate Sodium 1 Tablet PO (08:50)
[2025-01-17] MEDS: Acyclovir 200 MG Capsule 400 MG PO ×2 (12:10→21:48)
[2025-01-17] MEDS: Calcium Carbonate 500 MG Tablet 1000 MG PO (14:25)
[2025-01-17] MEDS: Ibuprofen 600 MG Tablet PO ×2 (17:38→23:47)
[2025-01-18] MEDS: oxyCODONE 5 MG Tablet PO ×2 (01:13→05:30)
[2025-01-18] MEDS: Acetaminophen 500 MG Tablet 1000 MG PO ×2 (02:19→08:04)
[2025-01-18 02:23] VITALS: BP 118/63; PULSE 76; RESP 16; TEMP 36.7; O2SAT 96
[2025-01-18] MEDS: Ibuprofen 600 MG Tablet PO (05:06)
[2025-01-18] MEDS: Enoxaparin 40 MG/0.4 ML Syringe SC (05:06)
--- NOTE | 2025-01-18 06:55 | PCM.PN.OB ---
Subjective Subjective Doing well. Ambulating and voiding without difficulty. Mild lochia. Breast feeding. Objective Data Objective Data Vital Signs: Vital Signs Temp Pulse Resp BP Pulse Ox O2 Del Method 98.0 F 76 16 118/63 96 Room Air 01/18/25 02:23 01/18/25 02:23 01/18/25 02:23 01/18/25 02:23 01/18/25 02:23 01/18/25 02:23 Oxygen Delivery Method Room Air Weight: 101.151 kg Body Mass Index (BMI) 38.2 Intake & Output: Intake and Output for Last 24 Hours 01/16/25 01/17/25 01/18/25 23:59 23:59 23:59 Intake Total 1858.2 / 1858.2 Output Total 1125 / 1125 1850 / 1850 Balance 733.2 / 733.2 -1850 / -1850 Lab / Micro Data 01/17/25 05:25 Physical Exam Const alert General Appearance: cooperative GI GI Narrative: soft, moderate distention, fundus firm, appropriately tender. Abdominal bandage clean dry and intact Assessment & Plan (1) S/P : PLAN: Plan discharge home follow up 1 week
--- NOTE | 2025-01-18 06:55 | PCM.DC.SUM ---
Providers Date of Admission: 01/16/25 Date of Discharge: 01/18/25 Primary Care Physician: Ct Bartlett PA-C Reason For Visit: REPEAT C SECTION/NOT SCHEDULED Diagnosis Discharge Diagnosis (1) Previous delivery affecting : Status: Acute Code(s): O34.219 - Maternal care for unspecified type scar from previous delivery (2) 39 weeks gestation of : Status: Acute Code(s): Z3A.39 - 39 weeks gestation of (3) S/P : Status: Acute Code(s): Z98.891 - History of uterine scar from previous surgery Plan Routine PP care Medications at Discharge Home Medications ibuprofen 600 mg tablet 600 mg PO Q6H PRN pain #30 tabs 01/07/23 cetirizine 10 mg tablet 10 mg PO DAILY allergies 08/01/24 fluticasone 113 mcg-salmeterol 14 mcg/actuation breath activated powdr 2 inh inhalation DAILY asthma 08/01/24 oxycodone 5 mg tablet 5 mg PO Q6H PRN PRN Pain Score 4-10 5 days #20 tabs 01/18/25 Hospital Course Operations section Procedures None Summary of Care Provided Minutes Spent on Discharge: 20 Hospital Course: Repeat for Cat 2 tracing. Uncomplicated . Breast feeding. Physical Exam Const alert General Appearance: cooperative GI GI Narrative: soft, moderate distention, fundus firm, appropriately tender. Abdominal bandage clean dry and intact Weight / BMI Weight Weight: 101.151 kg Body Mass Index (BMI) 38.2 ABG / Lab / Microbiology Data 01/17/25 05:25 D/C Instructions Discharge Diet: No restrictions May resume sexual activity in: 4-6 weeks Lifting Restrictions: 20 pounds Additional Activity Instructions: Nothing in the vagina for 4-6 weeks. You may return to work/school in 6 weeks. Call your doctor if your incision/area has: Continuous Slow Oozing, Sudden Increased Bleeding, Increased Pain/ Swelling, Increased Redness and Foul Smelling Discharge Call your doctor if you observe: Fever of 101 or Higher and Using more than 1 pad per hour (for 2 hours) Suture Line Care: Avoid Pulling/Pushing and Avoid Pinching/Bending Cleanse incision/area with: Keep Dressing Clean & Dry DC O2, CPAP, BIPAP Needs Home O2 Discharge instructions: No Please Follow Up With: Nargis Aguirre MD When: Call to make an appointment for an incision check in 1-2 [phone]. You will need a post check in 6 weeks. Meaningful Use Info Meaningful Use Meaningful Use Diagnoses (Choose all that apply): None applicable Ischemic Stroke Statin Dosing Therapy Reference: STATIN DOSE THERAPY REFERENCE: * Patients > 75 years receive moderate or high dose statin therapy. * Patients 75 years or YOUNGER should receive HIGH intensity statin dose unless contraindicated. You will be required to document reason for non-treatment if statin daily dose does not meet guidelines. HIGH DOSE STATIN THERAPY DAILY Atorvastatin > than or = to 40 mg Rosuvastatin > than or = to 20 mg Amlodipine + Atorvastatin > than or = to 2.5/40 mg Ezetimibe + Simvastatin 10/80 mg Simvastatin 80mg Discharge Plan Admission Admit Date/Time: 01/16/25 12:39 Primary Reason for Your Visit: repeat Attending Provider: Jarocho Hughes Primary Care Provider: Ct Bartlett Discharge Orders/Prescriptions Prescriptions: New oxycodone 5 mg Tablet 5 mg PO Q6H PRN PRN (Reason: Pain Score 4-10) 5 Days Qty: 20 0RF Continued ibuprofen 600 mg tablet 600 mg PO Q6H PRN (Reason: pain) Qty: 30 0RF cetirizine 10 mg tablet 10 mg PO DAILY fluticasone propion-salmeterol 113-14 mcg/actuation aerosol powdr breath activated 2 inh INHALATION DAILY Discontinued valacyclovir 1 gram tablet 1,000 mg PO TID aspirin 81 mg tablet,delayed release (DR/EC) 162 mg PO DAILY Referrals / Follow Up: Ct Bartlett PACarisaC [Primary Care Provider] - Disposition Disposition (needs filled in before D/C Order can be placed): Home, Self Care
[2025-01-18] MEDS: Calcium Carbonate 500 MG Tablet 1000 MG PO (08:04)
[2025-01-18] MEDS: Senna/Docusate Sodium 1 Tablet PO (08:04)
[2025-01-18 08:20] VITALS: BP 125/89; PULSE 73; RESP 16; TEMP 36.7; O2SAT 98
--- NOTE | 2025-01-24 16:08 | NURSING ---
Follow up phone call: Patient reports that she was just seen by her provider because she is having high blood pressure and is now on medication. She will report back to her OB next week. Her bandage was taken off yesterday and her incision look good. is nursing very well and is almost up to weight per ped appt this week. Patient reports no s+s of pp complications other than her high bp that is being cared for. Patient stated she was happy with her care and meshed well with all of the staff.
== END 2025-01-18 09:30 | disposition home or self-care (01) | DRG 788 ==
PROVIDERS: Admitting Provider Obstetrics & Gynecology; PCP Family Medicine; Referring Provider Obstetrics & Gynecology; Visit Provider Obstetrics & Gynecology
DX: O76 Abnormality in fetal heart rate and rhythm complicating labor and delivery (principal); O34.219 Maternal care for unspecified type scar from previous cesarean delivery; Z37.0 Single live birth; Z3A.39 39 weeks gestation of pregnancy; Z79.82 Long term (current) use of aspirin
CPT/HCPCS: 59025; 59050; 85025; 85027; 86780; 86850; 86900; 86901; 99221; G0378